=== PATIENT | female | born 1960 | race Caucasian/White ===

== ENCOUNTER 2016-08-15 12:28 | Emergency (ER) | payer OTHER ==
[2016-08-15] MEDS ORDERED: INSULIN REGULAR HUMAN 100 UNITS/ML *VIAL IVPUSH ONE (12:59)
[2016-08-15] MEDS ORDERED: SODIUM CHLORIDE 1,000 ML IV ONE (12:59)
[2016-08-15 13:23] VITALS: TEMP 98.2; BMI 32.1
[2016-08-15 13:36] LABS: VENOUS BLOOD GAS HCO3 29.7 meq/L (22-29); VENOUS PH 7.37 (7.31-7.41)
[2016-08-15 13:44] LABS: MCH 29.2 pg (25.7-33.7); MCHC 32.7 g/dl (32.0-36.0); MEAN CELL VOLUME 89.3 fl (80-96); MEAN PLT VOLUME 8.1 fl (7.5-11.1); NEUTROPHILS 61.1 % (42.8-82.8); PLATELET COUNT 146 K/MM3 (134-434); RDW 14.8 % (11.6-15.6); WHITE BLOOD COUNT 6.6 K/mm3 (4.0-10.0)
[2016-08-15 13:45] LABS: URINE APPEARANCE CLEAR; URINE BILIRUBIN NEGATIVE (NEGATIVE); URINE BLOOD NEGATIVE (NEGATIVE); URINE COLOR LT. YELLOW; URINE GLUCOSE (UA) 3+ (NEGATIVE); URINE KETONE NEGATIVE (NEGATIVE); URINE LEUK ESTERASE NEGATIVE (NEGATIVE); URINE NITRITE NEGATIVE (NEGATIVE); URINE PROTEIN NEGATIVE (NEGATIVE); URINE UROBILINOGEN 0.2 E.U/dl E.U./dl (0.2-1.0)
--- NOTE | 2016-08-15 14:02 | PDOC ---
History of Present Illness - General History Source: Patient Exam Limitations: No Limitations - History of Present Illness Initial Comments: 08/15/16 14:06 The patient is a 56-year-old woman with a significant past medical history of non-insulin dependent diabetes mellitus, hepatitis C and chronic constipation who presents to the emergency department via EMS for further evaluation of hyperglycemia this morning. She states that her sugars typically run in the 160s and today, after experiencing generalized abdominal discomfort and lightheadedness, she decided to measure her sugar, which turned out to measure 291. She proceeded to go to her scheduled outpatient appointment for which she was found to have a blood glucose measurement of 585. She was given 1 shot of Insulin. EMS was activated. As per patient, she does not know what could have cause her elevated blood sugars, as she is complaint with her Metformin (1000 mg BID), however, she admits to some dietary noncompliance as she ate one Hersheys kiss, last night. She denies changes in dosages, new medications. She denies chest pain, cough, shortness of breath, headache, nausea, vomiting, diarrhea Allergies: No Known Drug Allergies Past Surgical History: None reported Social History: Current everyday cigarette smoker (approximately 2 cigarettes/ day) No ETOH and recreational drug use. Primary Care Physician: Dr. Ramírez <Eileen Saels - Last Filed: 08/15/16 14:07> <Yousif Adams - Last Filed: 08/15/16 14:37> - General Chief Complaint: Blood Sugar Problem Stated Complaint: WEAKNESS Time Seen by Provider: 08/15/16 13:02 Past History <Eileen Seals - Last Filed: 08/15/16 14:07> - Psycho/Social/Smoking Cessation Hx Suicidal Ideation: No Smoking History: Unknown if ever smoked Hx Alcohol Use: No Drug/Substance Use Hx: No <Yousif Adams - Last Filed: 08/15/16 14:37> - Past Medical History Allergies/Adverse Reactions: Allergies Allergy/AdvReac Type Severity Reaction Status Date / Time No Known Allergies Allergy Unverified 08/15/16 13:13 Review of Systems - Review of Systems Constitutional: No: Chills, Fever Respiratory: No: Cough, Shortness of Breath Cardiac (ROS): No: Chest Pain, Palpitations, Syncope ABD/GI: Yes: Nausea. No: Diarrhea, Vomiting : No: Dysuria All Other Systems: Reviewed and Negative <Yousif Adams - Last Filed: 08/15/16 14:37> *Physical Exam - Vital Signs Last Vital Signs Temp Pulse Resp BP Pulse Ox 98.2 F 88 20 160/81 95 08/15/16 12:30 08/15/16 12:30 08/15/16 12:30 08/15/16 12:30 08/15/16 12:30 - Physical Exam Comments: 08/15/16 14:06 GENERAL: The patient is awake, alert, and fully oriented, in no acute distress. HEAD: Normal with no signs of trauma. EYES: Pupils equal, round and reactive to light, extraocular movements intact, sclera anicteric, conjunctiva clear with no pallor. ENT: Ears normal, nares patent, oropharynx clear without exudates. Dry mucous membranes. NECK: Normal range of motion, supple without lymphadenopathy, JVD, or masses. LUNGS: Breath sounds equal, clear to auscultation bilaterally. No wheeze/ crackles. HEART: Regular rate and rhythm, normal S1 and S2 without murmur or rub. ABDOMEN: +Slightly distended but otherwise soft, nontender BS wnl. No guarding or rebound. No palpable masses. No hepatosplenomegaly. EXTREMITIES: Normal range of motion, no edema. No clubbing or cyanosis. No cords, erythema, or tenderness. NEUROLOGICAL: Cranial nerves II through XII grossly intact. Normal speech. Gait deferred. PSYCH: Normal mood, normal affect. SKIN: Warm, Dry, normal turgor, no rashes or lesions noted. <Eileen Seals - Last Filed: 08/15/16 14:07> - Vital Signs Last Vital Signs Temp Pulse Resp BP Pulse Ox 98.2 F 88 20 160/81 95 08/15/16 12:30 08/15/16 12:30 08/15/16 12:30 08/15/16 12:30 08/15/16 12:30 <Yousif Adams - Last Filed: 08/15/16 14:37> Heart Score/ECG Review #1 ECG reviewed & interpreted by me at: 13:44 General ECG Interpretation: Sinus Rhythm, Normal Rate (86), Normal Intervals ( qtc 421), No acute ischemic changes <AngieYousif - Last Filed: 08/15/16 14:37> ED Treatment Course - LABORATORY CBC & Chemistry Diagram: 08/15/16 13:30 08/15/16 13:30 - ADDITIONAL ORDERS Additional order review: Laboratory Results 08/15/16 08/15/16 08/15/16 13:30 13:30 13:30 VBG pH POC VBG pCO2 POC VBG pO2 Magnesium Cancelled Creatine Kinase Cancelled Troponin I Cancelled Urine Color Lt. yellow Urine Appearance Clear Urine pH 6.0 Ur Specific [place] <= 1.005 Urine Protein Negative Urine Glucose (UA) 3+ H Urine Ketones Negative Urine Blood Negative Urine Nitrite Negative Urine Bilirubin Negative Urine Urobilinogen 0.2 e.u/dl Ur Leukocyte Esterase Negative 08/15/16 13:01 VBG pH 7.37 POC VBG pCO2 52.9 H POC VBG pO2 26.1 L Magnesium Creatine Kinase Troponin I Urine Color Urine Appearance Urine pH Ur Specific [place] Urine Protein Urine Glucose (UA) Urine Ketones Urine Blood Urine Nitrite Urine Bilirubin Urine Urobilinogen Ur Leukocyte Esterase 08/15/16 13:30 RBC 4.30 MCV 89.3 MCHC 32.7 RDW 14.8 MPV 8.1 Neutrophils % 61.1 Lymphocytes % 31.0 Monocytes % 5.9 Eosinophils % 1.0 Basophils % 1.0 - Medications Given in the ED: ED Medications Discontinued Medications Generic Name Dose Route Start Last Admin Trade Name Freq PRN Reason Stop Dose Admin Sodium Chloride 1,000 mls @ 1,000 mls/hr 08/15/16 12:59 08/15/16 13:42 Normal Saline - IV 08/15/16 13:58 1,000 mls/hr ONCE ONE Administration <Eileen Seals - Last Filed: 08/15/16 14:07> - LABORATORY CBC & Chemistry Diagram: 08/15/16 13:30 08/15/16 13:30 - ADDITIONAL ORDERS Additional order review: Laboratory Results 08/15/16 08/15/16 08/15/16 13:30 13:30 13:30 VBG pH POC VBG pCO2 POC VBG pO2 Magnesium Cancelled Creatine Kinase Cancelled Troponin I Cancelled Urine Color Lt. yellow Urine Appearance Clear Urine pH 6.0 Ur Specific [place] <= 1.005 Urine Protein Negative Urine Glucose (UA) 3+ H Urine Ketones Negative Urine Blood Negative Urine Nitrite Negative Urine Bilirubin Negative Urine Urobilinogen 0.2 e.u/dl Ur Leukocyte Esterase Negative 08/15/16 13:01 VBG pH 7.37 POC VBG pCO2 52.9 H POC VBG pO2 26.1 L Magnesium Creatine Kinase Troponin I Urine Color Urine Appearance Urine pH Ur Specific [place] Urine Protein Urine Glucose (UA) Urine Ketones Urine Blood Urine Nitrite Urine Bilirubin Urine Urobilinogen Ur Leukocyte Esterase 08/15/16 13:30 RBC 4.30 MCV 89.3 MCHC 32.7 RDW 14.8 MPV 8.1 Neutrophils % 61.1 Lymphocytes % 31.0 Monocytes % 5.9 Eosinophils % 1.0 Basophils % 1.0 - Medications Given in the ED: ED Medications Discontinued Medications Generic Name Dose Route Start Last Admin Trade Name Freq PRN Reason Stop Dose Admin Sodium Chloride 1,000 mls @ 1,000 mls/hr 08/15/16 12:59 08/15/16 13:42 Normal Saline - IV 08/15/16 13:58 1,000 mls/hr ONCE ONE Administration <Yousif Adams - Last Filed: 08/15/16 14:37> Medical Decision Making - Medical Decision Making 08/15/16 14:00 A portion of this note was documented by scribe services under my direction. I have reviewed the details of the note, within reason, and agree with the documentation with the following case summary and management plan written by me. 56-year-old female with history of diabetes maintained on metformin presents from PMD office after routine visit revealed glucose level of 581. Patient reports compliance with her medications, some dietary noncompliance, otherwise denies infectious or dehydration symptoms, denies abdominal pain. Vital signs as noted. Exam as noted and within normal limits 56-year-old female with hyperglycemia noted on routine outpatient evaluation, rule out DKA, rule out infection. Labs, urinalysis EKG IV fluids, was given subcutaneous insulin at the PMD office Reassess and dispo accordingly 08/15/16 14:21 Hyperglycemia without elevated anion gap or ketones in the urine, CBC normal. Acetone negative. Received IV fluids, will discuss with Dr. Rodriguez, dispo accordingly. 08/15/16 14:35 Discussed with staff, agree with d/c plan and pt can follow up in office. <Yousif Adams - Last Filed: 08/15/16 14:37> *DC/Admit/Observation/Transfer - Attestations Scribe Attestion: 08/15/16 14:07 Documentation prepared by Eileen Seals, acting as certified medical dosimetrist for Yousif Adams MD. <Eileen Seals - Last Filed: 08/15/16 14:07> <Yousif Adams - Last Filed: 08/15/16 14:37> Diagnosis at time of Disposition: Hyperglycemia - Discharge Dispostion Disposition: HOME Condition at time of disposition: Stable - Referrals Referrals: Katerina Mckee MD [Primary Care Provider] - - Patient Instructions Printed Discharge Instructions: DI for Hyperglycemia -- Adult Additional Instructions: Activity as tolerated. Stay hydrated. Strict diabetic diet adherence. Continue your medications as previously prescribed by your physician. You should follow up with Dr. Rodriguez as soon as possible regarding today's emergency department visit. Return to the emergency department for any new or concerning symptoms, particularly persistently high sugars, vomiting or abdominal pain, fevers or dehydration.
[2016-08-15 14:10] LABS: ALBUMIN 3.5 g/dl (3.4-5.0); ALK PHOS 106 U/L (45-117); ANION GAP 8 (8-16); BILIRUBIN,TOTAL 0.3 mg/dL (0.2-1.0); CALCIUM 9.2 mg/dL (8.5-10.1); CO2 30 mmol/L (21-32); CREATININE 0.7 mg/dL (0.55-1.02); MAGNESIUM 1.7 mg/dL (1.8-2.4); SGPT/ALT 39 U/L (12-78); TOT PROT 7.6 g/dl (6.4-8.2)
[2016-08-15 14:15] LABS: SGOT/AST 31 U/L (15-37)
[2016-08-15 14:16] LABS: GLUCOSE,RANDOM 339 mg/dL (74-106)
[2016-08-15 14:17] LABS: TROPONIN I < 0.02 ng/ml (0.00-0.05)
[2016-08-15 15:10] VITALS: BP 134/74; PULSE 80
--- NOTE | 2016-08-15 23:51 | EKG ---
Test Reason : Blood Pressure : / mmHG Vent. Rate : 086 BPM Atrial Rate : 086 BPM P-R Int : 164 ms QRS Dur : 082 ms QT Int : 352 ms P-R-T Axes : 056 046 058 degrees QTc Int : 421 ms NORMAL SINUS RHYTHM NONSPECIFIC T WAVE ABNORMALITY ABNORMAL ECG NO PREVIOUS ECGS AVAILABLE Confirmed by HARSH MCINTYRE, BOY ([id number]) on 08/15/2016 11:51:17 PM Referred By: Confirmed By:BOY HOUSE MD
== END 2016-08-15 15:11 | disposition home or self-care (01) ==
LOC: JER 12:28
PROC: 3E0337Z Introduction of Electrolytic and Water Balance Substance into Peripheral Vein, Percutaneous Approach (ICD-10-PCS; principal; 2016-08-15)
DX: R73.9 Hyperglycemia, unspecified (principal); Z79.84 Long term (current) use of oral hypoglycemic drugs; B19.20 Unspecified viral hepatitis C without hepatic coma; K59.09 Other constipation; F17.210 Nicotine dependence, cigarettes, uncomplicated
CPT/HCPCS: 36415; 80053; 81003; 82009; 82550; 82803; 83735; 84484; 85025; 85730; 93005; 93010; 96360; 99283-25

== ENCOUNTER 2016-12-02 12:12 | Emergency (ER) | payer OTHER ==
[2016-12-02 12:19] VITALS: TEMP 98.4; BMI 26.6
[2016-12-02] MEDS ORDERED: SODIUM CHLORIDE 1,000 ML IV STA ×2 (12:55→15:08)
[2016-12-02 13:13] LABS: BASOPHIL 1.1 % (0-2.0); EOSINOPHIL 6.9 % (0-4.5); MCH 29.2 pg (25.7-33.7); MCHC 32.5 g/dl (32.0-36.0); MEAN CELL VOLUME 89.9 fl (80-96); MEAN PLT VOLUME 8.8 fl (7.5-11.1); NEUTROPHILS 68.7 % (42.8-82.8); PLATELET COUNT 236 K/MM3 (134-434); RDW 15.2 % (11.6-15.6); WHITE BLOOD COUNT 10.8 K/mm3 (4.0-10.0)
--- NOTE | 2016-12-02 13:15 | PDOC ---
History of Present Illness - General Chief Complaint: Blood Sugar Problem Stated Complaint: DIABETIC/LT LEG SWOLLEN Time Seen by Provider: 12/02/16 12:42 History Source: Patient Exam Limitations: No Limitations - History of Present Illness Initial Comments: 12/02/16 13:01 56-year-old female presents to the ED with complaints of elevated sugar for the past 2 days with a maximum of 320 which she normally states ranges anywhere from high 100s to 200. Patient states also has been constipated for the past week and a half sine she has generalized abdominal cramping and mild distention. Patient states that this will constipation here and there and did not take anything this time for the constipation since she wanted to come to the ER for further evaluation of elevated glucose and pain to bilateral lower extremities greater in the left lower extremity. Patient denies calf tenderness , lower extremity edema, skin discoloration, or sensory changes to the legs. Patient states is currently on methadone and antidepressant medication unsure her medications need adjustment so has a follow-up appointment with her doctor next week since she is being transitioned from pills to insulin by her PCP secondary to uncontrolled diabetes Timing/Duration: other (3 days) Severity: moderate Associated Symptoms: reports: malaise (mild) Past History - Past Medical History Allergies/Adverse Reactions: Allergies Allergy/AdvReac Type Severity Reaction Status Date / Time No Known Allergies Allergy Unverified 12/02/16 12:13 Home Medications: Ambulatory Orders Aripiprazole [Abilify] 20 mg PO DAILY 12/02/16 Benztropine Mesylate [Cogentin -] 1 mg PO BID 12/02/16 Clonazepam [KlonoPIN] 0.5 mg PO DAILY 12/02/16 Gabapentin 300 mg PO HS 12/02/16 Metformin HCl [Metformin HCl ER] 1,000 mg PO DAILY 12/02/16 Methadone [Dolophine -] 80 mg PO DAILY 12/02/16 Omeprazole 20 mg PO DAILY 12/02/16 Polyethylene Glycol 3350 [Miralax (For Bowel Prep) -] 17 gm PO ONCE #1 bottle Sertraline HCl [Zoloft -] 200 mg PO DAILY 12/02/16 Sitagliptin Phosphate [Januvia] 100 mg PO DAILY 12/02/16 Diabetes: Yes Liver Disease: Yes (hepatitis c) Psychiatric Problems: Yes Other medical history: hx of heroin abuse on methadone - Surgical History Cholecystectomy: No (gallstones) - Immunization History Immunization Up to Date: Yes - Psycho/Social/Smoking Cessation Hx Anxiety: No Suicidal Ideation: No Smoking History: Current every day smoker Have you smoked in the past 12 months: Yes Number of Cigarettes Smoked Daily: 2 Information on smoking cessation initiated: Yes 'Breaking Loose' booklet given: 12/02/16 Hx Alcohol Use: No Drug/Substance Use Hx: Yes (on methadone prog for heroin) Substance Use Type: Heroin Patient Lives Alone: No Review of Systems - Review of Systems Able to Perform ROS?: Yes Constitutional: No: Symptoms Reported HEENTM: No: Symptoms Reported Respiratory: No: Symptoms reported Cardiac (ROS): No: Symptoms Reported ABD/GI: Yes: Abdominal Distended, Constipated, Abdominal cramping : No: Symptoms Reported Musculoskeletal: Yes: Muscle Pain (bilateral legs) Integumentary: No: Symptoms Reported Neurological: No: Symptoms reported Endocrine: No: Increased Thirst, Increased Urine, Change in Weight Hematologic/Lymphatic: No: Symptoms Reported *Physical Exam - Vital Signs Last Vital Signs Temp Pulse Resp BP Pulse Ox 98.4 F 109 H 18 155/90 95 12/02/16 12:14 12/02/16 12:14 12/02/16 12:14 12/02/16 12:14 12/02/16 12:14 - Physical Exam General Appearance: Yes: Nourished, Appropriately Dressed. No: Apparent Distress HEENT: positive: EOMI, HERIBERTO, TMs Normal, Pharynx Normal. negative: Pale Conjunctivae Neck: positive: Supple Respiratory/Chest: positive: Lungs Clear, Normal Breath Sounds. negative: Respiratory Distress, Accessory Muscle Use Cardiovascular: positive: Regular Rhythm, Tachycardia. negative: Murmur Gastrointestinal/Abdominal: positive: Normal Bowel Sounds, Soft, Distended ( mild generalized). negative: Tenderness Musculoskeletal: negative: CVA Tenderness Extremity: positive: Normal Capillary Refill, Normal Inspection, Normal Range of Motion. negative: Tender, Pedal Edema Integumentary: positive: Normal Color, Warm, Moist Neurologic: positive: Motor Strength 5/5 (ambulatory). negative: Normal Mood/ Affect (slightly groggy appearance) ED Treatment Course - LABORATORY CBC & Chemistry Diagram: 12/02/16 13:03 12/02/16 13:03 - RADIOLOGY Radiology Studies Ordered: Category Date Time Status KUB (KID UR & BLAD) [RAD] Stat Radiology 12/02/16 12:55 Ordered Medical Decision Making - Medical Decision Making 12/02/16 13:07 Patient complains of constipation, elevated glucose, and pains to bilateral legs. Patient slightly tachycardic upon arrival and was ordered for labs, urine , KUB, IV fluids, acetone, and an EKG. 12/02/16 14:43 Laboratory Tests 12/02/16 12/02/16 12/02/16 13:00 13:03 13:03 WBC 10.8 H D Hgb 13.6 Hct 41.8 Plt Count 236 D Neutrophils % 68.7 Sodium 136 Potassium 5.1 Chloride 94 L Carbon Dioxide 29 Anion Gap 13 BUN 13 Creatinine 0.8 Creat Clearance w eGFR > 60 Random Glucose 378 H* Calcium 10.6 H Magnesium 1.6 L AST 82 H D Alkaline Phosphatase 579 H D Urine Protein 1+ H Urine Glucose (UA) 3+ H Urine Ketones 1+ H Urine Urobilinogen 2.0 e.u/dl H Urine RBC 1 Acetone, Qual Trace H Patient be given 2 g of magnesium a second bag of IV fluid, be revitalize secondary to elevated heart rate of 109 upon triage. Patient also have repeat BGM after second bag of IV fluid is completed. 12/02/16 16:33 Patient's repeat BGM is 275. Chest x-ray shows constipation without obstruction. Patient states feeling better and wants to go home. Will discharge patient home to follow-up with her PCP this week as discussed and will go home with MiraLAX. 12/02/16 16:39 Upon discharge repeat vital signs with a BP 202/90. Patient states has borderline htn. Nurse will confirm medications at [facility] to see if pt is taking medication for htn since pt is unable to recall. 12/02/16 16:54 Pt is on no medication for htn. Pt will be given clonidine 0.1mg. 12/02/16 18:03 Repeat blood pressure 188/90. Patient is currently asymptomatic. Patient will be discharged home to follow-up with her PCP this week as discussed. *DC/Admit/Observation/Transfer Diagnosis at time of Disposition: Hyperglycemia, Hypomagnesemia Constipation Qualifiers: Constipation type: unspecified constipation type Qualified Code(s): K59.00 - Constipation, unspecified - Discharge Dispostion Disposition: HOME Condition at time of disposition: Improved - Prescriptions Prescriptions: Polyethylene Glycol 3350 [Miralax (For Bowel Prep) -] 17 gm PO ONCE #1 bottle - Referrals Referrals: Katerina Mckee MD [Primary Care Provider] - - Patient Instructions Printed Discharge Instructions: DI for Hyperglycemia -- Adult, DI for Constipation, Getting to the Heart of a Healthful Diet Additional Instructions: Please drink small sips of fluid frequently throughout the day and eat well- balanced meals throughout the day. Take MiraLAX as prescribed for constipation and may repeat dose in one hour of no bowel movement. Please follow up with your PCP this week to discuss today's visit .
[2016-12-02 13:28] LABS: URINE APPEARANCE CLEAR; URINE BILIRUBIN NEGATIVE (NEGATIVE); URINE BLOOD NEGATIVE (NEGATIVE); URINE COLOR YELLOW; URINE GLUCOSE (UA) 3+ (NEGATIVE); URINE KETONE 1+ (NEGATIVE); URINE LEUK ESTERASE NEGATIVE (NEGATIVE); URINE NITRITE NEGATIVE (NEGATIVE); URINE UROBILINOGEN 2.0 E.U/dl E.U./dl (0.2-1.0)
[2016-12-02 13:29] LABS: URINE PROTEIN 1+ (NEGATIVE)
[2016-12-02 13:30] LABS: URINE BACTERIA RARE /hpf (NONE SEEN); URINE MUCUS RARE; URINE RBC 1 /hpf (0-3); URINE WBC 1 /hpf (3-5)
[2016-12-02 13:45] LABS: ALBUMIN 3.6 g/dl (3.4-5.0); ANION GAP 13 (8-16); BILIRUBIN,TOTAL 0.9 mg/dL (0.2-1.0); CALCIUM 10.6 mg/dL (8.5-10.1); CO2 29 mmol/L (21-32); CREATININE 0.8 mg/dL (0.55-1.02); MAGNESIUM 1.6 mg/dL (1.8-2.4); SGPT/ALT 73 U/L (12-78)
[2016-12-02 14:17] LABS: ACETONE SERUM TRACE (NEGATIVE)
[2016-12-02 14:20] LABS: ALK PHOS 579 U/L (45-117); SGOT/AST 82 U/L (15-37)
[2016-12-02 14:22] LABS: GLUCOSE,RANDOM 378 mg/dL (74-106)
[2016-12-02] MEDS ORDERED: MAGNESIUM SULF 50% (8.12 MEQ/2 ML-1 GM VIAL) IVPB ONE (14:43)
[2016-12-02] MEDS ORDERED: MAGNESIUM SULF 50% (8.12 MEQ/2 ML-1 GM VIAL) ONE (15:09)
[2016-12-02] MEDS ORDERED: cloNIDine HCL 0.1 MG TABLET PO ONE (16:54)
[2016-12-02] MEDS ORDERED: cloNIDine HCL 0.1 MG TABLET ONE (16:56)
[2016-12-02 18:03] VITALS: BP 183/87; PULSE 91
--- NOTE | 2016-12-03 00:12 | EKG ---
Test Reason : Blood Pressure : / mmHG Vent. Rate : 101 BPM Atrial Rate : 101 BPM P-R Int : 172 ms QRS Dur : 070 ms QT Int : 348 ms P-R-T Axes : 076 075 080 degrees QTc Int : 451 ms SINUS TACHYCARDIA RIGHT ATRIAL ENLARGEMENT MINIMAL VOLTAGE CRITERIA FOR LVH, MAY BE NORMAL VARIANT NONSPECIFIC T WAVE ABNORMALITY ABNORMAL ECG WHEN COMPARED WITH ECG OF 15-AUG-2016 13:44, NO SIGNIFICANT CHANGE WAS FOUND Confirmed by HARSH MCINTYRE, BOY ([id number]) on 12/03/2016 12:11:45 AM Referred By: Confirmed By:BOY HOUSE MD
== END 2016-12-02 18:04 | disposition home or self-care (01) ==
LOC: JER 12:12
PROC: 3E0337Z Introduction of Electrolytic and Water Balance Substance into Peripheral Vein, Percutaneous Approach (ICD-10-PCS; principal; 2016-12-02)
PROC: 3E033GC Introduction of Other Therapeutic Substance into Peripheral Vein, Percutaneous Approach (ICD-10-PCS; 2016-12-02)
DX: E11.65 Type 2 diabetes mellitus with hyperglycemia (principal); Z79.84 Long term (current) use of oral hypoglycemic drugs; E83.42 Hypomagnesemia; K59.00 Constipation, unspecified; M79.662 Pain in left lower leg; M79.661 Pain in right lower leg; F11.20 Opioid dependence, uncomplicated; F17.210 Nicotine dependence, cigarettes, uncomplicated
CPT/HCPCS: 36415; 74000-TC; 80053; 81003; 81015; 82009; 83735; 85025; 93005; 93010; 96361; 96374; 99284-25

== ENCOUNTER 2017-04-01 15:26 | Inpatient (IN) | payer OTHER ==
[2017-04-01] MEDS ORDERED: SODIUM CHLORIDE 0.9% 1000 ML INFUS.BAG IV ONE (19:34)
[2017-04-01] MEDS ORDERED: clonazePAM 0.5 MG TABLET PO ONE (19:40)
--- NOTE | 2017-04-01 19:43 | PDOC ---
History of Present Illness <Alexandrea Simeon - Last Filed: 04/01/17 23:47> - General History Source: Patient Exam Limitations: No Limitations - History of Present Illness Initial Comments: 04/01/17 19:45 CC: LUQ Abdominal pain Patient is a 57 y.o. female with a PMH of NIDDM, Hepatitis C, Heroin use ( completed methadone detox) presents today wiht a 2 week h/o LUQ abdominal pain and chest pain. Patient states the pain came on suddenly while sitting at home and has persisted 8-05/14. Patient localizes the pain to her LUQ and underneath her L breast. Patient is unable to qualify the pain. Patient notes a bloated belly of similar duration as well diarrhea ( non-bloody, watery). Patient also notes a 3 week h/o of weight loss, patient estimates she lost 60 pounds and notes a decreased appetite. Patient denies any fevers, chills, shortness of breath, nausea or vomiting. Past Surgical: none Social: (+) nicotine- 2 cigarettes daily, (-) alcohol, (-) marijuana/cocaine, previous heroin use PMD: Dr. Mckee <Jade Urbina - Last Filed: 04/02/17 06:17> - General Chief Complaint: Pain Stated Complaint: LUQ Abdominal pain Time Seen by Provider: 04/01/17 19:03 Past History <Alexandrea Simeon - Last Filed: 04/01/17 23:47> - Past Medical History Diabetes: Yes Liver Disease: Yes (hepatitis c) Psychiatric Problems: Yes - Surgical History Cholecystectomy: No (gallstones) - Immunization History Immunization Up to Date: Yes - Psycho/Social/Smoking Cessation Hx Anxiety: No Suicidal Ideation: No Smoking History: Current every day smoker Have you smoked in the past 12 months: Yes Number of Cigarettes Smoked Daily: 5 Information on smoking cessation initiated: No 'Breaking Loose' booklet given: 12/02/16 Hx Alcohol Use: No Drug/Substance Use Hx: No Substance Use Type: None, Heroin <Jade Urbina - Last Filed: 04/02/17 06:17> - Past Medical History Allergies/Adverse Reactions: Allergies Allergy/AdvReac Type Severity Reaction Status Date / Time No Known Allergies Allergy Unverified 04/01/17 15:41 Home Medications: Ambulatory Orders Aripiprazole [Abilify] 20 mg PO DAILY 12/02/16 Benztropine Mesylate [Cogentin -] 1 mg PO BID 12/02/16 Clonazepam [KlonoPIN] 0.5 mg PO DAILY 12/02/16 Gabapentin 900 mg PO HS 12/02/16 Metformin HCl [Metformin HCl ER] 1,000 mg PO DAILY 12/02/16 Methadone [Dolophine -] 80 mg PO DAILY 12/02/16 Omeprazole 20 mg PO DAILY 12/02/16 Polyethylene Glycol 3350 [Miralax (For Bowel Prep) -] 17 gm PO ONCE #1 bottle Sitagliptin Phosphate [Januvia] 100 mg PO DAILY 12/02/16 Amlodipine Besylate 10 mg PO DAILY 04/01/17 Fenofibrate Nanocrystallized [Fenofibrate] 54 mg PO DAILY 04/01/17 Glipizide [Glipizide ER] 10 mg PO BID 04/01/17 Lisinopril [Prinivil] 20 mg PO DAILY 04/01/17 Pravastatin Sodium 20 mg PO DAILY 04/01/17 Sofosbuvir/Velpatasvir [Epclusa 400 mg-100 mg Tablet] 1 each PO DAILY 04/01/17 Review of Systems - Review of Systems Constitutional: Yes: Unintentional Wgt. Loss. No: Chills, Diaphoresis, Fever HEENTM: No: Blurred Vision, Double Vision, Tinnitus, Hearing Loss Respiratory: No: Cough, Orthopnea, Shortness of Breath, Wheezing Cardiac (ROS): Yes: Chest Pain. No: Edema, Irregular Heart Rate, Lightheadedness, Palpitations ABD/GI: Yes: Abdominal Distended, Diarrhea <Jade Urbina - Last Filed: 04/02/17 06:17> *Physical Exam - Vital Signs Last Vital Signs Temp Pulse Resp BP Pulse Ox 98.5 F 93 H 17 125/62 96 04/01/17 21:55 04/01/17 21:55 04/01/17 21:55 04/01/17 21:55 04/01/17 21:55 <Alexandrea Simeon - Last Filed: 04/01/17 23:47> - Vital Signs Last Vital Signs Temp Pulse Resp BP Pulse Ox 98.6 F 95 H 16 148/66 98 04/01/17 15:37 04/01/17 15:37 04/01/17 15:37 04/01/17 15:37 04/01/17 15:37 - Physical Exam General Appearance: Yes: Nourished, Thin HEENT: positive: EOMI, HERIBERTO, Other (Tongue icterus) Neck: positive: Trachea midline, Supple Respiratory/Chest: positive: Chest Tender, Lungs Clear, Normal Breath Sounds Cardiovascular: positive: Regular Rhythm, Regular Rate, S1, S2 Gastrointestinal/Abdominal: positive: Protuberent, Distended, Other (No appreciable scleral icterus, or ) Integumentary: positive: Warm, Other (L sided facial discoloration) Neurologic: positive: brand recorder II-XII NML intact <Jade Urbina - Last Filed: 04/02/17 06:17> ED Treatment Course - LABORATORY CBC & Chemistry Diagram: 04/01/17 19:54 04/01/17 19:42 - ADDITIONAL ORDERS Additional order review: Laboratory Results 04/01/17 04/01/17 04/01/17 20:03 19:42 19:40 Sodium 138 Potassium 4.4 Chloride 97 L Carbon Dioxide 34 H Anion Gap 7 L BUN 5 L D Creatinine 0.4 L D Creat Clearance w eGFR > 60 Random Glucose 84 D Lactic Acid 2.2 H* Calcium 9.1 Total Bilirubin 0.8 AST 29 D ALT 28 D Alkaline Phosphatase 335 H D Ammonia Creatine Kinase 23 L Troponin I < 0.02 Total Protein 7.2 Albumin 2.5 L D 04/01/17 19:40 Sodium Potassium Chloride Carbon Dioxide Anion Gap BUN Creatinine Creat Clearance w eGFR Random Glucose Lactic Acid Calcium Total Bilirubin AST ALT Alkaline Phosphatase Ammonia 45.71 H Creatine Kinase Troponin I Total Protein Albumin 04/01/17 19:54 RBC 4.23 MCV 89.7 MCHC 32.5 RDW 16.3 H MPV 7.9 D Neutrophils % 82.8 D Lymphocytes % 10.0 D Monocytes % 6.2 Eosinophils % 0.5 D Basophils % 0.5 - RADIOLOGY Radiology Studies Ordered: Category Date Time Status ABDOMEN & PELVIS CT WITH CONTR [CT] Stat CT Scan 04/01/17 21:08 Completed - Medications Given in the ED: ED Medications Discontinued Medications Generic Name Dose Route Start Last Admin Trade Name Freq PRN Reason Stop Dose Admin Clonazepam 1 mg 04/01/17 19:40 04/01/17 19:49 Klonopin - PO 04/01/17 19:41 1 mg ONCE ONE Administration Sodium Chloride 1,000 ml 04/01/17 19:34 04/01/17 19:37 Normal Saline - IV 04/01/17 19:35 1,000 ml ONCE ONE Administration <Alexandrea Simeon - Last Filed: 04/01/17 23:47> - LABORATORY CBC & Chemistry Diagram: 04/01/17 19:54 04/01/17 19:42 - Medications Given in the ED: ED Medications Discontinued Medications Generic Name Dose Route Start Last Admin Trade Name Damien PRN Reason Stop Dose Admin Sodium Chloride 1,000 ml 04/01/17 19:34 04/01/17 19:37 Normal Saline - IV 04/01/17 19:35 1,000 ml ONCE ONE Administration <Jade Urbina - Last Filed: 04/02/17 06:17> Medical Decision Making - Medical Decision Making 04/01/17 20:06 Patient is a 57 y.o. female with a PMH of NIDDM, Hepatitis C, Heroin use ( completed methadone detox) presents today with a 2 week h/o LUQ abdominal pain with some radiation to the chest. Initial differential diagnosis includes ACS vs. Malignancy vs. Diverticulitis vs. Cholecystitis. PLAN 1. CMP, CBC 2. HIV Test (patient consented) 3. CT Abdomen w/contrast + beside U/S 4. Troponin + EKG 04/01/17 20:25 EKG shows NSR (HR 87 bpm) with no ST elevations and no prolonged QTC. 04/01/17 23:08 Radiologist called with report patient has pulmonary embolism and splenic vein infarction. Heparin drip to be started pending coagulation studies. 04/02/17 00:51 Patient admitted to hospitalist service under Dr. David. <Jade Urbina - Last Filed: 04/02/17 06:17> *DC/Admit/Observation/Transfer - Discharge Dispostion Admit: Yes <Alexandrea Simeon - Last Filed: 04/01/17 23:47> - Discharge Dispostion Admit: Yes <Jade Urbina - Last Filed: 04/02/17 06:17> Diagnosis at time of Disposition: Splenic infarct, Pulmonary embolism - Discharge Dispostion Condition at time of disposition: Good - Referrals
[2017-04-01] MEDS ORDERED: clonazePAM 0.5 MG TABLET ONE (19:44)
--- NOTE | 2017-04-01 20:11 | PDOC ---
Attending Attestation - Resident Resident Name: Jade Urbina - ED Attending Attestation I have performed the following: I have examined & evaluated the patient, The case was reviewed & discussed with the resident, I agree w/resident's findings & plan, Exceptions are as noted - HPI HPI: 04/01/17 20:08 57 yo F wit h/o hep C, DM, here wtih c/o weight loss, , and luq pain. no cp no sob. no n/v no f/c c/o watery diarrhea. 4 - 6 bm / day. lives alone at home. - Physicial Exam PE: 04/01/17 20:09 one exam awake alert lungs clear heart rrr no mrg. abd soft distended. llq and mild rlq ttp.l no rebound no guarding. ext wwp no edema. nuero awake alert oriented. moves all ext. speech clear. - Medical Decision Making 04/01/17 20:10 57 yo F DM Hep c, with abd distension, ttp on llq , c/o pain and weight loss. differential : lung ca h/o nodule, cirrhosis and ascites, colitis, diverituclitis, uti pyelo, plan labs ct a/p cxr ekg ua ekg cardiac workup for luq pain. 04/01/17 21:55 focused ED abd ultrasound performed. noted free fluid in right upper .left upper quadrant and pelvis. c/w ascites. renal bilat no cyst, no hydronephrosis. bladder nondistended. impression: ascites. Heart Score/ECG Review #1 General ECG Interpretation: Sinus Rhythm, Normal Rate (87 bpm), Normal Intervals , No acute ischemic changes
[2017-04-01 20:24] LABS: BASOPHIL 0.5 % (0-2.0); EOSINOPHIL 0.5 % (0-4.5); MCH 29.2 pg (25.7-33.7); MCHC 32.5 g/dl (32.0-36.0); MEAN CELL VOLUME 89.7 fl (80-96); MEAN PLT VOLUME 7.9 fl (7.5-11.1); NEUTROPHILS 82.8 % (42.8-82.8); PLATELET COUNT 458 K/MM3 (134-434); RDW 16.3 % (11.6-15.6); WHITE BLOOD COUNT 21.1 K/mm3 (4.0-10.0)
[2017-04-01 20:48] LABS: CPK 23 IU/L (26-192)
[2017-04-01 20:50] LABS: TROPONIN I < 0.02 ng/ml (0.00-0.05)
[2017-04-01 20:54] LABS: ALBUMIN 2.5 g/dl (3.4-5.0); ALK PHOS 335 U/L (45-117); ANION GAP 7 (8-16); BILIRUBIN,TOTAL 0.8 mg/dL (0.2-1.0); CALCIUM 9.1 mg/dL (8.5-10.1); CO2 34 mmol/L (21-32); CREATININE 0.4 mg/dL (0.55-1.02); GLUCOSE,RANDOM 84 mg/dL (74-106); SGOT/AST 29 U/L (15-37); SGPT/ALT 28 U/L (12-78); TOT PROT 7.2 g/dl (6.4-8.2)
[2017-04-01 21:09] LABS: PLATELET ESTIMATE INCREASED (NORMAL)
[2017-04-01 21:11] LABS: HIV 1 & 2 AB NEGATIVE; HIV 1 AGp24 NEGATIVE
[2017-04-01] MEDS ORDERED: HEPARIN NA (PORCINE) 5,000 UNITS/ML 1ML VIAL IVPUSH ONE (23:10)
[2017-04-02] MEDS ORDERED: SODIUM CHLORIDE 1,000 ML IV STA (00:47)
--- NOTE | 2017-04-02 00:48 | PN ---
Teaching Attending Note Name of Resident: Christina Sanchez ATTENDING PHYSICIAN STATEMENT I saw and evaluated the patient. I reviewed the resident's note and discussed the case with the resident. I agree with the resident's findings and plan as documented. SUBJECTIVE: 57 yo F with pmhx of NIDDM, Hep. C (on tx. currently), Asthma, current smoker, heroin abuse currently on methadone program, who presents with 2 week history of Pain on l. chest under her breast. States she has also had a 60 lb weight loss within past 2 months (without trying). Also notes, daily diarrhea x1 week * non-bloody. States she has had subjective fevers. No night sweats. No current chest pain or pressure. OBJECTIVE: Physical: VS: Vital Signs Period Temp Pulse Resp BP Sys/Roach Pulse Ox Last 24 Hr 98.5 F-98.6 F 93-95 16-18 125-171/56-66 96-98 GEN: Thin, frail, lady resting in bed HEENT: NCAT, PERRL, throat without erythema or exudates CARD: S Tach RRR S1, S2 RESP: CTAB ABD: BSx4, Abdominal distension with fluid wave, Hepatomegaly EXT: +1 Pitting edema, bilateral and equal CBCD WBC 21.1 K/mm3 (4.0-10.0) H D 04/01/17 19:54 RBC 4.23 M/mm3 (3.60-5.2) 04/01/17 19:54 Hgb 12.3 GM/dL (10.7-15.3) 04/01/17 19:54 Hct 37.9 % (32.4-45.2) 04/01/17 19:54 MCV 89.7 fl (80-96) 04/01/17 19:54 MCHC 32.5 g/dl (32.0-36.0) 04/01/17 19:54 RDW 16.3 % (11.6-15.6) H 04/01/17 19:54 Plt Count 458 K/MM3 (134-434) H D 04/01/17 19:54 MPV 7.9 fl (7.5-11.1) D 04/01/17 19:54 CMP Sodium 138 mmol/L (136-145) 04/01/17 19:42 Potassium 4.4 mmol/L (3.5-5.1) 04/01/17 19:42 Chloride 97 mmol/L (98-107) L 04/01/17 19:42 Carbon Dioxide 34 mmol/L (21-32) H 04/01/17 19:42 Anion Gap 7 (8-16) L 04/01/17 19:42 BUN 5 mg/dL (7-18) L D 04/01/17 19:42 Creatinine 0.4 mg/dL (0.55-1.02) L D 04/01/17 19:42 Creat Clearance w eGFR > 60 (>60) 04/01/17 19:42 Random Glucose 84 mg/dL (74-106) D 04/01/17 19:42 Calcium 9.1 mg/dL (8.5-10.1) 04/01/17 19:42 Total Bilirubin 0.8 mg/dL (0.2-1.0) 04/01/17 19:42 AST 29 U/L (15-37) D 04/01/17 19:42 ALT 28 U/L (12-78) D 04/01/17 19:42 Alkaline Phosphatase 335 U/L (45-117) H D 04/01/17 19:42 Total Protein 7.2 g/dl (6.4-8.2) 04/01/17 19:42 Albumin 2.5 g/dl (3.4-5.0) L D 04/01/17 19:42 CARDIAC ENZYMES Creatine Kinase 23 IU/L (26-192) L 04/01/17 19:40 Troponin I < 0.02 ng/ml (0.00-0.05) 04/01/17 19:40 ABD/PELVIS CT: Acute PE- Left lower lobe with subplueral increased opacity c/w acute infarction Extensive splenic infarct, 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 of focal irregularity seen R. Hepatic love ?peritoneal implants. 2.3cm L. Hepatic lobe enhancing mass lesion. 3.4X1.4cm density w/ RL Pelvis posterior which may be a neoplastic implant Mild concentric wall thickening of sigmoid and descending colon (Colitis vs. ascites) Mild Intrahepatic biliart tract dilitation wo change CT CHEST (03/21): LLL Mass abuting the dital esophagus, FU PET 1cm Plueral based nodule within RML Ascites Ambulatory Orders Aripiprazole [Abilify] 20 mg PO DAILY 12/02/16 Benztropine Mesylate [Cogentin -] 1 mg PO BID 12/02/16 Clonazepam [KlonoPIN] 0.5 mg PO DAILY 12/02/16 Gabapentin 900 mg PO HS 12/02/16 Metformin HCl [Metformin HCl ER] 1,000 mg PO DAILY 12/02/16 Methadone [Dolophine -] 80 mg PO DAILY 12/02/16 Omeprazole 20 mg PO DAILY 12/02/16 Polyethylene Glycol 3350 [Miralax (For Bowel Prep) -] 17 gm PO ONCE #1 bottle Sitagliptin Phosphate [Januvia] 100 mg PO DAILY 12/02/16 Amlodipine Besylate 10 mg PO DAILY 04/01/17 Fenofibrate Nanocrystallized [Fenofibrate] 54 mg PO DAILY 04/01/17 Glipizide [Glipizide ER] 10 mg PO BID 04/01/17 Lisinopril [Prinivil] 20 mg PO DAILY 04/01/17 Pravastatin Sodium 20 mg PO DAILY 04/01/17 Sofosbuvir/Velpatasvir [Epclusa 400 mg-100 mg Tablet] 1 each PO DAILY 04/01/17 ASSESSMENT AND PLAN: 57 F with pmhx of NIDDM, Hep C, HTN, HLD, Herion abuse, who presents with chest pain, found to have LLL PE, splenic infarct, ascites, lung and hepatic masses and severe sepsis 1.) Chest Pain - Atypical most likely due to Pulmonary Embolism - Heparin gtt - Repeat coags - Echo Complete - Trend Trop/EKG - CTA when possible - Duplex Bilateral LE 2.) Splenic Infarct - Hep. gtt 3.) Severe Sepsis - Blood Cx, U cx - Repeat LA - IVF - Vanco/Zosyn - hx of Diarrhea- chk. C. Diff PCR - Flagyl 4.) Lung Nodules/Hepatic Nodules - Onc. Consult - Outpt. PET - AFP, CA- 19-19, CA- 125, CEA - Hepatic US 5.) DM II - FS - RAISS - Hold Metformin, Januvia, Glipizide 6.) Hep. C - GI consult - Tx. as Per GI 7.) ?Hepatic Encephalopathy - Mildly elevated Ammonia - Would hold off lacutlose for now due to diarrhea 8.) HTN - C/W Home meds 9.) Hx. of Heroin Abuse - Confirm Methadone dose Rest as per resident note Place in Med-Tele
--- NOTE | 2017-04-02 00:52 | HP ---
CHIEF COMPLAINT: "Left sided chest pain" PCP: Dr. Anders GI: Dr. Jones HISTORY OF PRESENT ILLNESS: Patient is a 57 year old female PMH of NIDDM, Hepatitis C (on antiviral meds), Heroin use (completed methadone detox) presented to the ED with the chief complaints of Left sided chest pain x 2weeks. As per the patient, the pain started suddenly, located under the left breast, non radiating, sharp pain, exacerbation by taking deep inspiration, no relieving factors. Not associated with nausea or vomiting. Patient gives h/o weight loss, lost about 60 lbs in about 1-2 months ( unintentional). She recently had imaging of her CT Abdomen/pelvis but doesn't know the results yet. Denies fever, chills, rigors, sweating, abdominal pain, palpitation, cough, headache, dizziness, LOC. Does give h.o recent fall in the bathtub. Also gives h/o diarrhoea since few days, non bloody. Last colonoscopy was done 3 years ago, is due for next colonoscopy. Bladder habit normal. Sleep normal. Appetite decreased. ER course was notable for: (1) Afebrile, hemodynamically stable, Leukocytosis, Lactic acid 2.2, ammonia 45.7 (2) Abd/Pelvis CT: Acute pulmonary embolism, extensive splenic infarctions, increased retroperitoneal lymphnodes, left hepatic lobe mass lesion 2.3 cm (3) IV NS, IV Vancomycin and IV Zosyn. Recent Travel: None PAST MEDICAL HISTORY: NIDDM, Hepatitis C, Heroin use (completed methadone detox) PAST SURGICAL HISTORY: Cyst removal from the left breast, salpingectomy(doesn't know which side), cholecystectomy. Social History: Smoking: Smoked since age 14, more than a pack since many year, now smokes around 1-2 cigs/day Alcohol: Occasional Drugs: opiates, now on Methadone Family History: Mother- varicose veins, has 2 sisters who have lupus and Colon cancer respectively. Allergies No Known Allergies Allergy (Unverified 04/01/17 15:41) HOME MEDICATIONS: Home Medications Medication Instructions Recorded Aripiprazole [Abilify] 20 mg PO DAILY 12/02/16 Benztropine Mesylate [Cogentin -] 1 mg PO BID 12/02/16 Clonazepam [KlonoPIN] 0.5 mg PO DAILY 12/02/16 Gabapentin 900 mg PO HS 12/02/16 Metformin HCl [Metformin HCl ER] 1,000 mg PO DAILY 12/02/16 Methadone [Dolophine -] 80 mg PO DAILY 12/02/16 Omeprazole 20 mg PO DAILY 12/02/16 Polyethylene Glycol 3350 [Miralax 17 gm PO ONCE #1 bottle 12/02/16 (For Bowel Prep) -] Sitagliptin Phosphate [Januvia] 100 mg PO DAILY 12/02/16 Amlodipine Besylate 10 mg PO DAILY 04/01/17 Fenofibrate Nanocrystallized 54 mg PO DAILY 04/01/17 [Fenofibrate] Glipizide [Glipizide ER] 10 mg PO BID 04/01/17 Lisinopril [Prinivil] 20 mg PO DAILY 04/01/17 Pravastatin Sodium 20 mg PO DAILY 04/01/17 Sofosbuvir/Velpatasvir [Epclusa 1 each PO DAILY 04/01/17 400 mg-100 mg Tablet] REVIEW OF SYSTEMS CONSTITUTIONAL: Present: loss of appetite, weight change Absent: fever, chills, diaphoresis, generalized weakness, malaise, HEENT: Absent: rhinorrhea, nasal congestion, throat pain, throat swelling, difficulty swallowing, mouth swelling, ear pain, eye pain, visual changes CARDIOVASCULAR: Present: chest pain, Absent: syncope, palpitations, irregular heart rate, lightheadedness, peripheral edema RESPIRATORY: Absent: cough, shortness of breath, dyspnea with exertion, orthopnea, wheezing, stridor, hemoptysis GASTROINTESTINAL: Absent: abdominal pain, abdominal distension, nausea, vomiting, diarrhea, constipation, melena, hematochezia GENITOURINARY: Absent: dysuria, frequency, urgency, hesitancy, hematuria, flank pain, genital pain MUSCULOSKELETAL: Absent: myalgia, arthralgia, joint swelling, back pain, neck pain SKIN: Absent: rash, itching, pallor HEMATOLOGIC/IMMUNOLOGIC: Absent: easy bleeding, easy bruising, lymphadenopathy, frequent infections ENDOCRINE: Absent: unexplained weight gain, unexplained weight loss, heat intolerance, cold intolerance NEUROLOGIC: Absent: headache, focal weakness or paresthesias, dizziness, unsteady gait, seizure, mental status changes, bladder or bowel incontinence PSYCHIATRIC: Absent: anxiety, depression, suicidal or homicidal ideation, hallucinations. PHYSICAL EXAMINATION GENERAL: Thinly built female, sitting comfortably in bed, Awake, alert, and fully oriented, in no acute distress. HEAD: Normal with no signs of trauma. EYES: EOM intact, no pallor or icterus. EARS, NOSE, THROAT: Ears normal. Moist mucous membranes. NECK: Supple. LUNGS: Breath sounds equal, clear to auscultation bilaterally. No wheezes, and no crackles. No accessory muscle use. HEART: Regular rate and rhythm, normal S1 and S2 without murmur, rub or gallop. ABDOMEN: Soft, nontender, not distended, normoactive bowel sounds, no guarding, no rebound, no masses. No hepatomegaly or splenomegaly. MUSCULOSKELETAL: Normal range of motion at all joints. No bony deformities or tenderness. No CVA tenderness. UPPER EXTREMITIES: 2+ pulses, warm, well-perfused. No cyanosis. No clubbing. No peripheral edema. LOWER EXTREMITIES: 2+ pulses, warm, well-perfused. No calf tenderness. No peripheral edema. NEUROLOGICAL: No facial droop, Normal speech.Gait not observed, Asterexis +. PSYCHIATRIC: Cooperative. Good eye contact. Appropriate mood and affect. SKIN: Melasma, Warm, dry, normal turgor, no rashes or lesions noted, normal capillary refill. Abdominal/Pelvic CT :- Acute pulmonary embolism is identified with associated left lower lobe subpleural increased opacity consistent with acute infarction. Extensive splenic infarction is noted. There is occlusion of the splenic and main portal veins which may be chronic or subacute. A moderate amount of ascites is seen which appears mildly increased in comparison to a chest CT study of 03/21/2017. Increased retroperitoneal and retrocrural lymphadenopathy is noted. Extensive intra-abdominal lymphadenopathy is again seen in the peripancreatic and yasmin hepatis regions. Bilateral pulmonary nodules are again noted. Interval development of focal irregularity seen along the right hepatic lobe laterally which may be on the basis of peritoneal implants versus possible laceration injury. 2.3 cm left hepatic lobe enhancing mass lesion. A subtle 3.4 x 1.4 cm density is seen within the right lower pelvis posteriorly which may represent peritoneal neoplastic implant. There is possible mild concentric wall thickening along the sigmoid and descending colon which could be on the basis of colitis versus secondary to previously described ascites. Mild intrahepatic biliary tract dilatation without obvious interval change. Status post cholecystectomy. ASSESSMENT/PLAN: Patient is a 57 year old female PMH of NIDDM, Hepatitis C (on antiviral meds), Heroin use (completed methadone detox) presented to the ED with the chief complaints of Left sided chest pain x 2weeks. # Pulmonary embolism Patient presented with left sided chest pain with shortness of breath Abdominal/pelvis CT showed the PE. CTA not done Admitted in Tele Continuous cardiac monitoring No EKG changes IV Heparin drip, monitor PTT, bleeding ECHO Troponin x 1 negative, next troponin pending # Atypical Chest Pain Most likely due to Pulmonary Embolism vs musculoskeletal ECHO in am Duplex of lower ext done , official read pending. # Severe Sepsis-unknown etiology On arrival, Lactic acid of 2.2 ----> 1.2 (Lactic acidosis resolved after IV hydration) Continue gentle hydration, received 2 L in the ED Empirically treat with IV Zosyn and IV Vancomycin, change as per sensitivity Blood cultures and urine cultures sent before the antibiotics were given abx to be changed as per c/s. # Splenic Infarct Found in CT abdomen/Pelvis, will continue Heparin drip # Lung nodules and hepatic nodules-r/o Malignancy Has chest pain, significant unintentional weight loss- 60lbs in 2 months AFT, CA-19-9, CEA, CA-[address] Ngo consult requested Would consider Hepatic ultrasound # Asthma-not in exacerbation Albuterol PRN PFT's as outpatient to r/o obstructive vs restrictive lung disease. # Diabetes Type II HbA1c pending ISS BGM Watch for hypoglycemic drugs Hold home meds: Metformin, Januvia, Glipizide # Hep. C Currently on Antivirals at home: Sofosbuvir/Velpatasvir, will hold for now until GI consult GI consult requested # Hepatic Encephalopathy Confused on/off Asterexix + Ammonia level 45.71 PO Lactulose TID # Diarrhoea-r/o C. diff C. diff antigen and stool culture ordered Will treat emperically with IV Metronidazole 500mg Q8H # Hypertension- controlled Continue Lisinopril 20mg Daily, Amlodipine 10mg PO Daily # History of Heroin Abuse Confirm Methadone dose and continue # FEN IV Gentle hydration Electrolytes to be repeatd in am Diabetic diet # Prophylaxis For DVT: Already on Heparin Drip For GI: On Omeprazole # Code Status: Full code # Dispo: Admitted in Tele. Duration of stay unknown. Illness, Investigation and plan of care explained to the patient. She verbalized understanding. Case seen and discussed with Dr. Marie. Visit type - Emergency Visit Emergency Visit: Yes ED Registration Date: 04/02/17 Care time: The patient presented to the Emergency Department on the above date and was hospitalized for further evaluation of their emergent condition. - New Patient This patient is new to me today: Yes Date on this admission: 04/02/17 - Critical Care Critical Care patient: No
[2017-04-02 00:53] LABS: INR 1.63 (0.82-1.09); PROTHROMBIN TIME (PATIENT) 18.1 SEC (9.98-11.88)
[2017-04-02 00:56] LABS: ACTIVATED PTT 35.6 SECONDS (26.9-34.4)
[2017-04-02] MEDS ORDERED: VANCOMYCIN 1,000 MG in DEXTROSE 5%-WATER - 250 ML IVPB ONE (01:18)
[2017-04-02] MEDS ORDERED: PIPERACILLIN/TAZOB 3.375 GM 3.375 GM in DEXTROSE 5%-WATER - 50 ML IVPB ONE (01:19)
[2017-04-02] MEDS ORDERED: HEPARIN NA (PORCINE) 5,000 UNITS/ML 1ML VIAL ONE (01:21)
[2017-04-02] MEDS ORDERED: VANCOMYCIN 1 GRAM (PRE-DOCKED) 250 ML IVPB ONE (01:21)
[2017-04-02] MEDS ORDERED: HEPARIN INFUSION - 500 ML IVPB ONE (01:48)
[2017-04-02] MEDS: SODIUM CHLORIDE 1,000 ML IV SCH ×2 (02:00→18:46)
[2017-04-02] MEDS: HEPARIN - 25,000 UNIT in SODIUM CHLORIDE 495 ML IV SCH (02:30)
[2017-04-02] MEDS: METRONIDAZOLE 500 MG PREMIXED 100 ML IVPB SCH ×3 (02:33→17:56)
[2017-04-02 02:53] VITALS: BMI 20.2
[2017-04-02] MEDS ORDERED: LACTULOSE 20 GM/30 ML UDC (FOR ORAL USE ONLY) PO PRN (03:00)
[2017-04-02] MEDS: INSULIN SLIDING SCALE (NOVOLOG) 1 VIAL SQ SCH ×4 (06:24→22:13)
[2017-04-02 07:33] LABS: CHOLESTEROL 68 mg/dL (50-200)
[2017-04-02] MEDS ORDERED: PIPERACILLIN/TAZOB 3.375 GM/50 ML PRE-DOCKED IVPB ONE (08:00)
[2017-04-02] MEDS: LISINOPRIL 20 MG TABLET (FP) PO SCH (09:09)
[2017-04-02] MEDS: PANTOPRAZOLE 20 MG TABLET (FP) PO SCH (09:09)
[2017-04-02] MEDS: amLODIPine BESYLATE 10 MG TABLET (FP) PO SCH (09:09)
[2017-04-02 09:45] LABS: BASOPHIL 0.6 % (0-2.0); EOSINOPHIL 0.8 % (0-4.5); MCH 28.4 pg (25.7-33.7); MCHC 31.6 g/dl (32.0-36.0); MEAN CELL VOLUME 89.7 fl (80-96); MEAN PLT VOLUME 7.1 fl (7.5-11.1); NEUTROPHILS 86.5 % (42.8-82.8); PLATELET COUNT 441 K/MM3 (134-434); RDW 16.1 % (11.6-15.6); WHITE BLOOD COUNT 18.3 K/mm3 (4.0-10.0)
--- NOTE | 2017-04-02 09:45 | PN ---
Progress Note (short form) - Note Progress Note: ID consult dictated imp/reccd 57 year old female former IVDU, HIV negative on methadone for years +cigarette use weight loss 60 pounds acute PE splenic infarcts portal and splenic vein occlusion lymphadenopathy pulmonary nodules ascites hep c leukocytosis lactic acidosis- resolved no recent hospitalizations no recent antibiotics loose bms daily vanco/zosyn in ED can switch to ceftriaxone/flagyl pending cultures suspected malignancy? stools for culture and cdiff Problem List - Problems (1) Pulmonary embolism Code(s): I26.99 - OTHER PULMONARY EMBOLISM WITHOUT ACUTE COR PULMONALE (2) Splenic infarct Code(s): D73.5 - INFARCTION OF SPLEEN (3) Hep C w/o coma, chronic Code(s): B18.2 - CHRONIC VIRAL HEPATITIS C (4) Leukocytosis Code(s): D72.829 - ELEVATED WHITE BLOOD CELL COUNT, UNSPECIFIED (5) Lymphadenopathy Code(s): R59.1 - GENERALIZED ENLARGED LYMPH NODES
[2017-04-02] MEDS ORDERED: FENOFIBRATE NANOCRYSTALLIZED 54 MG PO SCH (10:00)
[2017-04-02] MEDS ORDERED: PATIENT'S OWN MEDICATION (NON-FORMULARY) (Pravastatin Sodium [Pravastatin Sodium] 20 MG) PO SCH (10:00)
[2017-04-02 10:31] LABS: ANION GAP 6 (8-16); CALCIUM 8.3 mg/dL (8.5-10.1); CO2 32 mmol/L (21-32); GLUCOSE,RANDOM 114 mg/dL (74-106); MAGNESIUM 1.8 mg/dL (1.8-2.4)
[2017-04-02 10:35] LABS: ALK PHOS 293 U/L (45-117); BILIRUBIN,TOTAL 0.9 mg/dL (0.2-1.0); CREATININE 0.3 mg/dL (0.55-1.02); PHOSPHOROUS 2.7 mg/dL (2.5-4.9); SGOT/AST 25 U/L (15-37); SGPT/ALT 24 U/L (12-78); TOT PROT 6.1 g/dl (6.4-8.2)
[2017-04-02 11:07] LABS: URINE APPEARANCE SLCLOUDY; URINE BILIRUBIN NEGATIVE (NEGATIVE); URINE BLOOD NEGATIVE (NEGATIVE); URINE COLOR AMBER; URINE GLUCOSE (UA) NEGATIVE (NEGATIVE); URINE KETONE NEGATIVE (NEGATIVE); URINE LEUK ESTERASE NEGATIVE (NEGATIVE); URINE NITRITE NEGATIVE (NEGATIVE); URINE PROTEIN NEGATIVE (NEGATIVE); URINE UROBILINOGEN 4.0 E.U/dl mg/dL (0.2-1.0)
[2017-04-02] MEDS: ALBUTEROL SO4 0.083% IH SOL 2.5 MG/3 ML VIAL.NEB. NEB PRN (11:23)
[2017-04-02] MEDS: cefTRIAXone 1 GM/50 ML BAG (PRE-DOCKED) IVPB SCH (11:34)
--- NOTE | 2017-04-02 11:40 | CONS ---
INFECTIOUS DISEASE CONSULTATION DATE OF CONSULTATION: 04/02/2017 HISTORY OF PRESENT ILLNESS: This is a 57-year-old woman with a past medical history of eut-tmxowzk-mcikrglag diabetes. She is on chronic methadone for years. History of hepatitis C. She is being followed by Dr. May in [place] and was started on hepatitis C medications about 2 months ago. She presents to the emergency room with complaints of left upper quadrant abdominal pain for the last several weeks. She reports a profound weight loss of 60 pounds. She denies any fevers or chills. She denies any nausea or vomiting. She notes she has had diarrhea that is non- bloody. She reports 1-2 loose stools daily. There is no history of any recent antibiotic use. She has not been hospitalized recently. 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 SURGICAL HISTORY: Notable for cholecystectomy, salpingectomy. ALLERGIES: There are no known drug allergies. MEDICATIONS: As an outpatient include Abilify, Cogentin, Klonopin, gabapentin, metformin, methadone, omeprazole, MiraLAX, Januvia, amlodipine, fenofibrate, glipizide, Prinivil, pravastatin, and Epclusa. She is followed by Dr. Pressley as an outpatient. FAMILY HISTORY: Noncontributory. SOCIAL HISTORY: She lives alone. She is originally from [place]. She has 1 sister there. She has no children. She smokes 2 cigarettes a day. She denies IV drug use or alcohol use. REVIEW OF SYSTEMS: Notable for weight loss. PHYSICAL EXAMINATION: General: She is awake and alert. Vital Signs: She weighs 107 pounds. Her temperature is 98.9, T-max is 99.2. Her blood pressure is 134/57, pulse of 81, respiratory rate 17. HEENT: She is normocephalic. Her eyes are anicteric. She has no thrush. Neck: Supple. She has no peripheral adenopathy. Lungs: Diminished breath sounds at the bases. Heart: Regular rate and rhythm. Abdomen: Soft. She has left upper quadrant pain per palpation. Extremities: Without edema. DIAGNOSTIC DATA: White count on admission was 21,000; this morning, is 18.3. Hemoglobin is 11.9; platelets are 441. BUN is 4 and creatinine 0.3. Lactic acid was 2.2 on admission; repeat is now 1.1. Alkaline phosphatase of 335, ammonia of 45. HIV status is negative. Blood cultures and urine cultures are pending. Duplex of her legs are negative for DVT. CAT scan of the abdomen and pelvis is notable for acute PE, associated left lower lobe subpleural opacity consistent with acute infarct; extensive splenic infarct , occlusion of the splenic and portal main veins; ascites; increased retroperitoneal and retropleural adenopathy; extensive intraabdominal lymphadenopathy; bilateral pulmonary nodules; a 2.3-cm left hepatic, enhancing mass lesion; and a right lower pelvis, 3.4 x 1.4 cm lesion as well; question of mild concentric wall thickening ; status post cholecystectomy. In summary, this is a 57-year-old woman, former substance user, human immunodeficiency virus negative, on methadone, cigarette use, with weight loss, found to have acute pulmonary embolism with splenic infarcts, portal and splenic vein occlusion, lymphadenopathy, pulmonary nodules, ascites, hepatitis C on treatment , leukocytosis, and lactic acidosis which is resolved. She has had no recent hospitalizations, no recent antibiotics. With these recent loose bowel movements, she was given vancomycin and Zosyn in the emergency room. we can switch her to ceftriaxone and Flagyl pending cultures. Echocardiogram has been ordered to evaluate her right heart function. Would send stools for Clostridium difficile and culture, and I suspect she has an underlying malignancy at this time. Further recommendations to follow. DARCY MURRIETA M.D. [id number] MTDKinza
[2017-04-02] MEDS ORDERED: INSULIN (NOVOLOG) ASPART 100 UNITS/ML 10ML VIAL ONE ×3 (12:27→22:07)
--- NOTE | 2017-04-02 13:14 | PN ---
Teaching Attending Note Name of Resident: Anne Roman ATTENDING PHYSICIAN STATEMENT I saw and evaluated the patient. I reviewed the resident's note and discussed the case with the resident. I agree with the resident's findings and plan as documented. SUBJECTIVE: no fever or chills , cont to have L sided chest pain. had n on bloody diarrhea at home but stopped. denies abd pain, reports increased abdominal distention OBJECTIVE: NAD , ill looking . dry MM CV: RRR. no tahcycardia . Lungs: CTAB. Abd: soft, ND , TTP in LLQ. + shifting dullness. liver is not palpated or percussed . Nl BS Ext: no edema or erythema ASSESSMENT AND PLAN: 57 y/o unfortunate lady with h/o NIDDM , h/o heroin use on Methadone, who presented with L sided chest pain and was found to have PE, splenic and portal vein thrombosis, and pelvic and pulmonary nodules 1- Acute L sided PE, Portal and splenic vein thrombosis: in the setting of possible malignancy. - Cont heparin gtt. goal PTT 60-90 - Echo pending to evaluate for R heart strain - splenic infarct is probably a result of the venous congestion with splenic vein thrombosis - care home AC after procedures, likely with lovenox 2- Possible cancer with Mets. pelvic, liver , lung nodules and peritoneal LAP .Unclear primary site. - check CT of chest w/o contrast to evaluate for lung masses - will d/w IR the best site to biopsy - obtain transvaginal US to evaluate for ovarian mass - Onc consult pending - Pulm consult for lung nodules 3- Leukocytosis , and elevated lactic acid. Unclear if patient has infection or not. Can't r/o. thickened colon wall could be infectious colitis , Vs ischemic colitis. LLL infiltrate could be due to PE , and unlikely to PNA - ABx coverage with CTX and flagyl. - IVF . - follow lactic . - GI - follow blood cx Dispo : HLOC meds to be confirmed. above findings and plan was d/w patient 4- HTN, cont home meds
[2017-04-02] MEDS: BENZTROPINE MESYLATE 1 MG TABLET (FP) PO SCH ×2 (13:32→22:13)
[2017-04-02] MEDS: ARIPiprazole 20 MG TABLET PO SCH (13:32)
--- NOTE | 2017-04-02 16:05 | PN ---
Physical Exam: SUBJECTIVE: Patient seen and examined. States she feels better than yesterday. Does not offer new complaints. OBJECTIVE: Vital Signs Period Temp Pulse Resp BP Sys/Roach Pulse Ox Last 24 Hr 98.1 F-99.4 F 77-88 14-20 123-142/48-66 96-100 GENERAL: The patient is awake, alert, and fully oriented, in no acute distress. EYES: PERRL, extraocular movements intact, sclera anicteric, conjunctiva clear. No ptosis. NECK: supple. LUNGS: Breath sounds equal, clear to auscultation bilaterally, no wheezes, no crackles, no accessory muscle use. HEART: Regular rate and rhythm, S1, S2 without murmur, rub or gallop. ABDOMEN: Soft, nontender, nondistended, normoactive bowel sounds. + shifting dullness, liver not palpable EXTREMITIES: 2+ pulses, warm, well-perfused, no edema. PSYCH: Normal mood, normal affect. SKIN: Warm, dry, normal turgor, no rashes or lesions noted Laboratory Results - last 24 hr 04/02/17 04/02/17 04/02/17 05:30 05:30 05:30 WBC RBC Hgb Hct MCV MCH MCHC RDW Plt Count MPV Neutrophils % Lymphocytes % Monocytes % Eosinophils % Basophils % PTT (Actin FS) Sodium Potassium Chloride Carbon Dioxide Anion Gap BUN Creatinine Creat Clearance w eGFR POC Glucometer Random Glucose Hemoglobin A1c % Lactic Acid 1.1 Calcium Phosphorus Magnesium Total Bilirubin AST ALT Alkaline Phosphatase Troponin I < 0.02 Total Protein Albumin Triglycerides 68 Cholesterol 68 Total LDL Cholesterol 31 HDL Cholesterol 23 L Urine Color Urine Appearance Urine pH Urine Protein Urine Glucose (UA) Urine Ketones Urine Blood Urine Nitrite Urine Bilirubin Urine Urobilinogen Ur Leukocyte Esterase 04/02/17 04/02/17 04/02/17 06:08 09:00 09:00 WBC 18.3 H RBC 4.21 Hgb 11.9 Hct 37.7 MCV 89.7 MCH 28.4 MCHC 31.6 L RDW 16.1 H Plt Count 441 H MPV 7.1 L D Neutrophils % 86.5 H Lymphocytes % 7.8 L D Monocytes % 4.3 Eosinophils % 0.8 Basophils % 0.6 PTT (Actin FS) Sodium 136 Potassium 4.1 Chloride 98 Carbon Dioxide 32 Anion Gap 6 L BUN 4 L Creatinine 0.3 L D Creat Clearance w eGFR > 60 POC Glucometer [phone] Random Glucose 114 H D Hemoglobin A1c % Lactic Acid Calcium 8.3 L Phosphorus 2.7 Magnesium 1.8 Total Bilirubin 0.9 AST 25 ALT 24 Alkaline Phosphatase 293 H Troponin I Total Protein 6.1 L Albumin 2.0 L Triglycerides Cholesterol Total LDL Cholesterol HDL Cholesterol Urine Color Urine Appearance Urine pH Urine Protein Urine Glucose (UA) Urine Ketones Urine Blood Urine Nitrite Urine Bilirubin Urine Urobilinogen Ur Leukocyte Esterase 04/02/17 04/02/17 04/02/17 09:00 09:00 10:02 WBC RBC Hgb Hct MCV MCH MCHC RDW Plt Count MPV Neutrophils % Lymphocytes % Monocytes % Eosinophils % Basophils % PTT (Actin FS) 84.7 H D Sodium Potassium Chloride Carbon Dioxide Anion Gap BUN Creatinine Creat Clearance w eGFR POC Glucometer Random Glucose Hemoglobin A1c % 6.4 H Lactic Acid Calcium Phosphorus Magnesium Total Bilirubin AST ALT Alkaline Phosphatase Troponin I Total Protein Albumin Triglycerides Cholesterol Total LDL Cholesterol HDL Cholesterol Urine Color Doris Urine Appearance Slcloudy Urine pH 5.0 Urine Protein Negative Urine Glucose (UA) Negative Urine Ketones Negative Urine Blood Negative Urine Nitrite Negative Urine Bilirubin Negative Urine Urobilinogen 4.0 e.u/dl H Ur Leukocyte Esterase Negative 04/02/17 12:10 WBC RBC Hgb Hct MCV MCH MCHC RDW Plt Count MPV Neutrophils % Lymphocytes % Monocytes % Eosinophils % Basophils % PTT (Actin FS) Sodium Potassium Chloride Carbon Dioxide Anion Gap BUN Creatinine Creat Clearance w eGFR POC Glucometer [phone] Random Glucose Hemoglobin A1c % Lactic Acid Calcium Phosphorus Magnesium Total Bilirubin AST ALT Alkaline Phosphatase Troponin I Total Protein Albumin Triglycerides Cholesterol Total LDL Cholesterol HDL Cholesterol Urine Color Urine Appearance Urine pH Urine Protein Urine Glucose (UA) Urine Ketones Urine Blood Urine Nitrite Urine Bilirubin Urine Urobilinogen Ur Leukocyte Esterase Active Medications Generic Name Dose Route Start Last Admin Trade Name Freq PRN Reason Stop Dose Admin Albuterol Sulfate 1 amp 04/02/17 03:36 04/02/17 11:23 Ventolin 0.083% Nebulizer Soln - NEB 1 amp Q4H PRN Administration SHORT OF BREATH/WHEEZING Amlodipine Besylate 10 mg 04/02/17 10:00 04/02/17 09:09 Norvasc - PO 10 mg DAILY OLMAN Administration Aripiprazole 20 mg 04/02/17 10:00 04/02/17 13:32 Abilify PO Not Given DAILY OLMAN Benztropine Mesylate 1 mg 04/02/17 10:00 04/02/17 13:32 Cogentin - PO Not Given BID OLMAN Ceftriaxone Sodium 1 gm 04/02/17 10:30 04/02/17 11:34 Rocephin 1gm Ivpb (Pre-Docked) IVPB 1 gm DAILY OLMAN Administration Protocol Gabapentin 900 mg 04/02/17 22:00 Neurontin - PO HS OLMAN Sodium Chloride 1,000 mls @ 83 mls/hr 04/02/17 00:45 04/02/17 02:00 Normal Saline - IV 83 mls/hr ASDIR OLMAN Administration Heparin Sodium (Porcine) 25, 500 mls @ 16 mls/hr 04/02/17 01:30 04/02/17 11:39 000 unit/ Sodium Chloride IV 800 unit/hr TITR OLMAN Titration Protocol 800 UNIT/HR Metronidazole 100 mls @ 100 mls/hr 04/02/17 02:15 04/02/17 09:10 Flagyl 500mg Premixed Ivpb - IVPB 100 mls/hr Q8H-IV OLMAN Administration Insulin Aspart 1 vial 04/02/17 07:00 04/02/17 12:19 Novolog Vial Sliding Scale - SQ 2 units ACHS OLMAN Administration Protocol Lisinopril 20 mg 04/02/17 10:00 04/02/17 09:09 Prinivil PO 20 mg DAILY OLMAN Administration Magnesium Oxide 800 mg 04/02/17 16:15 Mag-Ox - PO 04/02/17 16:16 ONCE ONE Ondansetron HCl 4 mg 04/02/17 15:58 Zofran Injection IVPB Q4H PRN NAUSEA AND/OR VOMITING Pantoprazole Sodium 20 mg 04/02/17 10:00 04/02/17 09:09 Protonix - PO 20 mg DAILY OLMAN Administration ASSESSMENT/PLAN: 57 y/o F with history of Diabetes, Hepatitis C, heroin drug use (on methadone), presented to the ED with left sided chest pain and was found to have Pulmonary Embolus, Portal vein thrombosis, splenic infarct, pelvic mass (3.4x1.4cm) and pulmonary nodules. 1- Acute Pulmonary embolus, splenic infarct and Portal vein thrombosis likely secondary to underlying malignancy. - Continue Heparin drip -PTT goal of 60-90 -Pending echo 2) Possible Malignancy with metastasis - CT scan revealed: pulmonary nodules, peritoneal lymphadenopathy, and pelvic mass - will discuss best site to biopsy with IR - pending Transvaginal U/S -pending heme/onc consult -pending lung consults 3) Leukocytosis/Elevated Lactic Acid -Continue IV antibiotics: Ceftriaxone and Flagyl -Follow lactic acid -GI consult -pending blood cultures 4) Diarrhea - pending stool cultures 5) Nausea -IV Zofran 4mg Visit type - Emergency Visit Emergency Visit: Yes ED Registration Date: 04/02/17 Care time: The patient presented to the Emergency Department on the above date and was hospitalized for further evaluation of their emergent condition. - New Patient This patient is new to me today: Yes Date on this admission: 04/02/17 - Critical Care Critical Care patient: Yes Total Critical Care Time (in minutes): 45 Critical Care Statement: The care of this patient involved high complexity decision making to prevent further life threatening deterioration of the patient 's condition and/or to evaluate & treat vital organ system(s) failure or risk of failure.
[2017-04-02] MEDS ORDERED: MAGNESIUM OXIDE 400 MG TABLET (FP) PO ONE (16:15)
[2017-04-02] MEDS: ONDANSETRON 4 MG/2 ML VIAL IVPB PRN (16:36)
[2017-04-02] MEDS ORDERED: METHADONE HCL 40 MG DISPERSABLE TABLET PO ONE (16:36)
--- NOTE | 2017-04-02 18:46 | CON.GI ---
Consult Consult Specialty:: GI Referred by:: hospitalist Reason for Consultation:: splenic infarction, ascitis, abdominal pain - History of Present Illness History of Present Illness: 57 y/o female with PMH of CHC was admitted because of severe left upper quadrant pain secondary to extensive splenic infarction associated with portal and splenic vein thrombosis, extensive peripotal and and celiac axis lymphadenopathy,2.3 cm left hepatic lobe lesion,ascitis, thickenned sigmoid colon, ascitis,sepsis, pulmonary embolism. At present abdominal pain has subsided and is tolerating diet. She denies rectal bleeding and change in bowel habits. There is no unexplained weight loss.She had colonoscopy Apr [address] Jones was normal but bowel preperation was fair but small lesions could be missed and was advised to have repeat colonoscopy in 3 years. - History Source History Provided By: Patient - Past Medical History ...: No - Alcohol/Substance Use Hx Alcohol Use: No - Smoking History Smoking history: Current every day smoker Have you smoked in the past 12 months: Yes Aproximately how many cigarettes per day: 5 Home Medications - Allergies Allergies/Adverse Reactions: Allergies Allergy/AdvReac Type Severity Reaction Status Date / Time No Known Allergies Allergy Unverified 04/01/17 15:41 - Home Medications Home Medications: Ambulatory Orders Aripiprazole [Abilify] 20 mg PO DAILY 12/02/16 Benztropine Mesylate [Cogentin -] 1 mg PO BID 12/02/16 Clonazepam [KlonoPIN] 0.5 mg PO DAILY 12/02/16 Gabapentin 900 mg PO HS 12/02/16 Metformin HCl [Metformin HCl ER] 1,000 mg PO DAILY 12/02/16 Methadone [Dolophine -] 80 mg PO DAILY 12/02/16 Omeprazole 20 mg PO DAILY 12/02/16 Polyethylene Glycol 3350 [Miralax (For Bowel Prep) -] 17 gm PO ONCE #1 bottle Sitagliptin Phosphate [Januvia] 100 mg PO DAILY 12/02/16 Amlodipine Besylate 10 mg PO DAILY 04/01/17 Fenofibrate Nanocrystallized [Fenofibrate] 54 mg PO DAILY 04/01/17 Glipizide [Glipizide ER] 10 mg PO BID 04/01/17 Lisinopril [Prinivil] 20 mg PO DAILY 04/01/17 Pravastatin Sodium 20 mg PO DAILY 04/01/17 Sofosbuvir/Velpatasvir [Epclusa 400 mg-100 mg Tablet] 1 each PO DAILY 04/01/17 Family Disease History - Family Disease History Family Disease History: CA: Sister (colon cnacer) Review of Systems - Review of Systems Constitutional: denies: Fever Cardiovascular: denies: Chest Pain Respiratory: denies: Cough Gastrointestinal: reports: Abdominal Pain, Nausea Physical Exam-GI Vital Signs: Vital Signs Temperature 99.4 F 04/02/17 14:00 Pulse Rate 84 04/02/17 14:00 Respiratory Rate 04/02/17 14:00 Blood Pressure 142/62 04/02/17 14:00 O2 Sat by Pulse Oximetry (%) 98 04/02/17 08:00 Constitutional: Yes: No Distress. No: Diaphoresis Eyes: Yes: Conjunctiva Clear HENT: Yes: Atraumatic Cardiovascular: Yes: Regular Rate and Rhythm Respiratory: Yes: Diminished ( at bases) ...Palpate: Yes: Soft, Tenderness (--mild left upper quadrant). No: Guarding, Hepatomegaly, Mass Labs: CBC, BMP 04/02/17 09:00 04/02/17 09:00 INR, PTT INR 1.63 (0.82-1.09) H 04/01/17 23:24 Problem List - Problems (1) Hep C w/o coma, chronic Code(s): B18.2 - CHRONIC VIRAL HEPATITIS C (2) Splenic infarct Assessment/Plan: R> will need surgical consultation continue IV heparin due to portal vein and splenic vein thrombosis thrombosis Code(s): D73.5 - INFARCTION OF SPLEEN (3) Neoplasm of liver Assessment/Plan: r/o hepatoma R>alpha feto protein (4) Lymphadenopathy Assessment/Plan: r/o celiac and portal lymphadenopathy r/o pancreatic ca, cholangio ca,hepatoma, R> will need IR or surgical consult for diagnostic laparoscopy Code(s): R59.1 - GENERALIZED ENLARGED LYMPH NODES
--- NOTE | 2017-04-02 18:49 | EKG ---
Test Reason : Blood Pressure : / mmHG Vent. Rate : 087 BPM Atrial Rate : 087 BPM P-R Int : 134 ms QRS Dur : 070 ms QT Int : 354 ms P-R-T Axes : 072 054 068 degrees QTc Int : 425 ms NORMAL SINUS RHYTHM POSSIBLE LEFT ATRIAL ENLARGEMENT NONSPECIFIC T WAVE ABNORMALITY ABNORMAL ECG WHEN COMPARED WITH ECG OF 02-DEC-2016 13:23, NO SIGNIFICANT CHANGE WAS FOUND REPEAT EKG IF CLINICALLY INDICATED Confirmed by REYNA BALBUENA MD ([id number] on 04/02/2017 6:48:37 PM Referred By: Confirmed By:REYNA BALBUENA MD
[2017-04-02] MEDS: GABAPENTIN 300 MG CAPSULE (FP) PO SCH (22:13)
--- NOTE | 2017-04-02 22:29 | PN ---
Progress Note (short form) - Note Progress Note: Consult dictated Frail 57 year old female presents with LUQ pain secondary to splenic infarction. Found to have acute pulmonary embolism with splenic vein and portal vein thrombosis and splenic infarction. Has pulmonary nodules, liver mass, extensive retroperitoneal, retrocrural lymphadenopathy, possible peritoneal implants and ascites. Has had recent diarrhea, and substantial weight loss. 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 Family history of sister with colon ca, and second sister with SLE Currently acutely ill on IV heparin. When feasible I.R consult for tissue. No obvious pancreatic mass, has biliary dilatation . Pancreas and lung are the 2 most thrombogenic malignancies, although any malignancy is associated with hypercoagulability. Thrombophilia work up can be done, but likely malignancy is causing hypercoagulable state. Tumor markers pending may be helpful.
--- NOTE | 2017-04-03 00:38 | CONS ---
DATE OF CONSULTATION: 04/02/2017 This is a 57-year-old female being seen for evaluation of likely malignancy. She initially presented with left upper quadrant pain which had been present for several weeks. Workup revealed splenic thrombosis. In addition, patient was found to have acute pulmonary emboli. Patient was heparinized. During the course of the evaluation, the patient was found to have a left lower lobe pulmonary nodule as well as a smaller right lower lobe pulmonary nodule. She had extensive retroperitoneal lymphadenopathy as well as peripancreatic and periaortic lymphadenopathy. She had ascites. She had a liver mass compatible with metastatic disease. PAST MEDICAL HISTORY: Includes hepatitis C, under therapy. Non-insulin dependent diabetes, asthma. Patient is a former heroin abuser and cocaine abuser. She has been on methadone maintenance for 20 years. She formerly smoked a pack per day and her smoking has decreased to 1-2 cigarettes per day. She does not drink to excess. She is not and has no children. FAMILY HISTORY: Includes a sister who had colon cancer, and another sister with lupus. The patient states she has had extensive weight loss. She has also had extensive daily diarrhea for the past week. There has been no fevers documented, although the patient states she has had fevers. No sweats or night sweats. REVIEW OF SYSTEMS: No headaches, blurry vision, no epistaxis, no dysphagia, shortness of breath, left upper quadrant pain, nausea, no emesis, diarrhea, no dysuria, and weight loss. CURRENT MEDICATIONS: Zofran, lisinopril, ceftriaxone, Flagyl, , heparin, Neurontin, Abilify, Ventolin, Norvasc, insulin, Protonix. ALLERGIES: No known allergies. PHYSICAL EXAMINATION: Vital signs: Blood pressure 136/58, pulse 85, temperature 99.3, respirations 14. General: Patient is cachectic, ill-appearing female. She is alert, however unable to respond to questions. There is no icterus. Pupils are equal and reactive. The oropharynx reveals no thrush, no mucositis. The tongue reveals decreased papillation. There is no cervical, supraclavicular, or axillary nodes. Lungs: Decreased breath sounds bilaterally at the bases. Cardiac: RSR. Breasts: No dominant masses. Abdomen: Distended, probable ascites. Extremities: No significant lower extremity edema. LABORATORY: WBC 18.3, hematocrit 37, platelets 441 with 86 polycytes, 8 lymphocytes, 4 monocytes. PTT on heparin 84. Chemistries: 136 sodium, potassium 4.1, chloride 98, CO2 of 32, BUN 4, creatinine 0.3, random glucose 114, calcium 8.3, phosphorus 2.7, magnesium 1.8, AST 25, ALT 24, alkaline phosphatase 293, protein 6.1, albumin 2.0. CEA, CA19-9 and CA125 all pending. HIV is negative. Abdominal CT: Acute pulmonary embolism. Extensive splenic infarction, occlusion of splenic and main portal veins, moderate amount of ascites, retroperitoneal and lymphadenopathy, intraabdominal lymphadenopathy, bilateral pulmonary nodules. Questionable peritoneal implants, 2.3 cm hepatic lobe mass, subtle 3.4 x 1.4 cm density right lower pelvis, possible mild concentric wall thickening along the sigmoid, mild intrahepatic biliary tract dilatation without obvious interval change status post cholecystectomy. IMPRESSION: This frail 57-year-old female has acute pulmonary embolism. She has extensive splenic infarction and splenic and portal vein thrombosis. There is extensive lymphadenopathy retroperitoneally in the peripancreatic and periaortic regions. There is a mass within the liver. There is a possibility of peritoneal implants. Tumor markers are pending. Currently, the patient requires ICU monitoring with IV heparin in view of the pulmonary embolism and the extensive splenic and portal vein occlusion as well as splenic infarction. When the patient improves, a tissue diagnosis likely to explain the underlying hypocoagulable state can be performed. IR can be consulted on this. Although most likely secondary to malignancy, a thrombophilia workup also should be considered. In the face of acute pulmonary embolism, underlying management will be difficult. Will await tissue and comment further. BHUMIKA PARIKH M.D. [id number]
[2017-04-03] MEDS: METRONIDAZOLE 500 MG PREMIXED 100 ML IVPB SCH ×3 (03:00→17:31)
[2017-04-03] MEDS: SODIUM CHLORIDE 1,000 ML IV SCH ×2 (06:36→17:34)
[2017-04-03] MEDS: HEPARIN - 25,000 UNIT in SODIUM CHLORIDE 495 ML IV SCH ×3 (06:36→11:13)
[2017-04-03] MEDS: INSULIN SLIDING SCALE (NOVOLOG) 1 VIAL SQ SCH ×4 (06:37→22:39)
[2017-04-03 06:42] LABS: BASOPHIL 0.7 % (0-2.0); EOSINOPHIL 1.1 % (0-4.5); MCH 29.5 pg (25.7-33.7); MCHC 32.6 g/dl (32.0-36.0); MEAN CELL VOLUME 90.6 fl (80-96); MEAN PLT VOLUME 7.9 fl (7.5-11.1); NEUTROPHILS 84.7 % (42.8-82.8); PLATELET COUNT 419 K/MM3 (134-434); RDW 16.6 % (11.6-15.6); WHITE BLOOD COUNT 24.1 K/mm3 (4.0-10.0)
[2017-04-03 06:50] LABS: ALBUMIN 1.7 g/dl (3.4-5.0); ALK PHOS 239 U/L (45-117); ANION GAP 7 (8-16); BILIRUBIN,DIRECT 0.4 mg/dL (0.0-0.2); BILIRUBIN,TOTAL 0.5 mg/dL (0.2-1.0); CALCIUM 7.7 mg/dL (8.5-10.1); CO2 28 mmol/L (21-32); CREATININE 0.2 mg/dL (0.55-1.02); GLUCOSE,RANDOM 127 mg/dL (74-106); MAGNESIUM 1.7 mg/dL (1.8-2.4); PHOSPHOROUS 2.9 mg/dL (2.5-4.9); SGOT/AST 22 U/L (15-37); SGPT/ALT 19 U/L (12-78); TOT PROT 5.3 g/dl (6.4-8.2)
[2017-04-03 06:51] LABS: INR 1.59 (0.82-1.09); PROTHROMBIN TIME (PATIENT) 17.6 SEC (9.98-11.88)
[2017-04-03 06:53] LABS: ACTIVATED PTT 42.5 SECONDS (26.9-34.4)
--- NOTE | 2017-04-03 07:26 | PN ---
Progress Note, Physician Chief Complaint: ID Alert and in no distress NO fever chills systemic complaints Empiric therapy Ceftriaxone and metronidazole though less likely infection present Antibiotic Ceftriaxone and metronidazole & HEPARIN Oncology note reviewed - Current Medication List Current Medications: Active Medications Albuterol Sulfate (Ventolin 0.083% Nebulizer Soln -) 1 amp NEB Q4H PRN PRN Reason: SHORT OF BREATH/WHEEZING Last Admin: 04/02/17 11:23 Dose: 1 amp Amlodipine Besylate (Norvasc -) 10 mg PO DAILY OLMAN Last Admin: 04/02/17 09:09 Dose: 10 mg Aripiprazole (Abilify) 20 mg PO DAILY OLMAN Last Admin: 04/02/17 13:32 Dose: Not Given Benztropine Mesylate (Cogentin -) 1 mg PO BID OLMAN Last Admin: 04/02/17 22:13 Dose: 1 mg Ceftriaxone Sodium (Rocephin 1gm Ivpb (Pre-Docked)) 1 gm IVPB DAILY OLMAN PRN Reason: Protocol Last Admin: 04/02/17 11:34 Dose: 1 gm Gabapentin (Neurontin -) 900 mg PO HS OLMAN Last Admin: 04/02/17 22:13 Dose: 900 mg Sodium Chloride (Normal Saline -) 1,000 mls @ 83 mls/hr IV ASDIR OLMAN Last Admin: 04/03/17 06:36 Dose: Not Given Heparin Sodium (Porcine) 25, (000 unit/ Sodium Chloride) 500 mls @ 16 mls/hr IV TITR OLMAN; 800 UNIT/HR PRN Reason: Protocol Last Admin: 04/03/17 06:36 Dose: Not Given Metronidazole (Flagyl 500mg Premixed Ivpb -) 100 mls @ 100 mls/hr IVPB Q8H-IV OLMAN Last Admin: 04/03/17 03:00 Dose: 100 mls/hr Insulin Aspart (Novolog Vial Sliding Scale -) 1 vial SQ ACHS OLMAN PRN Reason: Protocol Last Admin: 04/03/17 06:37 Dose: Not Given Lisinopril (Prinivil) 20 mg PO DAILY OLMAN Last Admin: 04/02/17 09:09 Dose: 20 mg Ondansetron HCl (Zofran Injection) 4 mg IVPB Q4H PRN PRN Reason: NAUSEA AND/OR VOMITING Last Admin: 04/02/17 16:36 Dose: 4 mg Pantoprazole Sodium (Protonix -) 20 mg PO DAILY OLMAN Last Admin: 04/02/17 09:09 Dose: 20 mg - Objective Vital Signs: Vital Signs Temperature 98.6 F 04/03/17 06:00 Pulse Rate 85 04/03/17 06:00 Respiratory Rate 12 04/03/17 06:00 Blood Pressure 116/53 04/03/17 06:00 O2 Sat by Pulse Oximetry (%) 100 04/02/17 20:32 Constitutional: Yes: Other (Chronically ill appearing) HENT: Yes: WNL, Atraumatic Neck: Yes: WNL, Supple Cardiovascular: Yes: Regular Rate and Rhythm, S1, S2. No: Murmur Respiratory: Yes: WNL, Regular, CTA Bilaterally Gastrointestinal: Yes: Soft, Ascites, Distention. No: Tenderness, Tenderness, Epigastrium, Tenderness, Rebound Extremities: No: Cold, Cyanosis Edema: No Labs: CBC, BMP 04/03/17 05:20 04/03/17 05:20 INR, PTT INR 1.59 (0.82-1.09) H 04/03/17 05:20 Problem List - Problems (1) Leukocytosis Code(s): D72.829 - ELEVATED WHITE BLOOD CELL COUNT, UNSPECIFIED (2) Pulmonary embolism Code(s): I26.99 - OTHER PULMONARY EMBOLISM WITHOUT ACUTE COR PULMONALE (3) Splenic infarct Code(s): D73.5 - INFARCTION OF SPLEEN (4) Metastatic cancer Code(s): C79.9 - SECONDARY MALIGNANT NEOPLASM OF UNSPECIFIED SITE (5) Hypercoagulable state Code(s): D68.59 - OTHER PRIMARY THROMBOPHILIA Assessment/Plan Microbiology 04/02/17 01:30 Blood - Arterial Blood Culture - Preliminary NO GROWTH OBTAINED AFTER 24 HOURS, INCUBATION TO CONTINUE FOR 4 DAYS. 04/02/17 01:30 Blood - Arterial Blood Culture - Preliminary NO GROWTH OBTAINED AFTER 24 HOURS, INCUBATION TO CONTINUE FOR 4 DAYS. Laboratory Tests 04/01/17 04/02/17 04/03/17 19:50 10:02 05:20 WBC 24.1 H D Hgb 11.4 Hct 35.1 Plt Count 419 INR Creatinine Direct Bilirubin AST ALT Alkaline Phosphatase Ur Leukocyte Esterase Negative HIV 1&2 Antibody Screen Negative HIV P24 Antigen Negative 04/03/17 04/03/17 05:20 05:20 WBC Hgb Hct Plt Count INR 1.59 H Creatinine 0.2 L D Direct Bilirubin 0.4 H AST 22 ALT 19 D Alkaline Phosphatase 239 H Ur Leukocyte Esterase HIV 1&2 Antibody Screen HIV P24 Antigen Assessment Probable metastatic cancer primary unknown Hypercoagulable state on anticoagulation PE and splenic infarct Diabetes Hepatitis C apparently getting treated Methadone Plan Leukomoid reaction likely related to malignancy and infarction Assuming her cultures are negative we can stop her antibiotics Will need lymph node biopsy when stable from PE standpoint Maxim MCINTYRE
[2017-04-03] MEDS ORDERED: MAGNESIUM SULF 50% (8.12 MEQ/2 ML-1 GM VIAL) IVPB ONE (08:20)
[2017-04-03] MEDS: ALBUTEROL SO4 0.083% IH SOL 2.5 MG/3 ML VIAL.NEB. NEB PRN (09:41)
[2017-04-03] MEDS ORDERED: PT OWN MED DRAWER 7, Y5N ONE (09:59)
[2017-04-03] MEDS ORDERED: HEPARIN NA (PORCINE) 5,000 UNITS/ML 1ML VIAL IVPUSH PRN ×2 (09:59)
[2017-04-03] MEDS: LISINOPRIL 20 MG TABLET (FP) PO SCH (10:01)
[2017-04-03] MEDS: amLODIPine BESYLATE 10 MG TABLET (FP) PO SCH (10:01)
[2017-04-03] MEDS: PANTOPRAZOLE 20 MG TABLET (FP) PO SCH (10:01)
[2017-04-03] MEDS: BENZTROPINE MESYLATE 1 MG TABLET (FP) PO SCH ×2 (10:02→22:33)
[2017-04-03] MEDS: ARIPiprazole 20 MG TABLET PO SCH (10:03)
[2017-04-03] MEDS: cefTRIAXone 1 GM/50 ML BAG (PRE-DOCKED) IVPB SCH (11:16)
[2017-04-03] MEDS ORDERED: INSULIN (NOVOLOG) ASPART 100 UNITS/ML 10ML VIAL ONE ×2 (11:50→22:36)
[2017-04-03] MEDS ORDERED: METHADONE HCL 40 MG DISPERSABLE TABLET PO ONE (12:00)
--- NOTE | 2017-04-03 13:20 | PN ---
Physical Exam: SUBJECTIVE: Patient seen and examined. Offers no new complaints. No acute overnight events. States she feels much better than yesterday. OBJECTIVE: Vital Signs Period Temp Pulse Resp BP Sys/Roach Pulse Ox Last 24 Hr 98.5 F-99.4 F 82-85 06-21 116-142/48-62 100 GENERAL: The patient is awake, alert, and fully oriented, in no acute distress. EYES: PERRL, extraocular movements intact, sclera anicteric, conjunctiva clear. No ptosis. NECK: supple. LUNGS: Breath sounds equal, clear to auscultation bilaterally, no wheezes, no crackles, no accessory muscle use. HEART: Regular rate and rhythm, S1, S2 without murmur, rub or gallop. ABDOMEN: Soft, nontender, nondistended, normoactive bowel sounds. + shifting dullness, liver not palpable EXTREMITIES: 2+ pulses, warm, well-perfused, 1+ pitting edema PSYCH: Normal mood, normal affect. Laboratory Results - last 24 hr 04/02/17 04/02/17 04/02/17 05:30 10:02 22:12 WBC RBC Hgb Hct MCV MCH MCHC RDW Plt Count MPV Neutrophils % Lymphocytes % Monocytes % Eosinophils % Basophils % INR PTT (Actin FS) Sodium Potassium Chloride Carbon Dioxide Anion Gap BUN Creatinine Creat Clearance w eGFR POC Glucometer [phone] Random Glucose Calcium Phosphorus Magnesium Total Bilirubin Direct Bilirubin AST ALT Alkaline Phosphatase Ammonia Total Protein Albumin Carcinoembryonic Ag 18.2 H CA 19-9 Antigen 183 H CA 125 Antigen 350.5 H Urine Color Doris Urine Appearance Slcloudy Urine pH 5.0 Ur Specific [place] 1.020 Urine Protein Negative Urine Glucose (UA) Negative Urine Ketones Negative Urine Blood Negative Urine Nitrite Negative Urine Bilirubin Negative Urine Urobilinogen 4.0 e.u/dl H Ur Leukocyte Esterase Negative 04/03/17 04/03/17 04/03/17 05:20 05:20 05:20 WBC 24.1 H D RBC 3.87 Hgb 11.4 Hct 35.1 MCV 90.6 MCH 29.5 MCHC 32.6 RDW 16.6 H Plt Count 419 MPV 7.9 D Neutrophils % 84.7 H Lymphocytes % 8.4 Monocytes % 5.1 Eosinophils % 1.1 Basophils % 0.7 INR 1.59 H PTT (Actin FS) 42.5 H D Sodium 138 Potassium 4.1 Chloride 103 Carbon Dioxide 28 Anion Gap 7 L BUN 4 L Creatinine 0.2 L D Creat Clearance w eGFR > 60 POC Glucometer Random Glucose 127 H Calcium 7.7 L Phosphorus 2.9 Magnesium 1.7 L Total Bilirubin 0.5 D Direct Bilirubin 0.4 H AST 22 ALT 19 D Alkaline Phosphatase 239 H Ammonia Total Protein 5.3 L Albumin 1.7 L Carcinoembryonic Ag CA 19-9 Antigen CA 125 Antigen Urine Color Urine Appearance Urine pH Ur Specific [place] Urine Protein Urine Glucose (UA) Urine Ketones Urine Blood Urine Nitrite Urine Bilirubin Urine Urobilinogen Ur Leukocyte Esterase 04/03/17 04/03/17 06:24 08:15 WBC RBC Hgb Hct MCV MCH MCHC RDW Plt Count MPV Neutrophils % Lymphocytes % Monocytes % Eosinophils % Basophils % INR PTT (Actin FS) Sodium Potassium Chloride Carbon Dioxide Anion Gap BUN Creatinine Creat Clearance w eGFR POC Glucometer [phone] Random Glucose Calcium Phosphorus Magnesium Total Bilirubin Direct Bilirubin AST ALT Alkaline Phosphatase Ammonia 45.5 H Total Protein Albumin Carcinoembryonic Ag CA 19-9 Antigen CA 125 Antigen Urine Color Urine Appearance Urine pH Ur Specific [place] Urine Protein Urine Glucose (UA) Urine Ketones Urine Blood Urine Nitrite Urine Bilirubin Urine Urobilinogen Ur Leukocyte Esterase Active Medications Generic Name Dose Route Start Last Admin Trade Name Stevenq PRN Reason Stop Dose Admin Albuterol Sulfate 1 amp 04/02/17 03:36 04/03/17 09:41 Ventolin 0.083% Nebulizer Soln - NEB 1 amp Q4H PRN Administration SHORT OF BREATH/WHEEZING Amlodipine Besylate 10 mg 04/02/17 10:00 04/03/17 10:01 Norvasc - PO 10 mg DAILY OLMAN Administration Aripiprazole 20 mg 04/02/17 10:00 04/03/17 10:03 Abilify PO 20 mg DAILY OLMAN Administration Benztropine Mesylate 1 mg 04/02/17 10:00 04/03/17 10:02 Cogentin - PO 1 mg BID OLMAN Administration Ceftriaxone Sodium 1 gm 04/02/17 10:30 04/03/17 11:16 Rocephin 1gm Ivpb (Pre-Docked) IVPB 1 gm DAILY OLMAN Administration Protocol Gabapentin 900 mg 04/02/17 22:00 04/02/17 22:13 Neurontin - PO 900 mg HS OLMAN Administration Heparin Sodium (Porcine) 5,000 unit 04/03/17 09:59 Heparin - IVPUSH PRN PRN Heparin Sodium (Porcine) 1,000 unit 04/03/17 09:59 04/03/17 11:12 Heparin - IVPUSH 1,000 unit PRN PRN Administration Sodium Chloride 1,000 mls @ 83 mls/hr 04/02/17 00:45 04/03/17 06:36 Normal Saline - IV Not Given ASDIR OLMAN Heparin Sodium (Porcine) 25, 500 mls @ 16 mls/hr 04/02/17 01:30 04/03/17 11:13 000 unit/ Sodium Chloride IV 18 mls/hr TITR OLMAN Administration Protocol 800 UNIT/HR Metronidazole 100 mls @ 100 mls/hr 04/02/17 02:15 04/03/17 11:16 Flagyl 500mg Premixed Ivpb - IVPB 100 mls/hr Q8H-IV OLMAN Administration Insulin Aspart 1 vial 04/02/17 07:00 04/03/17 06:37 Novolog Vial Sliding Scale - SQ Not Given ACHS [facility] Protocol Lisinopril 20 mg 04/02/17 10:00 04/03/17 10:01 Prinivil PO 20 mg DAILY OLMAN Administration Methadone HCl 80 mg 04/04/17 06:00 Dolophine - PO DAILY@0600 [facility] Ondansetron HCl 4 mg 04/02/17 15:58 04/02/17 16:36 Zofran Injection IVPB 4 mg Q4H PRN Administration NAUSEA AND/OR VOMITING Pantoprazole Sodium 20 mg 04/02/17 10:00 04/03/17 10:01 Protonix - PO 20 mg DAILY OLMAN Administration ASSESSMENT/PLAN: 57 y/o F with history of Diabetes, Hepatitis C, heroin drug use (on methadone), presented to the ED with left sided chest pain and was found to have Pulmonary Embolus, Portal vein thrombosis, splenic infarct, pelvic mass (3.4x1.4cm) and pulmonary nodules. # Acute Pulmonary embolus, splenic infarct and Portal/hepatic vein thrombosis likely secondary to underlying malignancy. - Continue Heparin drip -PTT goal of 60-90 check daily (Currently 42.5) -heparin bolus given per protocol. Will continue adjusting heparin drip as per protocol. continue to trend PTT q6h per protocol -No right strain noted on echo -Vascular surgery consulted -GI on board: recommends surgical consult for splenic infarct -Surgery consulted # Possible Malignancy with metastasis - CT scan revealed: pulmonary nodules, peritoneal lymphadenopathy, and pelvic mass - will discuss best site to biopsy with IR-likely weill do ultrasound guided abdomninal paracenteisi and send fluid for cytology - pending Transvaginal U/S-showed large right cystic/solid ovarian mass -Heme on board: hypercoaguable state likely due to a possible malignancy at this time -GI on board: R/O hepatoma (Elevated CEA, CA19-9, CA-125) -AFP ordered -Abdominal U/S to assess liver parenchyma for possible HCC (Hx of hep c) # severe sepsis/Leukocytosis/Elevated Lactic Acid due to PNA or unerlying neoplasm -Lactic acidosis resolved sepsis resolving leukocytosis persists -CT scan results: revealed consolidative opacity in the left lower lobe. Small left pleural effusion. 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 Diff negative -Possible infectious colitis -treat emperically with Metronidazole 500mg # Hypertension- controlled -Continue Lisinopril 20mg Daily, Amlodipine 10mg PO Daily #Asthma-not in exacerbation -Albuterol PRN -PFT's as outpatient to r/o obstructive vs restrictive lung disease. #Diabetes Type 2 -ISS -Blood glucose well controlled FEN: Continue IV fluids NS @ 83ml per hour Hypomagnesemia repleted (Given 2 g IVPB) Will continue to monitor electrolytes Diabetic Diet PPx: Heparin drip for full anticoagulation dose Protonix 20mg PO Daily Patient is currently ambulating on her own and does not to be deconditioning at this time. Will continue to assess patient daily for need of physical therapy consult. Visit type - Emergency Visit Emergency Visit: Yes ED Registration Date: 04/02/17 Care time: The patient presented to the Emergency Department on the above date and was hospitalized for further evaluation of their emergent condition. - New Patient This patient is new to me today: No - Critical Care Critical Care patient: No
--- NOTE | 2017-04-03 13:32 | CON.PULM ---
Consult Consult Specialty:: PULMONARY Referred by:: Dr. Sauceda Reason for Consultation:: lung nodules, PE - History of Present Illness Chief Complaint: chest pain History of Present Illness: 57yo female with h/o DM, Hep C, h/o substance abuse who was admitted with left sided chest pain x 2 weeks. Also associated with shortness of breath and cough productive of white sputum. Denies hemoptysis. Chest pain described as sharp, worse with deep inspiration. No fevers, chills or sweats. Reports unintentional weight loss around 60lbs in the past month. Found to have left sided pulmonary embolism on CT A/P with contrast along with splenic/portal vein thrombosis, extensive lymphadenopathy and liver findings suspicious for malignancy. She is a smoker, started at age 14, smoked on average 1 PPD now down to 2 cigarettes daily. - History Source History Provided By: Patient, Medical Record Limitations to Obtaining History: No Limitations - Past Medical History ...: No - Alcohol/Substance Use Hx Alcohol Use: No - Smoking History Smoking history: Current every day smoker Have you smoked in the past 12 months: Yes Aproximately how many cigarettes per day: 5 Home Medications - Allergies Allergies/Adverse Reactions: Allergies Allergy/AdvReac Type Severity Reaction Status Date / Time No Known Allergies Allergy Unverified 04/01/17 15:41 - Home Medications Home Medications: Ambulatory Orders Aripiprazole [Abilify] 20 mg PO HS 12/02/16 Benztropine Mesylate [Cogentin -] 1 mg PO BID 12/02/16 Clonazepam [KlonoPIN] 0.5 mg PO TID 12/02/16 Gabapentin 900 mg PO HS 12/02/16 Metformin HCl [Metformin HCl ER] 1,000 mg PO BID 12/02/16 Methadone [Dolophine -] 80 mg PO DAILY 12/02/16 Omeprazole 20 mg PO DAILY 12/02/16 Polyethylene Glycol 3350 [Miralax (For Bowel Prep) -] 17 gm PO ONCE #1 bottle Sitagliptin Phosphate [Januvia] 100 mg PO DAILY 12/02/16 Amlodipine Besylate 10 mg PO DAILY 04/01/17 Fenofibrate Nanocrystallized [Fenofibrate] 54 mg PO DAILY 04/01/17 Glipizide [Glipizide ER] 10 mg PO BID 04/01/17 Lisinopril [Prinivil] 20 mg PO DAILY 04/01/17 Pravastatin Sodium 20 mg PO DAILY 04/01/17 Sofosbuvir/Velpatasvir [Epclusa 400 mg-100 mg Tablet] 1 each PO DAILY 04/01/17 Insulin Glargine,Hum.rec.anlog [Basaglar Kwikpen U-100] 15 unit SQ HS 04/03/17 Quetiapine Fumarate [Seroquel] 300 mg PO HS 04/03/17 Sertraline HCl [Zoloft] 100 mg PO DAILY 04/03/17 Family Disease History - Family Disease History Family Disease History: CA: Sister (colon cnacer) Review of Systems - Review of Systems Constitutional: reports: Weakness. denies: Chills, Fever Eyes: denies: Recent Change in Vision HENT: denies: Nasal Congestion, Throat Pain Neck: denies: Stiffness, Tenderness Cardiovascular: reports: Chest Pain, Edema, Shortness of Breath. denies: Palpitations Respiratory: reports: Cough, Exercise Intolerance, SOB on Exertion. denies: Hemoptysis, Wheezing Gastrointestinal: denies: Nausea, Vomiting Genitourinary: denies: Dysuria, Hematuria Neurological: denies: Dizziness, Headache Endocrine: reports: Unexplained Weight Loss Physical Exam Vital Sings: Vital Signs Temperature 98.5 F 04/03/17 08:00 Pulse Rate 84 04/03/17 08:00 Respiratory Rate 17 04/03/17 08:00 Blood Pressure 118/48 04/03/17 08:00 O2 Sat by Pulse Oximetry (%) 100 04/02/17 20:32 Constitutional: Yes: Calm Eyes: Yes: Conjunctiva Clear, EOM Intact HENT: Yes: Atraumatic, Normocephalic Neck: Yes: Supple, Trachea Midline Cardiovascular: Yes: Regular Rate and Rhythm Respiratory: Yes: Diminished (decreased breath sounds at the bases) ...Clubbing: No Gastrointestinal: Yes: Normal Bowel Sounds, Soft, Distention Edema: Yes (trace) Labs: CBC, BMP 04/03/17 05:20 04/03/17 05:20 Imaging - Results Cat Scan: Report Reviewed, Image Reviewed Assessment/Plan Likely Metastatic Disease Acute Pulmonary Emboli with Pulmonary Infarct Ascites Lymphadenopathy Lactic Acidosis Elevated LFTs Hep C DM Lung Nodules Smoker - continue anticoagulation - will need tissue diagnosis with CT guidance - do not suspect pneumonia, CT findings likely related pulmonary infarct - can d/c antibiotics from pulmonary standpoint - O2 to keep Spo2 >90% - lung nodules likely related to her metastatic disease - will need outpt PET scan Thank you for this consult Adelso Pastrana MD
--- NOTE | 2017-04-03 13:51 | PN ---
Teaching Attending Note Name of Resident: Anne Roman ATTENDING PHYSICIAN STATEMENT I saw and evaluated the patient. I reviewed the resident's note and discussed the case with the resident. I agree with the resident's findings and plan as documented. SUBJECTIVE: Patient is comfortable, no acute distress. No fever or chills, no shortness of breath. OBJECTIVE: Vital Signs Temperature 98.5 F 04/03/17 08:00 Pulse Rate 84 04/03/17 08:00 Respiratory Rate 17 04/03/17 08:00 Blood Pressure 118/48 04/03/17 08:00 O2 Sat by Pulse Oximetry (%) 100 04/02/17 20:32 CBCD WBC 24.1 K/mm3 (4.0-10.0) H D 04/03/17 05:20 RBC 3.87 M/mm3 (3.60-5.2) 04/03/17 05:20 Hgb 11.4 GM/dL (10.7-15.3) 04/03/17 05:20 Hct 35.1 % (32.4-45.2) 04/03/17 05:20 MCV 90.6 fl (80-96) 04/03/17 05:20 MCHC 32.6 g/dl (32.0-36.0) 04/03/17 05:20 RDW 16.6 % (11.6-15.6) H 04/03/17 05:20 Plt Count 419 K/MM3 (134-434) 04/03/17 05:20 MPV 7.9 fl (7.5-11.1) D 04/03/17 05:20 CMP Sodium 138 mmol/L (136-145) 04/03/17 05:20 Potassium 4.1 mmol/L (3.5-5.1) 04/03/17 05:20 Chloride 103 mmol/L (98-107) 04/03/17 05:20 Carbon Dioxide 28 mmol/L (21-32) 04/03/17 05:20 Anion Gap 7 (8-16) L 04/03/17 05:20 BUN 4 mg/dL (7-18) L 04/03/17 05:20 Creatinine 0.2 mg/dL (0.55-1.02) L D 04/03/17 05:20 Creat Clearance w eGFR > 60 (>60) 04/03/17 05:20 Random Glucose 127 mg/dL (74-106) H 04/03/17 05:20 Calcium 7.7 mg/dL (8.5-10.1) L 04/03/17 05:20 Total Bilirubin 0.5 mg/dL (0.2-1.0) D 04/03/17 05:20 AST 22 U/L (15-37) 04/03/17 05:20 ALT 19 U/L (12-78) D 04/03/17 05:20 Alkaline Phosphatase 239 U/L (45-117) H 04/03/17 05:20 Total Protein 5.3 g/dl (6.4-8.2) L 04/03/17 05:20 Albumin 1.7 g/dl (3.4-5.0) L 04/03/17 05:20 CARDIAC ENZYMES Creatine Kinase 23 IU/L (26-192) L 04/01/17 19:40 Troponin I < 0.02 ng/ml (0.00-0.05) 04/02/17 05:30 Current Medications Generic Name Dose Route Start Last Admin Trade Name Freq PRN Reason Stop Dose Admin Albuterol Sulfate 1 amp 04/02/17 03:36 04/03/17 09:41 Ventolin 0.083% Nebulizer Soln - NEB 1 amp Q4H PRN Administration SHORT OF BREATH/WHEEZING Amlodipine Besylate 10 mg 04/02/17 10:00 04/03/17 10:01 Norvasc - PO 10 mg DAILY OLMAN Administration Aripiprazole 20 mg 04/02/17 10:00 04/03/17 10:03 Abilify PO 20 mg DAILY OLMAN Administration Benztropine Mesylate 1 mg 04/02/17 10:00 04/03/17 10:02 Cogentin - PO 1 mg BID OLMAN Administration Ceftriaxone Sodium 1 gm 04/02/17 10:30 04/03/17 11:16 Rocephin 1gm Ivpb (Pre-Docked) IVPB 1 gm DAILY OLMAN Administration Protocol Gabapentin 900 mg 04/02/17 22:00 04/02/17 22:13 Neurontin - PO 900 mg HS OLMAN Administration Heparin Sodium (Porcine) 5,000 unit 04/03/17 09:59 Heparin - IVPUSH PRN PRN Heparin Sodium (Porcine) 1,000 unit 04/03/17 09:59 04/03/17 11:12 Heparin - IVPUSH 1,000 unit PRN PRN Administration Sodium Chloride 1,000 mls @ 83 mls/hr 04/02/17 00:45 04/03/17 06:36 Normal Saline - IV Not Given ASDIR OLMAN Heparin Sodium (Porcine) 25, 500 mls @ 16 mls/hr 04/02/17 01:30 04/03/17 11:13 000 unit/ Sodium Chloride IV 18 mls/hr TITR OLMAN Administration Protocol 800 UNIT/HR Metronidazole 100 mls @ 100 mls/hr 04/02/17 02:15 04/03/17 11:16 Flagyl 500mg Premixed Ivpb - IVPB 100 mls/hr Q8H-IV OLMAN Administration Insulin Aspart 1 vial 04/02/17 07:00 04/03/17 06:37 Novolog Vial Sliding Scale - SQ Not Given ACHS [facility] Protocol Lisinopril 20 mg 04/02/17 10:00 04/03/17 10:01 Prinivil PO 20 mg DAILY OLMAN Administration Methadone HCl 80 mg 04/04/17 06:00 Dolophine - PO DAILY@0600 OLMAN Ondansetron HCl 4 mg 04/02/17 15:58 04/02/17 16:36 Zofran Injection IVPB 4 mg Q4H PRN Administration NAUSEA AND/OR VOMITING Pantoprazole Sodium 20 mg 04/02/17 10:00 04/03/17 10:01 Protonix - PO 20 mg DAILY OLMAN Administration Laboratory Tests 04/01/17 04/02/17 04/02/17 19:50 05:30 09:00 Hemoglobin A1c % Alkaline Phosphatase 293 H Ammonia Carcinoembryonic Ag 18.2 H CA 19-9 Antigen 183 H CA 125 Antigen 350.5 H HIV 1&2 Antibody Screen Negative HIV P24 Antigen Negative 04/02/17 04/03/17 04/03/17 09:00 05:20 08:15 Hemoglobin A1c % 6.4 H Alkaline Phosphatase 239 H Ammonia 45.5 H Carcinoembryonic Ag CA 19-9 Antigen CA 125 Antigen HIV 1&2 Antibody Screen HIV P24 Antigen Microbiology 04/02/17 15:50 Stool Clostridium difficile Antigen (CLAUDIA) - Final 04/02/17 15:50 Stool Clostridium difficile Toxin Assay - Final 04/02/17 01:50 Urine - Urine Clean Catch Urine Culture - Final NO GROWTH OBTAINED 04/02/17 01:30 Blood - Arterial Blood Culture - Preliminary NO GROWTH OBTAINED AFTER 24 HOURS, INCUBATION TO CONTINUE FOR 4 DAYS. 04/02/17 01:30 Blood - Arterial Blood Culture - Preliminary NO GROWTH OBTAINED AFTER 24 HOURS, INCUBATION TO CONTINUE FOR 4 DAYS. [id number] US/TRANSVAGINAL ULTRASOUND US Rule out pelvic mass Pelvis ultrasound, transvesical and transvaginal Post menopause The uterus measures 6.5 x 2.6 cm with homogeneous echotexture. Endometrial stripe measures 3 mm in thickness. There is a large amount of free fluid/ascites in the pelvis Left ovary was not visualized. In the right adnexa, there is a complex cystic and solid mass lesion with a total measurement of 5 x 2 cm. The solid component measures 3 x 1.9 cm No gross right ovarian tissue is identified. IMPRESSION: Large amount of ascites in the pelvis. Complex mass in the right adnexa measuring 5 x 2 cm with cystic and solid component, of uncertain etiology. It may be ovarian in origin. No gross right ovarian tissue is identified. Correlate clinically for further evaluation. Reported By: Naye Toney MD 04/03/[address] abdomen and pelvis: IMPRESSION: Acute pulmonary embolism is identified with associated left lower lobe subpleural increased opacity consistent with acute infarction. Extensive splenic infarction is noted. There is occlusion of the splenic and main portal veins which may be chronic or subacute. A moderate amount of ascites is seen which appears mildly increased in comparison to a chest CT study of 03/21/2017. Increased retroperitoneal and retrocrural lymphadenopathy is noted. Extensive intra-abdominal lymphadenopathy is again seen in the peripancreatic and yasmin hepatis regions. Bilateral pulmonary nodules are again noted. Interval development of focal irregularity seen along the right hepatic lobe laterally which may be on the basis of peritoneal implants versus possible laceration injury. 2.3 cm left hepatic lobe enhancing mass lesion. A subtle 3.4 x 1.4 cm density is seen within the right lower pelvis posteriorly which may represent peritoneal neoplastic implant. There is possible mild concentric wall thickening along the sigmoid and descending colon which could be on the basis of colitis versus secondary to previously described ascites. Mild intrahepatic biliary tract dilatation without obvious interval change. Status post cholecystectomy. Reported By: Mitchel Noriega MD IMPRESSION: A 1.3 cm nonspecific irregular left lower lobe pulmonary nodule is identified. Upper abdominal lymphadenopathy is noted. There is resultant obscuration of pancreatic head. Mild biliary tract dilatation is seen. A nonspecific 1.1 cm right hepatic lobe hypodense lesion is noted. There is a possible additional nonspecific 1.3 cm left hepatic lobe lesion. Status post cholecystectomy. ASSESSMENT AND PLAN: 57 y/o unfortunate lady with h/o NIDDM , h/o heroin use on Methadone, who presented with L sided chest pain and was found to have PE, splenic and portal vein thrombosis, and pelvic and pulmonary nodules # Acute Left sided PE, Portal and splenic vein thrombosis: cannot r/o malignancy on heparin gtt. continue goal PTT 60-90 manager long term care AC needed. LLL infiltrate could be due to PE , and unlikely to PNA # Adenexal mass cannot r/o ovarian cancer with Mets. pelvic, liver , lung nodules and peritoneal LAP , primary site possible ovarian in nature. will discuss with Oncology. All the markers are positive CA125 350's. # Acute Leukocytosis possible leukomoid rxn, thickened colon wall could be infectious colitis, Vs ischemic colitis, vs colon ca #ECHo can't r/o vegetation discussed with ID, will continue current antibiotic for now, On flagyl/ceftriaxone s/p zosyn and vancomycin, blood culture is negative for now. # Hx of Hep C due to IVDA ( Diagnosis around 5 yrs ago). # HTN, cont home meds DVT Px: heparin
[2017-04-03] MEDS ORDERED: METHADONE HCL 10 MG TABLET PO ONE (14:23)
--- NOTE | 2017-04-03 15:18 | CON.CARD ---
Consult Consult Specialty:: Cardiology Reason for Consultation:: abnormal echo - History of Present Illness Chief Complaint: Chest pain History of Present Illness: 57 year old female with a pmhx of DM, HCV, and heroin use who presented with left sided chest pain for 2 weeks. Also noted to have 60 pound weight loss. Afebrile on presentation WBC 21 Abd/Pelvis CT: Acute pulmonary embolism, extensive splenic infarctions, increased retroperitoneal lymph nodes, left hepatic lobe mass lesion 2.3 cm - History Source History Provided By: Patient, Medical Record - Past Medical History ...: No - Alcohol/Substance Use Hx Alcohol Use: No - Smoking History Smoking history: Current every day smoker Have you smoked in the past 12 months: Yes Aproximately how many cigarettes per day: 5 Home Medications - Allergies Allergies/Adverse Reactions: Allergies Allergy/AdvReac Type Severity Reaction Status Date / Time No Known Allergies Allergy Unverified 04/01/17 15:41 - Home Medications Home Medications: Ambulatory Orders Aripiprazole [Abilify] 20 mg PO HS 12/02/16 Benztropine Mesylate [Cogentin -] 1 mg PO BID 12/02/16 Clonazepam [KlonoPIN] 0.5 mg PO TID 12/02/16 Gabapentin 900 mg PO HS 12/02/16 Metformin HCl [Metformin HCl ER] 1,000 mg PO BID 12/02/16 Methadone [Dolophine -] 80 mg PO DAILY 12/02/16 Omeprazole 20 mg PO DAILY 12/02/16 Polyethylene Glycol 3350 [Miralax (For Bowel Prep) -] 17 gm PO ONCE #1 bottle Sitagliptin Phosphate [Januvia] 100 mg PO DAILY 12/02/16 Amlodipine Besylate 10 mg PO DAILY 04/01/17 Fenofibrate Nanocrystallized [Fenofibrate] 54 mg PO DAILY 04/01/17 Glipizide [Glipizide ER] 10 mg PO BID 04/01/17 Lisinopril [Prinivil] 20 mg PO DAILY 04/01/17 Pravastatin Sodium 20 mg PO DAILY 04/01/17 Sofosbuvir/Velpatasvir [Epclusa 400 mg-100 mg Tablet] 1 each PO DAILY 04/01/17 Insulin Glargine,Hum.rec.anlog [Merariaglboby Meredith U-100] 15 unit SQ HS 04/03/17 Quetiapine Fumarate [Seroquel] 300 mg PO HS 04/03/17 Sertraline HCl [Zoloft] 100 mg PO DAILY 04/03/17 Family Disease History - Family Disease History Family Disease History: CA: Sister (colon cnacer) Vital Signs: Vital Signs Temperature 98.6 F 04/03/17 14:00 Pulse Rate 81 04/03/17 14:00 Respiratory Rate 17 04/03/17 14:00 Blood Pressure 116/55 04/03/17 14:00 O2 Sat by Pulse Oximetry (%) 98 04/03/17 10:00 Constitutional: Yes: No Distress Respiratory: Yes: CTA Bilaterally Gastrointestinal: Yes: WNL, Normal Bowel Sounds, Soft, Ascites Cardiovascular: Yes: Regular Rate and Rhythm JVD: No Carotid Bruit: No Heart Sounds: Yes: S1, S2 Murmur: No: Systolic Murmur Edema: LLE: 1+, RLE: 1+ - Other Data Labs, Other Data: CBC, BMP 04/03/17 05:20 04/03/17 05:20 INR, PTT INR 1.59 (0.82-1.09) H 04/03/17 05:20 Imaging - Results X-ray: Report Reviewed EKG: Image Reviewed Problem List - Problems (1) Pulmonary embolism Code(s): I26.99 - OTHER PULMONARY EMBOLISM WITHOUT ACUTE COR PULMONALE Assessment/Plan 57 year old female with a pmhx of DM, HCV, and heroin use who presented with left sided chest pain for 2 weeks. Also noted to have 60 pound weight loss. Afebrile on presentation WBC 21 Abd/Pelvis CT: Acute pulmonary embolism, extensive splenic infarctions, increased retroperitoneal lymph nodes, left hepatic lobe mass lesion 2.3 cm EKG: sinus rhythm at 87bpm, nl axis, nonspecific T wave abnormalities. 1) PE and abnormal LFTs Patient found to have PE with splenic thrombosis. Started on anticoagulation. -Echocardiogram done and normal LVEF with no significant valve stenosis or regurgitation. 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 -Would treat patient based on clinical picture. Being treated for PE with AC and plan for malignancy work up. Mitral valve function intact. Denies any drug use in 20 years Please check blood cultures and will monitor and review echo. If concern for clinical endocarditis than will discuss FLO.
--- NOTE | 2017-04-03 15:54 | CONSULT ---
- Consultation REQUESTING PROVIDER: Komal CONSULT REQUEST: We have been asked to surgically evaluate this patient for abdominal pain PCP:Patricia Sauceda HISTORY OF PRESENT ILLNESS: STEVE who is a 57 y/o female w/ LUQ of pain of recent onset found to have a splenic infarct on imaging among additional imaging abnormalities; she states her pain is better than it was when it started prior to admission; she is eating and being w/u for a malignancy PMHx: reviewed PSHx: bruce marshall Home Medications Medication Instructions Recorded Aripiprazole [Abilify] 20 mg PO HS 12/02/16 Benztropine Mesylate [Cogentin -] 1 mg PO BID 12/02/16 Clonazepam [KlonoPIN] 0.5 mg PO TID 12/02/16 Gabapentin 900 mg PO HS 12/02/16 Metformin HCl [Metformin HCl ER] 1,000 mg PO BID 12/02/16 Methadone [Dolophine -] 80 mg PO DAILY 12/02/16 Omeprazole 20 mg PO DAILY 12/02/16 Polyethylene Glycol 3350 [Miralax 17 gm PO ONCE #1 bottle 12/02/16 (For Bowel Prep) -] Sitagliptin Phosphate [Januvia] 100 mg PO DAILY 12/02/16 Amlodipine Besylate 10 mg PO DAILY 04/01/17 Fenofibrate Nanocrystallized 54 mg PO DAILY 04/01/17 [Fenofibrate] Glipizide [Glipizide ER] 10 mg PO BID 04/01/17 Lisinopril [Prinivil] 20 mg PO DAILY 04/01/17 Pravastatin Sodium 20 mg PO DAILY 04/01/17 Sofosbuvir/Velpatasvir [Epclusa 1 each PO DAILY 04/01/17 400 mg-100 mg Tablet] Insulin Glargine,Hum.rec.anlog 15 unit SQ HS 04/03/17 [Basaglar Kwikpen U-100] Quetiapine Fumarate [Seroquel] 300 mg PO HS 04/03/17 Sertraline HCl [Zoloft] 100 mg PO DAILY 04/03/17 Allergies Allergy/AdvReac Type Severity Reaction Status Date / Time No Known Allergies Allergy Unverified 04/01/17 15:41 PHYSICAL EXAM: GENERAL: Awake, alert, and fully oriented, in no acute distress; sitting in a chair. HEAD: Normal with no signs of trauma. ABDOMEN: Soft, nontender, distended w/fluid wave, normoactive bowel sounds, no guarding, no rebound, no masses. No organomegaly. Healed port sites from prior lap joanna; no hernias MUSCULOSKELETAL: Normal ROM at all joints. No bony deformities or tenderness. No CVA tenderness. UPPER EXTREMITIES: 2+ pulses, warm, well-perfused. No cyanosis. Cap refill <2 seconds. No peripheral edema. LOWER EXTREMITIES: 2+ pulses, warm, well-perfused. No calf tenderness. No peripheral edema. NEUROLOGICAL: Normal speech, gait not observed. PSYCH: Cooperative. Good eye contact. Appropriate mood and affect. SKIN: Warm, dry, normal turgor, no rashes or lesions noted. Vital Signs Temperature 98.6 F 04/03/17 14:00 Pulse Rate 81 04/03/17 14:00 Respiratory Rate 17 04/03/17 14:00 Blood Pressure 116/55 04/03/17 14:00 O2 Sat by Pulse Oximetry (%) 98 04/03/17 10:00 Lab Results WBC 24.1 K/mm3 (4.0-10.0) H D 04/03/17 05:20 RBC 3.87 M/mm3 (3.60-5.2) 04/03/17 05:20 Hgb 11.4 GM/dL (10.7-15.3) 04/03/17 05:20 Hct 35.1 % (32.4-45.2) 04/03/17 05:20 MCV 90.6 fl (80-96) 04/03/17 05:20 MCHC 32.6 g/dl (32.0-36.0) 04/03/17 05:20 RDW 16.6 % (11.6-15.6) H 04/03/17 05:20 Plt Count 419 K/MM3 (134-434) 04/03/17 05:20 Sodium 138 mmol/L (136-145) 04/03/17 05:20 Potassium 4.1 mmol/L (3.5-5.1) 04/03/17 05:20 Chloride 103 mmol/L (98-107) 04/03/17 05:20 Carbon Dioxide 28 mmol/L (21-32) 04/03/17 05:20 Anion Gap 7 (8-16) L 04/03/17 05:20 BUN 4 mg/dL (7-18) L 04/03/17 05:20 Creatinine 0.2 mg/dL (0.55-1.02) L D 04/03/17 05:20 Random Glucose 127 mg/dL (74-106) H 04/03/17 05:20 Calcium 7.7 mg/dL (8.5-10.1) L 04/03/17 05:20 INR 1.59 (0.82-1.09) H 04/03/17 05:20 Imaging reviewed; progress notes to date and consults reviewed IMP: r/o intraabdominal malignancy of GI/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 of nodes/liver by least invasive means possible to establish dx ; would not subject this patient to any operative procedure unless necessary and /or would consider xfer to a tertiary care center. Emmanuel De La O MD FACS Visit type - Case Type Case Type: ED Admission - Emergency Emergency Visit: Yes ED Registration Date: 04/02/17 Care time: The patient presented to the Emergency Department on the above date and was hospitalized for further evaluation of their emergent condition. - New patient This patient is new to me today: Yes Date on this admission: 04/03/17 - Critical Care Critical Care patient: Yes Total Critical Care Time: 15
[2017-04-03] MEDS ORDERED: HEMOQUE TEST 1 EACH EACH ONE (16:44)
[2017-04-03] MEDS ORDERED: METHADONE HCL 5 MG TABLET PO SCH ×2 (17:00)
[2017-04-03] MEDS: ONDANSETRON 4 MG/2 ML VIAL IVPB PRN ×2 (17:21→22:33)
--- NOTE | 2017-04-03 19:41 | PN ---
GI Progress Note Subjective: Patient in bed-"I'm scared" She is concerned about poss underlying malignancy States 60 lb weight loss in short amount of time - Objective Vital Signs: Vital Signs Temperature 99 F 04/03/17 16:00 Pulse Rate 82 04/03/17 16:00 Respiratory Rate 14 04/03/17 16:00 Blood Pressure 126/53 04/03/17 16:00 O2 Sat by Pulse Oximetry (%) 98 04/03/17 10:00 Constitutional: Thin HENT: Yes: Normocephalic Neck: Yes: Supple Cardiovascular: Yes: Regular Rate and Rhythm Respiratory: Yes: CTA Bilaterally Gastrointestinal Inspection: Yes: Ascites ...Auscultate: Yes: Normoactive Bowel Sounds ...Palpate: Yes: Soft. No: Tenderness Labs: CBC, BMP 04/03/17 05:20 04/03/17 05:20 INR, PTT INR 1.59 (0.82-1.09) H 04/03/17 05:20 Abnormal Lab Results 04/02/17 04/03/17 04/03/17 05:30 05:20 05:20 WBC 24.1 H D RDW 16.6 H Neutrophils % 84.7 H INR 1.59 H PTT (Actin FS) 42.5 H D Anion Gap BUN Creatinine Random Glucose Calcium Magnesium Direct Bilirubin Alkaline Phosphatase Ammonia Total Protein Albumin Carcinoembryonic Ag 18.2 H CA 19-9 Antigen 183 H CA 125 Antigen 350.5 H 04/03/17 04/03/17 04/03/17 05:20 08:15 15:30 WBC RDW Neutrophils % INR PTT (Actin FS) 58.9 H D Anion Gap 7 L BUN 4 L Creatinine 0.2 L D Random Glucose 127 H Calcium 7.7 L Magnesium 1.7 L Direct Bilirubin 0.4 H Alkaline Phosphatase 239 H Ammonia 45.5 H Total Protein 5.3 L Albumin 1.7 L Carcinoembryonic Ag CA 19-9 Antigen CA 125 Antigen - ....Imaging Cat Scan: Report Reviewed (Abd/pelvis with multiple abnormalities strongly suggesting malignancy, incl ascites and intrahepatic biliary dilatation) Assessment/Plan 57 F with h/o hep C and substance abuse now with constellation of problems strongly suggesting malignancy High CA19-9/CEA and Ca125 with biliary dilatation and isolated elevated alk phos suggest cholangiocarcinoma. However, there is also a complex mass in the R adnexa suggesting ovarian ca. Hypercoagulable likely secondary to malignancy. Tissue dx is necessary once acute problems resolve
[2017-04-03] MEDS: GABAPENTIN 300 MG CAPSULE (FP) PO SCH (22:33)
[2017-04-04] MEDS: METRONIDAZOLE 500 MG PREMIXED 100 ML IVPB SCH (02:05)
[2017-04-04] MEDS: HEPARIN - 25,000 UNIT in SODIUM CHLORIDE 495 ML IV SCH ×2 (02:05→09:50)
[2017-04-04] MEDS: SODIUM CHLORIDE 1,000 ML IV SCH ×2 (02:05→15:30)
[2017-04-04] MEDS: METHADONE HCL 40 MG DISPERSABLE TABLET PO SCH (06:39)
[2017-04-04] MEDS: INSULIN SLIDING SCALE (NOVOLOG) 1 VIAL SQ SCH ×4 (06:39→22:54)
[2017-04-04 07:29] LABS: ALBUMIN 1.8 g/dl (3.4-5.0); ANION GAP 9 (8-16); CO2 30 mmol/L (21-32); GLUCOSE,RANDOM 143 mg/dL (74-106)
[2017-04-04 07:33] LABS: ALK PHOS 234 U/L (45-117); BILIRUBIN,TOTAL 0.7 mg/dL (0.2-1.0); CREATININE 0.2 mg/dL (0.55-1.02); PHOSPHOROUS 2.4 mg/dL (2.5-4.9); SGOT/AST 17 U/L (15-37); SGPT/ALT 19 U/L (12-78); TOT PROT 5.5 g/dl (6.4-8.2)
--- NOTE | 2017-04-04 07:38 | PN ---
Progress Note, Physician Chief Complaint: ID Sitting in a chair quite comfortable Still on antibiotics No fevers Complains constipation - Current Medication List Current Medications: Active Medications Albuterol Sulfate (Ventolin 0.083% Nebulizer Soln -) 1 amp NEB Q4H PRN PRN Reason: SHORT OF BREATH/WHEEZING Last Admin: 04/03/17 09:41 Dose: 1 amp Amlodipine Besylate (Norvasc -) 10 mg PO DAILY OLMAN Last Admin: 04/03/17 10:01 Dose: 10 mg Aripiprazole (Abilify) 20 mg PO DAILY OLMAN Last Admin: 04/03/17 10:03 Dose: 20 mg Benztropine Mesylate (Cogentin -) 1 mg PO BID OLMAN Last Admin: 04/03/17 22:33 Dose: 1 mg Ceftriaxone Sodium (Rocephin 1gm Ivpb (Pre-Docked)) 1 gm IVPB DAILY OLMAN PRN Reason: Protocol Last Admin: 04/03/17 11:16 Dose: 1 gm Gabapentin (Neurontin -) 900 mg PO HS OLMAN Last Admin: 04/03/17 22:33 Dose: 900 mg Heparin Sodium (Porcine) (Heparin -) 5,000 unit IVPUSH PRN PRN Heparin Sodium (Porcine) (Heparin -) 1,000 unit IVPUSH PRN PRN Last Admin: 04/03/17 11:12 Dose: 1,000 unit Sodium Chloride (Normal Saline -) 1,000 mls @ 83 mls/hr IV ASDIR OLMAN Last Admin: 04/04/17 02:05 Dose: Not Given Heparin Sodium (Porcine) 25, (000 unit/ Sodium Chloride) 500 mls @ 16 mls/hr IV TITR OLMAN; 800 UNIT/HR PRN Reason: Protocol Last Admin: 04/04/17 02:05 Dose: Not Given Metronidazole (Flagyl 500mg Premixed Ivpb -) 100 mls @ 100 mls/hr IVPB Q8H-IV OLMAN Last Admin: 04/04/17 02:05 Dose: 100 mls/hr Insulin Aspart (Novolog Vial Sliding Scale -) 1 vial SQ ACHS OLMAN PRN Reason: Protocol Last Admin: 04/04/17 06:39 Dose: Not Given Lisinopril (Prinivil) 20 mg PO DAILY OLMAN Last Admin: 04/03/17 10:01 Dose: 20 mg Methadone HCl (Dolophine -) 80 mg PO DAILY@0600 [facility] Last Admin: 04/04/17 06:39 Dose: 80 mg Ondansetron HCl (Zofran Injection) 4 mg IVPB Q4H PRN PRN Reason: NAUSEA AND/OR VOMITING Last Admin: 04/03/17 22:33 Dose: 4 mg Pantoprazole Sodium (Protonix -) 20 mg PO DAILY [facility] Last Admin: 04/03/17 10:01 Dose: 20 mg - Objective Vital Signs: Vital Signs Temperature 98.5 F 04/04/17 06:00 Pulse Rate 78 04/04/17 06:00 Respiratory Rate 16 04/04/17 06:00 Blood Pressure 141/63 04/04/17 06:00 O2 Sat by Pulse Oximetry (%) 98 04/04/17 00:00 Constitutional: Yes: Thin HENT: Yes: Other (Vitiligo) Cardiovascular: Yes: Regular Rate and Rhythm, S1, S2. No: Murmur, Rub Respiratory: Yes: WNL, Regular, CTA Bilaterally. No: Rales, Rhonchi Gastrointestinal: Yes: Soft, Distention. No: Splenomegaly, Tenderness, Tenderness, Rebound Edema: Yes (trace) Labs: INR, PTT INR 1.59 (0.82-1.09) H 04/03/17 05:20 Problem List - Problems (1) Leukocytosis Code(s): D72.829 - ELEVATED WHITE BLOOD CELL COUNT, UNSPECIFIED (2) Pulmonary embolism Code(s): I26.99 - OTHER PULMONARY EMBOLISM WITHOUT ACUTE COR PULMONALE (3) Splenic infarct Code(s): D73.5 - INFARCTION OF SPLEEN (4) Metastatic cancer Code(s): C79.9 - SECONDARY MALIGNANT NEOPLASM OF UNSPECIFIED SITE (5) Hypercoagulable state Code(s): D68.59 - OTHER PRIMARY THROMBOPHILIA Assessment/Plan Microbiology 04/02/17 15:50 Stool Clostridium difficile Antigen (CLAUDIA) - Final 04/02/17 15:50 Stool Clostridium difficile Toxin Assay - Final 04/02/17 01:50 Urine - Urine Clean Catch Urine Culture - Final NO GROWTH OBTAINED 04/02/17 01:30 Blood - Arterial Blood Culture - Preliminary NO GROWTH OBTAINED AFTER 48 HOURS, INCUBATION TO CONTINUE FOR 3 DAYS. 04/02/17 01:30 Blood - Arterial Blood Culture - Preliminary NO GROWTH OBTAINED AFTER 48 HOURS, INCUBATION TO CONTINUE FOR 3 DAYS. Laboratory Tests 04/03/17 04/03/17 04/04/17 05:20 05:20 05:20 WBC 24.1 H D Pending Hgb 11.4 Pending Plt Count 419 Pending BUN 4 L Creatinine 0.2 L D Direct Bilirubin 0.4 H AST 22 Assessment Hypercoagulable state with PE splenic infarct Metastatic CA Leukomoid reaction secondary to above Low clinical suspicion for endocarditis but noninfective ( [place]) a consideration DM Hep C Plan will stop antibiotics and await diagnostic node biopsy Maxim MCINTYRE
[2017-04-04 07:39] LABS: BASOPHIL 0.5 % (0-2.0); EOSINOPHIL 0.1 % (0-4.5); MCH 28.6 pg (25.7-33.7); MCHC 31.8 g/dl (32.0-36.0); MEAN CELL VOLUME 89.9 fl (80-96); MEAN PLT VOLUME 7.7 fl (7.5-11.1); NEUTROPHILS 88.7 % (42.8-82.8); PLATELET COUNT 528 K/MM3 (134-434); RDW 16.1 % (11.6-15.6); WHITE BLOOD COUNT 25.2 K/mm3 (4.0-10.0)
[2017-04-04 07:43] LABS: INR 1.64 (0.82-1.09); PROTHROMBIN TIME (PATIENT) 18.2 SEC (9.98-11.88)
[2017-04-04] MEDS ORDERED: LACTULOSE 20 GM/30 ML UDC (FOR ORAL USE ONLY) PO ONE (09:15)
[2017-04-04] MEDS: LISINOPRIL 20 MG TABLET (FP) PO SCH (09:46)
[2017-04-04] MEDS: PANTOPRAZOLE 20 MG TABLET (FP) PO SCH (09:46)
[2017-04-04] MEDS: amLODIPine BESYLATE 10 MG TABLET (FP) PO SCH (09:46)
[2017-04-04] MEDS: ARIPiprazole 20 MG TABLET PO SCH (09:47)
[2017-04-04] MEDS: BENZTROPINE MESYLATE 1 MG TABLET (FP) PO SCH ×2 (09:49→22:17)
[2017-04-04] MEDS: NAPH,MB-DB/K PH,MBDB POWDER PACKET PO SCH ×2 (12:35→22:19)
--- NOTE | 2017-04-04 13:03 | PN ---
Progress Note (short form) - Note Progress Note: VAscular Surgery CT reviewed. Pt with hepatic/portal vein thrombosis, with splenic infarct. Pt needs life long AC. General surgery on case. Lizandro Gallardo DO
--- NOTE | 2017-04-04 13:13 | PN ---
Progress Note (short form) - Note Progress Note: PULMONARY Less short of breath and chest pain. No cough or wheezing. Last Vital Signs Temp Pulse Resp BP Pulse Ox 98.2 F 73 18 102/62 100 04/04/17 09:54 04/04/17 10:50 04/04/17 09:54 04/04/17 09:54 04/04/17 10:50 Gen: NAD in chair Heart: RRR Lung: decreased breath sounds at the bases Abd: softly distended, nontender Ext: no edema CBC, BMP 04/04/17 05:20 04/04/17 05:20 Active Medications Albuterol Sulfate (Ventolin 0.083% Nebulizer Soln -) 1 amp NEB Q4H PRN PRN Reason: SHORT OF BREATH/WHEEZING Last Admin: 04/03/17 09:41 Dose: 1 amp Amlodipine Besylate (Norvasc -) 10 mg PO DAILY [facility] Last Admin: 04/04/17 09:46 Dose: 10 mg Aripiprazole (Abilify) 20 mg PO DAILY [facility] Last Admin: 04/04/17 09:47 Dose: 20 mg Benztropine Mesylate (Cogentin -) 1 mg PO BID [facility] Last Admin: 04/04/17 09:49 Dose: 1 mg Gabapentin (Neurontin -) 900 mg PO HS [facility] Last Admin: 04/03/17 22:33 Dose: 900 mg Heparin Sodium (Porcine) (Heparin -) 5,000 unit IVPUSH PRN PRN Heparin Sodium (Porcine) (Heparin -) 1,000 unit IVPUSH PRN PRN Last Admin: 04/03/17 11:12 Dose: 1,000 unit Sodium Chloride (Normal Saline -) 1,000 mls @ 83 mls/hr IV ASDIR [facility] Last Admin: 04/04/17 02:05 Dose: Not Given Heparin Sodium (Porcine) 25, (000 unit/ Sodium Chloride) 500 mls @ 16 mls/hr IV TITR [facility]; 800 UNIT/HR PRN Reason: Protocol Last Admin: 04/04/17 09:50 Dose: 18 mls/hr Insulin Aspart (Novolog Vial Sliding Scale -) 1 vial SQ ACHS [facility] PRN Reason: Protocol Last Admin: 04/04/17 12:34 Dose: 2 units Lisinopril (Prinivil) 20 mg PO DAILY [facility] Last Admin: 04/04/17 09:46 Dose: 20 mg Methadone HCl (Dolophine -) 80 mg PO DAILY@0600 [facility] Last Admin: 04/04/17 06:39 Dose: 80 mg Ondansetron HCl (Zofran Injection) 4 mg IVPB Q4H PRN PRN Reason: NAUSEA AND/OR VOMITING Last Admin: 04/03/17 22:33 Dose: 4 mg Pantoprazole Sodium (Protonix -) 20 mg PO DAILY [facility] Last Admin: 04/04/17 09:46 Dose: 20 mg Potassium Phos/Sodium Phos (Phos-Nak Packet -) 1 packet PO BID [facility] Stop: 04/04/17 22:01 Last Admin: 04/04/17 12:35 Dose: 1 packet A/P Likely Metastatic Disease Acute Pulmonary Emboli with Pulmonary Infarct Ascites Lymphadenopathy Lactic Acidosis Elevated LFTs Hep C DM Lung Nodules Smoker - continue anticoagulation - will need tissue diagnosis with CT guidance - do not suspect pneumonia, CT findings likely related pulmonary infarct - can d/c antibiotics from pulmonary standpoint - O2 to keep Spo2 >90% - lung nodules likely related to her metastatic disease - will need outpt PET scan
--- NOTE | 2017-04-04 14:21 | PN ---
Physical Exam: SUBJECTIVE: Patient seen and examined. No acute events over night. She says she feels better today. She has not had a bowel movement in 2 days. She denies chills, fever, nausea, and vomiting. OBJECTIVE: Vital Signs Period Temp Pulse Resp BP Sys/Roach Pulse Ox Last 24 Hr 98.2 F-99 F 61-82 14-18 102-146/53-66 98-100 GENERAL: The patient is awake, alert, and fully oriented, in no acute distress. EYES: PERRL, extraocular movements intact, sclera anicteric, conjunctiva clear. No ptosis. NECK: supple. LUNGS: Breath sounds equal, clear to auscultation bilaterally, no wheezes, no crackles, no accessory muscle use. HEART: Regular rate and rhythm, S1, S2 without murmur, rub or gallop. ABDOMEN: Soft, nontender, nondistended, normoactive bowel sounds. + shifting dullness, liver not palpable EXTREMITIES: 2+ pulses, warm, well-perfused, 1+ pitting edema PSYCH: Normal mood, normal affect. Laboratory Results - last 24 hr 04/03/17 04/03/17 04/03/17 05:20 15:30 16:56 WBC RBC Hgb Hct MCV MCH MCHC RDW Plt Count MPV Neutrophils % Lymphocytes % Monocytes % Eosinophils % Basophils % INR PTT (Actin FS) 58.9 H D Sodium Potassium Chloride Carbon Dioxide Anion Gap BUN Creatinine Creat Clearance w eGFR POC Glucometer [phone] Random Glucose Calcium Phosphorus Magnesium Total Bilirubin AST ALT Alkaline Phosphatase Total Protein Albumin CA 19-9 Antigen 169 H 04/03/17 04/04/17 04/04/17 22:02 05:20 05:20 WBC 25.2 H RBC 3.89 Hgb 11.1 Hct 34.9 MCV 89.9 MCH 28.6 MCHC 31.8 L RDW 16.1 H Plt Count 528 H D MPV 7.7 Neutrophils % 88.7 H Lymphocytes % 5.7 L D Monocytes % 5.0 Eosinophils % 0.1 D Basophils % 0.5 INR PTT (Actin FS) 50.2 H Sodium Potassium Chloride Carbon Dioxide Anion Gap BUN Creatinine Creat Clearance w eGFR POC Glucometer [phone] Random Glucose Calcium Phosphorus Magnesium Total Bilirubin AST ALT Alkaline Phosphatase Total Protein Albumin CA 19-9 Antigen 08/04/04/17 04/04/17 05:20 05:20 06:02 WBC RBC Hgb Hct MCV MCH MCHC RDW Plt Count MPV Neutrophils % Lymphocytes % Monocytes % Eosinophils % Basophils % INR 1.64 H PTT (Actin FS) Sodium 140 Potassium 4.0 Chloride 101 Carbon Dioxide 30 Anion Gap 9 BUN 5 L D Creatinine 0.2 L Creat Clearance w eGFR > 60 POC Glucometer 149.02226 Random Glucose 143 H Calcium 8.0 L Phosphorus 2.4 L Magnesium 2.0 Total Bilirubin 0.7 D AST 17 D ALT 19 Alkaline Phosphatase 234 H Total Protein 5.5 L Albumin 1.8 L CA 19-9 Antigen Active Medications Generic Name Dose Route Start Last Admin Trade Name Freq PRN Reason Stop Dose Admin Albuterol Sulfate 1 amp 04/02/17 03:36 04/03/17 09:41 Ventolin 0.083% Nebulizer Soln - NEB 1 amp Q4H PRN Administration SHORT OF BREATH/WHEEZING Amlodipine Besylate 10 mg 04/02/17 10:00 04/04/17 09:46 Norvasc - PO 10 mg DAILY [facility] Administration Aripiprazole 20 mg 04/02/17 10:00 04/04/17 09:47 Abilify PO 20 mg DAILY [facility] Administration Benztropine Mesylate 1 mg 04/02/17 10:00 04/04/17 09:49 Cogentin - PO 1 mg BID [facility] Administration Gabapentin 900 mg 04/02/17 22:00 04/03/17 22:33 Neurontin - PO 900 mg HS [facility] Administration Heparin Sodium (Porcine) 5,000 unit 04/03/17 09:59 Heparin - IVPUSH PRN PRN Heparin Sodium (Porcine) 1,000 unit 04/03/17 09:59 04/03/17 11:12 Heparin - IVPUSH 1,000 unit PRN PRN Administration Sodium Chloride 1,000 mls @ 83 mls/hr 04/02/17 00:45 04/04/17 02:05 Normal Saline - IV Not Given ASDIR [facility] Heparin Sodium (Porcine) 25, 500 mls @ 16 mls/hr 04/02/17 01:30 04/04/17 09:50 000 unit/ Sodium Chloride IV 18 mls/hr TITR [facility] Administration Protocol 800 UNIT/HR Insulin Aspart 1 vial 04/02/17 07:00 04/04/17 12:34 Novolog Vial Sliding Scale - SQ 2 units ACHS [facility] Administration Protocol Lisinopril 20 mg 04/02/17 10:00 04/04/17 09:46 Prinivil PO 20 mg DAILY [facility] Administration Methadone HCl 80 mg 04/04/17 06:00 04/04/17 06:39 Dolophine - PO 80 mg DAILY@0600 [facility] Administration Ondansetron HCl 4 mg 04/02/17 15:58 04/03/17 22:33 Zofran Injection IVPB 4 mg Q4H PRN Administration NAUSEA AND/OR VOMITING Pantoprazole Sodium 20 mg 04/02/17 10:00 04/04/17 09:46 Protonix - PO 20 mg DAILY [facility] Administration Potassium Phos/Sodium Phos 1 packet 04/04/17 10:30 04/04/17 12:35 Phos-Nak Packet - PO 04/04/17 22:01 1 packet BID [facility] Administration ASSESSMENT/PLAN: 57 y/o F with history of Diabetes, Hepatitis C, heroin drug use (on methadone), presented to the ED with left sided chest pain and was found to have Pulmonary Embolus, Portal vein thrombosis, splenic infarct, right adnexal mass (5x2cm), pelvic mass (3.4x1.4cm) and pulmonary nodules. # Acute Pulmonary embolus, splenic infarct and Portal/hepatic vein thrombosis likely secondary to underlying malignancy. - Will hold heparin drip 4am tomorrow for paracentesis. -PTT goal of 60-90 check daily (Currently 59) -heparin bolus given per protocol. Will continue adjusting heparin drip as per protocol. continue to trend PTT q6h per protocol -No right strain noted on echo -Vascular surgery on the case -GI on board: recommends surgical consult for splenic infarct # Possible Malignancy with metastasis -Paracentesis scheduled for tomorrow. Will hold heparin at 4am tomorrow. - CT scan revealed: pulmonary nodules, peritoneal lymphadenopathy, and pelvic mass - Discussed biopsy with IR- will do ultrasound guided abdominal paracentesis and send fluid for cytology - Transvaginal U/S-showed large right cystic/solid ovarian mass -OBGYN consulted -Heme on board: hypercoaguable state likely due to a possible malignancy at this time -GI on board: R/O hepatoma (Elevated CEA, CA19-9, CA-125) -AFP pending -Abdominal U/S: diffuse heterogenous echotexture of the liver with multiple hyperechoic masslike densities measuring up to 4.4 cm. -Surgery consulted- agree to biopsy nodes/liver by least invasive means to establish dx. Does not recommend surgery unless emergent. # severe sepsis/Leukocytosis/Elevated Lactic Acid possibly secondary to underlying neoplasm -Lactic acidosis resolved -sepsis resolving -leukocytosis persists -CT scan results: revealed consolidative opacity in the left lower lobe. Small left pleural effusion. 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 would treat patient based on clinical picture as per cardiology. -blood cultures negative. -afebrile ID aware #Nausea -antiemetics PRN #Constipation -lactulose 20mg # Diarrhea -Resolved -Stool C. Diff negative -Stool culture positive for yersinia # Hypertension- controlled -Continue Lisinopril 20mg Daily, Amlodipine 10mg PO Daily #Asthma-not in exacerbation -Albuterol PRN -PFT's as outpatient to r/o obstructive vs restrictive lung disease. #Diabetes Type 2 -ISS -Blood glucose well controlled FEN: Continue IV fluids NS @ 83ml per hour Will continue to monitor electrolytes Diabetic Diet PPx: Heparin drip for full anticoagulation dose (will hold at 4am for paracentesis) Protonix 20mg PO Daily Patient is currently ambulating on her own and does not to be deconditioning at this time. Will continue to assess patient daily for need of physical therapy consult. Visit type - Emergency Visit Emergency Visit: Yes ED Registration Date: 04/02/17 Care time: The patient presented to the Emergency Department on the above date and was hospitalized for further evaluation of their emergent condition. - New Patient This patient is new to me today: No - Critical Care Critical Care patient: No
--- NOTE | 2017-04-04 17:55 | CON.OBG ---
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 Ascites , multiple nodules in Liver, , possible pancreatic neoplasm , Rt adnexal complex mass 5x2cm solid nodule 3x1.6 cm , portal vein thronmbosis , spleen infarct . Can Top Setter consult is requested due to adnexal mass - History of Present Illness Chief Complaint: c/o SOB & lower lt side chest pain for 2 weeks, intense 2 days ago hence she presented in ER on 04/02/17 History of Present Illness: pt states her symptoms began 2 weeks ago , .she experienced Loss of weight unintentional approx 60 lbs in short time loss of appetite for 2 weeks vomiting & diarrhea for 1 week before coming to ER h/o chr constipation Pain in abdomen before moving bowels . 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 No: GI Bleed Hepatobiliary: Yes: Hepatitis C (on meds ), Other (Hepatic nodules on ct scan , ) Renal/: No: UTI Reproductive: Yes: Postmenopausal, Other (h/o Infertility , work up done laproscopy was done she was told she had blocked tubes .Not sexulally active for >10 years ) ...: No ...: 0 ...Para: 0 Heme/Onc: No: Bleeding Disorder (declines ), Sickle Cell Disease (denies ) Infectious Disease: Yes: STD's, Other (Hep -C ) Psych: Yes: Depression Endocrine: Yes: Diabetes Mellitus (NIDDM ) Additional Medical History: h/o mamogram done , last 1 year ago , normal as per patient - Past Surgical History Past Surgical History: Yes: Breast Biopsy (at 14 yrs age breast cyst removed ) - Alcohol/Substance Use Hx Alcohol Use: No History of Substance Use: reports: Heroin (In past, h/o drug Rehab program , on Methadone currently 80 mg po daily ) - Smoking History Smoking history: Current every day smoker Have you smoked in the past 12 months: Yes Aproximately how many cigarettes per day: 5 Home Medications - Allergies Allergies/Adverse Reactions: Allergies Allergy/AdvReac Type Severity Reaction Status Date / Time No Known Allergies Allergy Unverified 04/01/17 15:41 - Home Medications Home Medications: Ambulatory Orders Aripiprazole [Abilify] 20 mg PO HS 12/02/16 Benztropine Mesylate [Cogentin -] 1 mg PO BID 12/02/16 Clonazepam [KlonoPIN] 0.5 mg PO TID 12/02/16 Gabapentin 900 mg PO HS 12/02/16 Metformin HCl [Metformin HCl ER] 1,000 mg PO BID 12/02/16 Methadone [Dolophine -] 80 mg PO DAILY 12/02/16 Omeprazole 20 mg PO DAILY 12/02/16 Polyethylene Glycol 3350 [Miralax (For Bowel Prep) -] 17 gm PO ONCE #1 bottle Sitagliptin Phosphate [Januvia] 100 mg PO DAILY 12/02/16 Amlodipine Besylate 10 mg PO DAILY 04/01/17 Fenofibrate Nanocrystallized [Fenofibrate] 54 mg PO DAILY 04/01/17 Glipizide [Glipizide ER] 10 mg PO BID 04/01/17 Lisinopril [Prinivil] 20 mg PO DAILY 04/01/17 Pravastatin Sodium 20 mg PO DAILY 04/01/17 Sofosbuvir/Velpatasvir [Epclusa 400 mg-100 mg Tablet] 1 each PO DAILY 04/01/17 Insulin Glargine,Hum.rec.anlog [Basaglar Kwikpen U-100] 15 unit SQ HS 04/03/17 Quetiapine Fumarate [Seroquel] 300 mg PO HS 04/03/17 Sertraline HCl [Zoloft] 100 mg PO DAILY 04/03/17 Family Disease History - Family Disease History Family Disease History: CA: Sister (colon cnacer) Review of Systems - Review of Systems Constitutional: reports: Unintentional Wgt. Loss, Weakness Neck: reports: No Symptoms. 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 No: Palpable Mass (clinically), Tenderness, Tenderness, Epigastrium, Tenderness, Rebound, Vomiting ...Rectal Exam: Yes: Deferred Renal/: No: CVA Tenderness - Left, CVA Tenderness - Right, Vaginal Bleeding, Vaginal Discharge Pelvis: No: Tenderness External Genitalia: Yes: Normal Internal Exam Deferred: Yes Vaginal Exam: Yes: Normal. No: Bleeding, Condyloma Cervix: Yes: Normal. No: Bleeding, Cerv Motion Tenderness Uterus: Yes: Normal Adnexa: Normal: Bilateral (due to free fluid unable to palpate adnexa ), Not Palpable: Bilateral (unsatisfactory exam . non tender ) Breast(s): Yes: WNL. No: Mass Musculoskeletal: No: Joint Stiffness, Joint Swelling, Muscle Pain Extremities: No: Calf Tenderness Edema: No Psychiatric: Yes: WNL, Alert, Oriented Labs: CBC, BMP 04/04/17 05:20 04/04/17 05:20 Laboratory Tests 04/01/17 04/02/17 04/03/17 19:50 05:30 05:20 AST ALT Ammonia Tumor Marker AFP Carcinoembryonic Ag 18.2 H CA 19-9 Antigen 169 H CA 125 Antigen 350.5 H HIV 1&2 Antibody Screen Negative HIV P24 Antigen Negative 08/04/04/17 04/04/17 08:15 05:20 05:20 AST 17 D ALT 19 Ammonia 45.5 H Tumor Marker AFP Pending Carcinoembryonic Ag CA 19-9 Antigen CA 125 Antigen HIV 1&2 Antibody Screen HIV P24 Antigen Problem List - Problems (1) Hep C w/o coma, chronic Code(s): B18.2 - CHRONIC VIRAL HEPATITIS C (2) Hypercoagulable state Code(s): D68.59 - OTHER PRIMARY THROMBOPHILIA (3) Leukocytosis Code(s): D72.829 - ELEVATED WHITE BLOOD CELL COUNT, UNSPECIFIED (4) Lymphadenopathy Code(s): R59.1 - GENERALIZED ENLARGED LYMPH NODES (5) Metastatic cancer Code(s): C79.9 - SECONDARY MALIGNANT NEOPLASM OF UNSPECIFIED SITE (7) Pulmonary embolism Code(s): I26.99 - OTHER PULMONARY EMBOLISM WITHOUT ACUTE COR PULMONALE (8) Splenic infarct Code(s): D73.5 - INFARCTION OF SPLEEN Assessment/Plan 57 yrs post menopause , admitted for sob , noted to have metastaic cancer , ascites, hepatic nodules, pancreatic nodlues, Rt adnexal complex mass, ascies , lt lower lobe pulmonary nodules,pneumona , portal vein thrombosis, spleenic infact ,retroperitoneal lymphadenopathy Leuoocytosis recent ly revealed diiagnosis to patient she is known c/o Hep C, NIDDM, CHr HTN, Substance abuse ( herioin ) on Methadone currently on meds Heparin drip, ceftriaxione & metranidazole insulin Norvasc, Lisinopril protonix, zofran gabapentin, ablify Gynecologically in my opinion it appears to be metastatic disease , origin can not be pointed out .since markers are high , it not necessarily points out to primary ovarian cancer .. In operable presently since metastasis is in liver & lung However I recommend to consult Can Top Setter oncologist ,Dr Justin Cooley , she comes to hosp on Saturday , please call her office off number is [phone] .
[2017-04-04] MEDS: ONDANSETRON 4 MG/2 ML VIAL IVPB PRN (18:05)
--- NOTE | 2017-04-04 18:59 | PN ---
Teaching Attending Note Name of Resident: Anne Roman ATTENDING PHYSICIAN STATEMENT I saw and evaluated the patient. I reviewed the resident's note and discussed the case with the resident. I agree with the resident's findings and plan as documented. SUBJECTIVE: Comfortable with no acute distress, no shortness of breath, no nausea or vomiting. OBJECTIVE: Vital Signs Temperature 98 F 04/04/17 18:27 Pulse Rate 70 04/04/17 18:27 Respiratory Rate 13 04/04/17 18:27 Blood Pressure 142/50 04/04/17 18:27 O2 Sat by Pulse Oximetry (%) 100 04/04/17 10:50 CBCD WBC 25.2 K/mm3 (4.0-10.0) H 04/04/17 05:20 RBC 3.89 M/mm3 (3.60-5.2) 04/04/17 05:20 Hgb 11.1 GM/dL (10.7-15.3) 04/04/17 05:20 Hct 34.9 % (32.4-45.2) 04/04/17 05:20 MCV 89.9 fl (80-96) 04/04/17 05:20 MCHC 31.8 g/dl (32.0-36.0) L 04/04/17 05:20 RDW 16.1 % (11.6-15.6) H 04/04/17 05:20 Plt Count 528 K/MM3 (134-434) H D 04/04/17 05:20 MPV 7.7 fl (7.5-11.1) 04/04/17 05:20 CMP Sodium 140 mmol/L (136-145) 04/04/17 05:20 Potassium 4.0 mmol/L (3.5-5.1) 04/04/17 05:20 Chloride 101 mmol/L (98-107) 04/04/17 05:20 Carbon Dioxide 30 mmol/L (21-32) 04/04/17 05:20 Anion Gap 9 (8-16) 04/04/17 05:20 BUN 5 mg/dL (7-18) L D 04/04/17 05:20 Creatinine 0.2 mg/dL (0.55-1.02) L 04/04/17 05:20 Creat Clearance w eGFR > 60 (>60) 04/04/17 05:20 Random Glucose 143 mg/dL (74-106) H 04/04/17 05:20 Calcium 8.0 mg/dL (8.5-10.1) L 04/04/17 05:20 Total Bilirubin 0.7 mg/dL (0.2-1.0) D 04/04/17 05:20 AST 17 U/L (15-37) D 04/04/17 05:20 ALT 19 U/L (12-78) 04/04/17 05:20 Alkaline Phosphatase 234 U/L (45-117) H 04/04/17 05:20 Total Protein 5.5 g/dl (6.4-8.2) L 04/04/17 05:20 Albumin 1.8 g/dl (3.4-5.0) L 04/04/17 05:20 CARDIAC ENZYMES Creatine Kinase 23 IU/L (26-192) L 04/01/17 19:40 Troponin I < 0.02 ng/ml (0.00-0.05) 04/02/17 05:30 Current Medications Generic Name Dose Route Start Last Admin Trade Name Freq PRN Reason Stop Dose Admin Albuterol Sulfate 1 amp 04/02/17 03:36 04/03/17 09:41 Ventolin 0.083% Nebulizer Soln - NEB 1 amp Q4H PRN Administration SHORT OF BREATH/WHEEZING Amlodipine Besylate 10 mg 04/02/17 10:00 04/04/17 09:46 Norvasc - PO 10 mg DAILY OLMAN Administration Aripiprazole 20 mg 04/02/17 10:00 04/04/17 09:47 Abilify PO 20 mg DAILY OLMAN Administration Benztropine Mesylate 1 mg 04/02/17 10:00 04/04/17 09:49 Cogentin - PO 1 mg BID OLMAN Administration Gabapentin 900 mg 04/02/17 22:00 04/03/17 22:33 Neurontin - PO 900 mg HS OLMAN Administration Heparin Sodium (Porcine) 5,000 unit 04/03/17 09:59 Heparin - IVPUSH PRN PRN Heparin Sodium (Porcine) 1,000 unit 04/03/17 09:59 04/03/17 11:12 Heparin - IVPUSH 1,000 unit PRN PRN Administration Sodium Chloride 1,000 mls @ 83 mls/hr 04/02/17 00:45 04/04/17 15:30 Normal Saline - IV 83 mls/hr ASDIR OLMAN Administration Heparin Sodium (Porcine) 25, 500 mls @ 16 mls/hr 04/02/17 01:30 04/04/17 09:50 000 unit/ Sodium Chloride IV 18 mls/hr TITR OLMAN Administration Protocol 800 UNIT/HR Insulin Aspart 1 vial 04/02/17 07:00 04/04/17 16:53 Novolog Vial Sliding Scale - SQ Not Given ACHS [facility] Protocol Lisinopril 20 mg 04/02/17 10:00 04/04/17 09:46 Prinivil PO 20 mg DAILY OLMAN Administration Methadone HCl 80 mg 04/04/17 06:00 04/04/17 06:39 Dolophine - PO 80 mg DAILY@0600 OLMAN Administration Ondansetron HCl 4 mg 04/02/17 15:58 04/04/17 18:05 Zofran Injection IVPB 4 mg Q4H PRN Administration NAUSEA AND/OR VOMITING Pantoprazole Sodium 20 mg 04/02/17 10:00 04/04/17 09:46 Protonix - PO 20 mg DAILY OLMAN Administration Potassium Phos/Sodium Phos 1 packet 04/04/17 10:30 04/04/17 12:35 Phos-Nak Packet - PO 04/04/17 22:01 1 packet BID OLMAN Administration Home Medications Medication Instructions Recorded Aripiprazole [Abilify] 20 mg PO HS 12/02/16 Benztropine Mesylate [Cogentin -] 1 mg PO BID 12/02/16 Clonazepam [KlonoPIN] 0.5 mg PO TID 12/02/16 Gabapentin 900 mg PO HS 12/02/16 Metformin HCl [Metformin HCl ER] 1,000 mg PO BID 12/02/16 Methadone [Dolophine -] 80 mg PO DAILY 12/02/16 Omeprazole 20 mg PO DAILY 12/02/16 Polyethylene Glycol 3350 [Miralax 17 gm PO ONCE #1 bottle 12/02/16 (For Bowel Prep) -] Sitagliptin Phosphate [Januvia] 100 mg PO DAILY 12/02/16 Amlodipine Besylate 10 mg PO DAILY 04/01/17 Fenofibrate Nanocrystallized 54 mg PO DAILY 04/01/17 [Fenofibrate] Glipizide [Glipizide ER] 10 mg PO BID 04/01/17 Lisinopril [Prinivil] 20 mg PO DAILY 04/01/17 Pravastatin Sodium 20 mg PO DAILY 04/01/17 Sofosbuvir/Velpatasvir [Epclusa 1 each PO DAILY 04/01/17 400 mg-100 mg Tablet] Insulin Glargine,Hum.rec.anlog 15 unit SQ HS 04/03/17 [Basaglar Kwikpen U-100] Quetiapine Fumarate [Seroquel] 300 mg PO HS 04/03/17 Sertraline HCl [Zoloft] 100 mg PO DAILY 04/03/17 Microbiology 04/03/17 17:10 Sputum - Expectorated AFB Smear Concentration - Preliminary 04/03/17 17:10 Sputum - Expectorated Direct Acid Fast Bacilli Smear - Final 04/03/17 17:10 Sputum - Expectorated Mycobacterial Culture - Preliminary 04/04/17 07:00 Sputum - Expectorated Direct Acid Fast Bacilli Smear - Final 04/02/17 15:50 Stool Salmonella/Shigella Culture - Preliminary NO ENTERIC PATHOGENS, 24 HOURS, ON PRIMARY PLATES 04/02/17 15:50 Stool Yersinia Culture - Preliminary Gram Negative Kranthi 04/02/17 15:50 Stool Vibrio Culture - Final NO GROWTH OF VIBRIO SPECIES OBTAINED 04/02/17 15:50 Stool Escherichia coli 0157 Culture - Final NO GROWTH OF E COLI 0157 OBTAINED 04/02/17 01:30 Blood - Arterial Blood Culture - Preliminary NO GROWTH OBTAINED AFTER 48 HOURS, INCUBATION TO CONTINUE FOR 3 DAYS. 04/02/17 01:30 Blood - Arterial Blood Culture - Preliminary NO GROWTH OBTAINED AFTER 48 HOURS, INCUBATION TO CONTINUE FOR 3 DAYS. 04/02/17 15:50 Stool Gram Stain - Final 04/02/17 15:50 Stool Clostridium difficile Antigen (CLAUDIA) - Final 04/02/17 15:50 Stool Clostridium difficile Toxin Assay - Final 04/02/17 01:50 Urine - Urine Clean Catch Urine Culture - Final NO GROWTH OBTAINED [id number] US/TRANSVAGINAL ULTRASOUND US Rule out pelvic mass Pelvis ultrasound, transvesical and transvaginal Post menopause The uterus measures 6.5 x 2.6 cm with homogeneous echotexture. Endometrial stripe measures 3 mm in thickness. There is a large amount of free fluid/ascites in the pelvis Left ovary was not visualized. In the right adnexa, there is a complex cystic and solid mass lesion with a total measurement of 5 x 2 cm. The solid component measures 3 x 1.9 cm No gross right ovarian tissue is identified. IMPRESSION: Large amount of ascites in the pelvis. Complex mass in the right adnexa measuring 5 x 2 cm with cystic and solid component, of uncertain etiology. It may be ovarian in origin. No gross right ovarian tissue is identified. Correlate clinically for further evaluation. Reported By: Naye Toney MD 04/03/[address] abdomen and pelvis: IMPRESSION: Acute pulmonary embolism is identified with associated left lower lobe subpleural increased opacity consistent with acute infarction. Extensive splenic infarction is noted. There is occlusion of the splenic and main portal veins which may be chronic or subacute. A moderate amount of ascites is seen which appears mildly increased in comparison to a chest CT study of 03/21/2017. Increased retroperitoneal and retrocrural lymphadenopathy is noted. Extensive intra-abdominal lymphadenopathy is again seen in the peripancreatic and yasmin hepatis regions. Bilateral pulmonary nodules are again noted. Interval development of focal irregularity seen along the right hepatic lobe laterally which may be on the basis of peritoneal implants versus possible laceration injury. 2.3 cm left hepatic lobe enhancing mass lesion. A subtle 3.4 x 1.4 cm density is seen within the right lower pelvis posteriorly which may represent peritoneal neoplastic implant. There is possible mild concentric wall thickening along the sigmoid and descending colon which could be on the basis of colitis versus secondary to previously described ascites. Mild intrahepatic biliary tract dilatation without obvious interval change. Status post cholecystectomy. Reported By: Mitchel Noriega MD IMPRESSION: A 1.3 cm nonspecific irregular left lower lobe pulmonary nodule is identified. Upper abdominal lymphadenopathy is noted. There is resultant obscuration of pancreatic head. Mild biliary tract dilatation is seen. A nonspecific 1.1 cm right hepatic lobe hypodense lesion is noted. There is a possible additional nonspecific 1.3 cm left hepatic lobe lesion. Status post cholecystectomy. PE: per resident's notes ASSESSMENT AND PLAN: 57 y/o unfortunate lady with h/o NIDDM , h/o heroin use on Methadone, who presented with L sided chest pain and was found to have PE, splenic and portal vein thrombosis, and pelvic and pulmonary nodules # Adenexal mass cannot r/o ovarian cancer with Mets. pelvic, liver , lung nodules and peritoneal LAP , primary site possible ovarian in nature. will discuss with Oncology. All the markers are positive CA125 350's. seen by Xiomara, recommends consult with Pulp Mill Supervisor oncologist ,Dr Justin Cooley , she comes to hosp on Saturday , please call her office off number is [phone] . # Acute Left sided PE, Portal and splenic vein thrombosis: cont heparin gtt. goal PTT 60-90 , manager terminal AC needed. LLL infiltrate could be due to PE , and unlikely to PNA # Acute Leukocytosis possible leukomoid rxn, thickened colon wall could be infectious colitis, Vs ischemic colitis, vs colon ca #ECHo can't r/o vegetation discussed with ID, will discontinue IV antibiotic for now,s/p flagyl/ceftriaxone s/p zosyn and vancomycin, blood culture is negative so far, patient is afebrile, with no signs any infection . As per ID , low clinical suspicion for endocarditis but noninfective ( [place]) is a consideration, will discuss it with light out examiner as per ID to stop antibiotics and await diagnostic node biopsy. # Hx of Hep C due to IVDA ( Diagnosis around 5 yrs ago). # HTN, cont home meds DVT px: heparin Patient is scheduled to go to paracentesis in am by IR.
[2017-04-04] MEDS: GABAPENTIN 300 MG CAPSULE (FP) PO SCH (22:17)
[2017-04-05] MEDS: SODIUM CHLORIDE 1,000 ML IV SCH (00:45)
[2017-04-05] MEDS: HEPARIN - 25,000 UNIT in SODIUM CHLORIDE 495 ML IV SCH ×2 (01:30→18:00)
[2017-04-05] MEDS: METHADONE HCL 40 MG DISPERSABLE TABLET PO SCH (06:14)
[2017-04-05] MEDS: INSULIN SLIDING SCALE (NOVOLOG) 1 VIAL SQ SCH ×4 (06:14→21:57)
[2017-04-05 06:39] LABS: BASOPHIL 0.8 % (0-2.0); EOSINOPHIL 1.2 % (0-4.5); MCH 29.5 pg (25.7-33.7); MCHC 32.7 g/dl (32.0-36.0); MEAN CELL VOLUME 90.2 fl (80-96); MEAN PLT VOLUME 7.9 fl (7.5-11.1); NEUTROPHILS 78.4 % (42.8-82.8); PLATELET COUNT 600 K/MM3 (134-434); RDW 16.4 % (11.6-15.6); WHITE BLOOD COUNT 24.5 K/mm3 (4.0-10.0)
[2017-04-05 06:48] LABS: ANION GAP 9 (8-16); CALCIUM 8.3 mg/dL (8.5-10.1); CO2 29 mmol/L (21-32); CREATININE 0.4 mg/dL (0.55-1.02); GLUCOSE,RANDOM 108 mg/dL (74-106); MAGNESIUM 1.8 mg/dL (1.8-2.4); SGOT/AST 17 U/L (15-37); SGPT/ALT 18 U/L (12-78)
[2017-04-05 06:51] LABS: ALK PHOS 268 U/L (45-117); BILIRUBIN,TOTAL 0.8 mg/dL (0.2-1.0); TOT PROT 6.2 g/dl (6.4-8.2)
[2017-04-05 07:21] LABS: INR 1.53 (0.82-1.09)
--- NOTE | 2017-04-05 07:37 | PN ---
Progress Note, Physician Chief Complaint: ID Off antibiotics and offers no complaints No fever - Current Medication List Current Medications: Active Medications Albuterol Sulfate (Ventolin 0.083% Nebulizer Soln -) 1 amp NEB Q4H PRN PRN Reason: SHORT OF BREATH/WHEEZING Last Admin: 04/03/17 09:41 Dose: 1 amp Amlodipine Besylate (Norvasc -) 10 mg PO DAILY [facility] Last Admin: 04/04/17 09:46 Dose: 10 mg Aripiprazole (Abilify) 20 mg PO DAILY [facility] Last Admin: 04/04/17 09:47 Dose: 20 mg Benztropine Mesylate (Cogentin -) 1 mg PO BID [facility] Last Admin: 04/04/17 22:17 Dose: 1 mg Gabapentin (Neurontin -) 900 mg PO HS [facility] Last Admin: 04/04/17 22:17 Dose: 900 mg Heparin Sodium (Porcine) (Heparin -) 5,000 unit IVPUSH PRN PRN Heparin Sodium (Porcine) (Heparin -) 1,000 unit IVPUSH PRN PRN Last Admin: 04/03/17 11:12 Dose: 1,000 unit Sodium Chloride (Normal Saline -) 1,000 mls @ 83 mls/hr IV ASDIR [facility] Last Admin: 04/05/17 00:45 Dose: Not Given Insulin Aspart (Novolog Vial Sliding Scale -) 1 vial SQ ACHS [facility] PRN Reason: Protocol Last Admin: 04/05/17 06:14 Dose: Not Given Lisinopril (Prinivil) 20 mg PO DAILY [facility] Last Admin: 04/04/17 09:46 Dose: 20 mg Methadone HCl (Dolophine -) 80 mg PO DAILY@0600 [facility] Last Admin: 04/05/17 06:14 Dose: 80 mg Ondansetron HCl (Zofran Injection) 4 mg IVPB Q4H PRN PRN Reason: NAUSEA AND/OR VOMITING Last Admin: 04/04/17 18:05 Dose: 4 mg Pantoprazole Sodium (Protonix -) 20 mg PO DAILY [facility] Last Admin: 04/04/17 09:46 Dose: 20 mg - Objective Vital Signs: Vital Signs Temperature 98.2 F 04/05/17 06:00 Pulse Rate 70 04/05/17 06:00 Respiratory Rate 16 04/05/17 06:00 Blood Pressure 127/56 04/05/17 06:00 O2 Sat by Pulse Oximetry (%) 100 04/04/17 20:00 Cardiovascular: Yes: Regular Rate and Rhythm, S1, S2 Respiratory: Yes: WNL, Regular, CTA Bilaterally Gastrointestinal: Yes: Soft. No: Tenderness Labs: CBC, BMP 04/05/17 05:20 04/05/17 05:20 INR, PTT INR 1.64 (0.82-1.09) H 04/04/17 05:20 Problem List - Problems (1) Leukocytosis Code(s): D72.829 - ELEVATED WHITE BLOOD CELL COUNT, UNSPECIFIED (2) Pulmonary embolism Code(s): I26.99 - OTHER PULMONARY EMBOLISM WITHOUT ACUTE COR PULMONALE (3) Splenic infarct Code(s): D73.5 - INFARCTION OF SPLEEN (4) Metastatic cancer Code(s): C79.9 - SECONDARY MALIGNANT NEOPLASM OF UNSPECIFIED SITE (5) Hypercoagulable state Code(s): D68.59 - OTHER PRIMARY THROMBOPHILIA Assessment/Plan Microbiology 04/02/17 15:50 Stool Escherichia coli 0157 Culture - Final NO GROWTH OF VIBRIO SPECIES OBTAINED NO GROWTH OF E COLI 0157 OBTAINED 04/02/17 15:50 Stool Salmonella/Shigella Culture - Preliminary 04/02/17 15:50 Stool Yersinia Culture - Preliminary Gram Negative Kranthi NO ENTERIC PATHOGENS, 24 HOURS, ON PRIMARY PLATES Laboratory Tests 04/05/17 05:20 WBC 24.5 H Hgb 11.6 Hct 35.4 Plt Count 600 H Assessment Metastatic Cancer primary unknown NO infection documented to date Plan Observe off antibiotics and await stool culture ? of Yersina raised on micro but probably NOT Maxim
[2017-04-05] MEDS ORDERED: POTASSIUM PHOSPHATE 30 MM in SODIUM CHLORIDE 250 ML IVPB ONE (08:30)
--- NOTE | 2017-04-05 08:35 | PN ---
Physical Exam: SUBJECTIVE: Patient seen and examined. No acute events over night. She says she feels better today. Offers no new complaints. OBJECTIVE: Vital Signs Period Temp Pulse Resp BP Sys/Roach Pulse Ox Last 24 Hr 98 F-98.6 F 61-74 13-18 102-147/45-70 100-100 GENERAL: The patient is awake, alert, and fully oriented, in no acute distress. EYES: PERRL, extraocular movements intact, sclera anicteric, conjunctiva clear. No ptosis. NECK: supple. LUNGS: Breath sounds equal, clear to auscultation bilaterally, no wheezes, no crackles, no accessory muscle use. HEART: Regular rate and rhythm, S1, S2 without murmur, rub or gallop. ABDOMEN: Soft, nontender, nondistended, normoactive bowel sounds. + shifting dullness, liver not palpable EXTREMITIES: 2+ pulses, warm, well-perfused, 1+ pitting edema PSYCH: Normal mood, normal affect. Laboratory Results - last 24 hr 04/04/17 04/04/17 04/04/17 05:20 05:20 12:12 WBC RBC Hgb Hct MCV MCH MCHC RDW Plt Count MPV Neutrophils % Lymphocytes % Monocytes % Eosinophils % Basophils % INR PTT (Actin FS) 50.2 H Sodium Potassium Chloride Carbon Dioxide Anion Gap BUN Creatinine Creat Clearance w eGFR POC Glucometer 161.75267 Random Glucose Calcium Phosphorus Magnesium Total Bilirubin AST ALT Alkaline Phosphatase Total Protein Albumin Tumor Marker AFP 1.3 04/04/17 04/04/17 04/05/17 16:50 22:21 05:20 WBC RBC Hgb Hct MCV MCH MCHC RDW Plt Count MPV Neutrophils % Lymphocytes % Monocytes % Eosinophils % Basophils % INR PTT (Actin FS) 45.2 H Sodium Potassium Chloride Carbon Dioxide Anion Gap BUN Creatinine Creat Clearance w eGFR POC Glucometer 110.89685 224.40603 Random Glucose Calcium Phosphorus Magnesium Total Bilirubin AST ALT Alkaline Phosphatase Total Protein Albumin Tumor Marker AFP 04/05/17 04/05/17 04/05/17 05:20 05:20 05:20 WBC 24.5 H RBC 3.92 Hgb 11.6 Hct 35.4 MCV 90.2 MCH 29.5 MCHC 32.7 RDW 16.4 H Plt Count 600 H MPV 7.9 Neutrophils % 78.4 Lymphocytes % 13.8 D Monocytes % 5.8 Eosinophils % 1.2 D Basophils % 0.8 INR 1.53 H PTT (Actin FS) Sodium 142 Potassium 3.7 Chloride 104 Carbon Dioxide 29 Anion Gap 9 BUN 6 L Creatinine 0.4 L D Creat Clearance w eGFR > 60 POC Glucometer Random Glucose 108 H D Calcium 8.3 L Phosphorus 2.0 L Magnesium 1.8 Total Bilirubin 0.8 AST 17 ALT 18 Alkaline Phosphatase 268 H Total Protein 6.2 L Albumin 2.0 L Tumor Marker AFP Active Medications Generic Name Dose Route Start Last Admin Trade Name Freq PRN Reason Stop Dose Admin Albuterol Sulfate 1 amp 04/02/17 03:36 04/03/17 09:41 Ventolin 0.083% Nebulizer Soln - NEB 1 amp Q4H PRN Administration SHORT OF BREATH/WHEEZING Amlodipine Besylate 10 mg 04/02/17 10:00 04/04/17 09:46 Norvasc - PO 10 mg DAILY OLMAN Administration Aripiprazole 20 mg 04/02/17 10:00 04/04/17 09:47 Abilify PO 20 mg DAILY OLMAN Administration Benztropine Mesylate 1 mg 04/02/17 10:00 04/04/17 22:17 Cogentin - PO 1 mg BID OLMAN Administration Gabapentin 900 mg 04/02/17 22:00 04/04/17 22:17 Neurontin - PO 900 mg HS OLMAN Administration Heparin Sodium (Porcine) 5,000 unit 04/03/17 09:59 Heparin - IVPUSH PRN PRN Heparin Sodium (Porcine) 1,000 unit 04/03/17 09:59 04/03/17 11:12 Heparin - IVPUSH 1,000 unit PRN PRN Administration Sodium Chloride 1,000 mls @ 83 mls/hr 04/02/17 00:45 04/05/17 00:45 Normal Saline - IV Not Given ASDIR OLMAN Potassium Phosphate 30 mm/ 260 mls @ 62.5 mls/hr 04/05/17 08:30 Sodium Chloride IVPB 04/05/17 12:39 ONCE ONE Insulin Aspart 1 vial 04/02/17 07:00 04/05/17 06:14 Novolog Vial Sliding Scale - SQ Not Given ACHS [facility]MAN Protocol Lisinopril 20 mg 04/02/17 10:00 04/04/17 09:46 Prinivil PO 20 mg DAILY [facility] Administration Methadone HCl 80 mg 04/04/17 06:00 04/05/17 06:14 Dolophine - PO 80 mg DAILY@0600 [facility]MAN Administration Ondansetron HCl 4 mg 04/02/17 15:58 04/04/17 18:05 Zofran Injection IVPB 4 mg Q4H PRN Administration NAUSEA AND/OR VOMITING Pantoprazole Sodium 20 mg 04/02/17 10:00 04/04/17 09:46 Protonix - PO 20 mg DAILY OLMAN Administration ASSESSMENT/PLAN: 57 y/o F with history of Diabetes, Hepatitis C, heroin drug use (on methadone), presented to the ED with left sided chest pain and was found to have Pulmonary Embolus, Portal vein thrombosis, splenic infarct, right adnexal mass (5x2cm), pelvic mass (3.4x1.4cm) and pulmonary nodules. # Acute Pulmonary embolus, splenic infarct and Portal/hepatic vein thrombosis likely secondary to underlying malignancy. -continue heparin drip: bolus given per protocol. Will continue adjusting heparin drip as per protocol. continue to trend PTT q6h per protocol -PTT goal of 60-90 check daily (Currently 45.2) -No right strain noted on echo -Will need life long AC as per Vascular # Possible Malignancy with metastasis -s/p abdominal paracentesis- john 500ml of fluid -pending fluid cytology - CT scan revealed: pulmonary nodules, peritoneal lymphadenopathy, and pelvic mass - Transvaginal U/S-showed large right cystic/solid ovarian mass -OPTOMETRIST/PRACTICE OWNER/ONC on board -Surgery not recommended due to possible metastasis as per OBGYN -Heme on board: hypercoaguable state likely due to a possible malignancy at this time -AFP marker normal (1.3) -Abdominal U/S: diffuse heterogenous echotexture of the liver with multiple hyperechoic masslike densities measuring up to 4.4 cm. -Surgery consulted- agree to biopsy nodes/liver by least invasive means to establish dx. Does not recommend surgery unless emergent. # severe sepsis/Leukocytosis/Elevated Lactic Acid possibly secondary to underlying neoplasm -Lactic acidosis resolved -sepsis resolving -leukocytosis persists -CT scan results: revealed consolidative opacity in the left lower lobe. Small left pleural effusion. 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 would treat patient based on clinical picture as per cardiology. -blood cultures negative. -afebrile ID aware #Nausea -antiemetics PRN #Constipation -resolved # Diarrhea -Resolved -Stool C. Diff negative -Stool cultures negative # Hypertension- controlled -Continue Lisinopril 20mg Daily, Amlodipine 10mg PO Daily #Asthma-not in exacerbation -Albuterol PRN -PFT's as outpatient to r/o obstructive vs restrictive lung disease. #Diabetes Type 2 -ISS -Blood glucose well controlled FEN: Continue IV fluids NS @ 83ml per hour Potassium, Phosphorus and Magnesium repleted Diabetic Diet PPx: Heparin drip for full anticoagulation dose Protonix 20mg PO Daily Patient is currently ambulating on her own and does not to be deconditioning at this time. Will continue to assess patient daily for need of physical therapy consult. Visit type - Emergency Visit Emergency Visit: Yes ED Registration Date: 04/02/17 Care time: The patient presented to the Emergency Department on the above date and was hospitalized for further evaluation of their emergent condition. - New Patient This patient is new to me today: No - Critical Care Critical Care patient: No
[2017-04-05] MEDS ORDERED: MAGNESIUM SULF 50% (8.12 MEQ/2 ML-1 GM VIAL) IVPB ONE (09:00)
[2017-04-05] MEDS ORDERED: PT OWN MED DRAWER 7, Y5N ONE ×2 (09:15→11:57)
[2017-04-05] MEDS: PANTOPRAZOLE 20 MG TABLET (FP) PO SCH (09:29)
[2017-04-05] MEDS: LISINOPRIL 20 MG TABLET (FP) PO SCH (09:29)
[2017-04-05] MEDS: amLODIPine BESYLATE 10 MG TABLET (FP) PO SCH (09:29)
[2017-04-05] MEDS: ARIPiprazole 20 MG TABLET PO SCH (09:29)
[2017-04-05] MEDS: BENZTROPINE MESYLATE 1 MG TABLET (FP) PO SCH ×2 (09:29→21:53)
--- NOTE | 2017-04-05 13:31 | PN ---
Progress Note, Physician Chief Complaint: Dyspnea improved History of Present Illness: 57 year old female with a pmhx of DM, HCV, and heroin use who presented with left sided chest pain for 2 weeks. Also noted to have 60 pound weight loss. Afebrile on presentation WBC 21 Abd/Pelvis CT: Acute pulmonary embolism, increased retroperitoneal lymph nodes, left hepatic lobe mass lesion 2.3 cm - Current Medication List Current Medications: Active Medications Albuterol Sulfate (Ventolin 0.083% Nebulizer Soln -) 1 amp NEB Q4H PRN PRN Reason: SHORT OF BREATH/WHEEZING Last Admin: 04/03/17 09:41 Dose: 1 amp Amlodipine Besylate (Norvasc -) 10 mg PO DAILY [facility] Last Admin: 04/05/17 09:29 Dose: 10 mg Aripiprazole (Abilify) 20 mg PO DAILY [facility] Last Admin: 04/05/17 09:29 Dose: 20 mg Benztropine Mesylate (Cogentin -) 1 mg PO BID [facility] Last Admin: 04/05/17 09:29 Dose: 1 mg Gabapentin (Neurontin -) 900 mg PO HS [facility] Last Admin: 04/04/17 22:17 Dose: 900 mg Heparin Sodium (Porcine) (Heparin -) 5,000 unit IVPUSH PRN PRN Heparin Sodium (Porcine) (Heparin -) 1,000 unit IVPUSH PRN PRN Last Admin: 04/03/17 11:12 Dose: 1,000 unit Sodium Chloride (Normal Saline -) 1,000 mls @ 83 mls/hr IV ASDIR [facility] Last Admin: 04/05/17 00:45 Dose: Not Given Insulin Aspart (Novolog Vial Sliding Scale -) 1 vial SQ ACHS [facility] PRN Reason: Protocol Last Admin: 04/05/17 12:44 Dose: 2 units Lisinopril (Prinivil) 20 mg PO DAILY [facility] Last Admin: 04/05/17 09:29 Dose: 20 mg Methadone HCl (Dolophine -) 80 mg PO DAILY@0600 [facility] Last Admin: 04/05/17 06:14 Dose: 80 mg Ondansetron HCl (Zofran Injection) 4 mg IVPB Q4H PRN PRN Reason: NAUSEA AND/OR VOMITING Last Admin: 04/04/17 18:05 Dose: 4 mg Pantoprazole Sodium (Protonix -) 20 mg PO DAILY [facility] Last Admin: 04/05/17 09:29 Dose: 20 mg - Objective Vital Signs: Vital Signs Temperature 98.7 F 04/05/17 10:00 Pulse Rate 69 04/05/17 10:00 Respiratory Rate 16 04/05/17 10:00 Blood Pressure 125/81 04/05/17 10:00 O2 Sat by Pulse Oximetry (%) 96 04/05/17 09:00 Constitutional: Yes: No Distress Neck: Yes: Supple Cardiovascular: Yes: Regular Rate and Rhythm, S1, S2. No: JVD, Murmur Respiratory: Yes: CTA Bilaterally Gastrointestinal: Yes: Ascites Edema: LLE: 1+, RLE: 1+ Labs: CBC, BMP 04/05/17 05:20 04/05/17 05:20 INR, PTT INR 1.53 (0.82-1.09) H 04/05/17 05:20 Problem List - Problems (1) Pulmonary embolism Code(s): I26.99 - OTHER PULMONARY EMBOLISM WITHOUT ACUTE COR PULMONALE Assessment/Plan 57 year old female with a pmhx of DM, HCV, and heroin use who presented with left sided chest pain for 2 weeks. Also noted to have 60 pound weight loss. Afebrile on presentation WBC 21 Abd/Pelvis CT: Acute pulmonary embolism, extensive splenic infarctions, increased retroperitoneal lymph nodes, left hepatic lobe mass lesion 2.3 cm EKG: sinus rhythm at 87bpm, nl axis, nonspecific T wave abnormalities. 1) PE and abnormal LFTs Patient found to have PE with splenic thrombosis. Started on anticoagulation. -Echocardiogram done and normal LVEF with no significant valve stenosis or regurgitation. 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 -Would treat patient based on clinical picture. Currently off antibiotics as per ID. Being treated for PE with AC and plan for malignancy work up with possible metastatic cancer Mitral valve function intact. Denies any drug use in 20 years Blood Cultures at this time NGTD. If clinical picture changes in the future and concern for infectious process than would repeat TTE and if still concern than FLO but at this time would continue noncardiac work up for malignancy and PE management. Will sign off. Please call if any clinical changes or questions
[2017-04-05] MEDS ORDERED: HEPARIN NA (PORCINE) 5,000 UNITS/ML 1ML VIAL IVPUSH PRN (14:30)
--- NOTE | 2017-04-05 15:02 | PN ---
Progress Note, Physician History of Present Illness: PULMONARY ALERT,NAD,-CP,-SOB - Current Medication List Current Medications: Active Medications Albuterol Sulfate (Ventolin 0.083% Nebulizer Soln -) 1 amp NEB Q4H PRN PRN Reason: SHORT OF BREATH/WHEEZING Last Admin: 04/03/17 09:41 Dose: 1 amp Amlodipine Besylate (Norvasc -) 10 mg PO DAILY [facility] Last Admin: 04/05/17 09:29 Dose: 10 mg Aripiprazole (Abilify) 20 mg PO DAILY [facility] Last Admin: 04/05/17 09:29 Dose: 20 mg Benztropine Mesylate (Cogentin -) 1 mg PO BID [facility] Last Admin: 04/05/17 09:29 Dose: 1 mg Gabapentin (Neurontin -) 900 mg PO HS [facility] Last Admin: 04/04/17 22:17 Dose: 900 mg Heparin Sodium (Porcine) (Heparin -) 1,000 unit IVPUSH PRN PRN PRN Reason: Heparin Heparin Sodium (Porcine) (Heparin -) 5,000 unit IVPUSH PRN PRN PRN Reason: Heparin Sodium Chloride (Normal Saline -) 1,000 mls @ 83 mls/hr IV ASDIR [facility] Last Admin: 04/05/17 00:45 Dose: Not Given Heparin Sodium (Porcine) 25, (000 unit/ Sodium Chloride) 500 mls @ 16 mls/hr IV TITR [facility]; 800 UNIT/HR PRN Reason: Protocol Insulin Aspart (Novolog Vial Sliding Scale -) 1 vial SQ ACHS [facility] PRN Reason: Protocol Last Admin: 04/05/17 12:44 Dose: 2 units Lisinopril (Prinivil) 20 mg PO DAILY [facility] Last Admin: 04/05/17 09:29 Dose: 20 mg Methadone HCl (Dolophine -) 80 mg PO DAILY@0600 [facility] Last Admin: 04/05/17 06:14 Dose: 80 mg Ondansetron HCl (Zofran Injection) 4 mg IVPB Q4H PRN PRN Reason: NAUSEA AND/OR VOMITING Last Admin: 04/04/17 18:05 Dose: 4 mg Pantoprazole Sodium (Protonix -) 20 mg PO DAILY [facility] Last Admin: 04/05/17 09:29 Dose: 20 mg - Objective Vital Signs: Vital Signs Temperature 98.7 F 04/05/17 10:00 Pulse Rate 69 09/01/17 10:00 Respiratory Rate 16 04/05/17 10:00 Blood Pressure 125/81 04/05/17 10:00 O2 Sat by Pulse Oximetry (%) 96 04/05/17 09:00 Constitutional: Yes: Calm, Thin Eyes: Yes: WNL HENT: Yes: WNL Neck: Yes: WNL Cardiovascular: Yes: Regular Rate and Rhythm, S1, S2 Respiratory: Yes: Rales (BIBASILAR CRACKLES) Gastrointestinal: Yes: Normal Bowel Sounds, Soft Extremities: Yes: WNL Edema: No Wound/Incision: Yes: Excoriated Labs: CBC, BMP 04/05/17 05:20 04/05/17 05:20 INR, PTT INR 1.53 (0.82-1.09) H 04/05/17 05:20 Problem List - Problems (1) Hep C w/o coma, chronic Code(s): B18.2 - CHRONIC VIRAL HEPATITIS C (2) Hypercoagulable state Code(s): D68.59 - OTHER PRIMARY THROMBOPHILIA (3) Lymphadenopathy Code(s): R59.1 - GENERALIZED ENLARGED LYMPH NODES (4) Pulmonary embolism Code(s): I26.99 - OTHER PULMONARY EMBOLISM WITHOUT ACUTE COR PULMONALE (5) Splenic infarct Code(s): D73.5 - INFARCTION OF SPLEEN Assessment/Plan A/P Likely Metastatic Disease Acute Pulmonary Emboli with Pulmonary Infarct Ascites Lymphadenopathy Lactic Acidosis Elevated LFTs Hep C DM Lung Nodules Smoker - anticoagulation - will need tissue diagnosis with CT guidance - do not suspect pneumonia, CT findings likely related pulmonary infarct - O2 to keep Spo2 >90% - lung nodules likely related to her metastatic disease - will need outpt PET scan DR PAINTING
[2017-04-05 15:47] LABS: PERITONEAL FLUID LYMPHOCYTE 20 %; PERITONEAL FLUID MACROPHAGE 20 %; PERITONEAL FLUID MESOTHELIAL 1 %; PERITONEAL FLUID MONOCYTE 1 %; PERITONEAL FLUID NEUTROPHIL 58 %
[2017-04-05] MEDS: ONDANSETRON 4 MG/2 ML VIAL IVPB PRN (17:45)
--- NOTE | 2017-04-05 17:49 | PN ---
Teaching Attending Note Name of Resident: Anne Roman ATTENDING PHYSICIAN STATEMENT I saw and evaluated the patient. I reviewed the resident's note and discussed the case with the resident. I agree with the resident's findings and plan as documented. SUBJECTIVE: Patient is s/p paracentesis around 500ml. Patient is feeling better. OBJECTIVE: Vital Signs Temperature 98.6 F 04/05/17 15:33 Pulse Rate 68 04/05/17 15:33 Respiratory Rate 16 04/05/17 15:33 Blood Pressure 114/55 04/05/17 15:33 O2 Sat by Pulse Oximetry (%) 96 04/05/17 09:00 CBCD WBC 24.5 K/mm3 (4.0-10.0) H 04/05/17 05:20 RBC 3.92 M/mm3 (3.60-5.2) 04/05/17 05:20 Hgb 11.6 GM/dL (10.7-15.3) 04/05/17 05:20 Hct 35.4 % (32.4-45.2) 04/05/17 05:20 MCV 90.2 fl (80-96) 04/05/17 05:20 MCHC 32.7 g/dl (32.0-36.0) 04/05/17 05:20 RDW 16.4 % (11.6-15.6) H 04/05/17 05:20 Plt Count 600 K/MM3 (134-434) H 04/05/17 05:20 MPV 7.9 fl (7.5-11.1) 04/05/17 05:20 CMP Sodium 142 mmol/L (136-145) 04/05/17 05:20 Potassium 3.7 mmol/L (3.5-5.1) 04/05/17 05:20 Chloride 104 mmol/L (98-107) 04/05/17 05:20 Carbon Dioxide 29 mmol/L (21-32) 04/05/17 05:20 Anion Gap 9 (8-16) 04/05/17 05:20 BUN 6 mg/dL (7-18) L 04/05/17 05:20 Creatinine 0.4 mg/dL (0.55-1.02) L D 04/05/17 05:20 Creat Clearance w eGFR > 60 (>60) 04/05/17 05:20 Random Glucose 108 mg/dL (74-106) H D 04/05/17 05:20 Calcium 8.3 mg/dL (8.5-10.1) L 04/05/17 05:20 Total Bilirubin 0.8 mg/dL (0.2-1.0) 04/05/17 05:20 AST 17 U/L (15-37) 04/05/17 05:20 ALT 18 U/L (12-78) 04/05/17 05:20 Alkaline Phosphatase 268 U/L (45-117) H 04/05/17 05:20 Total Protein 6.2 g/dl (6.4-8.2) L 04/05/17 05:20 Albumin 2.0 g/dl (3.4-5.0) L 04/05/17 05:20 CARDIAC ENZYMES Creatine Kinase 23 IU/L (26-192) L 04/01/17 19:40 Troponin I < 0.02 ng/ml (0.00-0.05) 04/02/17 05:30 Current Medications Generic Name Dose Route Start Last Admin Trade Name Freq PRN Reason Stop Dose Admin Albuterol Sulfate 1 amp 04/02/17 03:36 04/03/17 09:41 Ventolin 0.083% Nebulizer Soln - NEB 1 amp Q4H PRN Administration SHORT OF BREATH/WHEEZING Amlodipine Besylate 10 mg 04/02/17 10:00 04/05/17 09:29 Norvasc - PO 10 mg DAILY [facility] Administration Aripiprazole 20 mg 04/02/17 10:00 04/05/17 09:29 Abilify PO 20 mg DAILY [facility] Administration Benztropine Mesylate 1 mg 04/02/17 10:00 04/05/17 09:29 Cogentin - PO 1 mg BID [facility] Administration Gabapentin 900 mg 04/02/17 22:00 04/04/17 22:17 Neurontin - PO 900 mg HS [facility] Administration Heparin Sodium (Porcine) 1,000 unit 04/05/17 14:30 Heparin - IVPUSH PRN PRN Heparin Heparin Sodium (Porcine) 5,000 unit 04/05/17 14:30 Heparin - IVPUSH PRN PRN Heparin Sodium Chloride 1,000 mls @ 83 mls/hr 04/02/17 00:45 04/05/17 00:45 Normal Saline - IV Not Given ASDIR [facility] Heparin Sodium (Porcine) 25, 500 mls @ 16 mls/hr 04/05/17 14:30 000 unit/ Sodium Chloride IV TITR [facility] Protocol 800 UNIT/HR Insulin Aspart 1 vial 04/02/17 07:00 04/05/17 12:44 Novolog Vial Sliding Scale - SQ 2 units ACHS [facility] Administration Protocol Lisinopril 20 mg 04/02/17 10:00 04/05/17 09:29 Prinivil PO 20 mg DAILY [facility] Administration Methadone HCl 80 mg 04/04/17 06:00 04/05/17 06:14 Dolophine - PO 80 mg DAILY@0600 [facility] Administration Ondansetron HCl 4 mg 04/02/17 15:58 04/04/17 18:05 Zofran Injection IVPB 4 mg Q4H PRN Administration NAUSEA AND/OR VOMITING Pantoprazole Sodium 20 mg 04/02/17 10:00 04/05/17 09:29 Protonix - PO 20 mg DAILY [facility] Administration Home Medications Medication Instructions Recorded Aripiprazole [Abilify] 20 mg PO HS 12/02/16 Benztropine Mesylate [Cogentin -] 1 mg PO BID 12/02/16 Clonazepam [KlonoPIN] 0.5 mg PO TID 12/02/16 Gabapentin 900 mg PO HS 12/02/16 Metformin HCl [Metformin HCl ER] 1,000 mg PO BID 12/02/16 Methadone [Dolophine -] 80 mg PO DAILY 12/02/16 Omeprazole 20 mg PO DAILY 12/02/16 Polyethylene Glycol 3350 [Miralax 17 gm PO ONCE #1 bottle 12/02/16 (For Bowel Prep) -] Sitagliptin Phosphate [Januvia] 100 mg PO DAILY 12/02/16 Amlodipine Besylate 10 mg PO DAILY 04/01/17 Fenofibrate Nanocrystallized 54 mg PO DAILY 04/01/17 [Fenofibrate] Glipizide [Glipizide ER] 10 mg PO BID 04/01/17 Lisinopril [Prinivil] 20 mg PO DAILY 04/01/17 Pravastatin Sodium 20 mg PO DAILY 04/01/17 Sofosbuvir/Velpatasvir [Epclusa 1 each PO DAILY 04/01/17 400 mg-100 mg Tablet] Insulin Glargine,Hum.rec.anlog 15 unit SQ HS 04/03/17 [Rahul Spauldingpen U-100] Quetiapine Fumarate [Seroquel] 300 mg PO HS 04/03/17 Sertraline HCl [Zoloft] 100 mg PO DAILY 04/03/17 04/03/17 17:10 Sputum - Expectorated AFB Smear Concentration - Preliminary 04/03/17 17:10 Sputum - Expectorated Direct Acid Fast Bacilli Smear - Final 04/03/17 17:10 Sputum - Expectorated Mycobacterial Culture - Preliminary 04/04/17 07:00 Sputum - Expectorated Direct Acid Fast Bacilli Smear - Final 04/02/17 15:50 Stool Salmonella/Shigella Culture - Preliminary NO ENTERIC PATHOGENS, 24 HOURS, ON PRIMARY PLATES 04/02/17 15:50 Stool Yersinia Culture - Preliminary Gram Negative Kranthi 04/02/17 15:50 Stool Vibrio Culture - Final NO GROWTH OF VIBRIO SPECIES OBTAINED 04/02/17 15:50 Stool Escherichia coli 0157 Culture - Final NO GROWTH OF E COLI 0157 OBTAINED 04/02/17 01:30 Blood - Arterial Blood Culture - Preliminary NO GROWTH OBTAINED AFTER 48 HOURS, INCUBATION TO CONTINUE FOR 3 DAYS. 04/02/17 01:30 Blood - Arterial Blood Culture - Preliminary NO GROWTH OBTAINED AFTER 48 HOURS, INCUBATION TO CONTINUE FOR 3 DAYS. 04/02/17 15:50 Stool Gram Stain - Final 04/02/17 15:50 Stool Clostridium difficile Antigen (CLAUDIA) - Final 04/02/17 15:50 Stool Clostridium difficile Toxin Assay - Final 04/02/17 01:50 Urine - Urine Clean Catch Urine Culture - Final NO GROWTH OBTAINED [id number] US/TRANSVAGINAL ULTRASOUND US Rule out pelvic mass Pelvis ultrasound, transvesical and transvaginal Post menopause The uterus measures 6.5 x 2.6 cm with homogeneous echotexture. Endometrial stripe measures 3 mm in thickness. There is a large amount of free fluid/ascites in the pelvis Left ovary was not visualized. In the right adnexa, there is a complex cystic and solid mass lesion with a total measurement of 5 x 2 cm. The solid component measures 3 x 1.9 cm No gross right ovarian tissue is identified. IMPRESSION: Large amount of ascites in the pelvis. Complex mass in the right adnexa measuring 5 x 2 cm with cystic and solid component, of uncertain etiology. It may be ovarian in origin. No gross right ovarian tissue is identified. Correlate clinically for further evaluation. Reported By: Naye Toney MD 04/03/[address] abdomen and pelvis: IMPRESSION: Acute pulmonary embolism is identified with associated left lower lobe subpleural increased opacity consistent with acute infarction. Extensive splenic infarction is noted. There is occlusion of the splenic and main portal veins which may be chronic or subacute. A moderate amount of ascites is seen which appears mildly increased in comparison to a chest CT study of 03/21/2017. Increased retroperitoneal and retrocrural lymphadenopathy is noted. Extensive intra-abdominal lymphadenopathy is again seen in the peripancreatic and yasmin hepatis regions. Bilateral pulmonary nodules are again noted. Interval development of focal irregularity seen along the right hepatic lobe laterally which may be on the basis of peritoneal implants versus possible laceration injury. 2.3 cm left hepatic lobe enhancing mass lesion. A subtle 3.4 x 1.4 cm density is seen within the right lower pelvis posteriorly which may represent peritoneal neoplastic implant. There is possible mild concentric wall thickening along the sigmoid and descending colon which could be on the basis of colitis versus secondary to previously described ascites. Mild intrahepatic biliary tract dilatation without obvious interval change. Status post cholecystectomy. Reported By: Mitchel Noriega MD IMPRESSION: A 1.3 cm nonspecific irregular left lower lobe pulmonary nodule is identified. Upper abdominal lymphadenopathy is noted. There is resultant obscuration of pancreatic head. Mild biliary tract dilatation is seen. A nonspecific 1.1 cm right hepatic lobe hypodense lesion is noted. There is a possible additional nonspecific 1.3 cm left hepatic lobe lesion. Status post cholecystectomy. 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 will wait for cytology and culture. # Acute Left sided PE, Portal and splenic vein thrombosis: cont heparin gtt. goal PTT 60-90. termination clerk AC needed. LLL infiltrate could be due to PE , and unlikely to PNA # Adnexal mass cannot r/o ovarian cancer with Mets. pelvic, liver , lung nodules and peritoneal LAP , primary site possible ovarian in nature. Discussed with Oncology, will wait for culture and cytology result. All the markers are positive CA125 350's. seen by Xiomara, recommends consult with [facility] Techn[facility] oncologist ,Dr Justin Cooley , she comes to hosp on Saturday , please call her office off number is [phone] . # Acute Leukocytosis possible leukomoid rxn, thickened colon wall could be infectious colitis, Vs ischemic colitis, vs colon ca #ECHo can't r/o vegetation discussed with ID, will discontinue IV antibiotic for now,s/p flagyl/ceftriaxone s/p zosyn and vancomycin, blood culture is negative. As per ID ,low clinical suspicion for endocarditis but noninfective ( [place]) is a consideration, will discuss it with financial planning assistant . 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 # HTN, cont home meds DVT px: heparin
[2017-04-05] MEDS: GABAPENTIN 300 MG CAPSULE (FP) PO SCH (21:53)
[2017-04-06] MEDS: METHADONE HCL 40 MG DISPERSABLE TABLET PO SCH (05:49)
[2017-04-06] MEDS: SODIUM CHLORIDE 1,000 ML IV SCH (05:51)
[2017-04-06] MEDS: INSULIN SLIDING SCALE (NOVOLOG) 1 VIAL SQ SCH ×4 (06:14→22:53)
[2017-04-06 06:49] LABS: BASOPHIL 1.3 % (0-2.0); EOSINOPHIL 0.7 % (0-4.5); MCH 28.4 pg (25.7-33.7); MCHC 31.8 g/dl (32.0-36.0); MEAN CELL VOLUME 89.4 fl (80-96); MEAN PLT VOLUME 7.1 fl (7.5-11.1); NEUTROPHILS 83.6 % (42.8-82.8); PLATELET COUNT 485 K/MM3 (134-434); RDW 16.5 % (11.6-15.6); WHITE BLOOD COUNT 22.3 K/mm3 (4.0-10.0)
[2017-04-06 07:01] LABS: INR 1.62 (0.82-1.09)
[2017-04-06 07:14] LABS: ANION GAP 7 (8-16); BILIRUBIN,TOTAL 0.6 mg/dL (0.2-1.0); CO2 31 mmol/L (21-32); CREATININE 0.2 mg/dL (0.55-1.02); GLUCOSE,RANDOM 138 mg/dL (74-106); MAGNESIUM 1.8 mg/dL (1.8-2.4); PHOSPHOROUS 2.5 mg/dL (2.5-4.9); SGOT/AST 17 U/L (15-37); SGPT/ALT 17 U/L (12-78); TOT PROT 5.9 g/dl (6.4-8.2)
[2017-04-06 07:15] LABS: ALK PHOS 287 U/L (45-117)
[2017-04-06] MEDS ORDERED: PT OWN MED DRAWER 7, Y5N ONE ×2 (09:17→11:49)
[2017-04-06] MEDS: PANTOPRAZOLE 20 MG TABLET (FP) PO SCH (09:44)
[2017-04-06] MEDS: LISINOPRIL 20 MG TABLET (FP) PO SCH (09:44)
[2017-04-06] MEDS: ARIPiprazole 20 MG TABLET PO SCH (09:49)
[2017-04-06] MEDS: BENZTROPINE MESYLATE 1 MG TABLET (FP) PO SCH ×2 (09:49→22:31)
[2017-04-06] MEDS: amLODIPine BESYLATE 10 MG TABLET (FP) PO SCH (09:49)
--- NOTE | 2017-04-06 10:27 | PN ---
Progress Note (short form) - Note Progress Note: PULMONARY s/p paracentesis. Denies shortness of breath or chest pain. Last Vital Signs Temp Pulse Resp BP Pulse Ox 98.8 F 78 20 148/69 96 04/06/17 03:32 04/06/17 06:00 04/06/17 06:00 04/06/17 06:00 04/05/17 22:00 Gen: NAD in chair Heart: RRR Lung: decreased breath sounds at the bases Abd: softly distended, nontender Ext: no edema CBC, BMP 04/06/17 05:38 04/06/17 05:38 Active Medications Albuterol Sulfate (Ventolin 0.083% Nebulizer Soln -) 1 amp NEB Q4H PRN PRN Reason: SHORT OF BREATH/WHEEZING Last Admin: 04/03/17 09:41 Dose: 1 amp Amlodipine Besylate (Norvasc -) 10 mg PO DAILY [facility] Last Admin: 04/06/17 09:49 Dose: 10 mg Aripiprazole (Abilify) 20 mg PO DAILY [facility] Last Admin: 04/06/17 09:49 Dose: 20 mg Benztropine Mesylate (Cogentin -) 1 mg PO BID [facility] Last Admin: 04/06/17 09:49 Dose: 1 mg Gabapentin (Neurontin -) 900 mg PO HS [facility] Last Admin: 04/05/17 21:53 Dose: 900 mg Heparin Sodium (Porcine) (Heparin -) 1,000 unit IVPUSH PRN PRN PRN Reason: Heparin Last Admin: 04/06/17 01:05 Dose: 1,000 unit Heparin Sodium (Porcine) (Heparin -) 5,000 unit IVPUSH PRN PRN PRN Reason: Heparin Sodium Chloride (Normal Saline -) 1,000 mls @ 83 mls/hr IV [facility] Last Admin: 04/06/17 05:51 Dose: 83 mls/hr Heparin Sodium (Porcine) 25, (000 unit/ Sodium Chloride) 500 mls @ 16 mls/hr IV TITR [facility]; 800 UNIT/HR PRN Reason: Protocol Last Titration: 04/06/17 01:00 Dose: 1,000 unit/hr Insulin Aspart (Novolog Vial Sliding Scale -) 1 vial SQ ACHS [facility] PRN Reason: Protocol Last Admin: 04/06/17 09:59 Dose: Not Given Lisinopril (Prinivil) 20 mg PO DAILY [facility] Last Admin: 04/06/17 09:44 Dose: 20 mg Methadone HCl (Dolophine -) 80 mg PO DAILY@0600 [facility] Last Admin: 04/06/17 05:49 Dose: 80 mg Ondansetron HCl (Zofran Injection) 4 mg IVPB Q4H PRN PRN Reason: NAUSEA AND/OR VOMITING Last Admin: 04/05/17 17:45 Dose: 4 mg Pantoprazole Sodium (Protonix -) 20 mg PO DAILY [facility] Last Admin: 04/06/17 09:44 Dose: 20 mg A/P Likely Metastatic Disease Acute Pulmonary Emboli with Pulmonary Infarct Ascites Lymphadenopathy Lactic Acidosis Elevated LFTs Hep C DM Lung Nodules Smoker - continue anticoagulation - f/u ascites cytology - do not suspect pneumonia, CT findings likely related pulmonary infarct - O2 to keep Spo2 >90% - lung nodules likely related to her metastatic disease - will need outpt PET scan
--- NOTE | 2017-04-06 12:03 | PN ---
Progress Note (short form) - Note Progress Note: Patient is feeling better, no acute distress, feels better post paracenthesis. Vital Signs Temperature 98.8 F 04/06/17 03:32 Pulse Rate 78 04/06/17 06:00 Respiratory Rate 20 04/06/17 06:00 Blood Pressure 148/69 04/06/17 06:00 O2 Sat by Pulse Oximetry (%) 96 04/05/17 22:00 GENERAL: The patient is awake, alert, and fully oriented, in no acute distress. EYES: PERRL, extraocular movements intact, sclera anicteric, conjunctiva clear. NECK: supple. No JVD LUNGS: Breath sounds equal, clear to auscultation bilaterally, no wheezes, no crackles, no accessory muscle use. HEART: Regular rate and rhythm, S1, S2 without murmur, rub or gallop. ABDOMEN: Soft, nontender, nondistended, normoactive bowel sounds. Mild tenderness LUQ area EXTREMITIES: 2+ pulses, warm, well-perfused, no edema PSYCH: Normal mood, normal affect. NEURO: CN2-12 grossly intact, NFD. CBCD WBC 22.3 K/mm3 (4.0-10.0) H 04/06/17 05:38 RBC 4.14 M/mm3 (3.60-5.2) 04/06/17 05:38 Hgb 11.8 GM/dL (10.7-15.3) 04/06/17 05:38 Hct 37.0 % (32.4-45.2) 04/06/17 05:38 MCV 89.4 fl (80-96) 04/06/17 05:38 MCHC 31.8 g/dl (32.0-36.0) L 04/06/17 05:38 RDW 16.5 % (11.6-15.6) H 04/06/17 05:38 Plt Count 485 K/MM3 (134-434) H 04/06/17 05:38 MPV 7.1 fl (7.5-11.1) L D 04/06/17 05:38 CMP Sodium 140 mmol/L (136-145) 04/06/17 05:38 Potassium 4.1 mmol/L (3.5-5.1) 04/06/17 05:38 Chloride 102 mmol/L (98-107) 04/06/17 05:38 Carbon Dioxide 31 mmol/L (21-32) 04/06/17 05:38 Anion Gap 7 (8-16) L 04/06/17 05:38 BUN 5 mg/dL (7-18) L 04/06/17 05:38 Creatinine 0.2 mg/dL (0.55-1.02) L D 04/06/17 05:38 Creat Clearance w eGFR > 60 (>60) 04/06/17 05:38 Random Glucose 138 mg/dL (74-106) H D 04/06/17 05:38 Calcium 8.0 mg/dL (8.5-10.1) L 04/06/17 05:38 Total Bilirubin 0.6 mg/dL (0.2-1.0) D 04/06/17 05:38 AST 17 U/L (15-37) 04/06/17 05:38 ALT 17 U/L (12-78) 04/06/17 05:38 Alkaline Phosphatase 287 U/L (45-117) H 04/06/17 05:38 Total Protein 5.9 g/dl (6.4-8.2) L 04/06/17 05:38 Albumin 2.0 g/dl (3.4-5.0) L 04/06/17 05:38 CARDIAC ENZYMES Creatine Kinase 23 IU/L (26-192) L 04/01/17 19:40 Troponin I < 0.02 ng/ml (0.00-0.05) 04/02/17 05:30 Current Medications Generic Name Dose Route Start Last Admin Trade Name Freq PRN Reason Stop Dose Admin Albuterol Sulfate 1 amp 04/02/17 03:36 04/03/17 09:41 Ventolin 0.083% Nebulizer Soln - NEB 1 amp Q4H PRN Administration SHORT OF BREATH/WHEEZING Amlodipine Besylate 10 mg 04/02/17 10:00 04/06/17 09:49 Norvasc - PO 10 mg DAILY OLMAN Administration Aripiprazole 20 mg 04/02/17 10:00 04/06/17 09:49 Abilify PO 20 mg DAILY [facility]MAN Administration Benztropine Mesylate 1 mg 04/02/17 10:00 04/06/17 09:49 Cogentin - PO 1 mg BID OLMAN Administration Gabapentin 900 mg 04/02/17 22:00 04/05/17 21:53 Neurontin - PO 900 mg HS OLMAN Administration Heparin Sodium (Porcine) 1,000 unit 04/05/17 14:30 04/06/17 01:05 Heparin - IVPUSH 1,000 unit PRN PRN Administration Heparin Heparin Sodium (Porcine) 5,000 unit 04/05/17 14:30 Heparin - IVPUSH PRN PRN Heparin Sodium Chloride 1,000 mls @ 83 mls/hr 04/02/17 00:45 04/06/17 05:51 Normal Saline - IV 83 mls/hr ASDIR [facility]MAN Administration Heparin Sodium (Porcine) 25, 500 mls @ 16 mls/hr 04/05/17 14:30 04/06/17 01:00 000 unit/ Sodium Chloride IV 1,000 unit/hr TITR OLMAN Titration Protocol 800 UNIT/HR Insulin Aspart 1 vial 04/02/17 07:00 04/06/17 09:59 Novolog Vial Sliding Scale - SQ Not Given ACHS [facility]MAN Protocol Lisinopril 20 mg 04/02/17 10:00 04/06/17 09:44 Prinivil PO 20 mg DAILY [facility]MAN Administration Methadone HCl 80 mg 04/04/17 06:00 04/06/17 05:49 Dolophine - PO 80 mg DAILY@0600 [facility] Administration Ondansetron HCl 4 mg 04/02/17 15:58 04/05/17 17:45 Zofran Injection IVPB 4 mg Q4H PRN Administration NAUSEA AND/OR VOMITING Pantoprazole Sodium 20 mg 04/02/17 10:00 04/06/17 09:44 Protonix - PO 20 mg DAILY [facility]MAN Administration Home Medications Medication Instructions Recorded Aripiprazole [Abilify] 20 mg PO HS 12/02/16 Benztropine Mesylate [Cogentin -] 1 mg PO BID 12/02/16 Clonazepam [KlonoPIN] 0.5 mg PO TID 12/02/16 Gabapentin 900 mg PO HS 12/02/16 Metformin HCl [Metformin HCl ER] 1,000 mg PO BID 12/02/16 Methadone [Dolophine -] 80 mg PO DAILY 12/02/16 Omeprazole 20 mg PO DAILY 12/02/16 Polyethylene Glycol 3350 [Miralax 17 gm PO ONCE #1 bottle 12/02/16 (For Bowel Prep) -] Sitagliptin Phosphate [Januvia] 100 mg PO DAILY 12/02/16 Amlodipine Besylate 10 mg PO DAILY 04/01/17 Fenofibrate Nanocrystallized 54 mg PO DAILY 04/01/17 [Fenofibrate] Glipizide [Glipizide ER] 10 mg PO BID 04/01/17 Lisinopril [Prinivil] 20 mg PO DAILY 04/01/17 Pravastatin Sodium 20 mg PO DAILY 04/01/17 Sofosbuvir/Velpatasvir [Epclusa 1 each PO DAILY 04/01/17 400 mg-100 mg Tablet] Insulin Glargine,Hum.rec.anlog 15 unit SQ HS 04/03/17 [Basaglar Kwikpen U-100] Quetiapine Fumarate [Seroquel] 300 mg PO HS 04/03/17 Sertraline HCl [Zoloft] 100 mg PO DAILY 04/03/17 A/P: 57 y/o unfortunate lady with h/o NIDDM , h/o heroin use on Methadone, who presented with L sided chest pain and was found to have PE, splenic and portal vein thrombosis, and pelvic and pulmonary nodules ## Acute Left sided PE, Portal and splenic vein thrombosis: cont heparin gtt. goal PTT 60-90. prison AC needed. LLL infiltrate could be due to PE , and unlikely to PNA . Patient wants to know the final results and diagnosis. wants treatment. # s/p Paracentesis around 500ml today by IR. will wait for cytology and culture. # Adnexal mass cannot r/o ovarian cancer with Mets. pelvic, liver , lung nodules and peritoneal LAP , primary site possible ovarian in nature. Discussed with Oncology, will wait for culture and cytology result. All the markers are positive CA125 350's. seen by Xiomara, recommends consult with [employer] oncologist ,Dr Justin Cooley , she comes to hosp on Saturday , please call her office off number is [phone] . # Acute Leukocytosis continues possible leukomoid rxn, thickened colon wall could be infectious colitis, Vs ischemic colitis, vs colon ca #ECHo can't r/o vegetation discussed with ID, will discontinue IV antibiotic for now,s/p flagyl/ceftriaxone s/p zosyn and vancomycin, blood culture is negative. As per ID ,low clinical suspicion for endocarditis but noninfective ( [place]) is a consideration, will discuss it with loan review analyst . Patient is off antibiotic for now as per ID. 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 # Hx of IVDA on Methadone , follows methadone clinic # HTN, cont home meds DVT px: heparin Visit type - Emergency Visit Emergency Visit: Yes ED Registration Date: 04/02/17 Care time: The patient presented to the Emergency Department on the above date and was hospitalized for further evaluation of their emergent condition. - New Patient This patient is new to me today: No - Critical Care Critical Care patient: No
[2017-04-06] MEDS: HEPARIN - 25,000 UNIT in SODIUM CHLORIDE 495 ML IV SCH ×2 (15:40→22:32)
[2017-04-06] MEDS: GABAPENTIN 300 MG CAPSULE (FP) PO SCH (22:31)
[2017-04-07] MEDS: SODIUM CHLORIDE 1,000 ML IV SCH (00:50)
[2017-04-07] MEDS: METHADONE HCL 40 MG DISPERSABLE TABLET PO SCH (06:02)
[2017-04-07] MEDS: INSULIN SLIDING SCALE (NOVOLOG) 1 VIAL SQ SCH ×4 (06:02→21:48)
[2017-04-07 08:24] LABS: MCH 28.5 pg (25.7-33.7); MCHC 31.6 g/dl (32.0-36.0); MEAN CELL VOLUME 90.2 fl (80-96); MEAN PLT VOLUME 7.7 fl (7.5-11.1); PLATELET COUNT 490 K/MM3 (134-434); RDW 16.6 % (11.6-15.6); WHITE BLOOD COUNT 21.3 K/mm3 (4.0-10.0)
[2017-04-07] MEDS ORDERED: PT OWN MED DRAWER 7, Y5N ONE ×3 (08:33→22:57)
[2017-04-07] MEDS: PANTOPRAZOLE 20 MG TABLET (FP) PO SCH ×2 (08:43→09:47)
[2017-04-07] MEDS: LISINOPRIL 20 MG TABLET (FP) PO SCH ×2 (08:43→09:47)
[2017-04-07] MEDS: amLODIPine BESYLATE 10 MG TABLET (FP) PO SCH ×2 (08:43→09:47)
[2017-04-07] MEDS: ARIPiprazole 20 MG TABLET PO SCH (09:33)
[2017-04-07] MEDS: BENZTROPINE MESYLATE 1 MG TABLET (FP) PO SCH ×2 (09:33→22:14)
--- NOTE | 2017-04-07 12:26 | PN ---
Progress Note (short form) - Note Progress Note: PULMONARY Reports some streaky hemoptysis today. Denies shortness of breath or chest pain. Last Vital Signs Temp Pulse Resp BP Pulse Ox 99.1 F 80 18 146/72 97 04/07/17 06:00 04/07/17 06:00 04/07/17 06:00 04/07/17 06:00 04/06/17 21:00 Gen: NAD in chair Heart: RRR Lung: left base rales Abd: softly distended, nontender Ext: no edema CBC, BMP 04/07/17 05:40 04/06/17 05:38 Active Medications Albuterol Sulfate (Ventolin 0.083% Nebulizer Soln -) 1 amp NEB Q4H PRN PRN Reason: SHORT OF BREATH/WHEEZING Last Admin: 04/03/17 09:41 Dose: 1 amp Amlodipine Besylate (Norvasc -) 10 mg PO DAILY [facility] Last Admin: 04/07/17 09:47 Dose: Not Given Aripiprazole (Abilify) 20 mg PO DAILY [facility] Last Admin: 04/07/17 09:33 Dose: 20 mg Benztropine Mesylate (Cogentin -) 1 mg PO BID [facility]MAN Last Admin: 04/07/17 09:33 Dose: 1 mg Gabapentin (Neurontin -) 900 mg PO HS [facility] Last Admin: 04/06/17 22:31 Dose: 900 mg Heparin Sodium (Porcine) (Heparin -) 1,000 unit IVPUSH PRN PRN PRN Reason: Heparin Last Admin: 04/06/17 01:05 Dose: 1,000 unit Heparin Sodium (Porcine) (Heparin -) 5,000 unit IVPUSH PRN PRN PRN Reason: Heparin Sodium Chloride (Normal Saline -) 1,000 mls @ 83 mls/hr IV ASDIR OLMAN Last Admin: 04/07/17 00:50 Dose: 83 mls/hr Heparin Sodium (Porcine) 25, (000 unit/ Sodium Chloride) 500 mls @ 16 mls/hr IV TITR OLMAN; 800 UNIT/HR PRN Reason: Protocol Last Admin: 04/06/17 22:32 Dose: 20 mls/hr Insulin Aspart (Novolog Vial Sliding Scale -) 1 vial SQ ACHS OLMAN PRN Reason: Protocol Last Admin: 04/07/17 11:48 Dose: 2 units Lisinopril (Prinivil) 20 mg PO DAILY [facility] Last Admin: 04/07/17 09:47 Dose: Not Given Methadone HCl (Dolophine -) 80 mg PO DAILY@0600 [facility] Last Admin: 04/07/17 06:02 Dose: 80 mg Ondansetron HCl (Zofran Injection) 4 mg IVPB Q4H PRN PRN Reason: NAUSEA AND/OR VOMITING Last Admin: 04/05/17 17:45 Dose: 4 mg Pantoprazole Sodium (Protonix -) 20 mg PO DAILY [facility] Last Admin: 04/07/17 09:47 Dose: Not Given A/P Likely Metastatic Disease Acute Pulmonary Emboli with Pulmonary Infarct Ascites Lymphadenopathy Lactic Acidosis Elevated LFTs Hep C DM Lung Nodules Smoker - continue anticoagulation - f/u peritoneal fluid cytology - CT findings likely related pulmonary infarct - O2 to keep Spo2 >90% - lung nodules likely related to her metastatic disease - will need outpt PET scan
--- NOTE | 2017-04-07 14:02 | PN ---
Teaching Attending Note Name of Resident: Anne Roman ATTENDING PHYSICIAN STATEMENT I saw and evaluated the patient. I reviewed the resident's note and discussed the case with the resident. I agree with the resident's findings and plan as documented. SUBJECTIVE: Patient is feeling better, with no acute distress, sister at bedside. OBJECTIVE: Vital Signs Temperature 99.1 F 04/07/17 06:00 Pulse Rate 80 04/07/17 06:00 Respiratory Rate 18 04/07/17 06:00 Blood Pressure 146/72 04/07/17 06:00 O2 Sat by Pulse Oximetry (%) 97 04/06/17 21:00 CBCD WBC 21.3 K/mm3 (4.0-10.0) H 04/07/17 05:40 RBC 4.09 M/mm3 (3.60-5.2) 04/07/17 05:40 Hgb 11.7 GM/dL (10.7-15.3) 04/07/17 05:40 Hct 36.9 % (32.4-45.2) 04/07/17 05:40 MCV 90.2 fl (80-96) 04/07/17 05:40 MCHC 31.6 g/dl (32.0-36.0) L 04/07/17 05:40 RDW 16.6 % (11.6-15.6) H 04/07/17 05:40 Plt Count 490 K/MM3 (134-434) H 04/07/17 05:40 MPV 7.7 fl (7.5-11.1) 04/07/17 05:40 CMP Sodium 140 mmol/L (136-145) 04/06/17 05:38 Potassium 4.1 mmol/L (3.5-5.1) 04/06/17 05:38 Chloride 102 mmol/L (98-107) 04/06/17 05:38 Carbon Dioxide 31 mmol/L (21-32) 04/06/17 05:38 Anion Gap 7 (8-16) L 04/06/17 05:38 BUN 5 mg/dL (7-18) L 04/06/17 05:38 Creatinine 0.2 mg/dL (0.55-1.02) L D 04/06/17 05:38 Creat Clearance w eGFR > 60 (>60) 04/06/17 05:38 Random Glucose 138 mg/dL (74-106) H D 04/06/17 05:38 Calcium 8.0 mg/dL (8.5-10.1) L 04/06/17 05:38 Total Bilirubin 0.6 mg/dL (0.2-1.0) D 04/06/17 05:38 AST 17 U/L (15-37) 04/06/17 05:38 ALT 17 U/L (12-78) 04/06/17 05:38 Alkaline Phosphatase 287 U/L (45-117) H 04/06/17 05:38 Total Protein 5.9 g/dl (6.4-8.2) L 04/06/17 05:38 Albumin 2.0 g/dl (3.4-5.0) L 04/06/17 05:38 CARDIAC ENZYMES Creatine Kinase 23 IU/L (26-192) L 04/01/17 19:40 Troponin I < 0.02 ng/ml (0.00-0.05) 04/02/17 05:30 Current Medications Generic Name Dose Route Start Last Admin Trade Name Freq PRN Reason Stop Dose Admin Albuterol Sulfate 1 amp 04/02/17 03:36 04/03/17 09:41 Ventolin 0.083% Nebulizer Soln - NEB 1 amp Q4H PRN Administration SHORT OF BREATH/WHEEZING Amlodipine Besylate 10 mg 04/02/17 10:00 04/07/17 09:47 Norvasc - PO Not Given DAILY OLMAN Aripiprazole 20 mg 04/02/17 10:00 04/07/17 09:33 Abilify PO 20 mg DAILY OLMAN Administration Benztropine Mesylate 1 mg 04/02/17 10:00 04/07/17 09:33 Cogentin - PO 1 mg BID OLMAN Administration Gabapentin 900 mg 04/02/17 22:00 04/06/17 22:31 Neurontin - PO 900 mg HS OLMAN Administration Heparin Sodium (Porcine) 1,000 unit 04/05/17 14:30 04/06/17 01:05 Heparin - IVPUSH 1,000 unit PRN PRN Administration Heparin Heparin Sodium (Porcine) 5,000 unit 04/05/17 14:30 Heparin - IVPUSH PRN PRN Heparin Sodium Chloride 1,000 mls @ 83 mls/hr 04/02/17 00:45 04/07/17 00:50 Normal Saline - IV 83 mls/hr ASDIR OLMAN Administration Heparin Sodium (Porcine) 25, 500 mls @ 16 mls/hr 04/05/17 14:30 04/06/17 22:32 000 unit/ Sodium Chloride IV 20 mls/hr TITR OLMAN Administration Protocol 800 UNIT/HR Insulin Aspart 1 vial 04/02/17 07:00 04/07/17 11:48 Novolog Vial Sliding Scale - SQ 2 units ACHS [facility] Administration Protocol Lisinopril 20 mg 04/02/17 10:00 04/07/17 09:47 Prinivil PO Not Given DAILY [facility] Methadone HCl 80 mg 04/04/17 06:00 04/07/17 06:02 Dolophine - PO 80 mg DAILY@0600 [facility] Administration Ondansetron HCl 4 mg 04/02/17 15:58 04/05/17 17:45 Zofran Injection IVPB 4 mg Q4H PRN Administration NAUSEA AND/OR VOMITING Pantoprazole Sodium 20 mg 04/02/17 10:00 04/07/17 09:47 Protonix - PO Not Given DAILY [facility] Home Medications Medication Instructions Recorded Aripiprazole [Abilify] 20 mg PO HS 12/02/16 Benztropine Mesylate [Cogentin -] 1 mg PO BID 12/02/16 Clonazepam [KlonoPIN] 0.5 mg PO TID 12/02/16 Gabapentin 900 mg PO HS 12/02/16 Metformin HCl [Metformin HCl ER] 1,000 mg PO BID 12/02/16 Methadone [Dolophine -] 80 mg PO DAILY 12/02/16 Omeprazole 20 mg PO DAILY 12/02/16 Polyethylene Glycol 3350 [Miralax 17 gm PO ONCE #1 bottle 12/02/16 (For Bowel Prep) -] Sitagliptin Phosphate [Januvia] 100 mg PO DAILY 12/02/16 Amlodipine Besylate 10 mg PO DAILY 04/01/17 Fenofibrate Nanocrystallized 54 mg PO DAILY 04/01/17 [Fenofibrate] Glipizide [Glipizide ER] 10 mg PO BID 04/01/17 Lisinopril [Prinivil] 20 mg PO DAILY 04/01/17 Pravastatin Sodium 20 mg PO DAILY 04/01/17 Sofosbuvir/Velpatasvir [Epclusa 1 each PO DAILY 04/01/17 400 mg-100 mg Tablet] Insulin Glargine,Hum.rec.anlog 15 unit SQ HS 04/03/17 [Merariaglboby Spauldingpen U-100] Quetiapine Fumarate [Seroquel] 300 mg PO HS 04/03/17 Sertraline HCl [Zoloft] 100 mg PO DAILY 04/03/17 PE: per resident's notes ASSESSMENT AND PLAN: 57 y/o unfortunate lady with h/o NIDDM , 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 continue ; goal PTT 60-90. [facility] AC needed. Patient wants to know the final results and diagnosis. wants treatment as well. # s/p Paracentesis around 500ml today by IR. waiting for cytology and culture result pending. # Adnexal mass cannot r/o ovarian cancer with Mets. pelvic, liver , lung nodules and peritoneal LAP , primary site possible ovarian in nature. Discussed with Oncology, will wait for culture and cytology result. All the markers are positive CA125 350's. seen by OGOrestes, recommends consult with [employer] oncologist ,Dr Justin Cooley , she comes to hosp on Saturday , please call her office off number is [phone] . # Acute Leukocytosis continues possible leukomoid rxn, thickened colon wall could be infectious colitis, Vs ischemic colitis, vs colon ca #ECHo can't r/o vegetation; discussed with ID, will discontinue IV antibiotic for now,s/p flagyl/ceftriaxone s/p zosyn and vancomycin, blood culture is negative. As per ID ,low clinical suspicion for endocarditis but noninfective ( [place]) is a consideration, will discuss it with marble rubber . Patient is off antibiotic for now as per ID. 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 # Hx of IVDA on Methadone , follows methadone clinic # HTN, cont home meds DVT px: heparin drip
--- NOTE | 2017-04-07 16:12 | PN ---
Physical Exam: SUBJECTIVE: Patient seen and examined. No acute events over night. She says she feels better today. Offers no new complaints. OBJECTIVE: Vital Signs Period Temp Pulse Resp BP Sys/Roach Pulse Ox Last 24 Hr 98.0 F-99.2 F 69-80 12-20 131-148/44-80 97 GENERAL: The patient is awake, alert, and fully oriented, in no acute distress. EYES: PERRL, extraocular movements intact, sclera anicteric, conjunctiva clear. No ptosis. NECK: supple. LUNGS: Breath sounds equal, clear to auscultation bilaterally, no wheezes, no crackles, no accessory muscle use. HEART: Regular rate and rhythm, S1, S2 without murmur, rub or gallop. ABDOMEN: Soft, nontender, distended, normoactive bowel sounds. + shifting dullness, liver not palpable EXTREMITIES: 2+ pulses, warm, well-perfused, 2+ pitting edema b/l PSYCH: Normal mood, normal affect. Laboratory Results - last 24 hr 04/06/17 04/06/17 04/07/17 15:43 22:34 05:22 WBC RBC Hgb Hct MCV MCH MCHC RDW Plt Count MPV PTT (Actin FS) POC Glucometer [id number] 136 137 04/07/17 04/07/17 04/07/17 05:40 05:40 11:45 WBC 21.3 H RBC 4.09 Hgb 11.7 Hct 36.9 MCV 90.2 MCH 28.5 MCHC 31.6 L RDW 16.6 H Plt Count 490 H MPV 7.7 PTT (Actin FS) 53.6 H POC Glucometer 166 Active Medications Generic Name Dose Route Start Last Admin Trade Name Freq PRN Reason Stop Dose Admin Albuterol Sulfate 1 amp 04/02/17 03:36 04/03/17 09:41 Ventolin 0.083% Nebulizer Soln - NEB 1 amp Q4H PRN Administration SHORT OF BREATH/WHEEZING Amlodipine Besylate 10 mg 04/02/17 10:00 04/07/17 09:47 Norvasc - PO Not Given DAILY OLMAN Aripiprazole 20 mg 04/02/17 10:04/07/17 09:33 Abilify PO 20 mg DAILY [facility]MAN Administration Benztropine Mesylate 1 mg 04/02/17 10:00 04/07/17 09:33 Cogentin - PO 1 mg BID OLMAN Administration Gabapentin 900 mg 04/02/17 22:00 04/06/17 22:31 Neurontin - PO 900 mg HS OLMAN Administration Heparin Sodium (Porcine) 1,000 unit 04/05/17 14:30 04/06/17 01:05 Heparin - IVPUSH 1,000 unit PRN PRN Administration Heparin Heparin Sodium (Porcine) 5,000 unit 04/05/17 14:30 Heparin - IVPUSH PRN PRN Heparin Sodium Chloride 1,000 mls @ 83 mls/hr 04/02/17 00:45 04/07/17 00:50 Normal Saline - IV 83 mls/hr ASDIR [facility]MAN Administration Heparin Sodium (Porcine) 25, 500 mls @ 16 mls/hr 04/05/17 14:30 04/06/17 22:32 000 unit/ Sodium Chloride IV 20 mls/hr TITR OLMAN Administration Protocol 800 UNIT/HR Insulin Aspart 1 vial 04/02/17 07:00 04/07/17 11:48 Novolog Vial Sliding Scale - SQ 2 units ACHS [facility]MAN Administration Protocol Lisinopril 20 mg 04/02/17 10:00 04/07/17 09:47 Prinivil PO Not Given DAILY [facility] Methadone HCl 80 mg 04/04/17 06:00 04/07/17 06:02 Dolophine - PO 80 mg DAILY@0600 [facility] Administration Ondansetron HCl 4 mg 04/02/17 15:58 04/05/17 17:45 Zofran Injection IVPB 4 mg Q4H PRN Administration NAUSEA AND/OR VOMITING Pantoprazole Sodium 20 mg 04/02/17 10:00 04/07/17 09:47 Protonix - PO Not Given DAILY [facility] ASSESSMENT/PLAN: 57 y/o F with history of Diabetes, Hepatitis C, heroin drug use (on methadone), presented to the ED with left sided chest pain and was found to have Pulmonary Embolus, Portal vein thrombosis, splenic infarct, right adnexal mass (5x2cm), pelvic mass (3.4x1.4cm) and pulmonary nodules. # Acute Pulmonary embolus, splenic infarct and Portal/hepatic vein thrombosis likely secondary to underlying malignancy. -continue heparin drip: bolus given per protocol. Will continue adjusting heparin drip as per protocol. continue to trend PTT q6h per protocol -PTT goal of 60-90 check daily (Currently 53) -No right strain noted on echo -Will need life long AC as per Vascular # Possible Malignancy with metastasis -s/p abdominal paracentesis- john 500ml of fluid -pending fluid cytology - CT scan revealed: pulmonary nodules, peritoneal lymphadenopathy, and pelvic mass - Transvaginal U/S-showed large right cystic/solid ovarian mass -[employer]/ONC consulted -Surgery not recommended due to possible metastasis as per OBGYN -Heme on board: hypercoaguable state likely due to a possible malignancy at this time -AFP marker normal (1.3) -Abdominal U/S: diffuse heterogenous echotexture of the liver with multiple hyperechoic masslike densities measuring up to 4.4 cm. -Surgery consulted- agree to biopsy nodes/liver by least invasive means to establish dx. Does not recommend surgery unless emergent. #severe sepsis/Leukocytosis/Elevated Lactic Acid possibly secondary to underlying neoplasm -Lactic acidosis resolved -sepsis resolving -leukocytosis persists -CT scan results: revealed consolidative opacity in the left lower lobe. Small left pleural effusion. 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 would treat patient based on clinical picture as per cardiology. -blood cultures negative. -afebrile ID aware #Nausea -antiemetics PRN #Constipation -resolved # Diarrhea -Resolved -Stool C. Diff negative -Stool cultures negative # Hypertension- controlled -Continue Lisinopril 20mg Daily, Amlodipine 10mg PO Daily #Asthma-not in exacerbation -Albuterol PRN -PFT's as outpatient to r/o obstructive vs restrictive lung disease. #Diabetes Type 2 -ISS -Blood glucose well controlled FEN: Continue IV fluids NS @ 83ml per hour Diabetic Diet PPx: Heparin drip for full anticoagulation dose Protonix 20mg PO Daily Patient is currently ambulating on her own and does not to be deconditioning at this time. Will continue to assess patient daily for need of physical therapy consult. Visit type - Emergency Visit Emergency Visit: Yes ED Registration Date: 04/02/17 Care time: The patient presented to the Emergency Department on the above date and was hospitalized for further evaluation of their emergent condition. - New Patient This patient is new to me today: No - Critical Care Critical Care patient: No
[2017-04-07] MEDS: HEPARIN - 25,000 UNIT in SODIUM CHLORIDE 495 ML IV SCH (17:21)
[2017-04-07] MEDS: GABAPENTIN 300 MG CAPSULE (FP) PO SCH (21:44)
[2017-04-08] MEDS: INSULIN SLIDING SCALE (NOVOLOG) 1 VIAL SQ SCH ×4 (06:34→21:20)
[2017-04-08] MEDS: METHADONE HCL 40 MG DISPERSABLE TABLET PO SCH (06:34)
[2017-04-08 08:16] LABS: MCH 28.9 pg (25.7-33.7); MCHC 32.3 g/dl (32.0-36.0); MEAN CELL VOLUME 89.5 fl (80-96); MEAN PLT VOLUME 7.4 fl (7.5-11.1); PLATELET COUNT 454 K/MM3 (134-434); RDW 16.5 % (11.6-15.6)
[2017-04-08] MEDS ORDERED: PT OWN MED DRAWER 7, Y5N ONE (08:27)
[2017-04-08] MEDS: SODIUM CHLORIDE 1,000 ML IV SCH (08:55)
[2017-04-08] MEDS: LISINOPRIL 20 MG TABLET (FP) PO SCH ×2 (08:56→09:01)
[2017-04-08] MEDS: ARIPiprazole 20 MG TABLET PO SCH ×2 (08:56→09:00)
[2017-04-08] MEDS: PANTOPRAZOLE 20 MG TABLET (FP) PO SCH ×2 (08:56→09:01)
[2017-04-08] MEDS: BENZTROPINE MESYLATE 1 MG TABLET (FP) PO SCH ×3 (08:56→21:24)
[2017-04-08] MEDS: amLODIPine BESYLATE 10 MG TABLET (FP) PO SCH ×2 (08:56→09:01)
[2017-04-08] MEDS: HEPARIN - 25,000 UNIT in SODIUM CHLORIDE 495 ML IV SCH ×3 (08:57→15:40)
[2017-04-08] MEDS: HEPARIN NA (PORCINE) 5,000 UNITS/ML 1ML VIAL IVPUSH PRN ×2 (08:59→22:29)
--- NOTE | 2017-04-08 09:30 | PN ---
Progress Note, Physician History of Present Illness: pulmonary alert,nad,-cp,-sob,+ min hemoptysis (dark heme) - Current Medication List Current Medications: Active Medications Albuterol Sulfate (Ventolin 0.083% Nebulizer Soln -) 1 amp NEB Q4H PRN PRN Reason: SHORT OF BREATH/WHEEZING Last Admin: 04/03/17 09:41 Dose: 1 amp Amlodipine Besylate (Norvasc -) 10 mg PO DAILY [facility] Last Admin: 04/08/17 09:01 Dose: Not Given Aripiprazole (Abilify) 20 mg PO DAILY [facility] Last Admin: 04/08/17 09:00 Dose: Not Given Benztropine Mesylate (Cogentin -) 1 mg PO BID [facility] Last Admin: 04/08/17 09:01 Dose: Not Given Gabapentin (Neurontin -) 900 mg PO HS [facility] Last Admin: 04/07/17 21:44 Dose: 900 mg Heparin Sodium (Porcine) (Heparin -) 1,000 unit IVPUSH PRN PRN PRN Reason: Heparin Last Admin: 04/06/17 01:05 Dose: 1,000 unit Heparin Sodium (Porcine) (Heparin -) 5,000 unit IVPUSH PRN PRN PRN Reason: Heparin Last Admin: 04/08/17 08:59 Dose: 5,000 unit Sodium Chloride (Normal Saline -) 1,000 mls @ 83 mls/hr IV ASDIR [facility] Last Admin: 04/08/17 08:55 Dose: Not Given Heparin Sodium (Porcine) 25, (000 unit/ Sodium Chloride) 500 mls @ 16 mls/hr IV TITR OLMAN; 800 UNIT/HR PRN Reason: Protocol Last Admin: 04/08/17 08:57 Dose: 23 mls/hr Insulin Aspart (Novolog Vial Sliding Scale -) 1 vial SQ ACHS [facility] PRN Reason: Protocol Last Admin: 04/08/17 06:34 Dose: Not Given Lisinopril (Prinivil) 20 mg PO DAILY [facility] Last Admin: 04/08/17 09:01 Dose: Not Given Methadone HCl (Dolophine -) 80 mg PO DAILY@0600 [facility] Last Admin: 04/08/17 06:34 Dose: 80 mg Ondansetron HCl (Zofran Injection) 4 mg IVPB Q4H PRN PRN Reason: NAUSEA AND/OR VOMITING Last Admin: 04/05/17 17:45 Dose: 4 mg Pantoprazole Sodium (Protonix -) 20 mg PO DAILY [facility] Last Admin: 04/08/17 09:01 Dose: Not Given - Objective Vital Signs: Vital Signs Temperature 97.8 F 04/08/17 06:00 Pulse Rate 76 04/08/17 06:00 Respiratory Rate 20 04/08/17 06:00 Blood Pressure 131/57 04/08/17 06:00 O2 Sat by Pulse Oximetry (%) 96 04/07/17 21:00 Constitutional: Yes: Well Nourished, Calm Eyes: Yes: WNL, Other Neck: Yes: WNL Cardiovascular: Yes: Regular Rate and Rhythm, S1, S2 Respiratory: Yes: Diminished Gastrointestinal: Yes: WNL Extremities: Yes: WNL Edema: Yes Labs: CBC, BMP 04/08/17 07:00 Problem List - Problems (1) Hep C w/o coma, chronic Code(s): B18.2 - CHRONIC VIRAL HEPATITIS C (2) Hypercoagulable state Code(s): D68.59 - OTHER PRIMARY THROMBOPHILIA (3) Lymphadenopathy Code(s): R59.1 - GENERALIZED ENLARGED LYMPH NODES (4) Pulmonary embolism Code(s): I26.99 - OTHER PULMONARY EMBOLISM WITHOUT ACUTE COR PULMONALE (5) Splenic infarct Code(s): D73.5 - INFARCTION OF SPLEEN Assessment/Plan A/P Likely Metastatic Disease Acute Pulmonary Emboli with Pulmonary Infarct Ascites Lymphadenopathy Lactic Acidosis Elevated LFTs Hep C DM Lung Nodules Smoker - anticoagulation - O2 to keep Spo2 >90% - lung nodules likely related to her metastatic disease - will need outpt PET scan DR PAINTING
--- NOTE | 2017-04-08 17:24 | PN ---
Progress Note (short form) - Note Progress Note: Patient feels better with no acute distress, no shortness of breath Temperature 98.4 F 04/08/17 14:00 Pulse Rate 69 04/08/17 14:00 Respiratory Rate 20 04/08/17 14:00 Blood Pressure 149/63 04/08/17 14:00 O2 Sat by Pulse Oximetry (%) 98 04/08/17 10:10 GENERAL: The patient is awake, alert, and fully oriented, in no acute distress. EYES: PERRL, extraocular movements intact, sclera anicteric, conjunctiva clear. NECK: supple. No JVD LUNGS: Breath sounds equal, clear to auscultation bilaterally, no wheezes, no crackles, no accessory muscle use. HEART: Regular rate and rhythm, S1, S2 without murmur, rub or gallop. ABDOMEN: Soft, nontender, nondistended, normoactive bowel sounds. Mild tenderness LUQ area EXTREMITIES: 2+ pulses, warm, well-perfused, no edema PSYCH: Normal mood, normal affect. NEURO: CN2-12 grossly intact, NFD. CBCD WBC 19.0 K/mm3 (4.0-10.0) H 04/08/17 07:00 RBC 3.87 M/mm3 (3.60-5.2) 04/08/17 07:00 Hgb 11.2 GM/dL (10.7-15.3) 04/08/17 07:00 Hct 34.6 % (32.4-45.2) 04/08/17 07:00 MCV 89.5 fl (80-96) 04/08/17 07:00 MCHC 32.3 g/dl (32.0-36.0) 04/08/17 07:00 RDW 16.5 % (11.6-15.6) H 04/08/17 07:00 Plt Count 454 K/MM3 (134-434) H 04/08/17 07:00 MPV 7.4 fl (7.5-11.1) L 04/08/17 07:00 CMP Sodium 140 mmol/L (136-145) 04/06/17 05:38 Potassium 4.1 mmol/L (3.5-5.1) 04/06/17 05:38 Chloride 102 mmol/L (98-107) 04/06/17 05:38 Carbon Dioxide 31 mmol/L (21-32) 04/06/17 05:38 Anion Gap 7 (8-16) L 04/06/17 05:38 BUN 5 mg/dL (7-18) L 04/06/17 05:38 Creatinine 0.2 mg/dL (0.55-1.02) L D 04/06/17 05:38 Creat Clearance w eGFR > 60 (>60) 04/06/17 05:38 Random Glucose 138 mg/dL (74-106) H D 04/06/17 05:38 Calcium 8.0 mg/dL (8.5-10.1) L 04/06/17 05:38 Total Bilirubin 0.6 mg/dL (0.2-1.0) D 04/06/17 05:38 AST 17 U/L (15-37) 04/06/17 05:38 ALT 17 U/L (12-78) 04/06/17 05:38 Alkaline Phosphatase 287 U/L (45-117) H 04/06/17 05:38 Total Protein 5.9 g/dl (6.4-8.2) L 04/06/17 05:38 Albumin 2.0 g/dl (3.4-5.0) L 04/06/17 05:38 CARDIAC ENZYMES Creatine Kinase 23 IU/L (26-192) L 04/01/17 19:40 Troponin I < 0.02 ng/ml (0.00-0.05) 04/02/17 05:30 Home Medications Medication Instructions Recorded Aripiprazole [Abilify] 20 mg PO HS 12/02/16 Benztropine Mesylate [Cogentin -] 1 mg PO BID 12/02/16 Clonazepam [KlonoPIN] 0.5 mg PO TID 12/02/16 Gabapentin 900 mg PO HS 12/02/16 Metformin HCl [Metformin HCl ER] 1,000 mg PO BID 12/02/16 Methadone [Dolophine -] 80 mg PO DAILY 12/02/16 Omeprazole 20 mg PO DAILY 12/02/16 Polyethylene Glycol 3350 [Miralax 17 gm PO ONCE #1 bottle 12/02/16 (For Bowel Prep) -] Sitagliptin Phosphate [Januvia] 100 mg PO DAILY 12/02/16 Amlodipine Besylate 10 mg PO DAILY 04/01/17 Fenofibrate Nanocrystallized 54 mg PO DAILY 04/01/17 [Fenofibrate] Glipizide [Glipizide ER] 10 mg PO BID 04/01/17 Lisinopril [Prinivil] 20 mg PO DAILY 04/01/17 Pravastatin Sodium 20 mg PO DAILY 04/01/17 Sofosbuvir/Velpatasvir [Epclusa 1 each PO DAILY 04/01/17 400 mg-100 mg Tablet] Insulin Glargine,Hum.rec.anlog 15 unit SQ HS 04/03/17 [Basaglar Kwikpen U-100] Quetiapine Fumarate [Seroquel] 300 mg PO HS 04/03/17 Sertraline HCl [Zoloft] 100 mg PO DAILY 04/03/17 Current Medications Generic Name Dose Route Start Last Admin Trade Name Freq PRN Reason Stop Dose Admin Albuterol Sulfate 1 amp 04/02/17 03:36 04/03/17 09:41 Ventolin 0.083% Nebulizer Soln - NEB 1 amp Q4H PRN Administration SHORT OF BREATH/WHEEZING Amlodipine Besylate 10 mg 04/02/17 10:00 04/08/17 09:01 Norvasc - PO Not Given DAILY [facility] Aripiprazole 20 mg 04/02/17 10:00 04/08/17 09:00 Abilify PO Not Given DAILY [facility] Benztropine Mesylate 1 mg 04/02/17 10:00 04/08/17 09:01 Cogentin - PO Not Given BID [facility] Gabapentin 900 mg 04/02/17 22:00 04/07/17 21:44 Neurontin - PO 900 mg HS [facility] Administration Heparin Sodium (Porcine) 1,000 unit 04/05/17 14:30 04/06/17 01:05 Heparin - IVPUSH 1,000 unit PRN PRN Administration Heparin Heparin Sodium (Porcine) 5,000 unit 04/05/17 14:30 04/08/17 08:59 Heparin - IVPUSH 5,000 unit PRN PRN Administration Heparin Sodium Chloride 1,000 mls @ 83 mls/hr 04/02/17 00:45 04/08/17 08:55 Normal Saline - IV Not Given ASDIR [facility]MAN Heparin Sodium (Porcine) 25, 500 mls @ 16 mls/hr 04/05/17 14:30 04/08/17 08:57 000 unit/ Sodium Chloride IV 23 mls/hr TITR [facility] Administration Protocol 800 UNIT/HR Insulin Aspart 1 vial 04/02/17 07:00 04/08/17 11:42 Novolog Vial Sliding Scale - SQ Not Given ACHS [facility] Protocol Lisinopril 20 mg 04/02/17 10:00 04/08/17 09:01 Prinivil PO Not Given DAILY [facility] Methadone HCl 80 mg 04/04/17 06:00 04/08/17 06:34 Dolophine - PO 80 mg DAILY@0600 [facility] Administration Ondansetron HCl 4 mg 04/02/17 15:58 04/05/17 17:45 Zofran Injection IVPB 4 mg Q4H PRN Administration NAUSEA AND/OR VOMITING Pantoprazole Sodium 20 mg 04/02/17 10:00 04/08/17 09:01 Protonix - PO Not Given DAILY [facility] AASSESSMENT AND PLAN: 57 y/o unfortunate lady with h/o NIDDM , h/o heroin use on Methadone, who presented with L sided chest pain and was found to have PE, splenic and portal vein thrombosis, and pelvic and pulmonary nodules # Acute Left sided PE, Portal and splenic vein thrombosis: On heparin gtt. continue with a goal PTT b/t 60-90. 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 Patient wants to know the final results and diagnosis. wants treatment as well. # s/p Paracentesis around 500ml today by IR. waiting for cytology and culture result pending. # Adnexal mass cannot r/o ovarian cancer with Mets. pelvic, liver , lung nodules and peritoneal LAP , primary site possible ovarian in nature. Discussed with Oncology, will wait for culture and cytology result. All the markers are positive CA125 350's. seen by OGYn, recommends consult with Salesperson Wigs oncologist ,Dr Justin Cooley , she comes to hosp on Saturday , please call her office off number is [phone]Nashida Cooley # Acute Leukocytosis improving , off antibiotic for now. thickened colon wall could be infectious colitis, Vs ischemic colitis, vs colon ca #ECHo can't r/o vegetation; discussed with ID, will discontinue IV antibiotic for now,s/p flagyl/ceftriaxone s/p zosyn and vancomycin, blood culture is negative. As per ID ,low clinical suspicion for endocarditis but noninfective ( [place]) is a consideration, will discuss it with hospice registered nurse . Patient is off antibiotic for now as per ID. 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 # Hx of IVDA on Methadone , follows methadone clinic # HTN, cont home meds DVT px: heparin drip continue Visit type - Emergency Visit Emergency Visit: Yes ED Registration Date: 04/02/17 Care time: The patient presented to the Emergency Department on the above date and was hospitalized for further evaluation of their emergent condition. - New Patient This patient is new to me today: No - Critical Care Critical Care patient: No
--- NOTE | 2017-04-08 19:37 | CONSULT ---
Consult - text type - Consultation Consultation Note: Patient seen and examined Denies any specific complaints AFVSS Cor: RSR, No murmurs, No gallops Lungs: Clear to P&A Abd: Soft, Normal bowel sounds, ascites+ Ext:No significant edema Skin: No rashes, Integument intact Labs/meds reviewed A/P Frail 57 year old female presents with LUQ pain secondary to splenic infarction. h/o Hep. C Found to have acute pulmonary embolism with splenic vein and portal vein thrombosis and splenic infarction. Has pulmonary nodules, liver mass, extensive retroperitoneal, retrocrural lymphadenopathy, possible peritoneal implants and ascites. Has had recent diarrhea, and substantial weight loss. 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 Family history of sister with colon ca, and second sister with SLE Rt. adnexal mass s/p paracentesis awaiting cytology awaiting meter changes records clerk-onc input may be a candidate for weekly carbo/taxol once diagnosis confirmed social situation/support system etc. needs to be clarified No children. Has a sister in [place] ? fmaily meeting once diagnosis confirmed
[2017-04-08] MEDS: GABAPENTIN 300 MG CAPSULE (FP) PO SCH (21:24)
[2017-04-09] MEDS ORDERED: PT OWN MED DRAWER 7, Y5N ONE ×2 (06:01→09:12)
[2017-04-09] MEDS: METHADONE HCL 40 MG DISPERSABLE TABLET PO SCH (06:08)
[2017-04-09] MEDS: INSULIN SLIDING SCALE (NOVOLOG) 1 VIAL SQ SCH ×4 (06:08→21:12)
[2017-04-09 07:36] LABS: MCH 28.4 pg (25.7-33.7); MCHC 31.8 g/dl (32.0-36.0); MEAN CELL VOLUME 89.6 fl (80-96); MEAN PLT VOLUME 8.2 fl (7.5-11.1); PLATELET COUNT 468 K/MM3 (134-434); RDW 17.1 % (11.6-15.6); WHITE BLOOD COUNT 21.7 K/mm3 (4.0-10.0)
[2017-04-09] MEDS: BENZTROPINE MESYLATE 1 MG TABLET (FP) PO SCH ×2 (09:16→21:09)
[2017-04-09] MEDS: LISINOPRIL 20 MG TABLET (FP) PO SCH (09:16)
[2017-04-09] MEDS: PANTOPRAZOLE 20 MG TABLET (FP) PO SCH (09:16)
[2017-04-09] MEDS: amLODIPine BESYLATE 10 MG TABLET (FP) PO SCH (09:16)
[2017-04-09] MEDS: ARIPiprazole 10 MG TABLET PO SCH (09:16)
[2017-04-09 10:05] LABS: BASOPHIL (MANUAL) 1 % (0-2.0); TOTAL CELLS COUNTED 100
--- NOTE | 2017-04-09 10:34 | PN ---
Progress Note, Physician History of Present Illness: pulmonary alert,nad,-cp,-sob - Current Medication List Current Medications: Active Medications Albuterol Sulfate (Ventolin 0.083% Nebulizer Soln -) 1 amp NEB Q4H PRN PRN Reason: SHORT OF BREATH/WHEEZING Last Admin: 04/03/17 09:41 Dose: 1 amp Amlodipine Besylate (Norvasc -) 10 mg PO DAILY [facility] Last Admin: 04/09/17 09:16 Dose: 10 mg Aripiprazole (Abilify) 20 mg PO DAILY [facility] Last Admin: 04/09/17 09:16 Dose: 20 mg Benztropine Mesylate (Cogentin -) 1 mg PO BID [facility] Last Admin: 04/09/17 09:16 Dose: 1 mg Gabapentin (Neurontin -) 900 mg PO HS [facility] Last Admin: 04/08/17 21:24 Dose: 900 mg Heparin Sodium (Porcine) (Heparin -) 1,000 unit IVPUSH PRN PRN PRN Reason: Heparin Last Admin: 04/06/17 01:05 Dose: 1,000 unit Heparin Sodium (Porcine) (Heparin -) 5,000 unit IVPUSH PRN PRN PRN Reason: Heparin Last Admin: 04/08/17 22:29 Dose: 5,000 unit Heparin Sodium (Porcine) 25, (000 unit/ Sodium Chloride) 500 mls @ 16 mls/hr IV TITR [facility]MAN; 800 UNIT/HR PRN Reason: Protocol Last Titration: 04/08/17 22:29 Dose: 1,000 unit/hr Insulin Aspart (Novolog Vial Sliding Scale -) 1 vial SQ ACHS [facility] PRN Reason: Protocol Last Admin: 04/09/17 06:08 Dose: Not Given Lisinopril (Prinivil) 20 mg PO DAILY [facility] Last Admin: 04/09/17 09:16 Dose: 20 mg Methadone HCl (Dolophine -) 80 mg PO DAILY@0600 [facility] Last Admin: 04/09/17 06:08 Dose: 80 mg Ondansetron HCl (Zofran Injection) 4 mg IVPB Q4H PRN PRN Reason: NAUSEA AND/OR VOMITING Last Admin: 04/05/17 17:45 Dose: 4 mg Pantoprazole Sodium (Protonix -) 20 mg PO DAILY [facility] Last Admin: 04/09/17 09:16 Dose: 20 mg - Objective Vital Signs: Vital Signs Temperature 98.1 F 04/09/17 05:35 Pulse Rate 68 04/09/17 05:35 Respiratory Rate 20 04/09/17 05:35 Blood Pressure 137/64 04/09/17 05:35 O2 Sat by Pulse Oximetry (%) 98 04/09/17 09:00 Constitutional: Yes: Calm, Thin Eyes: Yes: WNL HENT: Yes: WNL Neck: Yes: WNL Cardiovascular: Yes: Regular Rate and Rhythm, S1, S2 Respiratory: Yes: Diminished Gastrointestinal: Yes: Normal Bowel Sounds, Soft Extremities: Yes: WNL Edema: No Labs: CBC, BMP 04/09/17 05:35 Problem List - Problems (1) Hep C w/o coma, chronic Code(s): B18.2 - CHRONIC VIRAL HEPATITIS C (2) Hypercoagulable state Code(s): D68.59 - OTHER PRIMARY THROMBOPHILIA (3) Lymphadenopathy Code(s): R59.1 - GENERALIZED ENLARGED LYMPH NODES (4) Pulmonary embolism Code(s): I26.99 - OTHER PULMONARY EMBOLISM WITHOUT ACUTE COR PULMONALE (5) Splenic infarct Code(s): D73.5 - INFARCTION OF SPLEEN Assessment/Plan A/P Likely Metastatic Disease Acute Pulmonary Emboli with Pulmonary Infarct Ascites Lymphadenopathy Lactic Acidosis Elevated LFTs Hep C DM Lung Nodules Smoker - anticoagulation - O2 to keep Spo2 >90% - lung nodules likely related to her metastatic disease - will need outpt PET scan - check path DR PAINTING
--- NOTE | 2017-04-09 15:18 | PN ---
Physical Exam: SUBJECTIVE: Patient seen and examined. No acute events over night. She says she feels better today. Offers no new complaints. OBJECTIVE: Vital Signs Period Temp Pulse Resp BP Sys/Roach Pulse Ox Last 24 Hr 97.8 F-98.4 F 59-89 20-20 137-150/60-79 94-99 GENERAL: The patient is awake, alert, and fully oriented, in no acute distress. EYES: PERRL, extraocular movements intact, sclera anicteric, conjunctiva clear. No ptosis. NECK: supple. LUNGS: Breath sounds equal, clear to auscultation bilaterally, no wheezes, no crackles, no accessory muscle use. HEART: Regular rate and rhythm, S1, S2 without murmur, rub or gallop. ABDOMEN: Soft, nontender, distended, normoactive bowel sounds. + shifting dullness, liver not palpable EXTREMITIES: 2+ pulses, warm, well-perfused, 2+ pitting edema b/l PSYCH: Normal mood, normal affect. Laboratory Results - last 24 hr 04/08/17 04/08/17 04/08/17 14:20 17:48 21:00 WBC RBC Hgb Hct MCV MCH MCHC RDW Plt Count MPV Total Counted Neutrophils % (Manual) Lymphocytes % (Manual) Monocytes % (Manual) Basophils % (Manual) PTT (Actin FS) 161.1 H D 37.1 H D POC Glucometer 154 04/08/17 04/09/17 04/09/17 21:20 05:17 05:35 WBC 21.7 H RBC 3.86 Hgb 11.0 Hct 34.5 MCV 89.6 MCH 28.4 MCHC 31.8 L RDW 17.1 H Plt Count 468 H MPV 8.2 D Total Counted 100 Neutrophils % (Manual) 90 H Lymphocytes % (Manual) 7 L Monocytes % (Manual) 2 L Basophils % (Manual) 1 PTT (Actin FS) POC Glucometer 149 125 04/09/17 04/09/17 05:35 11:30 WBC RBC Hgb Hct MCV MCH MCHC RDW Plt Count MPV Total Counted Neutrophils % (Manual) Lymphocytes % (Manual) Monocytes % (Manual) Basophils % (Manual) PTT (Actin FS) 69.1 H D POC Glucometer 144 Active Medications Generic Name Dose Route Start Last Admin Trade Name Freq PRN Reason Stop Dose Admin Albuterol Sulfate 1 amp 04/02/17 03:36 04/03/17 09:41 Ventolin 0.083% Nebulizer Soln - NEB 1 amp Q4H PRN Administration SHORT OF BREATH/WHEEZING Amlodipine Besylate 10 mg 04/02/17 10:00 04/09/17 09:16 Norvasc - PO 10 mg DAILY [facility] Administration Aripiprazole 20 mg 04/09/17 10:00 04/09/17 09:16 Abilify PO 20 mg DAILY [facility] Administration Benztropine Mesylate 1 mg 04/02/17 10:00 04/09/17 09:16 Cogentin - PO 1 mg BID [facility] Administration Gabapentin 900 mg 04/02/17 22:00 04/08/17 21:24 Neurontin - PO 900 mg HS [facility] Administration Heparin Sodium (Porcine) 1,000 unit 04/05/17 14:30 04/06/17 01:05 Heparin - IVPUSH 1,000 unit PRN PRN Administration Heparin Heparin Sodium (Porcine) 5,000 unit 04/05/17 14:30 04/08/17 22:29 Heparin - IVPUSH 5,000 unit PRN PRN Administration Heparin Heparin Sodium (Porcine) 25, 500 mls @ 16 mls/hr 04/05/17 14:30 04/08/17 22:29 000 unit/ Sodium Chloride IV 1,000 unit/hr TITR [facility] Titration Protocol 800 UNIT/HR Insulin Aspart 1 vial 04/02/17 07:00 04/09/17 12:20 Novolog Vial Sliding Scale - SQ Not Given ACHS [facility] Protocol Lisinopril 20 mg 04/02/17 10:00 04/09/17 09:16 Prinivil PO 20 mg DAILY [facility] Administration Methadone HCl 80 mg 04/04/17 06:00 04/09/17 06:08 Dolophine - PO 80 mg DAILY@0600 [facility] Administration Ondansetron HCl 4 mg 04/02/17 15:58 04/05/17 17:45 Zofran Injection IVPB 4 mg Q4H PRN Administration NAUSEA AND/OR VOMITING Pantoprazole Sodium 20 mg 04/02/17 10:00 04/09/17 09:16 Protonix - PO 20 mg DAILY [facility] Administration ASSESSMENT/PLAN: 57 y/o F with history of Diabetes, Hepatitis C, heroin drug use (on methadone), presented to the ED with left sided chest pain and was found to have Pulmonary Embolus, Portal vein thrombosis, splenic infarct, right adnexal mass (5x2cm), pelvic mass (3.4x1.4cm) and pulmonary nodules. # Acute Pulmonary embolus, splenic infarct and Portal/hepatic vein thrombosis likely secondary to underlying malignancy. -continue heparin drip: bolus given per protocol. Will continue adjusting heparin drip as per protocol. continue to trend PTT q6h per protocol -PTT goal of 60-90 check daily (Currently 69.1) -No right strain noted on echo -Will need life long AC as per Vascular # Possible Malignancy with metastasis -s/p abdominal paracentesis- john 500ml of fluid -awaiting fluid cytology - CT scan revealed: pulmonary nodules, peritoneal lymphadenopathy, and pelvic mass - Transvaginal U/S-showed large right cystic/solid ovarian mass -DISTRICT OR DISTRICT OFFICE DIRECTOR/ONC consulted -may be a candidate for weekly carbo/taxol once diagnosis confirmed as per Heme/ ONC -Heme on board: hypercoaguable state likely due to a possible malignancy at this time -AFP marker normal (1.3) -Abdominal U/S: diffuse heterogenous echotexture of the liver with multiple hyperechoic masslike densities measuring up to 4.4 cm. -Surgery consulted- agree to biopsy nodes/liver by least invasive means to establish dx. Does not recommend surgery unless emergent. #severe sepsis/Leukocytosis/Elevated Lactic Acid possibly secondary to underlying neoplasm -Lactic acidosis resolved -sepsis resolving -leukocytosis persists -CT scan results: revealed consolidative opacity in the left lower lobe. Small left pleural effusion. 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 would treat patient based on clinical picture as per cardiology. -blood cultures negative. -afebrile ID aware #Nausea -antiemetics PRN #Constipation -resolved # Diarrhea -Resolved -Stool C. Diff negative -Stool cultures negative # Hypertension- controlled -Continue Lisinopril 20mg Daily, Amlodipine 10mg PO Daily #Asthma-not in exacerbation -Albuterol PRN -PFT's as outpatient to r/o obstructive vs restrictive lung disease. #Diabetes Type 2 -ISS -Blood glucose well controlled FEN: Continue IV fluids NS @ 83ml per hour Diabetic Diet PPx: Heparin drip for full anticoagulation dose Protonix 20mg PO Daily Patient is currently ambulating on her own and does not to be deconditioning at this time. Will continue to assess patient daily for need of physical therapy consult. Visit type - Emergency Visit Emergency Visit: Yes ED Registration Date: 04/02/17 Care time: The patient presented to the Emergency Department on the above date and was hospitalized for further evaluation of their emergent condition. - New Patient This patient is new to me today: No - Critical Care Critical Care patient: No
--- NOTE | 2017-04-09 17:26 | CONSULT ---
Consult Consult Specialty:: Floor Clerk Oncology Reason for Consultation:: Adnexal masses, ascites - History of Present Illness Chief Complaint: CP/SOB History of Present Illness: 57 yo G0 with h/o Hep C, methadone use who was admitted for CP/SOB that began last week. Was found to have PE, splenic infarct, portal vein thrombosis, ascites, right adnexal mass. Has been admitted for anticoagulation, evaluation. Had paracentesis, cytology is pending. CA 125 is 350. CA 19-9 180, CEA 18 on . WBC on admission was 21, increased to 25 on 04/04/17 and is now 21. ID work up has been negative so far with negative blood cultures, urine culture, C. diff, stool gram stain. Not on any antibiotics at this time. Pt reports abdominal swelling which began 5 years ago. Reports has been treated with penicillin in the past for ovarian masses. Has h/o Hep C from IVDA 5 years ago. Is currently on methadone. Menopause was in her 40's. She has not had any PMVB, no HRT use. Last mammogram was 12/19 and was normal. Last pap 12/19 was negative per patient. Last colonoscopy 3 years ago. Family history significant for sister with colon cancer diagnosed in her 70's and another second cancer, the patient is not sure the origin. - History Source History Provided By: Patient, Medical Record Limitations to Obtaining History: No Limitations - Past Medical History SAFETY LEAD: No: CVA, Migraine, Multiple Sclerosis, Seizure, Syncope Cardio/Vascular: Yes: Deep Vein Thrombosis (portal vein thrombosis diagnozed during current admission ), HTN (rx po Lisinopril ) Pulmonary: Yes: Asthma, Pneumonia (diagnozed in current admission left lower lobe ) Gastrointestinal: Yes: Ascites (presently ), Constipation (c/o chronic ). No: GI Bleed Hepatobiliary: Yes: Hepatitis C (on meds ), Other (Hepatic nodules on ct scan , ) Renal/: No: UTI ...: No Infectious Disease: Yes: STD's, Other (Hep -C ) Psych: Yes: Depression Endocrine: Yes: Diabetes Mellitus (NIDDM ) Additional Medical History: h/o mamogram done , last 1 year ago , normal as per patient - Past Surgical History Past Surgical History: Yes: Breast Biopsy (at 14 yrs age breast cyst removed ) Additional Surgical History: Laparoscopy for infertility- tubes found to be obstructed - Alcohol/Substance Use Hx Alcohol Use: No History of Substance Use: reports: Heroin (In past, h/o drug Rehab program , on Methadone currently 80 mg po daily ) - Smoking History Smoking history: Current every day smoker Have you smoked in the past 12 months: Yes Aproximately how many cigarettes per day: 5 - Social History Usual Living Arrangement: Alone ADL: Independent Home Medications - Allergies Allergies/Adverse Reactions: Allergies Allergy/AdvReac Type Severity Reaction Status Date / Time No Known Allergies Allergy Unverified 04/01/17 15:41 - Home Medications Home Medications: Ambulatory Orders Aripiprazole [Abilify] 20 mg PO HS 12/02/16 Benztropine Mesylate [Cogentin -] 1 mg PO BID 12/02/16 Clonazepam [KlonoPIN] 0.5 mg PO TID 12/02/16 Gabapentin 900 mg PO HS 12/02/16 Metformin HCl [Metformin HCl ER] 1,000 mg PO BID 12/02/16 Methadone [Dolophine -] 80 mg PO DAILY 12/02/16 Omeprazole 20 mg PO DAILY 12/02/16 Polyethylene Glycol 3350 [Miralax (For Bowel Prep) -] 17 gm PO ONCE #1 bottle Sitagliptin Phosphate [Januvia] 100 mg PO DAILY 12/02/16 Amlodipine Besylate 10 mg PO DAILY 04/01/17 Fenofibrate Nanocrystallized [Fenofibrate] 54 mg PO DAILY 04/01/17 Glipizide [Glipizide ER] 10 mg PO BID 04/01/17 Lisinopril [Prinivil] 20 mg PO DAILY 04/01/17 Pravastatin Sodium 20 mg PO DAILY 04/01/17 Sofosbuvir/Velpatasvir [Epclusa 400 mg-100 mg Tablet] 1 each PO DAILY 04/01/17 Insulin Glargine,Hum.rec.anlog [Basaglar Kwikpen U-100] 15 unit SQ HS 04/03/17 Quetiapine Fumarate [Seroquel] 300 mg PO HS 04/03/17 Sertraline HCl [Zoloft] 100 mg PO DAILY 04/03/17 Family Disease History - Family Disease History Family Disease History: CA: Sister (colon cnacer) Physical Exam Vital Signs: Vital Signs Temperature 97.8 F 04/09/17 14:00 Pulse Rate 73 04/09/17 14:00 Respiratory Rate 20 04/09/17 10:00 Blood Pressure 135/68 04/09/17 14:00 O2 Sat by Pulse Oximetry (%) 94 L 04/09/17 10:38 Constitutional: Yes: Thin Eyes: Yes: WNL HENT: Yes: WNL Neck: Yes: WNL Cardiovascular: Yes: WNL Respiratory: Yes: WNL Gastrointestinal: Yes: WNL, Ascites Musculoskeletal: Yes: WNL Edema: LLE: 2+, RLE: 2+ Integumentary: Yes: WNL Neurological: Yes: WNL, Alert, Oriented ...Motor Strength: WNL Psychiatric: Yes: WNL Labs: CBC, BMP 04/09/17 05:35 04/06/17 05:38 Assessment/Plan 57 yo G0 with h/o Hep C, DM, admitted with acute PE, splenic infarcts, portal vein thrombosis, ascites and right adnexal mass, ? peritoneal implants, retroperitoneal implants, elevated CA 125. Imaging reviewed. Right adnexal mass consistent with hydrosalpinx. Left adnexa not visualized on u/s. Difficult to assess for left adnexal mass on CT as there appears to be loculated ascites. Paracentesis with SAAG gradient 1.0. Cytology is pending. Will await cytology, but if positive for adenocarcinoma, likely ovarian origin and would recommend neoadjuvant chemotherapy with interval debulking in the setting of recent PE.
[2017-04-09] MEDS: HEPARIN - 25,000 UNIT in SODIUM CHLORIDE 495 ML IV SCH (17:34)
--- NOTE | 2017-04-09 19:54 | PN ---
Teaching Attending Note Name of Resident: Anne Roman ATTENDING PHYSICIAN STATEMENT I saw and evaluated the patient. I reviewed the resident's note and discussed the case with the resident. I agree with the resident's findings and plan as documented. SUBJECTIVE: Feeling better, except increased the swelling of LEs OBJECTIVE: Vital Signs Temperature 97.8 F 04/09/17 14:00 Pulse Rate 73 04/09/17 14:00 Respiratory Rate 20 04/09/17 10:00 Blood Pressure 135/68 04/09/17 14:00 O2 Sat by Pulse Oximetry (%) 94 L 04/09/17 10:38 CBCD WBC 21.7 K/mm3 (4.0-10.0) H 04/09/17 05:35 RBC 3.86 M/mm3 (3.60-5.2) 04/09/17 05:35 Hgb 11.0 GM/dL (10.7-15.3) 04/09/17 05:35 Hct 34.5 % (32.4-45.2) 04/09/17 05:35 MCV 89.6 fl (80-96) 04/09/17 05:35 MCHC 31.8 g/dl (32.0-36.0) L 04/09/17 05:35 RDW 17.1 % (11.6-15.6) H 04/09/17 05:35 Plt Count 468 K/MM3 (134-434) H 04/09/17 05:35 MPV 8.2 fl (7.5-11.1) D 04/09/17 05:35 CMP Sodium 140 mmol/L (136-145) 04/06/17 05:38 Potassium 4.1 mmol/L (3.5-5.1) 04/06/17 05:38 Chloride 102 mmol/L (98-107) 04/06/17 05:38 Carbon Dioxide 31 mmol/L (21-32) 04/06/17 05:38 Anion Gap 7 (8-16) L 04/06/17 05:38 BUN 5 mg/dL (7-18) L 04/06/17 05:38 Creatinine 0.2 mg/dL (0.55-1.02) L D 04/06/17 05:38 Creat Clearance w eGFR > 60 (>60) 04/06/17 05:38 Random Glucose 138 mg/dL (74-106) H D 04/06/17 05:38 Calcium 8.0 mg/dL (8.5-10.1) L 04/06/17 05:38 Total Bilirubin 0.6 mg/dL (0.2-1.0) D 04/06/17 05:38 AST 17 U/L (15-37) 04/06/17 05:38 ALT 17 U/L (12-78) 04/06/17 05:38 Alkaline Phosphatase 287 U/L (45-117) H 04/06/17 05:38 Total Protein 5.9 g/dl (6.4-8.2) L 04/06/17 05:38 Albumin 2.0 g/dl (3.4-5.0) L 04/06/17 05:38 CARDIAC ENZYMES Creatine Kinase 23 IU/L (26-192) L 04/01/17 19:40 Troponin I < 0.02 ng/ml (0.00-0.05) 04/02/17 05:30 Current Medications Generic Name Dose Route Start Last Admin Trade Name Freq PRN Reason Stop Dose Admin Albuterol Sulfate 1 amp 04/02/17 03:36 04/03/17 09:41 Ventolin 0.083% Nebulizer Soln - NEB 1 amp Q4H PRN Administration SHORT OF BREATH/WHEEZING Amlodipine Besylate 10 mg 04/02/17 10:00 04/09/17 09:16 Norvasc - PO 10 mg DAILY OLMAN Administration Aripiprazole 20 mg 04/09/17 10:00 04/09/17 09:16 Abilify PO 20 mg DAILY OLMAN Administration Benztropine Mesylate 1 mg 04/02/17 10:00 04/09/17 09:16 Cogentin - PO 1 mg BID OLMAN Administration Gabapentin 900 mg 04/02/17 22:00 04/08/17 21:24 Neurontin - PO 900 mg HS OLMAN Administration Heparin Sodium (Porcine) 1,000 unit 04/05/17 14:30 04/06/17 01:05 Heparin - IVPUSH 1,000 unit PRN PRN Administration Heparin Heparin Sodium (Porcine) 5,000 unit 04/05/17 14:30 04/08/17 22:29 Heparin - IVPUSH 5,000 unit PRN PRN Administration Heparin Heparin Sodium (Porcine) 25, 500 mls @ 16 mls/hr 04/05/17 14:30 04/09/17 17:34 000 unit/ Sodium Chloride IV Not Given TITR OLMAN Protocol 800 UNIT/HR Insulin Aspart 1 vial 04/02/17 07:00 04/09/17 17:34 Novolog Vial Sliding Scale - SQ Not Given ACHS [facility] Protocol Lisinopril 20 mg 04/02/17 10:00 04/09/17 09:16 Prinivil PO 20 mg DAILY OLMAN Administration Methadone HCl 80 mg 04/04/17 06:00 04/09/17 06:08 Dolophine - PO 80 mg DAILY@0600 OLMAN Administration Ondansetron HCl 4 mg 04/02/17 15:58 04/05/17 17:45 Zofran Injection IVPB 4 mg Q4H PRN Administration NAUSEA AND/OR VOMITING Pantoprazole Sodium 20 mg 04/02/17 10:00 04/09/17 09:16 Protonix - PO 20 mg DAILY OLMAN Administration Home Medications Medication Instructions Recorded Aripiprazole [Abilify] 20 mg PO HS 12/02/16 Benztropine Mesylate [Cogentin -] 1 mg PO BID 12/02/16 Clonazepam [KlonoPIN] 0.5 mg PO TID 12/02/16 Gabapentin 900 mg PO HS 12/02/16 Metformin HCl [Metformin HCl ER] 1,000 mg PO BID 12/02/16 Methadone [Dolophine -] 80 mg PO DAILY 12/02/16 Omeprazole 20 mg PO DAILY 12/02/16 Polyethylene Glycol 3350 [Miralax 17 gm PO ONCE #1 bottle 12/02/16 (For Bowel Prep) -] Sitagliptin Phosphate [Januvia] 100 mg PO DAILY 12/02/16 Amlodipine Besylate 10 mg PO DAILY 04/01/17 Fenofibrate Nanocrystallized 54 mg PO DAILY 04/01/17 [Fenofibrate] Glipizide [Glipizide ER] 10 mg PO BID 04/01/17 Lisinopril [Prinivil] 20 mg PO DAILY 04/01/17 Pravastatin Sodium 20 mg PO DAILY 04/01/17 Sofosbuvir/Velpatasvir [Epclusa 1 each PO DAILY 04/01/17 400 mg-100 mg Tablet] Insulin Glargine,Hum.rec.anlog 15 unit SQ HS 04/03/17 [Rahul Meredith U-100] Quetiapine Fumarate [Seroquel] 300 mg PO HS 04/03/17 Sertraline HCl [Zoloft] 100 mg PO DAILY 04/03/17 PE: BL pitting edema 2 plus rest of PE per resident's note ASSESSMENT AND PLAN: 57 y/o unfortunate lady with h/o NIDDM , h/o heroin use on Methadone, who presented with L sided chest pain and was found to have PE, splenic and portal vein thrombosis, and pelvic and pulmonary nodules # Acute Left sided PE, Portal and splenic vein thrombosis: On heparin gtt. continue with a goal PTT b/t 60-90. rat exterminator AC needed. Patient wants to know the final results and diagnosis. wants treatment as well. s/p paracentesis ,cytology report is pending, follow the result.p # s/p Paracentesis around 500ml today by IR. waiting for cytology and culture result pending. As per onc propagation worker: Will await cytology, but if positive for adenocarcinoma, likely ovarian origin and would recommend neoadjuvant chemotherapy with interval debulking in the setting of recent PE. # Adnexal mass cannot r/o ovarian cancer with Mets. pelvic, liver , lung nodules and peritoneal LAP , primary site possible ovarian in nature. Discussed with Oncology, will wait for cytology result. All the markers are positive CA125 350's. seen by OGYn, patient is seen by [facility] [employer] oncologist ,Dr Justin Cooley with phone# number is [phone] . #ECHo can't r/o vegetation; discussed with ID, will discontinue IV antibiotic for now,s/p flagyl/ceftriaxone s/p zosyn and vancomycin, blood culture is negative. As per ID ,low clinical suspicion for endocarditis but noninfective ( [place]) is a consideration, will discuss it with ceramic restorer . Patient is off antibiotic for now as per ID. 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 # Hx of IVDA on Methadone , follows methadone clinic # HTN, cont home meds DVT px: heparin drip continue
[2017-04-09] MEDS: GABAPENTIN 300 MG CAPSULE (FP) PO SCH (21:09)
[2017-04-10] MEDS: METHADONE HCL 40 MG DISPERSABLE TABLET PO SCH (05:56)
[2017-04-10] MEDS: INSULIN SLIDING SCALE (NOVOLOG) 1 VIAL SQ SCH ×4 (06:08→21:56)
[2017-04-10 07:26] LABS: BASOPHIL 0.5 % (0-2.0); EOSINOPHIL 0.1 % (0-4.5); MCH 28.3 pg (25.7-33.7); MCHC 31.9 g/dl (32.0-36.0); MEAN CELL VOLUME 88.7 fl (80-96); MEAN PLT VOLUME 7.7 fl (7.5-11.1); NEUTROPHILS 90.1 % (42.8-82.8); PLATELET COUNT 485 K/MM3 (134-434); RDW 17.2 % (11.6-15.6); WHITE BLOOD COUNT 27.1 K/mm3 (4.0-10.0)
[2017-04-10 07:35] LABS: INR 1.57 (0.82-1.09); PROTHROMBIN TIME (PATIENT) 17.4 SEC (9.98-11.88)
[2017-04-10 08:12] LABS: ALK PHOS 323 U/L (45-117); ANION GAP 10 (8-16); BILIRUBIN,TOTAL 0.8 mg/dL (0.2-1.0); CALCIUM 8.3 mg/dL (8.5-10.1); CO2 30 mmol/L (21-32); CREATININE 0.3 mg/dL (0.55-1.02); GLUCOSE,RANDOM 161 mg/dL (74-106); MAGNESIUM 1.8 mg/dL (1.8-2.4); PHOSPHOROUS 3.4 mg/dL (2.5-4.9); SGOT/AST 77 U/L (15-37); SGPT/ALT 42 U/L (12-78); TOT PROT 6.1 g/dl (6.4-8.2)
[2017-04-10] MEDS ORDERED: PT OWN MED DRAWER 7, Y5N ONE ×2 (09:05→21:50)
[2017-04-10] MEDS: LISINOPRIL 20 MG TABLET (FP) PO SCH (10:15)
[2017-04-10] MEDS: PANTOPRAZOLE 20 MG TABLET (FP) PO SCH (10:15)
[2017-04-10] MEDS: ARIPiprazole 10 MG TABLET PO SCH (10:15)
[2017-04-10] MEDS: BENZTROPINE MESYLATE 1 MG TABLET (FP) PO SCH ×2 (10:15→21:56)
[2017-04-10] MEDS: amLODIPine BESYLATE 10 MG TABLET (FP) PO SCH (10:15)
[2017-04-10] MEDS: HEPARIN - 25,000 UNIT in SODIUM CHLORIDE 495 ML IV SCH ×2 (10:46→17:31)
--- NOTE | 2017-04-10 11:04 | PN ---
Progress Note, Physician History of Present Illness: PULMONARY ALERT,-RESP DISTRESS,+ HEMOPTYSIS SMALL QUANTITY ( DARK HEME) - Current Medication List Current Medications: Active Medications Albuterol Sulfate (Ventolin 0.083% Nebulizer Soln -) 1 amp NEB Q4H PRN PRN Reason: SHORT OF BREATH/WHEEZING Last Admin: 04/03/17 09:41 Dose: 1 amp Amlodipine Besylate (Norvasc -) 10 mg PO DAILY [facility] Last Admin: 04/10/17 10:15 Dose: 10 mg Aripiprazole (Abilify) 20 mg PO DAILY [facility] Last Admin: 04/10/17 10:15 Dose: 20 mg Benztropine Mesylate (Cogentin -) 1 mg PO BID [facility] Last Admin: 04/10/17 10:15 Dose: 1 mg Gabapentin (Neurontin -) 900 mg PO HS [facility] Last Admin: 04/09/17 21:09 Dose: 900 mg Heparin Sodium (Porcine) (Heparin -) 1,000 unit IVPUSH PRN PRN PRN Reason: Heparin Last Admin: 04/06/17 01:05 Dose: 1,000 unit Heparin Sodium (Porcine) (Heparin -) 5,000 unit IVPUSH PRN PRN PRN Reason: Heparin Last Admin: 04/08/17 22:29 Dose: 5,000 unit Heparin Sodium (Porcine) 25, (000 unit/ Sodium Chloride) 500 mls @ 16 mls/hr IV TITR OLMAN; 800 UNIT/HR PRN Reason: Protocol Last Admin: 04/10/17 10:46 Dose: 18 mls/hr Insulin Aspart (Novolog Vial Sliding Scale -) 1 vial SQ ACHS OLMAN PRN Reason: Protocol Last Admin: 04/10/17 06:08 Dose: Not Given Lisinopril (Prinivil) 20 mg PO DAILY [facility] Last Admin: 04/10/17 10:15 Dose: 20 mg Methadone HCl (Dolophine -) 80 mg PO DAILY@0600 [facility] Last Admin: 04/10/17 05:56 Dose: 80 mg Ondansetron HCl (Zofran Injection) 4 mg IVPB Q4H PRN PRN Reason: NAUSEA AND/OR VOMITING Last Admin: 04/05/17 17:45 Dose: 4 mg Pantoprazole Sodium (Protonix -) 20 mg PO DAILY [facility] Last Admin: 09/06/17 10:15 Dose: 20 mg - Objective Vital Signs: Vital Signs Temperature 98.2 F 04/10/17 08:05 Pulse Rate 96 H 04/10/17 08:05 Respiratory Rate 16 04/10/17 08:05 Blood Pressure 130/80 04/10/17 08:05 O2 Sat by Pulse Oximetry (%) 100 04/09/17 21:00 Constitutional: Yes: Calm, Thin Eyes: Yes: WNL HENT: Yes: WNL Neck: Yes: WNL Cardiovascular: Yes: Regular Rate and Rhythm, S1, S2 Respiratory: Yes: Rhonchi (few rhonchi) Gastrointestinal: Yes: Normal Bowel Sounds, Soft Extremities: Yes: WNL Edema: Yes (r>l) Labs: CBC, BMP 04/10/17 06:15 04/10/17 06:15 INR, PTT INR 1.57 (0.82-1.09) H 04/10/17 06:15 Problem List - Problems (1) Hep C w/o coma, chronic Code(s): B18.2 - CHRONIC VIRAL HEPATITIS C (2) Hypercoagulable state Code(s): D68.59 - OTHER PRIMARY THROMBOPHILIA (3) Lymphadenopathy Code(s): R59.1 - GENERALIZED ENLARGED LYMPH NODES (4) Pulmonary embolism Code(s): I26.99 - OTHER PULMONARY EMBOLISM WITHOUT ACUTE COR PULMONALE (5) Splenic infarct Code(s): D73.5 - INFARCTION OF SPLEEN Assessment/Plan A/P Likely Metastatic Disease Acute Pulmonary Emboli with Pulmonary Infarct Ascites Lymphadenopathy Lactic Acidosis Elevated LFTs Hep C DM Lung Nodules Smoker - anticoagulation - O2 to keep Spo2 >90% - lung nodules likely related to her metastatic disease - will need outpt PET scan - check path - duplex lower ext DR PAINTING
--- NOTE | 2017-04-10 15:31 | PATH ---
Cytology Non-Gynecological Report Patient Name: SHERITA JOY [facility]. Rec. #: [id number] /Age/Gender: 1960 (Age: 57) / F Account: [id number] Location: 4 W TELEMETRY U Taken: 04/05/2017 Received: 04/05/2017 Reported: 04/10/2017 Physicians: Veronica Aldrich M.D. Norman Rosen, M.D. Specimen(s) Received A: ABDOMINAL FLUID FRESH B: ABDOMINAL FLUID IN 50% ALCOHOL Clinical History Ovarian mass, ascites Final Diagnosis A, B. ABDOMINAL FLUID, PARACENTESIS: SATISFACTORY FOR EVALUATION. SCANT MARKEDLY ATYPICAL CELLS PRESENT (SEE COMMENT). BACKGROUND REACTIVE MESOTHELIAL CELLS, HISTIOCYTES AND MIXED INFLAMMATORY CELLS, INCLUDING NUMEROUS NEUTROPHILS. Comment: Immunohistochemical stains performed and interpreted [facility] on cell blocks A and B show the following: the atypical cells are positive for CK7 immunostain and appear to be focally reactive for BerEp4/SUNG immunostain; CK20 is negative. The atypical cells are scant and are insufficient for further IHC studies. Overall, the cytomorphologic findings are suspicious for involvement by adenocarcinoma; however, no further determination of the nature of the neoplasm can be made. If the fluid re-accumulates, additional sampling may be beneficial. Electronically Signed Eh Garza M.D. Gross Description A. Received is a 50 cc of pink fluid in 50% alcohol. One cytofunnel slide and one cell block are made. B. Received is 500 cc of reddish fluid fresh. One cytofunnel slide and one cell block are made.
--- NOTE | 2017-04-10 18:30 | PN ---
Physical Exam: SUBJECTIVE: Patient seen and examined. Had streaks of blood in sputum when coughing. She says she feels better today and denies pain, diarrhea, headaches, nausea, and vomiting. OBJECTIVE: Vital Signs Period Temp Pulse Resp BP Sys/Roach Pulse Ox Last 24 Hr 98.2 F-99.1 F 65-96 16-20 124-157/64-80 96-100 GENERAL: The patient is awake, alert, and fully oriented, in no acute distress. EYES: PERRL, extraocular movements intact, sclera anicteric, conjunctiva clear. No ptosis. NECK: supple. LUNGS: Breath sounds equal, clear to auscultation bilaterally, no wheezes, no crackles, no accessory muscle use. HEART: Regular rate and rhythm, S1, S2 without murmur, rub or gallop. ABDOMEN: Soft, nontender, distended, normoactive bowel sounds. + shifting dullness, liver not palpable EXTREMITIES: 2+ pulses, warm, well-perfused, 2+ pitting edema b/l PSYCH: Normal mood, normal affect. Laboratory Results - last 24 hr 04/09/17 04/10/17 04/10/17 21:11 05:56 06:15 WBC RBC Hgb Hct MCV MCH MCHC RDW Plt Count MPV Neutrophils % Lymphocytes % Monocytes % Eosinophils % Basophils % INR PTT (Actin FS) 99.9 H D Sodium Potassium Chloride Carbon Dioxide Anion Gap BUN Creatinine Creat Clearance w eGFR POC Glucometer 138 132 Random Glucose Calcium Phosphorus Magnesium Total Bilirubin AST ALT Alkaline Phosphatase Total Protein Albumin 04/10/17 04/10/17 04/10/17 06:15 06:15 06:15 WBC 27.1 H RBC 4.05 Hgb 11.5 Hct 35.9 MCV 88.7 MCH 28.3 MCHC 31.9 L RDW 17.2 H Plt Count 485 H MPV 7.7 Neutrophils % 90.1 H Lymphocytes % 5.0 L D Monocytes % 4.3 Eosinophils % 0.1 D Basophils % 0.5 INR 1.57 H PTT (Actin FS) Sodium 139 Potassium 3.9 Chloride 99 Carbon Dioxide 30 Anion Gap 10 BUN 6 L Creatinine 0.3 L D Creat Clearance w eGFR > 60 POC Glucometer Random Glucose 161 H Calcium 8.3 L Phosphorus 3.4 D Magnesium 1.8 Total Bilirubin 0.8 D AST 77 H D ALT 42 D Alkaline Phosphatase 323 H Total Protein 6.1 L Albumin 2.0 L 04/10/17 04/10/17 04/10/17 12:34 15:30 15:35 WBC RBC Hgb Hct MCV MCH MCHC RDW Plt Count MPV Neutrophils % Lymphocytes % Monocytes % Eosinophils % Basophils % INR PTT (Actin FS) 65.6 H D Sodium Potassium Chloride Carbon Dioxide Anion Gap BUN Creatinine Creat Clearance w eGFR POC Glucometer 190 184 Random Glucose Calcium Phosphorus Magnesium Total Bilirubin AST ALT Alkaline Phosphatase Total Protein Albumin Active Medications Generic Name Dose Route Start Last Admin Trade Name Freq PRN Reason Stop Dose Admin Albuterol Sulfate 1 amp 04/02/17 03:36 04/03/17 09:41 Ventolin 0.083% Nebulizer Soln - NEB 1 amp Q4H PRN Administration SHORT OF BREATH/WHEEZING Amlodipine Besylate 10 mg 04/02/17 10:00 04/10/17 10:15 Norvasc - PO 10 mg DAILY OLMAN Administration Aripiprazole 20 mg 04/09/17 10:00 04/10/17 10:15 Abilify PO 20 mg DAILY OLMAN Administration Benztropine Mesylate 1 mg 04/02/17 10:00 04/10/17 10:15 Cogentin - PO 1 mg BID OLMAN Administration Enoxaparin Sodium 60 mg 04/10/17 19:00 Lovenox - SQ Q12H OLMAN Gabapentin 900 mg 04/02/17 22:00 04/09/17 21:09 Neurontin - PO 900 mg HS OLMAN Administration Heparin Sodium (Porcine) 1,000 unit 04/05/17 14:30 04/06/17 01:05 Heparin - IVPUSH 1,000 unit PRN PRN Administration Heparin Heparin Sodium (Porcine) 5,000 unit 04/05/17 14:30 04/08/17 22:29 Heparin - IVPUSH 5,000 unit PRN PRN Administration Heparin Heparin Sodium (Porcine) 25, 500 mls @ 16 mls/hr 04/05/17 14:30 04/10/17 17:31 000 unit/ Sodium Chloride IV Not Given TITR [facility] Protocol 800 UNIT/HR Insulin Aspart 1 vial 04/02/17 07:00 04/10/17 17:31 Novolog Vial Sliding Scale - SQ 2 units ACHS OLMAN Administration Protocol Lisinopril 20 mg 04/02/17 10:00 04/10/17 10:15 Prinivil PO 20 mg DAILY OLMAN Administration Methadone HCl 80 mg 04/04/17 06:00 04/10/17 05:56 Dolophine - PO 80 mg DAILY@0600 [facility]MAN Administration Ondansetron HCl 4 mg 04/02/17 15:58 04/05/17 17:45 Zofran Injection IVPB 4 mg Q4H PRN Administration NAUSEA AND/OR VOMITING Pantoprazole Sodium 20 mg 04/02/17 10:00 04/10/17 10:15 Protonix - PO 20 mg DAILY [facility]MAN Administration ASSESSMENT/PLAN: 57 y/o F with history of Diabetes, Hepatitis C, heroin drug use (on methadone), presented to the ED with left sided chest pain and was found to have Pulmonary Embolus, Portal vein thrombosis, splenic infarct, right adnexal mass (5x2cm), pelvic mass (3.4x1.4cm) and pulmonary nodules. # Acute Pulmonary embolus, splenic infarct and Portal/hepatic vein thrombosis likely secondary to underlying malignancy. -Will stop heparin today -Start Lovenox 60mg BID q12 -Will need life long AC as per Vascular # Possible Malignancy with metastasis -s/p abdominal paracentesis- john 500ml of fluid -awaiting fluid cytology - CT scan revealed: pulmonary nodules, peritoneal lymphadenopathy, and pelvic mass - Transvaginal U/S-showed large right cystic/solid ovarian mass -DECONTAMINATION TECHNICIAN/ONC consulted: Right adnexal mass consistent with hydrosalpinx. Left adnexa not visualized on u/s. Difficult to assess for left adnexal mass on CT as there appears to be loculated ascites. If cytology positive for adenocarcinoma, likely ovarian origin and would recommend neoadjuvant chemotherapy with interval debulking in the setting of recent PE as per DECONTAMINATION TECHNICIAN/ONC -may be a candidate for weekly carbo/taxol once diagnosis confirmed as per Heme/ ONC -Heme on board: hypercoaguable state likely due to a possible malignancy at this time -AFP marker normal (1.3) -Abdominal U/S: diffuse heterogenous echotexture of the liver with multiple hyperechoic masslike densities measuring up to 4.4 cm. -Surgery consulted- agree to biopsy nodes/liver by least invasive means to establish dx. Does not recommend surgery unless emergent. #severe sepsis/Leukocytosis/Elevated Lactic Acid possibly secondary to underlying neoplasm -Lactic acidosis resolved -sepsis resolving -leukocytosis persists -CT scan results: revealed consolidative opacity in the left lower lobe. Small left pleural effusion. 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 would treat patient based on clinical picture as per cardiology. -blood cultures negative. -afebrile ID aware #Nausea -antiemetics PRN #Constipation -resolved # Diarrhea -Resolved -Stool C. Diff negative -Stool cultures negative # Hypertension- controlled -Continue Lisinopril 20mg Daily, Amlodipine 10mg PO Daily #Asthma-not in exacerbation -Albuterol PRN -PFT's as outpatient to r/o obstructive vs restrictive lung disease. #Diabetes Type 2 -ISS -Blood glucose well controlled FEN: Continue IV fluids NS @ 83ml per hour Diabetic Diet PPx: Heparin drip for full anticoagulation dose Protonix 20mg PO Daily Patient is currently ambulating on her own and does not to be deconditioning at this time. Will continue to assess patient daily for need of physical therapy consult. Visit type - Emergency Visit Emergency Visit: Yes ED Registration Date: 04/02/17 Care time: The patient presented to the Emergency Department on the above date and was hospitalized for further evaluation of their emergent condition. - New Patient This patient is new to me today: No - Critical Care Critical Care patient: No - Discharge Referral Referred to [facility] Med P.C.: No
--- NOTE | 2017-04-10 20:15 | PN ---
Teaching Attending Note Name of Resident: Anne Roman ATTENDING PHYSICIAN STATEMENT I saw and evaluated the patient. I reviewed the resident's note and discussed the case with the resident. I agree with the resident's findings and plan as documented. SUBJECTIVE: no fever or chills, feels better , no CP OBJECTIVE: NAD ,MMM CV: RRR Lungs: CTAB. Abd: soft, ND , no TTP . liver is not palpated or percussed . Nl BS Ext: no edema or erythema ASSESSMENT AND PLAN: 57 y/o unfortunate lady with h/o NIDDM , h/o heroin use on Methadone, who presented with L sided chest pain and was found to have PE, splenic and portal vein thrombosis, and pelvic and pulmonary nodules 1- Acute L sided PE, Portal and splenic vein thrombosis and splenic infarct : in the setting of possible malignancy. - start lovenox q 12 hr. dc heparin gtt. ( lovenox is covered by her insurance ) 2- Metastatic cancer . primary could be ovarian cancer. - await cytology of ascitis fluid - appreciate Onc , and TONG SETTER-ONc recs - further treatment options pending path 3- Leukocytosis , unlikely infectious in etiology. blood cx neg . 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
[2017-04-10] MEDS: ENOXAPARIN NA (PORCINE) 60 MG/0.6 ML DISP.SYRIN SQ SCH (21:56)
[2017-04-10] MEDS: GABAPENTIN 300 MG CAPSULE (FP) PO SCH (21:56)
[2017-04-11] MEDS: METHADONE HCL 40 MG DISPERSABLE TABLET PO SCH (05:39)
[2017-04-11] MEDS: INSULIN SLIDING SCALE (NOVOLOG) 1 VIAL SQ SCH ×4 (06:42→22:24)
[2017-04-11 08:33] LABS: INR 1.65 (0.82-1.09); PROTHROMBIN TIME (PATIENT) 18.3 SEC (9.98-11.88)
[2017-04-11 08:34] LABS: MCH 28.7 pg (25.7-33.7); MCHC 32.3 g/dl (32.0-36.0); PLATELET COUNT 406 K/MM3 (134-434); RDW 16.8 % (11.6-15.6); WHITE BLOOD COUNT 21.9 K/mm3 (4.0-10.0)
[2017-04-11] MEDS ORDERED: PT OWN MED DRAWER 7, Y5N ONE (09:09)
[2017-04-11] MEDS: ENOXAPARIN NA (PORCINE) 60 MG/0.6 ML DISP.SYRIN SQ SCH ×2 (09:30→22:20)
[2017-04-11] MEDS: PANTOPRAZOLE 20 MG TABLET (FP) PO SCH (09:56)
[2017-04-11] MEDS: LISINOPRIL 20 MG TABLET (FP) PO SCH (09:56)
[2017-04-11] MEDS: amLODIPine BESYLATE 10 MG TABLET (FP) PO SCH (09:56)
[2017-04-11] MEDS: BENZTROPINE MESYLATE 1 MG TABLET (FP) PO SCH ×2 (09:56→22:21)
[2017-04-11] MEDS: ARIPiprazole 10 MG TABLET PO SCH (09:56)
--- NOTE | 2017-04-11 11:22 | PN ---
Progress Note (short form) - Note Progress Note: PULMONARY Still with streaky hemoptysis today. Denies shortness of breath or chest pain. Cytology suggestive but not definitive of adenoca. Last Vital Signs Temp Pulse Resp BP Pulse Ox 98.2 F 67 14 134/72 97 04/11/17 08:00 04/11/17 10:30 04/11/17 08:00 04/11/17 08:00 04/11/17 10:30 Gen: NAD in chair Heart: RRR Lung: left base rales Abd: softly distended, nontender Ext: no edema CBC, BMP 04/11/17 07:00 04/10/17 06:15 Active Medications Albuterol Sulfate (Ventolin 0.083% Nebulizer Soln -) 1 amp NEB Q4H PRN PRN Reason: SHORT OF BREATH/WHEEZING Last Admin: 04/03/17 09:41 Dose: 1 amp Amlodipine Besylate (Norvasc -) 10 mg PO DAILY [facility] Last Admin: 04/11/17 09:56 Dose: 10 mg Aripiprazole (Abilify) 20 mg PO DAILY [facility] Last Admin: 04/11/17 09:56 Dose: 20 mg Benztropine Mesylate (Cogentin -) 1 mg PO BID [facility] Last Admin: 04/11/17 09:56 Dose: 1 mg Enoxaparin Sodium (Lovenox -) 60 mg SQ Q12H [facility] Last Admin: 04/11/17 09:30 Dose: 60 mg Gabapentin (Neurontin -) 900 mg PO HS [facility] Last Admin: 04/10/17 21:56 Dose: 900 mg Insulin Aspart (Novolog Vial Sliding Scale -) 1 vial SQ ACHS [facility] PRN Reason: Protocol Last Admin: 04/11/17 06:42 Dose: Not Given Lisinopril (Prinivil) 20 mg PO DAILY [facility] Last Admin: 04/11/17 09:56 Dose: 20 mg Methadone HCl (Dolophine -) 80 mg PO DAILY@0600 [facility] Last Admin: 04/11/17 05:39 Dose: 80 mg Ondansetron HCl (Zofran Injection) 4 mg IVPB Q4H PRN PRN Reason: NAUSEA AND/OR VOMITING Last Admin: 04/05/17 17:45 Dose: 4 mg Pantoprazole Sodium (Protonix -) 20 mg PO DAILY [facility] Last Admin: 04/11/17 09:56 Dose: 20 mg A/P Likely Metastatic Ovarian Ca Acute Pulmonary Emboli with Pulmonary Infarct Ascites Lymphadenopathy Lactic Acidosis Elevated LFTs Hep C DM Lung Nodules Smoker - continue anticoagulation, agree with LMWH - CT findings likely related pulmonary infarct - O2 to keep Spo2 >90% - lung nodules likely related to her metastatic disease - will need outpt PET scan
--- NOTE | 2017-04-11 14:55 | PN ---
Physical Exam: SUBJECTIVE: Patient seen and examined. She says she feels better today and denies pain, diarrhea, headaches, nausea, and vomiting. Denies abdominal pain, chest pain, nausea, vomiting and dizziness. OBJECTIVE: Vital Signs Period Temp Pulse Resp BP Sys/Roach Pulse Ox Last 24 Hr 98.1 F-98.7 F 67-96 14-20 133-161/57-77 95-97 GENERAL: The patient is awake, alert, and fully oriented, in no acute distress. EYES: PERRL, extraocular movements intact, sclera anicteric, conjunctiva clear. No ptosis. NECK: supple. LUNGS: Breath sounds equal, clear to auscultation bilaterally, no wheezes, no crackles, no accessory muscle use. HEART: Regular rate and rhythm, S1, S2 without murmur, rub or gallop. ABDOMEN: Soft, nontender, distended, normoactive bowel sounds. + shifting dullness, liver not palpable EXTREMITIES: 2+ pulses, warm, well-perfused, 2+ pitting edema b/l PSYCH: Normal mood, normal affect. Laboratory Results - last 24 hr 04/10/17 04/10/17 04/10/17 15:30 15:35 21:55 WBC RBC Hgb Hct MCV MCH MCHC RDW Plt Count MPV INR PTT (Actin FS) 65.6 H D POC Glucometer 184 131 04/11/17 04/11/17 04/11/17 05:20 07:00 07:00 WBC 21.9 H RBC 3.65 Hgb 10.5 L Hct 32.5 MCV 89.0 MCH 28.7 MCHC 32.3 RDW 16.8 H Plt Count 406 MPV 8.0 INR PTT (Actin FS) 39.1 H D POC Glucometer 159 04/11/17 04/11/17 07:00 12:08 WBC RBC Hgb Hct MCV MCH MCHC RDW Plt Count MPV INR 1.65 H PTT (Actin FS) POC Glucometer 195 Active Medications Generic Name Dose Route Start Last Admin Trade Name Freq PRN Reason Stop Dose Admin Albuterol Sulfate 1 amp 04/02/17 03:36 04/03/17 09:41 Ventolin 0.083% Nebulizer Soln - NEB 1 amp Q4H PRN Administration SHORT OF BREATH/WHEEZING Amlodipine Besylate 10 mg 04/02/17 10:00 04/11/17 09:56 Norvasc - PO 10 mg DAILY [facility] Administration Aripiprazole 20 mg 04/09/17 10:00 04/11/17 09:56 Abilify PO 20 mg DAILY [facility] Administration Benztropine Mesylate 1 mg 04/02/17 10:00 04/11/17 09:56 Cogentin - PO 1 mg BID [facility] Administration Enoxaparin Sodium 60 mg 04/10/17 20:30 04/11/17 09:30 Lovenox - SQ 60 mg Q12H [facility] Administration Gabapentin 900 mg 04/02/17 22:00 04/10/17 21:56 Neurontin - PO 900 mg HS [facility] Administration Insulin Aspart 1 vial 04/02/17 07:00 04/11/17 12:08 Novolog Vial Sliding Scale - SQ 2 units ACHS [facility] Administration Protocol Lisinopril 20 mg 04/02/17 10:00 04/11/17 09:56 Prinivil PO 20 mg DAILY [facility] Administration Methadone HCl 80 mg 04/04/17 06:00 04/11/17 05:39 Dolophine - PO 80 mg DAILY@0600 [facility] Administration Ondansetron HCl 4 mg 04/02/17 15:58 04/05/17 17:45 Zofran Injection IVPB 4 mg Q4H PRN Administration NAUSEA AND/OR VOMITING Pantoprazole Sodium 20 mg 04/02/17 10:00 04/11/17 09:56 Protonix - PO 20 mg DAILY [facility] Administration ASSESSMENT/PLAN: 57 y/o F with history of Diabetes, Hepatitis C, heroin drug use (on methadone), presented to the ED with left sided chest pain and was found to have Pulmonary Embolus, Portal vein thrombosis, splenic infarct, right adnexal mass (5x2cm), pelvic mass (3.4x1.4cm) and pulmonary nodules. # Acute Pulmonary embolus, splenic infarct and Portal/hepatic vein thrombosis likely secondary to underlying malignancy. -Continue Lovenox 60mg BID q12 -Will need life long AC as per Vascular # Possible Malignancy with metastasis -s/p abdominal paracentesis- john 500ml of fluid -Fluid cytology: suspicious for involvement by adenocarcinoma, however no further determination of nature of the neoplasm can be made. -Repeat paracentesis recommended by oncology. Scheduled for tomorrow. - CT scan revealed: pulmonary nodules, peritoneal lymphadenopathy, and pelvic mass - Transvaginal U/S-showed large right cystic/solid ovarian mass -FILM BOOKER/ONC consulted: Right adnexal mass consistent with hydrosalpinx. Left adnexa not visualized on u/s. Difficult to assess for left adnexal mass on CT as there appears to be loculated ascites. If cytology positive for adenocarcinoma, likely ovarian origin and would recommend neoadjuvant chemotherapy with interval debulking in the setting of recent PE as per FILM BOOKER/ONC -may be a candidate for weekly carbo/taxol once diagnosis confirmed as per Heme/ ONC -Hypercoaguable state likely due to a possible malignancy -AFP marker normal (1.3) -Abdominal U/S: diffuse heterogenous echotexture of the liver with multiple hyperechoic masslike densities measuring up to 4.4 cm. -Surgery consulted- agree to biopsy nodes/liver by least invasive means to establish dx. Does not recommend surgery unless emergent. #Leukocytosis/Elevated Lactic Acid possibly secondary to underlying neoplasm -Lactic acidosis resolved -sepsis was initially suspected but ruled out. -leukocytosis persists -CT scan results: revealed consolidative opacity in the left lower lobe. Small left pleural effusion. 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 would treat patient based on clinical picture as per cardiology. -blood cultures negative. -afebrile ID aware #Nausea -antiemetics PRN #Constipation -resolved # Diarrhea -Resolved -Stool C. Diff negative -Stool cultures negative # Hypertension- controlled -Continue Lisinopril 20mg Daily, Amlodipine 10mg PO Daily #Asthma-not in exacerbation -Albuterol PRN -PFT's as outpatient to r/o obstructive vs restrictive lung disease. #Diabetes Type 2 -ISS -Blood glucose well controlled FEN: NO IV fluids needed at this time. Electrolytes WNL Diabetic Diet PPx: Lovenox 60 BID Protonix 20mg PO Daily Patient is currently ambulating on her own and does not to be deconditioning at this time. Will continue to assess patient daily for need of physical therapy consult. Visit type - Emergency Visit Emergency Visit: Yes ED Registration Date: 04/02/17 Care time: The patient presented to the Emergency Department on the above date and was hospitalized for further evaluation of their emergent condition. - New Patient This patient is new to me today: No - Critical Care Critical Care patient: No
--- NOTE | 2017-04-11 15:29 | PN ---
Progress Note (short form) - Note Progress Note: Pt seen and examined. AFVSS Cor: RSR, No murmurs, No gallops Lungs: Clear to P&A Abd: Soft, Normal bowel sounds, ascites+ Ext:No significant edema Skin: No rashes, Integument intact b/l LE pitting edema Temp Pulse Resp BP Pulse Ox 97.6 F 94 H 14 122/66 96 04/11/17 15:01 04/11/17 15:01 04/11/17 09:00 04/11/17 15:01 04/11/17 11:35 CBC, BMP 04/11/17 07:00 04/10/17 06:15 Current Medications Generic Name Dose Route Start Last Admin Trade Name Freq PRN Reason Stop Dose Admin Albuterol Sulfate 1 amp 04/02/17 03:36 04/03/17 09:41 Ventolin 0.083% Nebulizer Soln - NEB 1 amp Q4H PRN Administration SHORT OF BREATH/WHEEZING Amlodipine Besylate 10 mg 04/02/17 10:00 04/11/17 09:56 Norvasc - PO 10 mg DAILY [facility] Administration Aripiprazole 20 mg 04/09/17 10:00 04/11/17 09:56 Abilify PO 20 mg DAILY [facility] Administration Benztropine Mesylate 1 mg 04/02/17 10:00 04/11/17 09:56 Cogentin - PO 1 mg BID [facility] Administration Enoxaparin Sodium 60 mg 04/10/17 20:30 04/11/17 09:30 Lovenox - SQ 60 mg Q12H [facility] Administration Gabapentin 900 mg 04/02/17 22:00 04/10/17 21:56 Neurontin - PO 900 mg HS [facility] Administration Insulin Aspart 1 vial 04/02/17 07:00 04/11/17 12:08 Novolog Vial Sliding Scale - SQ 2 units ACHS [facility] Administration Protocol Lisinopril 20 mg 04/02/17 10:00 04/11/17 09:56 Prinivil PO 20 mg DAILY [facility] Administration Methadone HCl 80 mg 04/04/17 06:00 04/11/17 05:39 Dolophine - PO 80 mg DAILY@0600 [facility] Administration Ondansetron HCl 4 mg 04/02/17 15:58 04/05/17 17:45 Zofran Injection IVPB 4 mg Q4H PRN Administration NAUSEA AND/OR VOMITING Pantoprazole Sodium 20 mg 04/02/17 10:00 04/11/17 09:56 Protonix - PO 20 mg DAILY [facility] Administration A/P 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 h/o Hep. C on chronic methadone maintenance s/p paracentesis cytology reported, suggestive of adeno,primary not known due to paucity of cells. Repeat tissue recommended either IR guided biopsy of any masses vs repeat paracentesis. appreciate senior marketing manager-onc input On a/c for PE. Stop lovenox, re-start hep drip and hold prior to procedure. repeat coags prior to procedure planned I did discuss the potential diagnosis with her and she expressed interest in Rx. will follow
--- NOTE | 2017-04-11 15:53 | PN ---
Teaching Attending Note Name of Resident: Anne Roman ATTENDING PHYSICIAN STATEMENT I saw and evaluated the patient. I reviewed the resident's note and discussed the case with the resident. I agree with the resident's findings and plan as documented. SUBJECTIVE: no pain, no hempptysis. has no fever or chills. OBJECTIVE: NAD ,MMM CV: RRR Lungs: CTAB. 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 can hold am dose for paracentesis in am 2- Metastatic cancer . primary is still unknown Path with adenocarcinoma with no enough sample to do further staining - repeat paracentesis tomorrow - hold lovenox am dose - d/w Dr. Ayers today . D/w with IR by team - further treatment options pending path 3- Leukocytosis , unlikely infectious in etiology. blood cx neg. 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
[2017-04-11] MEDS: GABAPENTIN 300 MG CAPSULE (FP) PO SCH (22:21)
[2017-04-12] MEDS: INSULIN SLIDING SCALE (NOVOLOG) 1 VIAL SQ SCH ×4 (06:24→21:12)
[2017-04-12] MEDS: METHADONE HCL 40 MG DISPERSABLE TABLET PO SCH (06:24)
[2017-04-12 07:56] LABS: ANION GAP 9 (8-16); CALCIUM 8.7 mg/dL (8.5-10.1); CO2 31 mmol/L (21-32); CREATININE 0.3 mg/dL (0.55-1.02); GLUCOSE,RANDOM 155 mg/dL (74-106); MAGNESIUM 1.7 mg/dL (1.8-2.4); PHOSPHOROUS 3.8 mg/dL (2.5-4.9)
[2017-04-12] MEDS: ARIPiprazole 10 MG TABLET PO SCH (09:42)
[2017-04-12] MEDS: amLODIPine BESYLATE 10 MG TABLET (FP) PO SCH (09:42)
[2017-04-12] MEDS: LISINOPRIL 20 MG TABLET (FP) PO SCH (09:42)
[2017-04-12] MEDS: PANTOPRAZOLE 20 MG TABLET (FP) PO SCH (09:42)
[2017-04-12] MEDS: BENZTROPINE MESYLATE 1 MG TABLET (FP) PO SCH ×2 (09:43→21:12)
[2017-04-12] MEDS ORDERED: MAGNESIUM OXIDE 400 MG TABLET (FP) PO ONE (11:40)
--- NOTE | 2017-04-12 12:46 | PN ---
Progress Note, Physician History of Present Illness: PULMONARY ALERT,NAD,-CP,SOB IMPROVING - Current Medication List Current Medications: Active Medications Albuterol Sulfate (Ventolin 0.083% Nebulizer Soln -) 1 amp NEB Q4H PRN PRN Reason: SHORT OF BREATH/WHEEZING Last Admin: 04/03/17 09:41 Dose: 1 amp Amlodipine Besylate (Norvasc -) 10 mg PO DAILY [facility] Last Admin: 04/12/17 09:42 Dose: 10 mg Aripiprazole (Abilify) 20 mg PO DAILY [facility] Last Admin: 04/12/17 09:42 Dose: 20 mg Benztropine Mesylate (Cogentin -) 1 mg PO BID [facility] Last Admin: 04/12/17 09:43 Dose: 1 mg Enoxaparin Sodium (Lovenox -) 60 mg SQ Q12H [facility] Gabapentin (Neurontin -) 900 mg PO HS [facility] Last Admin: 04/11/17 22:21 Dose: 900 mg Insulin Aspart (Novolog Vial Sliding Scale -) 1 vial SQ ACHS [facility] PRN Reason: Protocol Last Admin: 04/12/17 11:48 Dose: 2 units Lisinopril (Prinivil) 20 mg PO DAILY [facility] Last Admin: 04/12/17 09:42 Dose: 20 mg Methadone HCl (Dolophine -) 80 mg PO DAILY@0600 [facility] Last Admin: 04/12/17 06:24 Dose: 80 mg Ondansetron HCl (Zofran Injection) 4 mg IVPB Q4H PRN PRN Reason: NAUSEA AND/OR VOMITING Last Admin: 04/05/17 17:45 Dose: 4 mg Pantoprazole Sodium (Protonix -) 20 mg PO DAILY [facility] Last Admin: 04/12/17 09:42 Dose: 20 mg - Objective Vital Signs: Vital Signs Temperature 98 F 04/12/17 09:00 Pulse Rate 84 04/12/17 09:00 Respiratory Rate 18 04/12/17 09:00 Blood Pressure 140/62 04/12/17 09:00 O2 Sat by Pulse Oximetry (%) 97 04/12/17 09:00 Constitutional: Yes: Well Nourished, Calm Eyes: Yes: WNL HENT: Yes: WNL Neck: Yes: WNL Cardiovascular: Yes: Regular Rate and Rhythm, S1, S2 Respiratory: Yes: Diminished Gastrointestinal: Yes: Normal Bowel Sounds, Soft, Ascites Extremities: Yes: WNL Edema: No Labs: 04/12/17 05:35 INR, PTT INR 1.65 (0.82-1.09) H 04/11/17 07:00 Problem List - Problems (1) Hep C w/o coma, chronic Code(s): B18.2 - CHRONIC VIRAL HEPATITIS C (2) Hypercoagulable state Code(s): D68.59 - OTHER PRIMARY THROMBOPHILIA (3) Lymphadenopathy Code(s): R59.1 - GENERALIZED ENLARGED LYMPH NODES (4) Pulmonary embolism Code(s): I26.99 - OTHER PULMONARY EMBOLISM WITHOUT ACUTE COR PULMONALE (5) Splenic infarct Code(s): D73.5 - INFARCTION OF SPLEEN Assessment/Plan A/P Likely Metastatic Disease Acute Pulmonary Emboli with Pulmonary Infarct Ascites Lymphadenopathy Lactic Acidosis Elevated LFTs Hep C DM Lung Nodules Smoker - anticoagulation - O2 to keep Spo2 >90% - lung nodules likely related to her metastatic disease - will need outpt PET scan DR PAINTING
[2017-04-12] MEDS: ENOXAPARIN NA (PORCINE) 60 MG/0.6 ML DISP.SYRIN SQ SCH ×2 (12:51→21:12)
--- NOTE | 2017-04-12 16:27 | PN ---
Physical Exam: SUBJECTIVE: OBJECTIVE: Vital Signs Period Temp Pulse Resp BP Sys/Roach Pulse Ox Last 24 Hr 98 F-98.5 F 64-99 16-20 117-155/54-73 97-98 GENERAL: The patient is awake, alert, and fully oriented, in no acute distress. EYES: PERRL, extraocular movements intact, sclera anicteric, conjunctiva clear. No ptosis. NECK: supple. LUNGS: Breath sounds equal, clear to auscultation bilaterally, no wheezes, no crackles, no accessory muscle use. HEART: Regular rate and rhythm, S1, S2 without murmur, rub or gallop. ABDOMEN: Soft, nontender, distended, normoactive bowel sounds. + shifting dullness, liver not palpable EXTREMITIES: 2+ pulses, warm, well-perfused, 2+ pitting edema b/l PSYCH: Normal mood, normal affect. Laboratory Results - last 24 hr 04/11/17 04/12/17 04/12/17 22:23 05:35 05:39 Sodium 139 Potassium 3.9 Chloride 99 Carbon Dioxide 31 Anion Gap 9 BUN 6 L Creatinine 0.3 L POC Glucometer 122 127 Random Glucose 155 H Calcium 8.7 Phosphorus 3.8 Magnesium 1.7 L 04/12/17 04/12/17 11:47 15:32 Sodium Potassium Chloride Carbon Dioxide Anion Gap BUN Creatinine POC Glucometer 157 122 Random Glucose Calcium Phosphorus Magnesium Active Medications Generic Name Dose Route Start Last Admin Trade Name Freq PRN Reason Stop Dose Admin Albuterol Sulfate 1 amp 04/02/17 03:36 04/03/17 09:41 Ventolin 0.083% Nebulizer Soln - NEB 1 amp Q4H PRN Administration SHORT OF BREATH/WHEEZING Amlodipine Besylate 10 mg 04/02/17 10:00 04/12/17 09:42 Norvasc - PO 10 mg DAILY [facility] Administration Aripiprazole 20 mg 04/09/17 10:00 04/12/17 09:42 Abilify PO 20 mg DAILY [facility] Administration Benztropine Mesylate 1 mg 04/02/17 10:00 04/12/17 09:43 Cogentin - PO 1 mg BID [facility] Administration Enoxaparin Sodium 60 mg 04/12/17 12:45 04/12/17 12:51 Lovenox - SQ 60 mg BID [facility] Administration Gabapentin 900 mg 04/02/17 22:00 04/11/17 22:21 Neurontin - PO 900 mg HS [facility] Administration Insulin Aspart 1 vial 04/02/17 07:00 04/12/17 11:48 Novolog Vial Sliding Scale - SQ 2 units ACHS [facility] Administration Protocol Lisinopril 20 mg 04/02/17 10:00 04/12/17 09:42 Prinivil PO 20 mg DAILY [facility] Administration Methadone HCl 80 mg 04/04/17 06:00 04/12/17 06:24 Dolophine - PO 80 mg DAILY@0600 [facility] Administration Ondansetron HCl 4 mg 04/02/17 15:58 04/05/17 17:45 Zofran Injection IVPB 4 mg Q4H PRN Administration NAUSEA AND/OR VOMITING Pantoprazole Sodium 20 mg 04/02/17 10:00 04/12/17 09:42 Protonix - PO 20 mg DAILY [facility] Administration ASSESSMENT/PLAN: 57 y/o F with history of Diabetes, Hepatitis C, heroin drug use (on methadone), presented to the ED with left sided chest pain and was found to have Pulmonary Embolus, Portal vein thrombosis, splenic infarct, right adnexal mass (5x2cm), pelvic mass (3.4x1.4cm) and pulmonary nodules. # Acute Pulmonary embolus, splenic infarct and Portal/hepatic vein thrombosis likely secondary to underlying malignancy. -Continue Lovenox 60mg BID q12 -Will need life long AC as per Vascular # Possible Malignancy with metastasis -s/p abdominal paracentesis x 2 -F/U Fluid cytology for second paracentesis -1st Fluid cytology: suspicious for involvement by adenocarcinoma, however no further determination of nature of the neoplasm can be made. - CT scan revealed: pulmonary nodules, peritoneal lymphadenopathy, and pelvic mass - Transvaginal U/S-showed large right cystic/solid ovarian mass -LINE INSTALLER TROLLEY/ONC consulted: Right adnexal mass consistent with hydrosalpinx. Left adnexa not visualized on u/s. Difficult to assess for left adnexal mass on CT as there appears to be loculated ascites. If cytology positive for adenocarcinoma, likely ovarian origin and would recommend neoadjuvant chemotherapy with interval debulking in the setting of recent PE as per LINE INSTALLER TROLLEY/ONC -may be a candidate for weekly carbo/taxol once diagnosis confirmed as per Heme/ ONC -Hypercoaguable state likely due to a possible malignancy -AFP marker normal (1.3) -Abdominal U/S: diffuse heterogenous echotexture of the liver with multiple hyperechoic masslike densities measuring up to 4.4 cm. -Surgery consulted- agree to biopsy nodes/liver by least invasive means to establish dx. Does not recommend surgery unless emergent. #Leukocytosis/Elevated Lactic Acid possibly secondary to underlying neoplasm -Lactic acidosis resolved -sepsis was initially suspected but ruled out. -leukocytosis persists -CT scan results: revealed consolidative opacity in the left lower lobe. Small left pleural effusion. 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 would treat patient based on clinical picture as per cardiology. -blood cultures negative. -afebrile ID aware #Nausea -antiemetics PRN #Constipation -resolved # Diarrhea -Resolved -Stool C. Diff negative -Stool cultures negative # Hypertension- controlled -Continue Lisinopril 20mg Daily, Amlodipine 10mg PO Daily #Asthma-not in exacerbation -Albuterol PRN -PFT's as outpatient to r/o obstructive vs restrictive lung disease. #Diabetes Type 2 -ISS -Blood glucose well controlled FEN: NO IV fluids needed at this time. Magnesium given Diabetic Diet PPx: Lovenox 60 BID Protonix 20mg PO Daily PT ordered Visit type - Emergency Visit Emergency Visit: Yes ED Registration Date: 04/02/17 Care time: The patient presented to the Emergency Department on the above date and was hospitalized for further evaluation of their emergent condition. - New Patient This patient is new to me today: No - Critical Care Critical Care patient: No
--- NOTE | 2017-04-12 18:15 | PN ---
Teaching Attending Note Name of Resident: Anne Roman ATTENDING PHYSICIAN STATEMENT I saw and evaluated the patient. I reviewed the resident's note and discussed the case with the resident. I agree with the resident's findings and plan as documented. SUBJECTIVE: no pain, no hemoptysis OBJECTIVE: NAD ,MMM CV: RRR Lungs: CTAB. Ext: no edema or erythema ASSESSMENT AND PLAN: 57 y/o unfortunate lady with h/o NIDDM , h/o heroin use on Methadone, who presented with L sided chest pain and was found to have PE, splenic and portal vein thrombosis, and pelvic and pulmonary nodules 1- Acute L sided PE, Portal and splenic vein thrombosis and splenic infarct : in the setting of metastatic cancer - resumed lovenox after procedure 2- Metastatic cancer . primary is still unknown , likely ovarian Path with adenocarcinoma - paracntesis for further cytology done - further treatment options to follow 3- Leukocytosis , unlikely infectious in etiology. blood cx neg. - monitor off abx 4- HTN, norvasc and lisinopril 5- Dm : cont SSI. HLOC
[2017-04-12] MEDS ORDERED: PT OWN MED DRAWER 7, Y5N ONE (21:07)
[2017-04-12] MEDS: GABAPENTIN 300 MG CAPSULE (FP) PO SCH (21:12)
[2017-04-13] MEDS: METHADONE HCL 40 MG DISPERSABLE TABLET PO SCH (05:51)
[2017-04-13] MEDS: INSULIN SLIDING SCALE (NOVOLOG) 1 VIAL SQ SCH ×4 (06:13→21:32)
[2017-04-13] MEDS ORDERED: PT OWN MED DRAWER 7, Y5N ONE (09:27)
--- NOTE | 2017-04-13 09:39 | PN ---
Progress Note, Physician History of Present Illness: pulmonary alert,oob-chair,-sob,-cp - Current Medication List Current Medications: Active Medications Albuterol Sulfate (Ventolin 0.083% Nebulizer Soln -) 1 amp NEB Q4H PRN PRN Reason: SHORT OF BREATH/WHEEZING Last Admin: 04/03/17 09:41 Dose: 1 amp Amlodipine Besylate (Norvasc -) 10 mg PO DAILY [facility] Last Admin: 04/12/17 09:42 Dose: 10 mg Aripiprazole (Abilify) 20 mg PO DAILY [facility] Last Admin: 04/12/17 09:42 Dose: 20 mg Benztropine Mesylate (Cogentin -) 1 mg PO BID [facility] Last Admin: 04/12/17 21:12 Dose: 1 mg Enoxaparin Sodium (Lovenox -) 60 mg SQ BID [facility] Last Admin: 04/12/17 21:12 Dose: 60 mg Gabapentin (Neurontin -) 900 mg PO HS [facility] Last Admin: 04/12/17 21:12 Dose: 900 mg Insulin Aspart (Novolog Vial Sliding Scale -) 1 vial SQ ACHS [facility] PRN Reason: Protocol Last Admin: 04/13/17 06:13 Dose: 2 units Lisinopril (Prinivil) 20 mg PO DAILY [facility] Last Admin: 04/12/17 09:42 Dose: 20 mg Methadone HCl (Dolophine -) 80 mg PO DAILY@0600 [facility] Last Admin: 04/13/17 05:51 Dose: 80 mg Ondansetron HCl (Zofran Injection) 4 mg IVPB Q4H PRN PRN Reason: NAUSEA AND/OR VOMITING Last Admin: 04/05/17 17:45 Dose: 4 mg Pantoprazole Sodium (Protonix -) 20 mg PO DAILY [facility] Last Admin: 04/12/17 09:42 Dose: 20 mg - Objective Vital Signs: Vital Signs Temperature 98.2 F 04/13/17 08:00 Pulse Rate 74 04/13/17 08:00 Respiratory Rate 14 04/13/17 08:00 Blood Pressure 114/64 04/13/17 08:00 O2 Sat by Pulse Oximetry (%) 97 04/12/17 20:25 Constitutional: Yes: Calm, Thin Eyes: Yes: WNL HENT: Yes: WNL Neck: Yes: WNL Cardiovascular: Yes: Regular Rate and Rhythm, S1, S2 Respiratory: Yes: Diminished Gastrointestinal: Yes: Normal Bowel Sounds, Soft Extremities: Yes: WNL Edema: Yes Labs: CBC, BMP Problem List - Problems (1) Hep C w/o coma, chronic Code(s): B18.2 - CHRONIC VIRAL HEPATITIS C (2) Hypercoagulable state Code(s): D68.59 - OTHER PRIMARY THROMBOPHILIA (3) Lymphadenopathy Code(s): R59.1 - GENERALIZED ENLARGED LYMPH NODES (4) Pulmonary embolism Code(s): I26.99 - OTHER PULMONARY EMBOLISM WITHOUT ACUTE COR PULMONALE (5) Splenic infarct Code(s): D73.5 - INFARCTION OF SPLEEN Assessment/Plan A/P Likely Metastatic Disease Acute Pulmonary Emboli with Pulmonary Infarct Ascites Lymphadenopathy Lactic Acidosis Elevated LFTs Hep C DM Lung Nodules Smoker - anticoagulation - O2 to keep Spo2 >90% - lung nodules likely related to her metastatic disease - woutpt PET scan DR PAINTING
[2017-04-13] MEDS: LISINOPRIL 20 MG TABLET (FP) PO SCH (09:44)
[2017-04-13] MEDS: ENOXAPARIN NA (PORCINE) 60 MG/0.6 ML DISP.SYRIN SQ SCH ×2 (09:44→21:32)
[2017-04-13] MEDS: amLODIPine BESYLATE 10 MG TABLET (FP) PO SCH (09:44)
[2017-04-13] MEDS: BENZTROPINE MESYLATE 1 MG TABLET (FP) PO SCH ×2 (09:45→21:32)
[2017-04-13] MEDS: ARIPiprazole 10 MG TABLET PO SCH (09:45)
[2017-04-13] MEDS: PANTOPRAZOLE 20 MG TABLET (FP) PO SCH (09:45)
--- NOTE | 2017-04-13 11:37 | PN ---
Physical Exam: SUBJECTIVE: Patient seen and examined. No acute events over night. Patient does not offer any new complaints. OBJECTIVE: Vital Signs Period Temp Pulse Resp BP Sys/Roach Pulse Ox Last 24 Hr 98.2 F-98.6 F 74-110 14-20 114-163/64-79 97 GENERAL: The patient is awake, alert, and fully oriented, in no acute distress. EYES: PERRL, extraocular movements intact, sclera anicteric, conjunctiva clear. No ptosis. NECK: supple. LUNGS: Breath sounds equal, clear to auscultation bilaterally, no wheezes, no crackles, no accessory muscle use. HEART: Regular rate and rhythm, S1, S2 without murmur, rub or gallop. ABDOMEN: Soft, nontender, distended, normoactive bowel sounds. + shifting dullness, liver not palpable EXTREMITIES: 2+ pulses, warm, well-perfused, 2+ pitting edema b/l PSYCH: Normal mood, normal affect. Laboratory Results - last 24 hr 04/12/17 04/12/17 04/12/17 11:47 15:32 21:11 POC Glucometer 157 122 243 04/13/17 05:48 POC Glucometer 168 Active Medications Generic Name Dose Route Start Last Admin Trade Name Freq PRN Reason Stop Dose Admin Albuterol Sulfate 1 amp 04/02/17 03:36 04/03/17 09:41 Ventolin 0.083% Nebulizer Soln - NEB 1 amp Q4H PRN Administration SHORT OF BREATH/WHEEZING Amlodipine Besylate 10 mg 04/02/17 10:00 04/13/17 09:44 Norvasc - PO 10 mg DAILY [facility] Administration Aripiprazole 20 mg 04/09/17 10:00 04/13/17 09:45 Abilify PO 20 mg DAILY [facility] Administration Benztropine Mesylate 1 mg 04/02/17 10:00 04/13/17 09:45 Cogentin - PO 1 mg BID [facility] Administration Enoxaparin Sodium 60 mg 04/12/17 12:45 04/13/17 09:44 Lovenox - SQ 60 mg BID OLMAN Administration Gabapentin 900 mg 04/02/17 22:00 04/12/17 21:12 Neurontin - PO 900 mg HS OLMAN Administration Insulin Aspart 1 vial 04/02/17 07:00 04/13/17 06:13 Novolog Vial Sliding Scale - SQ 2 units ACHS OLMAN Administration Protocol Lisinopril 20 mg 04/02/17 10:00 04/13/17 09:44 Prinivil PO 20 mg DAILY [facility] Administration Methadone HCl 80 mg 04/04/17 06:00 04/13/17 05:51 Dolophine - PO 80 mg DAILY@0600 [facility] Administration Ondansetron HCl 4 mg 04/02/17 15:58 04/05/17 17:45 Zofran Injection IVPB 4 mg Q4H PRN Administration NAUSEA AND/OR VOMITING Pantoprazole Sodium 20 mg 04/02/17 10:00 04/13/17 09:45 Protonix - PO 20 mg DAILY [facility] Administration ASSESSMENT/PLAN: 57 y/o F with history of Diabetes, Hepatitis C, heroin drug use (on methadone), presented to the ED with left sided chest pain and was found to have Pulmonary Embolus, Portal vein thrombosis, splenic infarct, right adnexal mass (5x2cm), pelvic mass (3.4x1.4cm) and pulmonary nodules. # Acute Pulmonary embolus, splenic infarct and Portal/hepatic vein thrombosis likely secondary to underlying malignancy. -Continue Lovenox 60mg BID q12 -Will need life long AC as per Vascular # Possible Malignancy with metastasis -s/p abdominal paracentesis x 2 -F/U Fluid cytology for second paracentesis -1st Fluid cytology: suspicious for involvement by adenocarcinoma, however no further determination of nature of the neoplasm can be made. - CT scan revealed: pulmonary nodules, peritoneal lymphadenopathy, and pelvic mass - Transvaginal U/S-showed large right cystic/solid ovarian mass -IS PROJECT MANAGER/ONC consulted: Right adnexal mass consistent with hydrosalpinx. Left adnexa not visualized on u/s. Difficult to assess for left adnexal mass on CT as there appears to be loculated ascites. If cytology positive for adenocarcinoma, likely ovarian origin and would recommend neoadjuvant chemotherapy with interval debulking in the setting of recent PE as per IS PROJECT MANAGER/ONC -may be a candidate for weekly carbo/taxol once diagnosis confirmed as per Heme/ ONC -Hypercoaguable state likely due to a possible malignancy -AFP marker normal (1.3) -Abdominal U/S: diffuse heterogenous echotexture of the liver with multiple hyperechoic masslike densities measuring up to 4.4 cm. -Surgery consulted- agree to biopsy nodes/liver by least invasive means to establish dx. Does not recommend surgery unless emergent. #Leukocytosis/Elevated Lactic Acid possibly secondary to underlying neoplasm -Lactic acidosis resolved -sepsis was initially suspected but ruled out. -leukocytosis persists -CT scan results: revealed consolidative opacity in the left lower lobe. Small left pleural effusion. 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 would treat patient based on clinical picture as per cardiology. -blood cultures negative. -afebrile ID aware #Nausea -antiemetics PRN #Constipation -resolved # Diarrhea -Resolved -Stool C. Diff negative -Stool cultures negative # Hypertension- controlled -Continue Lisinopril 20mg Daily, Amlodipine 10mg PO Daily #Asthma-not in exacerbation -Albuterol PRN -PFT's as outpatient to r/o obstructive vs restrictive lung disease. #Diabetes Type 2 -ISS -Blood glucose well controlled FEN: NO IV fluids needed at this time. Electrolytes WNL Diabetic Diet PPx: Lovenox 60 BID Protonix 20mg PO Daily PT ordered Dispo: -will await fluid cytology before making a decision of discharging Visit type - Emergency Visit Emergency Visit: Yes ED Registration Date: 04/02/17 Care time: The patient presented to the Emergency Department on the above date and was hospitalized for further evaluation of their emergent condition. - New Patient This patient is new to me today: No - Critical Care Critical Care patient: No
--- NOTE | 2017-04-13 19:23 | PN ---
Teaching Attending Note Name of Resident: Shaggy Baires ATTENDING PHYSICIAN STATEMENT I saw and evaluated the patient. I reviewed the resident's note and discussed the case with the resident. I agree with the resident's findings and plan as documented. SUBJECTIVE: no fever or chills. has no abd pain OBJECTIVE: NAD ,MMM CV: RRR Lungs: CTAB. Ext:1+ pitting edema ASSESSMENT AND PLAN: 57 y/o unfortunate lady with h/o NIDDM , h/o heroin use on Methadone, who presented with L sided chest pain and was found to have PE, splenic and portal vein thrombosis, and pelvic and pulmonary nodules 1- Acute L sided PE, Portal and splenic vein thrombosis and splenic infarct : in the setting of metastatic cancer - cont therapeutic dose lovenox 2- Metastatic cancer . primary is still unknown , likely ovarian Path with adenocarcinoma - follow repeat cytology - further treatment options to follow 3- Leukocytosis , unlikely infectious in etiology. blood cx neg. - monitor off abx - repeat CBC in am 4- HTN, norvasc and lisinopril 5- Dm : cont SSI. HLOC
[2017-04-13] MEDS: GABAPENTIN 300 MG CAPSULE (FP) PO SCH (21:32)
[2017-04-14] MEDS: INSULIN SLIDING SCALE (NOVOLOG) 1 VIAL SQ SCH ×4 (06:13→21:15)
[2017-04-14] MEDS: METHADONE HCL 40 MG DISPERSABLE TABLET PO SCH (06:22)
[2017-04-14 07:58] LABS: BASOPHIL 1.3 % (0-2.0); EOSINOPHIL 0.6 % (0-4.5); MCH 29.1 pg (25.7-33.7); MCHC 32.4 g/dl (32.0-36.0); MEAN CELL VOLUME 89.7 fl (80-96); MEAN PLT VOLUME 8.1 fl (7.5-11.1); NEUTROPHILS 84.1 % (42.8-82.8); PLATELET COUNT 489 K/MM3 (134-434); RDW 17.2 % (11.6-15.6); WHITE BLOOD COUNT 18.4 K/mm3 (4.0-10.0)
[2017-04-14] MEDS ORDERED: PT OWN MED DRAWER 7, Y5N ONE (08:38)
--- NOTE | 2017-04-14 09:26 | PN ---
Progress Note, Physician History of Present Illness: pulmonary alert,c/o left sided abd discomfort - Current Medication List Current Medications: Active Medications Albuterol Sulfate (Ventolin 0.083% Nebulizer Soln -) 1 amp NEB Q4H PRN PRN Reason: SHORT OF BREATH/WHEEZING Last Admin: 04/03/17 09:41 Dose: 1 amp Amlodipine Besylate (Norvasc -) 10 mg PO DAILY [facility] Last Admin: 04/13/17 09:44 Dose: 10 mg Aripiprazole (Abilify) 20 mg PO DAILY [facility] Last Admin: 04/13/17 09:45 Dose: 20 mg Benztropine Mesylate (Cogentin -) 1 mg PO BID [facility] Last Admin: 04/13/17 21:32 Dose: 1 mg Enoxaparin Sodium (Lovenox -) 60 mg SQ BID [facility] Last Admin: 04/13/17 21:32 Dose: 60 mg Gabapentin (Neurontin -) 900 mg PO HS [facility] Last Admin: 04/13/17 21:32 Dose: 900 mg Insulin Aspart (Novolog Vial Sliding Scale -) 1 vial SQ ACHS [facility] PRN Reason: Protocol Last Admin: 04/14/17 06:13 Dose: Not Given Lisinopril (Prinivil) 20 mg PO DAILY [facility] Last Admin: 04/13/17 09:44 Dose: 20 mg Methadone HCl (Dolophine -) 80 mg PO DAILY@0600 [facility] Last Admin: 04/14/17 06:22 Dose: 80 mg Ondansetron HCl (Zofran Injection) 4 mg IVPB Q4H PRN PRN Reason: NAUSEA AND/OR VOMITING Last Admin: 04/05/17 17:45 Dose: 4 mg Pantoprazole Sodium (Protonix -) 20 mg PO DAILY [facility] Last Admin: 04/13/17 09:45 Dose: 20 mg - Objective Vital Signs: Vital Signs Temperature 98.2 F 04/14/17 05:46 Pulse Rate 90 04/14/17 05:46 Respiratory Rate 20 04/14/17 05:46 Blood Pressure 144/88 04/14/17 05:46 O2 Sat by Pulse Oximetry (%) 94 L 04/13/17 20:20 Constitutional: Yes: Well Nourished, Calm Eyes: Yes: WNL HENT: Yes: WNL Neck: Yes: WNL Cardiovascular: Yes: Regular Rate and Rhythm, S1, S2 Respiratory: Yes: Diminished Gastrointestinal: Yes: Soft, Ascites Extremities: Yes: WNL Edema: Yes Labs: CBC, BMP 04/14/17 06:00 04/12/17 05:35 INR, PTT INR 1.65 (0.82-1.09) H 04/11/17 07:00 Problem List - Problems (1) Hep C w/o coma, chronic Code(s): B18.2 - CHRONIC VIRAL HEPATITIS C (2) Hypercoagulable state Code(s): D68.59 - OTHER PRIMARY THROMBOPHILIA (3) Lymphadenopathy Code(s): R59.1 - GENERALIZED ENLARGED LYMPH NODES (4) Pulmonary embolism Code(s): I26.99 - OTHER PULMONARY EMBOLISM WITHOUT ACUTE COR PULMONALE (5) Splenic infarct Code(s): D73.5 - INFARCTION OF SPLEEN Assessment/Plan A/P Likely Metastatic Disease Acute Pulmonary Emboli with Pulmonary Infarct Ascites Lymphadenopathy Lactic Acidosis Elevated LFTs Hep C DM Lung Nodules Smoker - anticoagulation - O2 to keep Spo2 >90% - lung nodules likely related to her metastatic disease - outpt PET scan - check final path DR PAINTING
[2017-04-14] MEDS: LISINOPRIL 20 MG TABLET (FP) PO SCH (09:49)
[2017-04-14] MEDS: PANTOPRAZOLE 20 MG TABLET (FP) PO SCH (09:49)
[2017-04-14] MEDS: BENZTROPINE MESYLATE 1 MG TABLET (FP) PO SCH ×2 (09:49→21:15)
[2017-04-14] MEDS: ENOXAPARIN NA (PORCINE) 60 MG/0.6 ML DISP.SYRIN SQ SCH ×2 (09:49→21:15)
[2017-04-14] MEDS: ARIPiprazole 10 MG TABLET PO SCH (09:50)
[2017-04-14] MEDS: amLODIPine BESYLATE 10 MG TABLET (FP) PO SCH (09:51)
--- NOTE | 2017-04-14 13:22 | PN ---
Progress Note (short form) - Note Progress Note: Subjective: no fever or chills , has no SOB or CP Objective: Vital Signs: Last Vital Signs Temp Pulse Resp BP Pulse Ox 98.2 F 72 14 140/72 94 L 04/14/17 08:30 04/14/17 08:30 04/14/17 08:30 04/14/17 08:30 04/13/17 20:20 Laboratory Results - last 24 hr 04/13/17 04/13/17 04/14/17 17:36 21:31 05:38 WBC RBC Hgb Hct MCV MCH MCHC RDW Plt Count MPV Neutrophils % Lymphocytes % Monocytes % Eosinophils % Basophils % POC Glucometer 110 186 146 04/14/17 04/14/17 06:00 12:23 WBC 18.4 H RBC 3.42 L Hgb 10.0 L Hct 30.7 L MCV 89.7 MCH 29.1 MCHC 32.4 RDW 17.2 H Plt Count 489 H D MPV 8.1 Neutrophils % 84.1 H Lymphocytes % 6.5 L D Monocytes % 7.5 Eosinophils % 0.6 D Basophils % 1.3 POC Glucometer 177 Physical Exam: NAD ,MMM CV: RRR Lungs: CTAB. Ext:1+ pitting edema ASSESSMENT AND PLAN: 57 y/o unfortunate lady with h/o NIDDM , h/o heroin use on Methadone, who presented with L sided chest pain and was found to have PE, splenic and portal vein thrombosis, and pelvic and pulmonary nodules 1- Acute L sided PE, Portal and splenic vein thrombosis and splenic infarct : in the setting of metastatic cancer - cont therapeutic dose lovenox 2- Metastatic cancer . 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 blood cx neg. - monitor off abx 4- HTN, norvasc and lisinopril 5- Dm : cont SSI. HLOC pending cytology results Visit type - Emergency Visit Emergency Visit: Yes ED Registration Date: 04/02/17 Care time: The patient presented to the Emergency Department on the above date and was hospitalized for further evaluation of their emergent condition. - New Patient This patient is new to me today: No - Critical Care Critical Care patient: No
[2017-04-14] MEDS ORDERED: ACETAMINOPHEN 325 MG TABLET (FP) PO PRN (17:17)
[2017-04-14] MEDS: SIMETHICONE 80 MG TAB.CHEW (FP) PO PRN ×2 (17:41→21:15)
[2017-04-14] MEDS: GABAPENTIN 300 MG CAPSULE (FP) PO SCH (21:15)
[2017-04-15] MEDS ORDERED: KETOROLAC TROMETHAMINE 15 MG/ML VIAL IVPUSH ONE (01:49)
[2017-04-15] MEDS: METHADONE HCL 40 MG DISPERSABLE TABLET PO SCH (06:19)
[2017-04-15] MEDS: INSULIN SLIDING SCALE (NOVOLOG) 1 VIAL SQ SCH ×3 (06:19→22:18)
[2017-04-15] MEDS ORDERED: morphine CARPU-JECT 2 MG/1 ML DISP.SYRIN IVPUSH ONE ×2 (08:51→17:56)
--- NOTE | 2017-04-15 08:58 | PN ---
Teaching Attending Note Name of Resident: Anne Roman ATTENDING PHYSICIAN STATEMENT I saw and evaluated the patient. I reviewed the resident's note and discussed the case with the resident. I agree with the resident's findings and plan as documented. SUBJECTIVE: abd pain especially on L side abd. has no appetite, no fever, no chills, no nausea or vomiting OBJECTIVE: NAD, looks uncomfortable, MMM CV: RRR, tachy Lungs: CTAB. Abd : soft, Distended, TTP in all quadrants, tympanic , NL BS Ecxt : 2+ edema , mottled skin on thighs ASSESSMENT AND PLAN: 57 y/o unfortunate lady with h/o NIDDM , h/o heroin use on Methadone, who presented with L sided chest pain and was found to have PE, splenic and portal vein thrombosis, and pelvic and pulmonary nodules 1- ABd pain and distention: with the distention and tympany, need to r/o ileus vs SOB. Unlikely SBP. - check KUB. might need CT of abd . - lactic and ABG - CBC and BMP now 2- Acute L sided PE, Portal and splenic vein thrombosis and splenic infarct : in the setting of metastatic cancer - cont therapeutic dose lovenox 3- Metastatic cancer . 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 blood cx neg. - monitor off abx 4- HTN, norvasc and lisinopril 5- DM : cont SSI. HLOC
[2017-04-15] MEDS: ENOXAPARIN NA (PORCINE) 60 MG/0.6 ML DISP.SYRIN SQ SCH ×2 (09:15→22:08)
[2017-04-15] MEDS: PANTOPRAZOLE 20 MG TABLET (FP) PO SCH (09:15)
[2017-04-15] MEDS: ARIPiprazole 10 MG TABLET PO SCH (09:15)
[2017-04-15] MEDS: LISINOPRIL 20 MG TABLET (FP) PO SCH (09:15)
[2017-04-15] MEDS: amLODIPine BESYLATE 10 MG TABLET (FP) PO SCH (09:15)
[2017-04-15] MEDS: BENZTROPINE MESYLATE 1 MG TABLET (FP) PO SCH ×2 (09:16→22:09)
[2017-04-15 10:03] LABS: BASOPHIL 0.5 % (0-2.0); EOSINOPHIL 0.1 % (0-4.5); MCHC 31.7 g/dl (32.0-36.0); MEAN CELL VOLUME 91.4 fl (80-96); MEAN PLT VOLUME 8.2 fl (7.5-11.1); NEUTROPHILS 88.8 % (42.8-82.8); PLATELET COUNT 595 K/MM3 (134-434); RDW 17.8 % (11.6-15.6); WHITE BLOOD COUNT 11.4 K/mm3 (4.0-10.0)
[2017-04-15 10:11] LABS: ANION GAP 19 (8-16); CALCIUM 8.3 mg/dL (8.5-10.1); CO2 17 mmol/L (21-32); CREATININE 0.6 mg/dL (0.55-1.02); GLUCOSE,RANDOM 179 mg/dL (74-106)
--- NOTE | 2017-04-15 11:17 | PN ---
Progress Note, Physician History of Present Illness: pulmonary awake moderate distress secondary to abd pain ,-sob - Current Medication List Current Medications: Active Medications Acetaminophen (Tylenol -) 650 mg PO Q6H PRN PRN Reason: FEVER OR PAIN Last Admin: 04/14/17 23:35 Dose: 650 mg Amlodipine Besylate (Norvasc -) 10 mg PO DAILY [facility] Last Admin: 04/15/17 09:15 Dose: 10 mg Aripiprazole (Abilify) 20 mg PO DAILY [facility] Last Admin: 04/15/17 09:15 Dose: 20 mg Benztropine Mesylate (Cogentin -) 1 mg PO BID [facility] Last Admin: 04/15/17 09:16 Dose: 1 mg Enoxaparin Sodium (Lovenox -) 60 mg SQ BID [facility] Last Admin: 04/15/17 09:15 Dose: 60 mg Gabapentin (Neurontin -) 900 mg PO HS [facility] Last Admin: 04/14/17 21:15 Dose: 900 mg Insulin Aspart (Novolog Vial Sliding Scale -) 1 vial SQ ACHS [facility] PRN Reason: Protocol Last Admin: 04/15/17 06:19 Dose: 2 units Lisinopril (Prinivil) 20 mg PO DAILY [facility] Last Admin: 04/15/17 09:15 Dose: 20 mg Methadone HCl (Dolophine -) 80 mg PO DAILY@0600 [facility] Last Admin: 04/15/17 06:19 Dose: 80 mg Ondansetron HCl (Zofran Injection) 4 mg IVPB Q4H PRN PRN Reason: NAUSEA AND/OR VOMITING Last Admin: 04/05/17 17:45 Dose: 4 mg Pantoprazole Sodium (Protonix -) 20 mg PO DAILY [facility] Last Admin: 04/15/17 09:15 Dose: 20 mg Simethicone (Mylicon -) 80 mg PO Q4H PRN PRN Reason: gas Last Admin: 04/14/17 21:15 Dose: 80 mg - Objective Vital Signs: Vital Signs Temperature 97.8 F 04/15/17 06:00 Pulse Rate 98 H 04/15/17 06:00 Respiratory Rate 20 04/15/17 06:00 Blood Pressure 164/88 04/15/17 06:00 O2 Sat by Pulse Oximetry (%) 98 04/15/17 09:00 Constitutional: Yes: Moderate Distress (secondary to abd pain) Eyes: Yes: WNL HENT: Yes: WNL Neck: Yes: WNL Cardiovascular: Yes: Regular Rate and Rhythm, S1, S2 Respiratory: Yes: Diminished Gastrointestinal: Yes: Tenderness, Epigastrium (soft,+ascites ,tender throughout ) Extremities: Yes: WNL Edema: Yes Labs: CBC, BMP 04/15/17 09:41 04/15/17 09:41 INR, PTT INR 1.65 (0.82-1.09) H 04/11/17 07:00 Laboratory Tests 04/15/17 09:41 Lactic Acid 8.4 H* Problem List - Problems (1) Hep C w/o coma, chronic Code(s): B18.2 - CHRONIC VIRAL HEPATITIS C (2) Hypercoagulable state Code(s): D68.59 - OTHER PRIMARY THROMBOPHILIA (3) Lymphadenopathy Code(s): R59.1 - GENERALIZED ENLARGED LYMPH NODES (4) Pulmonary embolism Code(s): I26.99 - OTHER PULMONARY EMBOLISM WITHOUT ACUTE COR PULMONALE (5) Splenic infarct Code(s): D73.5 - INFARCTION OF SPLEEN Assessment/Plan A/P Likely Metastatic Disease Acute Pulmonary Emboli with Pulmonary Infarct Ascites Abdominal pain Lymphadenopathy Lactic Acidosis Elevated LFTs Hep C DM Lung Nodules Smoker - anticoagulation - O2 to keep Spo2 >90% - lung nodules likely related to her metastatic disease - outpt PET scan - check final path - ? ct abd DR PAINTING
[2017-04-15 11:37] LABS: ALBUMIN 1.9 g/dl (3.4-5.0); ALK PHOS 302 U/L (45-117); BILIRUBIN,TOTAL 0.9 mg/dL (0.2-1.0); SGPT/ALT 27 U/L (12-78); TOT PROT 5.9 g/dl (6.4-8.2)
[2017-04-15] MEDS ORDERED: SODIUM CHLORIDE 500 ML IV STA (11:53)
[2017-04-15] MEDS: SODIUM CHLORIDE 1,000 ML IV SCH ×2 (11:55→19:22)
[2017-04-15 12:00] LABS: SGOT/AST 28 U/L (15-37)
[2017-04-15] MEDS ORDERED: PIPERACILLIN/TAZOB 3.375 GM 3.375 GM in DEXTROSE 5%-WATER - 50 ML IVPB ONE (12:09)
--- NOTE | 2017-04-15 12:18 | HOSP ---
Subjective - Review of Symptoms Events since last encounter: lactic acid noted to be 8 . pt seen again, cont to have abd pain. abd still ditended, tender , BS slightly increased compared to this am. BP 150/90. HR 120s . sat 72% RA . up to 85% on venti mask A/P : - possible SBO/bowel ischemia - Lactic acidosis: ? ischemia vs infection/severe sepsis. ? SBP - hypoxia , cold hands probably not that hypoxic . plan : - bolus 500 cc NS, then 100cc/h - ABG - give stat dose of zosyn - stat CT of abd /pelvis - send stat blood cx - FiO2 through venti mask - Tx to ICU, spoke to permit technician Physical Examination Vital Signs: Vital Signs Temperature 97.8 F 04/15/17 06:00 Pulse Rate 98 H 04/15/17 06:00 Respiratory Rate 20 04/15/17 06:00 Blood Pressure 164/88 04/15/17 06:00 O2 Sat by Pulse Oximetry (%) 98 04/15/17 09:00 Labs: CBC, BMP 04/15/17 09:41 04/15/17 09:41
[2017-04-15 12:23] LABS: ARTERIAL BLD GAS O2 SATURATION 99.7 % (90-98.9)
[2017-04-15 12:25] LABS: ARTERIAL BLOOD GAS BASE EXCESS -10.4 meq/l (-2-2); ARTERIAL BLOOD GAS HCO3 14.5 meq/L (22-26)
[2017-04-15 12:28] LABS: ALLENS TEST POSITIVE; ART PUNCT SITE RIGHT RADIAL; LPM/O2% 15; MECH. VENT. NO; PT. ON O2? YES; TYPE OF O2 NRB MASK
[2017-04-15] MEDS ORDERED: PIPERACILLIN/TAZOBACTAM 3.375 GM VIAL IVPB ONE (12:39)
[2017-04-15] MEDS ORDERED: DEXTROSE 5%-WATER - 50 ML IVPB ONE (12:40)
--- NOTE | 2017-04-15 13:54 | PN ---
Progress Note (short form) - Note Progress Note: events noted developed abdominal pain overnight that persisted and worsened hypoxic this am, tachycardic noted to have diffuse abdominal pain and mottling of her thighs she just got some morphine and reports less pain just transferred to ICU lactic acid 8.4 AXRA_ distended transverse colon cxray ?free air under diaphragm she had a paracentesis on 04/12 just had BM prior to transfer- no blood, soft, no diarrhea one dose of zosyn given prior to transfer to ICU Vital Signs Period Temp Pulse Resp BP Sys/Roach Pulse Ox Last 24 Hr 97.8 F-98.4 F 66-98 18-20 138-164/60-88 98-99 cor-rrr- tachycardic lungs decreased bs at bases abd distended, Decreased bs, diffuse tenderness to palpation ext mottled thighs anteriorly bilaterally lower legs with edema, shiny skin CBC, BMP 04/15/17 09:41 04/15/17 09:41 Microbiology 04/05/17 12:00 Abdomen AFB Smear Concentration - Final 04/05/17 12:00 Abdomen Mycobacterial Culture - Preliminary 04/05/17 12:00 Abdomen Gram Stain - Final 04/05/17 12:00 Abdomen Body Fluid Culture - Final NO GROWTH OF AEROBIC ORGANISMS AFTER 48 HOURS INCUBATION 04/05/17 12:00 Abdomen Anaerobic Culture - Final NO ANAEROBES WERE ISOLATED 04/02/17 01:30 Blood - Arterial Blood Culture - Final NO GROWTH AFTER 5 DAYS INCUBATION 04/02/17 01:30 Blood - Arterial Blood Culture - Final NO GROWTH AFTER 5 DAYS INCUBATION 04/04/17 07:00 Sputum - Expectorated AFB Smear Concentration - Final 04/04/17 07:00 Sputum - Expectorated Direct Acid Fast Bacilli Smear - Final 04/04/17 07:00 Sputum - Expectorated Mycobacterial Culture - Preliminary 04/05/17 12:00 Abdomen REBEL Preparation - Preliminary 04/05/17 12:00 Abdomen Fungal Culture - Preliminary 04/02/17 15:50 Stool Salmonella/Shigella Culture - Final NO GROWTH OF SALMONELLA OR SHIGELLA SPECIES OBTAINED 04/02/17 15:50 Stool Campylobacter Culture - Final NO GROWTH OF CAMPYLOBACTER SPECIES OBTAINED 04/02/17 15:50 Stool Yersinia Culture - Final 04/02/17 15:50 Stool Vibrio Culture - Final NO GROWTH OF VIBRIO SPECIES OBTAINED 04/02/17 15:50 Stool Escherichia coli 0157 Culture - Final NO GROWTH OF E COLI 0157 OBTAINED 04/03/17 17:10 Sputum - Expectorated AFB Smear Concentration - Final 04/03/17 17:10 Sputum - Expectorated Direct Acid Fast Bacilli Smear - Final 04/03/17 17:10 Sputum - Expectorated Mycobacterial Culture - Preliminary 04/02/17 15:50 Stool Gram Stain - Final 04/02/17 15:50 Stool Clostridium difficile Antigen (CLAUDIA) - Final 04/02/17 15:50 Stool Clostridium difficile Toxin Assay - Final 04/02/17 01:50 Urine - Urine Clean Catch Urine Culture - Final NO GROWTH OBTAINED a/p possible sepsis- ?perforated viscus, ?ischemic colitis less likely for ct scan abd/pelvis send blood cultures, continue zosyn, add flagyl surgery evaluation d/w hospitalist probable malignancy- await results of paracentesis PE/portal and splenic vein thrombosis/splenic infarct hep C hypotension- fluid challenge in progress over 35 minutes spent in the care of this critically ill patient overall prognosis is grim Problem List - Problems (1) Pulmonary embolism Code(s): I26.99 - OTHER PULMONARY EMBOLISM WITHOUT ACUTE COR PULMONALE (2) Splenic infarct Code(s): D73.5 - INFARCTION OF SPLEEN (3) Hep C w/o coma, chronic Code(s): B18.2 - CHRONIC VIRAL HEPATITIS C (4) Leukocytosis Code(s): D72.829 - ELEVATED WHITE BLOOD CELL COUNT, UNSPECIFIED (5) Lymphadenopathy Code(s): R59.1 - GENERALIZED ENLARGED LYMPH NODES
[2017-04-15] MEDS ORDERED: PIPERACILLIN/TAZOB 3.375 GM/50 ML PRE-DOCKED IVPB SCH (14:00)
--- NOTE | 2017-04-15 14:37 | HOSP ---
Subjective - Review of Symptoms Events since last encounter: Cxray reviewed, Free air under diaphram. Dr. De La O called to evaluate pt . BP 60/40, HR 144. Start Phenylephrin gtt code status d/w pt . Full code . willing to proceed with surgery if needed. CCT 15 min Physical Examination Vital Signs: Labs: CBC, BMP 04/15/17 09:41 04/15/17 09:41
[2017-04-15] MEDS ORDERED: PHENYLEPHRINE HCL 10 MG/1 ML SINGLE DOSE VIAL ONE ×5 (14:53→22:57)
[2017-04-15] MEDS ORDERED: PIPERACILLIN/TAZOB 3.375 GM 3.375 GM in DEXTROSE 5%-WATER - 50 ML IVPB SCH (15:00)
[2017-04-15] MEDS ORDERED: SODIUM CHLORIDE 1,000 ML IV STA ×2 (15:18→16:23)
[2017-04-15] MEDS ORDERED: morphine CARPU-JECT 2 MG/1 ML DISP.SYRIN ONE (15:38)
[2017-04-15] MEDS ORDERED: NOREPINEPHRINE BITARTRATE 4 MG/4 ML ML IV ONE ×3 (15:38→22:57)
[2017-04-15] MEDS ORDERED: MIDAZOLAM HCL 5 MG/1 ML Single Dose Vial ONE (15:48)
[2017-04-15] MEDS: NOREPINEPHRINE BITARTRATE 8,000 MCG in DEXTROSE 5%-WATER - 492 ML IV SCH (15:50)
[2017-04-15] MEDS ORDERED: PROPOFOL 100 ML ONE (16:00)
[2017-04-15] MEDS ORDERED: MIDAZOLAM HCL 5 MG/1 ML Single Dose Vial IVPUSH ONE (16:07)
--- NOTE | 2017-04-15 16:10 | CONSULT ---
Consultation: CONSULT REQUEST: We have been asked to medically evaluate this patient for suspected bowel perforation. HISTORY OF PRESENT ILLNESS: 57 yo woman w/ pmh of DM, Hep C, heroin drug use (currently on methadone), came to the ED with L-sided chest pain and diagnosed w/ PE, splenic infarct, portal vein thrombus, right adnexal mass (5 x 2cm), pelvic mass (3.4 x 1.4cm), now w/ likely perforated bowel. Upon transfer, pt with suspected kendall perforation, free air noted under diaphragm on cxr. Intubated, started on levo gtt. Sent to OR for ex-lap/ resection of necrotic stomach/bowel. - Past Medical History (per prior note/medical record, as pt intubated) RESERVATIONS CLERK: No: CVA, Migraine, Multiple Sclerosis, Seizure, Syncope Cardio/Vascular: Yes: Deep Vein Thrombosis (portal vein thrombosis diagnozed during current admission ), HTN Pulmonary: Yes: Asthma, Pneumonia (diagnozed in current admission left lower lobe ) Gastrointestinal: Yes: Ascites (presently ), Constipation (c/o chronic ). No: GI Bleed Hepatobiliary: Yes: Hepatitis C (on meds ), Other (Hepatic nodules on ct scan , ) Renal/: No: UTI ...: No Infectious Disease: Yes: STD's, Other (Hep -C ) Psych: Yes: Depression Endocrine: Yes: Diabetes Mellitus (NIDDM ) - Past Surgical History Breast Biopsy (at 14 yrs age breast cyst removed ) Laparoscopy for infertility- tubes found to be obstructed - Family Hx - sister w/ colon cancer - Alcohol/Substance Use No alcohol. Heroin w/ hx of rehab, currently on methadone. Smoker, 5 cigarettes/ day. - Social History Lives alone. Independent in all ADLs. -Allergies - NKDA REVIEW OF SYSTEMS: CONSTITUTIONAL: Weight loss Absent: fever, chills, diaphoresis, generalized weakness, malaise, loss of appetite, HEENT: Absent: rhinorrhea, nasal congestion, throat pain, throat swelling, difficulty swallowing, mouth swelling, ear pain, eye pain, visual changes CARDIOVASCULAR: Absent: chest pain, syncope, palpitations, irregular heart rate, lightheadedness , peripheral edema RESPIRATORY: Absent: cough, shortness of breath, dyspnea with exertion, orthopnea, wheezing, stridor, hemoptysis GASTROINTESTINAL: diarrhea, abdominal pain, abdominal distension, Absent: nausea, vomiting, constipation, melena, hematochezia GENITOURINARY: Absent: dysuria, frequency, urgency, hesitancy, hematuria, flank pain, genital pain MUSCULOSKELETAL: Absent: myalgia, arthralgia, joint swelling, back pain, neck pain PHYSICAL EXAMINATION Vital Signs - 24 hr 04/14/17 04/14/17 04/14/17 18:00 20:19 20:24 Temperature 98.2 F 98.1 F Pulse Rate 70 66 Respiratory 18 20 20 Rate Blood Pressure 145/60 148/65 O2 Sat by Pulse 99 Oximetry (%) 04/15/17 04/15/17 04/15/17 02:00 06:00 09:00 Temperature 98.3 F 97.8 F Pulse Rate 87 98 H Respiratory 20 20 Rate Blood Pressure 160/73 164/88 O2 Sat by Pulse 98 Oximetry (%) 04/15/17 04/15/17 13:45 14:00 Temperature 98.3 F 99.0 F Pulse Rate 150 H 148 H Respiratory 28 H 29 H Rate Blood Pressure 82/48 80/50 O2 Sat by Pulse Oximetry (%) GENERAL: Awake, alert, and fully oriented, in significant distress. HEAD: Normal with no signs of trauma. LUNGS: Decreased breath sounds at bases. HEART: RRR, normal S1 and S2 without murmur, rub or gallop. ABDOMEN: Significant abdominal distension, tender to palpation in all quadrants , hypoactive bowel sounds, full abdomen Extremities: BL LE w/ 1+ edema. 2+ DP/PT pulses Laboratory Results - last 24 hr 04/14/17 04/14/17 04/15/17 17:19 21:14 05:55 WBC RBC Hgb Hct MCV MCH MCHC RDW Plt Count MPV Neutrophils % Lymphocytes % Monocytes % Eosinophils % Basophils % Puncture Site ABG pH ABG pCO2 at Pt Temp ABG pO2 at Pt Temp ABG HCO3 ABG O2 Sat (Measured) ABG O2 Content ABG Base Excess Vu Test O2 Delivery Device Oxygen Flow Rate Mechanical Rate PEEP Sodium Potassium Chloride Carbon Dioxide Anion Gap BUN Creatinine Creat Clearance w eGFR POC Glucometer 150 162 159 Random Glucose Lactic Acid Calcium Total Bilirubin AST ALT Alkaline Phosphatase Total Protein Albumin 04/15/17 04/15/17 04/15/17 09:41 09:41 09:41 WBC 11.4 H D RBC 3.97 Hgb 11.5 D Hct 36.3 D MCV 91.4 MCH 29.0 MCHC 31.7 L RDW 17.8 H Plt Count 595 H D MPV 8.2 Neutrophils % 88.8 H Lymphocytes % 8.2 D Monocytes % 2.4 L Eosinophils % 0.1 D Basophils % 0.5 Puncture Site ABG pH ABG pCO2 at Pt Temp ABG pO2 at Pt Temp ABG HCO3 ABG O2 Sat (Measured) ABG O2 Content ABG Base Excess Vu Test O2 Delivery Device Oxygen Flow Rate Mechanical Rate PEEP Sodium 137 Potassium 4.3 Chloride 101 Carbon Dioxide 17 L D Anion Gap 19 H BUN 12 D Creatinine 0.6 D Creat Clearance w eGFR Y POC Glucometer Random Glucose 179 H Lactic Acid 8.4 H* Calcium 8.3 L Total Bilirubin 0.9 AST 28 D ALT 27 D Alkaline Phosphatase 302 H Total Protein 5.9 L Albumin 1.9 L 04/15/17 04/15/17 04/15/17 09:41 11:35 12:10 WBC RBC Hgb Hct MCV MCH MCHC RDW Plt Count MPV Neutrophils % Lymphocytes % Monocytes % Eosinophils % Basophils % Puncture Site Right radial ABG pH 7.30 L ABG pCO2 at Pt Temp 30.1 L ABG pO2 at Pt Temp 272.0 H* ABG HCO3 14.5 L* ABG O2 Sat (Measured) 99.7 H* ABG O2 Content 16.6 ABG Base Excess -10.4 L* Vu Test Positive O2 Delivery Device Nrb mask Oxygen Flow Rate 15 Mechanical Rate No PEEP 0.0 Sodium Cancelled Potassium Cancelled Chloride Cancelled Carbon Dioxide Cancelled Anion Gap Cancelled BUN Cancelled Creatinine Cancelled Creat Clearance w eGFR Cancelled POC Glucometer 146 Random Glucose Cancelled Lactic Acid Calcium Cancelled Total Bilirubin Cancelled AST Cancelled ALT Cancelled Alkaline Phosphatase Cancelled Total Protein Cancelled Albumin Cancelled Active Medications Generic Name Dose Route Start Last Admin Trade Name Freq PRN Reason Stop Dose Admin Acetaminophen 650 mg 04/14/17 17:17 04/14/17 23:35 Tylenol - PO 650 mg Q6H PRN Administration FEVER OR PAIN Amlodipine Besylate 10 mg 04/02/17 10:00 04/15/17 09:15 Norvasc - PO 10 mg DAILY OLMAN Administration Aripiprazole 20 mg 04/09/17 10:00 04/15/17 09:15 Abilify PO 20 mg DAILY OLMAN Administration Benztropine Mesylate 1 mg 04/02/17 10:00 04/15/17 09:16 Cogentin - PO 1 mg BID OLMAN Administration Chlorhexidine Gluconate 15 ml 04/15/17 22:00 Peridex - MM BID OLMAN Enoxaparin Sodium 60 mg 04/12/17 12:45 04/15/17 09:15 Lovenox - SQ 60 mg BID OLMAN Administration Gabapentin 900 mg 04/02/17 22:00 04/14/17 21:15 Neurontin - PO 900 mg HS OLMAN Administration Sodium Chloride 1,000 mls @ 100 mls/hr 04/15/17 11:45 04/15/17 11:55 Normal Saline - IV 100 mls/hr ASDIR OLMAN Administration Metronidazole 100 mls @ 100 mls/hr 04/15/17 14:30 Flagyl 500mg Premixed Ivpb - IVPB Q8H-IV OLMAN Phenylephrine HCl 20,000 mcg/ 250 mls @ 75 mls/hr 04/15/17 14:30 Sodium Chloride IVPB TITR OLMAN Protocol 100 MCG/MIN Sodium Chloride 1,000 mls @ 500 mls/hr 04/15/17 15:18 Normal Saline - IV 04/15/17 17:17 ASDIR STA Propofol 100 mls @ 1.69 mls/hr 04/15/17 16:15 Diprivan - IV TITR OLMAN Protocol 5 MCG/KG/MIN Norepinephrine Bitartrate 8, 500 mls @ 30 mls/hr 04/15/17 16:15 000 mcg/ Dextrose IV TITR OLMAN Protocol 8 MCG/MIN Insulin Aspart 1 vial 04/02/17 07:00 04/15/17 11:35 Novolog Vial Sliding Scale - SQ Not Given ACHS OLMAN Protocol Lisinopril 20 mg 04/02/17 10:00 04/15/17 09:15 Prinivil PO 20 mg DAILY OLMAN Administration Methadone HCl 80 mg 04/04/17 06:00 04/15/17 06:19 Dolophine - PO 80 mg DAILY@0600 OLMAN Administration Midazolam HCl 5 mg 04/15/17 16:07 Versed - IVPUSH 04/15/17 16:08 ONCE ONE Ondansetron HCl 4 mg 04/02/17 15:58 04/05/17 17:45 Zofran Injection IVPB 4 mg Q4H PRN Administration NAUSEA AND/OR VOMITING Pantoprazole Sodium 20 mg 04/02/17 10:00 04/15/17 09:15 Protonix - PO 20 mg DAILY OLMAN Administration Piperacillin Sod/Tazobactam Sod 3.375 gm 04/15/17 15:00 Zosyn 3.375gm Ivpb (Pre-Docked) IVPB Q6H-IV OLMAN Protocol Simethicone 80 mg 04/14/17 17:18 04/14/17 21:15 Mylicon - PO 80 mg Q4H PRN Administration gas CXR notable for free air under diaphragm ASSESSMENT/PLAN: 57 yo woman w/ pmh of DM, Hep C, heroin drug use, diagnosed w/ PE, splenic infarct, portal vein thrombus, right adnexal mass and pelvis masses, now w/ likely perforated bowel. PE notable for distended, tender abdomen and tachycardia. Labs notable for elevated WBC, left shift. CXR w/ free air under diaphragm. Pt intubated, started on levo gtt and sent to surgery for emergency ex-lap/bowel resection. Will defer to surgical team for post-op management plan. #Neuro - Monitor MS - Pain control per surgical team #Cardiac - Levo gtt. Titrate to MAP of >65 - Monitor BP closely - Continue home HTN meds - Daily weights #Pulm - Intubated, sedated - Albuterol PRN. PFTs as outpt for ILD #ID - Zosyn, flagyl per ID recs - f/u all cultures - Trend Lactate #Renal -Strict I's&O's -Daily BMPs -Monitor lytes. Trend BUN, Cr #Heme - Lovenox 60mg BID - Will require lifelong AC #Endo - ACHS - ISS #GI - f/u cytology results - f/u hepatology for Hep C results/management - Zofran for post-op nausea #FEN -Fluids: IVFs -Electrolytes: Daily BMPs, Trend BUN/Cr -Nutrition: NPO #PPX - SubQ Heparin for DVT ppx - PPI for GI ppx #Dispo - Dispo to ICU for further monitoring/management of post-operative care. Kevin Macias, PGY1 Plan discussed to be discussed w/ attending, Dr. Pastrana Visit type - Emergency Visit Emergency Visit: No - New Patient This patient is new to me today: Yes Date on this admission: 04/16/17 - Critical Care Critical Care patient: Yes Total Critical Care Time (in minutes): 45 Critical Care Statement: The care of this patient involved high complexity decision making to prevent further life threatening deterioration of the patient 's condition and/or to evaluate & treat vital organ system(s) failure or risk of failure.
[2017-04-15] MEDS ORDERED: PROPOFOL 100 ML IV SCH (16:15)
[2017-04-15] MEDS: METRONIDAZOLE 500 MG PREMIXED 100 ML IVPB SCH ×2 (16:16→20:31)
[2017-04-15] MEDS: PIPERACILLIN/TAZOB 3.375 GM/50 ML PRE-DOCKED IVPB SCH ×2 (16:18→20:31)
[2017-04-15] MEDS: PHENYLEPHRINE HCL 20,000 MCG in SODIUM CHLORIDE 248 ML IVPB SCH ×2 (16:56→19:00)
--- NOTE | 2017-04-15 16:58 | PN ---
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 O/E acute surgical abdomen lactate elevated CXR-pneumoperitoneum IMP: perforated viscus PLAN ex-lap and AOSDN; informed consent obtained from the patients sister; r/b/t /a's d/w her " she wants everything done"; she is a Jehovahs Witness and will not receive blood; DNR will remain in effect in the OR; patient sister understands the poor prognosis with and/or without surgery given her underlying likely metastatic malignancy. Emmanuel De La O MD FACS
[2017-04-15] MEDS ORDERED: ROCURONIUM BROMIDE 50 MG/5 ML VIAL ONE ×2 (17:11→18:03)
--- NOTE | 2017-04-15 17:41 | PN ---
Physical Exam: SUBJECTIVE: Patient seen and examined. Complains of extreme abdominal pain in all quadrants. She said the pain is unbearable despite pain medication. OBJECTIVE: Vital Signs Period Temp Pulse Resp BP Sys/Roach Pulse Ox Last 24 Hr 97.8 F-99.0 F 66-150 18-29 80-164/48-88 98-100 GENERAL: In acute distress. EYES: PERRL, extraocular movements intact, sclera anicteric, conjunctiva clear. No ptosis. NECK: supple. LUNGS: Breath sounds equal, clear to auscultation bilaterally, no wheezes, no crackles, no accessory muscle use. HEART: Regular rate and rhythm, S1, S2 without murmur, rub or gallop. ABDOMEN: Distended, extreme tenderness to palpation in all quadrants. EXTREMITIES: mottled skin on right thigh, warm, well-perfused, 2+ pitting edema b/l Laboratory Results - last 24 hr 04/14/17 04/14/17 04/15/17 17:19 21:14 05:55 WBC RBC Hgb Hct MCV MCH MCHC RDW Plt Count MPV Neutrophils % Lymphocytes % Monocytes % Eosinophils % Basophils % Puncture Site ABG pH ABG pCO2 at Pt Temp ABG pO2 at Pt Temp ABG HCO3 ABG O2 Sat (Measured) ABG O2 Content ABG Base Excess Vu Test O2 Delivery Device Oxygen Flow Rate Mechanical Rate PEEP Sodium Potassium Chloride Carbon Dioxide Anion Gap BUN Creatinine Creat Clearance w eGFR POC Glucometer 150 162 159 Random Glucose Lactic Acid Calcium Total Bilirubin AST ALT Alkaline Phosphatase Total Protein Albumin 04/15/17 04/15/17 04/15/17 09:41 09:41 09:41 WBC 11.4 H D RBC 3.97 Hgb 11.5 D Hct 36.3 D MCV 91.4 MCH 29.0 MCHC 31.7 L RDW 17.8 H Plt Count 595 H D MPV 8.2 Neutrophils % 88.8 H Lymphocytes % 8.2 D Monocytes % 2.4 L Eosinophils % 0.1 D Basophils % 0.5 Puncture Site ABG pH ABG pCO2 at Pt Temp ABG pO2 at Pt Temp ABG HCO3 ABG O2 Sat (Measured) ABG O2 Content ABG Base Excess Vu Test O2 Delivery Device Oxygen Flow Rate Mechanical Rate PEEP Sodium 137 Potassium 4.3 Chloride 101 Carbon Dioxide 17 L D Anion Gap 19 H BUN 12 D Creatinine 0.6 D Creat Clearance w eGFR Y POC Glucometer Random Glucose 179 H Lactic Acid 8.4 H* Calcium 8.3 L Total Bilirubin 0.9 AST 28 D ALT 27 D Alkaline Phosphatase 302 H Total Protein 5.9 L Albumin 1.9 L 04/15/17 04/15/17 04/15/17 09:41 11:35 12:10 WBC RBC Hgb Hct MCV MCH MCHC RDW Plt Count MPV Neutrophils % Lymphocytes % Monocytes % Eosinophils % Basophils % Puncture Site Right radial ABG pH 7.30 L ABG pCO2 at Pt Temp 30.1 L ABG pO2 at Pt Temp 272.0 H* ABG HCO3 14.5 L* ABG O2 Sat (Measured) 99.7 H* ABG O2 Content 16.6 ABG Base Excess -10.4 L* Vu Test Positive O2 Delivery Device Nrb mask Oxygen Flow Rate 15 Mechanical Rate No PEEP 0.0 Sodium Cancelled Potassium Cancelled Chloride Cancelled Carbon Dioxide Cancelled Anion Gap Cancelled BUN Cancelled Creatinine Cancelled Creat Clearance w eGFR Cancelled POC Glucometer 146 Random Glucose Cancelled Lactic Acid Calcium Cancelled Total Bilirubin Cancelled AST Cancelled ALT Cancelled Alkaline Phosphatase Cancelled Total Protein Cancelled Albumin Cancelled Active Medications Generic Name Dose Route Start Last Admin Trade Name Freq PRN Reason Stop Dose Admin Acetaminophen 650 mg 04/14/17 17:17 04/14/17 23:35 Tylenol - PO 650 mg Q6H PRN Administration FEVER OR PAIN Amlodipine Besylate 10 mg 04/02/17 10:00 04/15/17 09:15 Norvasc - PO 10 mg DAILY OLMAN Administration Aripiprazole 20 mg 04/09/17 10:00 04/15/17 09:15 Abilify PO 20 mg DAILY OLMAN Administration Benztropine Mesylate 1 mg 04/02/17 10:00 04/15/17 09:16 Cogentin - PO 1 mg BID OLMAN Administration Chlorhexidine Gluconate 15 ml 04/15/17 22:00 Peridex - MM BID OLMAN Enoxaparin Sodium 60 mg 04/12/17 12:45 04/15/17 09:15 Lovenox - SQ 60 mg BID OLMAN Administration Gabapentin 900 mg 04/02/17 22:00 04/14/17 21:15 Neurontin - PO 900 mg HS OLMAN Administration Sodium Chloride 1,000 mls @ 100 mls/hr 04/15/17 11:45 04/15/17 11:55 Normal Saline - IV 100 mls/hr ASDIR OLMAN Administration Metronidazole 100 mls @ 100 mls/hr 04/15/17 14:30 04/15/17 16:16 Flagyl 500mg Premixed Ivpb - IVPB 100 mls/hr Q8H-IV OLMAN Administration Phenylephrine HCl 20,000 mcg/ 250 mls @ 75 mls/hr 04/15/17 14:30 04/15/17 16:56 Sodium Chloride IVPB Not Given TITR OLMAN Protocol 100 MCG/MIN Propofol 100 mls @ 1.69 mls/hr 04/15/17 16:15 04/15/17 16:00 Diprivan - IV 1.69 mls/hr TITR OLMAN Administration Protocol 5 MCG/KG/MIN Norepinephrine Bitartrate 8, 500 mls @ 30 mls/hr 04/15/17 16:15 04/15/17 15:50 000 mcg/ Dextrose IV 30 mls/hr TITR OLMAN Administration Protocol 8 MCG/MIN Insulin Aspart 1 vial 04/02/17 07:00 04/15/17 11:35 Novolog Vial Sliding Scale - SQ Not Given ACHS OLMAN Protocol Lisinopril 20 mg 04/02/17 10:00 04/15/17 09:15 Prinivil PO 20 mg DAILY OLMAN Administration Methadone HCl 80 mg 04/04/17 06:00 04/15/17 06:19 Dolophine - PO 80 mg DAILY@0600 OLMAN Administration Ondansetron HCl 4 mg 04/02/17 15:58 04/05/17 17:45 Zofran Injection IVPB 4 mg Q4H PRN Administration NAUSEA AND/OR VOMITING Pantoprazole Sodium 20 mg 04/02/17 10:00 04/15/17 09:15 Protonix - PO 20 mg DAILY OLMAN Administration Piperacillin Sod/Tazobactam Sod 3.375 gm 04/15/17 15:00 04/15/17 16:18 Zosyn 3.375gm Ivpb (Pre-Docked) IVPB 3.375 gm Q6H-IV OLMAN Administration Protocol Simethicone 80 mg 04/14/17 17:18 04/14/17 21:15 Mylicon - PO 80 mg Q4H PRN Administration gas ASSESSMENT/PLAN: 57 y/o F with history of Diabetes, Hepatitis C, heroin drug use (on methadone), presented to the ED with left sided chest pain and was found to have Pulmonary Embolus, Portal vein thrombosis, splenic infarct, right adnexal mass (5x2cm), pelvic mass (3.4x1.4cm) and perforated bowel. #Perforated Bowel possibly due to ischemia -pneumoperitoneum on Xray -BP 60/40, HR 144. -Phenylephrine given -Norephinephrine given -Morphine given for pain management -lactic acid 8.4 -Dr. De La O consulted and surgery is scheduled. -Started IV antibiotics: Zosyn 3.375 # Acute Pulmonary embolus, splenic infarct and Portal/hepatic vein thrombosis likely secondary to underlying malignancy. -Continue Lovenox 60mg BID q12 -Will need life long AC as per Vascular # Possible Malignancy with metastasis -s/p abdominal paracentesis x 2 -F/U Fluid cytology for second paracentesis -1st Fluid cytology: suspicious for involvement by adenocarcinoma, however no further determination of nature of the neoplasm can be made. - CT scan revealed: pulmonary nodules, peritoneal lymphadenopathy, and pelvic mass - Transvaginal U/S-showed large right cystic/solid ovarian mass -REAL TIME TRADER/ONC consulted: Right adnexal mass consistent with hydrosalpinx. Left adnexa not visualized on u/s. Difficult to assess for left adnexal mass on CT as there appears to be loculated ascites. If cytology positive for adenocarcinoma, likely ovarian origin and would recommend neoadjuvant chemotherapy with interval debulking in the setting of recent PE as per REAL TIME TRADER/ONC -may be a candidate for weekly carbo/taxol once diagnosis confirmed as per Heme/ ONC -Hypercoaguable state likely due to a possible malignancy -AFP marker normal (1.3) -Abdominal U/S: diffuse heterogenous echotexture of the liver with multiple hyperechoic masslike densities measuring up to 4.4 cm. -Surgery consulted- agree to biopsy nodes/liver by least invasive means to establish dx. Does not recommend surgery unless emergent. #Leukocytosis/Elevated Lactic Acid possibly secondary to underlying neoplasm -sepsis was initially suspected but ruled out. -leukocytosis persists -CT scan results: revealed consolidative opacity in the left lower lobe. Small left pleural effusion. 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 would treat patient based on clinical picture as per cardiology. -blood cultures negative. -afebrile ID aware #Nausea -antiemetics PRN #Constipation -resolved # Diarrhea -Resolved -Stool C. Diff negative -Stool cultures negative # Hypertension- controlled -Continue Lisinopril 20mg Daily, Amlodipine 10mg PO Daily #Asthma-not in exacerbation -Albuterol PRN -PFT's as outpatient to r/o obstructive vs restrictive lung disease. #Diabetes Type 2 -ISS -Blood glucose well controlled Visit type - Emergency Visit Emergency Visit: Yes ED Registration Date: 04/02/17 Care time: The patient presented to the Emergency Department on the above date and was hospitalized for further evaluation of their emergent condition. - New Patient This patient is new to me today: No - Critical Care Critical Care patient: Yes Total Critical Care Time (in minutes): 45 Critical Care Statement: The care of this patient involved high complexity decision making to prevent further life threatening deterioration of the patient 's condition and/or to evaluate & treat vital organ system(s) failure or risk of failure.
--- NOTE | 2017-04-15 17:55 | PROC ---
Intubation - Intubation Reason for Intubation: Respiratory Failure, Airway Protection, Ventilatory Failure Intubation Method: orotracheal Blade used: Glidescope Tube position @ lip (cm): 22 Tube position confirmed by: Direct visualization, CO2 detector, Chest x-ray, Breath sounds Breath Sounds after Intubation: equal Post Intubation Xray: Yes
--- NOTE | 2017-04-15 17:56 | PROC ---
Central Line Insertion Indication: Poor Venous Access, Sepsis Risks and Benefits Explained: No (emergent due to shock ) Consent on Chart: No (emergent due to shock ) Central Line: Triple Lumen Catheter Anesthesia: 1% Lidocaine Sterile Technique: Yes Ultrasound Guided Assistance: Yes Position: Right Internal Jugular Post Insertion: Yes: Bilateral Breath Sounds, Bilateral Chest Expansion, Chest X-Ray Ordered Sterile Dressing Applied: Yes
[2017-04-15] MEDS ORDERED: MIDAZOLAM HCL 2 MG/2 ML SINGLE DOSE VIAL ONE (18:07)
--- NOTE | 2017-04-15 18:26 | OP ---
Operative Note - Note: Operative Date: 04/15/17 Pre-Operative Diagnosis: perforated viscus Operation: exploratory laparotomy Findings: large anterior perforation of necrotic stomach; gross peritoneal contamination from undigested food; necrotic liver and omentum. Post-Operative Diagnosis: Same as Pre-op (secondary to large anterior perforation of necrotic stomacj) Surgeon: Emmanuel De La O Negative Cleaner: Hanane Yañez Anesthesiologist/CURB BUILDER: Rajendra Diaz Anesthesia: General Specimens Removed: none Estimated Blood Loss (mls): 20
--- NOTE | 2017-04-15 19:41 | SURG ---
Surgery Flocculator Operator Note Flocculator Operator: Hanane Yañez PA-C Date of Service: 04/15/17 Diagnosis: exploratory laparotomy Procedure: large anterior perforation of necrotic stomach; gross peritoneal contamination from undigested food; necrotic liver and omentum. I was present for the entirety of the operative procedure. For further detail, please refer to operative report. Visit type - Case Type Case Type: ED Admission - Emergency Emergency Visit: Yes ED Registration Date: 04/02/17 Care time: The patient presented to the Emergency Department on the above date and was hospitalized for further evaluation of their emergent condition. - New patient This patient is new to me today: Yes Date on this admission: 04/15/17
[2017-04-15] MEDS ORDERED: LACTATED RINGERS SOLUTION 1,000 ML IV STA (20:11)
[2017-04-15] MEDS: FENTANYL INJECTION 500 MCG in DEXTROSE 5%-WATER - 90 ML IJ SCH (20:30)
--- NOTE | 2017-04-15 20:37 | PN ---
Progress Note (short form) - Note Progress Note: PAtient seen and examiend Events noted Last Vital Signs Temp Pulse Resp BP Pulse Ox 95.7 F L 137 H 14 95/25 85 L 04/15/17 19:15 04/15/17 19:15 04/15/17 19:15 04/15/17 19:15 04/15/17 18:30 Cor: RSR, No murmurs, No gallops Lungs: Clear to P&A Abd: Soft, Normal bowel sounds, No organomegaly Ext:No significant edema Skin: No rashes, Integument intact Abnormal Lab Results 04/15/17 04/15/17 04/15/17 09:41 09:41 09:41 WBC 11.4 H D MCHC 31.7 L RDW 17.8 H Plt Count 595 H D Neutrophils % 88.8 H Monocytes % 2.4 L ABG pH ABG pCO2 at Pt Temp ABG pO2 at Pt Temp ABG HCO3 ABG O2 Sat (Measured) ABG Base Excess Carbon Dioxide 17 L D Anion Gap 19 H Random Glucose 179 H Lactic Acid 8.4 H* Calcium 8.3 L Alkaline Phosphatase 302 H Total Protein 5.9 L Albumin 1.9 L 04/15/17 12:10 WBC MCHC RDW Plt Count Neutrophils % Monocytes % ABG pH 7.30 L ABG pCO2 at Pt Temp 30.1 L ABG pO2 at Pt Temp 272.0 H* ABG HCO3 14.5 L* ABG O2 Sat (Measured) 99.7 H* ABG Base Excess -10.4 L* Carbon Dioxide Anion Gap Random Glucose Lactic Acid Calcium Alkaline Phosphatase Total Protein Albumin Active Medications Acetaminophen (Tylenol -) 650 mg PO Q6H PRN PRN Reason: FEVER OR PAIN Last Admin: 04/14/17 23:35 Dose: 650 mg Aripiprazole (Abilify) 20 mg PO DAILY [facility] Last Admin: 04/15/17 09:15 Dose: 20 mg Benztropine Mesylate (Cogentin -) 1 mg PO BID [facility] Last Admin: 04/15/17 09:16 Dose: 1 mg Chlorhexidine Gluconate (Peridex -) 15 ml MM BID [facility] Enoxaparin Sodium (Lovenox -) 60 mg SQ BID [facility] Last Admin: 04/15/17 09:15 Dose: 60 mg Fentanyl (Sublimaze Injection -) 50 mcg IVPUSH [id number] PRN PRN Reason: PAIN Stop: 04/18/17 18:33 Gabapentin (Neurontin -) 900 mg PO HS [facility] Last Admin: 04/14/17 21:15 Dose: 900 mg Sodium Chloride (Normal Saline -) 1,000 mls @ 100 mls/hr IV ASDIR [facility] Last Admin: 04/15/17 19:22 Dose: 100 mls/hr Metronidazole (Flagyl 500mg Premixed Ivpb -) 100 mls @ 100 mls/hr IVPB Q8H-IV [facility] Last Admin: 04/15/17 20:31 Dose: 100 mls/hr Phenylephrine HCl 20,000 mcg/ (Sodium Chloride) 250 mls @ 75 mls/hr IVPB TITR [facility]; 100 MCG/MIN PRN Reason: Protocol Last Admin: 04/15/17 16:56 Dose: Not Given Propofol (Diprivan -) 100 mls @ 1.69 mls/hr IV TITR [facility]; 5 MCG/KG/MIN PRN Reason: Protocol Last Admin: 04/15/17 16:00 Dose: 1.69 mls/hr Norepinephrine Bitartrate 8, (000 mcg/ Dextrose) 500 mls @ 30 mls/hr IV TITR [facility]; 8 MCG/MIN PRN Reason: Protocol Last Titration: 04/15/17 18:30 Dose: 12 mcg/min Fentanyl 500 mcg/ Dextrose 100 mls @ 6 mls/hr IJ TITR [facility] PRN Reason: 30 MCG/HR Last Admin: 04/15/17 20:30 Dose: 6 mls/hr Lactated Ringer's (Lactated Ringers Solution) 1,000 mls @ 1,000 mls/hr IV ONCE STA Stop: 04/15/17 21:10 Last Admin: 04/15/17 20:00 Dose: 1,000 mls/hr Insulin Aspart (Novolog Vial Sliding Scale -) 1 vial SQ ACHS [facility] PRN Reason: Protocol Last Admin: 04/15/17 11:35 Dose: Not Given Lisinopril (Prinivil) 20 mg PO DAILY [facility] Last Admin: 04/15/17 09:15 Dose: 20 mg Methadone HCl (Dolophine -) 80 mg PO DAILY@0600 [facility] Last Admin: 04/15/17 06:19 Dose: 80 mg Ondansetron HCl (Zofran Injection) 4 mg IVPB Q4H PRN PRN Reason: NAUSEA AND/OR VOMITING Last Admin: 04/05/17 17:45 Dose: 4 mg Pantoprazole Sodium (Protonix -) 20 mg PO DAILY [facility] Last Admin: 04/15/17 09:15 Dose: 20 mg Piperacillin Sod/Tazobactam Sod (Zosyn 3.375gm Ivpb (Pre-Docked)) 3.375 gm IVPB Q6H-IV [facility] PRN Reason: Protocol Last Admin: 04/15/17 20:31 Dose: 3.375 gm Simethicone (Mylicon -) 80 mg PO Q4H PRN PRN Reason: gas Last Admin: 04/14/17 21:15 Dose: 80 mg A/P Frail 57 year old female presents with LUQ pain secondary to splenic infarction. h/o Hep. C Found to have acute pulmonary embolism with splenic vein and portal vein thrombosis and splenic infarction. Has pulmonary nodules, liver mass, extensive retroperitoneal, retrocrural lymphadenopathy, possible peritoneal implants and ascites. adnexal masses Has had recent diarrhea, and substantial weight loss. 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 Family history of sister with colon ca, and second sister with SLE awaiting cytology confirmation. Prior cytology suspicious for adenoca s/p exlaparotomy for perforated necrotic stomach operative findings noted--perforated viscus/necrotic stomach/liver/omentum overall poor prognosis
--- NOTE | 2017-04-15 21:27 | EKG ---
Test Reason : Blood Pressure : / mmHG Vent. Rate : 138 BPM Atrial Rate : 138 BPM P-R Int : 120 ms QRS Dur : 068 ms QT Int : 286 ms P-R-T Axes : 065 057 099 degrees QTc Int : 433 ms SINUS TACHYCARDIA T WAVE ABNORMALITY, CONSIDER LATERAL ISCHEMIA ABNORMAL ECG WHEN COMPARED WITH ECG OF 01-APR-2017 19:56, VENT. RATE HAS INCREASED BY 51 BPM T WAVE VARIATION Confirmed by GISSEL MCINTYRE, SANJANA ([id number]) on 04/15/2017 9:26:56 PM Referred By: JEANNE Confirmed By:SANJANA CHAUHAN MD
[2017-04-15] MEDS: GABAPENTIN 300 MG CAPSULE (FP) PO SCH (22:09)
[2017-04-15] MEDS: CHLORHEXIDINE GLUCONATE 0.12% 15ML CUP MM SCH (22:09)
[2017-04-15 22:29] LABS: MCH 29.3 pg (25.7-33.7); MCHC 29.6 g/dl (32.0-36.0); MEAN CELL VOLUME 98.8 fl (80-96); MEAN PLT VOLUME 8.5 fl (7.5-11.1); PLATELET COUNT 466 K/MM3 (134-434); RDW 18.1 % (11.6-15.6); WHITE BLOOD COUNT 19.7 K/mm3 (4.0-10.0)
[2017-04-15] MEDS ORDERED: HYDROCORTISONE SOD SUCCINATE 100 MG/2 ML VIAL IVPB SCH (23:30)
[2017-04-15] MEDS: HYDROCORTISONE SOD SUCCINATE 100 MG/2 ML VIAL IVPB SCH (23:48)
[2017-04-16] MEDS ORDERED: LACTATED RINGERS SOLUTION 1,000 ML IV STA ×2 (00:13→03:13)
[2017-04-16] MEDS ORDERED: LACTATED RINGERS SOLUTION 1,000 ML IV SCH (00:15)
[2017-04-16] MEDS: NOREPINEPHRINE BITARTRATE 8,000 MCG in DEXTROSE 5%-WATER - 492 ML IV SCH ×2 (00:30→10:36)
[2017-04-16] MEDS ORDERED: PHENYLEPHRINE HCL 10 MG/1 ML SINGLE DOSE VIAL ONE ×6 (00:49→11:36)
[2017-04-16] MEDS: METRONIDAZOLE 500 MG PREMIXED 100 ML IVPB SCH ×2 (01:01→09:57)
[2017-04-16] MEDS ORDERED: NOREPINEPHRINE BITARTRATE 4 MG/4 ML ML IV ONE ×2 (02:30→10:27)
[2017-04-16] MEDS: PIPERACILLIN/TAZOB 3.375 GM/50 ML PRE-DOCKED IVPB SCH ×2 (02:41→08:06)
[2017-04-16] MEDS: HYDROCORTISONE SOD SUCCINATE 100 MG/2 ML VIAL IVPB SCH (05:33)
[2017-04-16] MEDS: METHADONE HCL 40 MG DISPERSABLE TABLET PO SCH (05:33)
[2017-04-16 05:47] VITALS: BP 48/15
[2017-04-16 06:24] LABS: MCHC 28.1 g/dl (32.0-36.0); MEAN CELL VOLUME 103.4 fl (80-96); MEAN PLT VOLUME 8.4 fl (7.5-11.1); PLATELET COUNT 411 K/MM3 (134-434); RDW 17.9 % (11.6-15.6); WHITE BLOOD COUNT 23.4 K/mm3 (4.0-10.0)
[2017-04-16] MEDS: INSULIN SLIDING SCALE (NOVOLOG) 1 VIAL SQ SCH (06:29)
[2017-04-16 06:48] LABS: ANION GAP 25 (8-16); BILIRUBIN,TOTAL 0.7 mg/dL (0.2-1.0); CALCIUM 7.6 mg/dL (8.5-10.1); CO2 6 mmol/L (21-32); CREATININE 1.1 mg/dL (0.55-1.02); GLUCOSE,RANDOM 145 mg/dL (74-106)
[2017-04-16 07:01] LABS: ALK PHOS 227 U/L (45-117)
[2017-04-16 07:03] LABS: ALBUMIN 0.7 g/dl (3.4-5.0); SGOT/AST 4603 U/L (15-37); SGPT/ALT 838 U/L (12-78); TOT PROT 2.8 g/dl (6.4-8.2)
[2017-04-16 07:32] LABS: TOTAL CELLS COUNTED 100
[2017-04-16] MEDS ORDERED: DEXTROSE 50%-WATER - 25 GM/50 ML VIAL IVPUSH ONE (07:45)
[2017-04-16] MEDS ORDERED: SODIUM POLYSTYRENE SULFONATE 15 GM/60 ML BOTTLE PO ONE (07:46)
[2017-04-16] MEDS: PHENYLEPHRINE HCL 20,000 MCG in SODIUM CHLORIDE 248 ML IVPB SCH ×3 (07:54→10:41)
--- NOTE | 2017-04-16 08:07 | PN ---
Physical Exam: SUBJECTIVE: Patient seen and examined by me - Pt hypotensive to 40s systolic. No palpable pulses. Fixed pupils. No brainstem reflexes on exam. Late AM - Pt w/ asystole. Declared on 11:37AM OBJECTIVE: Vital Signs Intake & Output 04/13/17 04/14/17 04/15/17 04/16/17 23:59 23:59 23:59 23:59 Intake Total 053 061 9984.3 5501.6 Output Total 3100 400 Balance 482 005 4566.3 5101.6 Weight 57.606 kg 56.518 kg 56.336 kg 59.647 kg Period Temp Pulse Resp BP Sys/Roach Pulse Ox Last 24 Hr 95.4 F-99.0 F 105-150 14-29 43-97/15-50 82-100 EYES: Pupils dilated, fixed, non-reactive. Corneal reflex absent NECK: Faintly palpable carotid pulse. LUNGS: ETT tube in place, mechanical ventilation sounds HEART: RRR, S1, S2 without m/c/g/r Abdomen: No BS, soft, midline laparotomy incision site. EXTREMITIES: No palpable pulses in all four extremities. Diffuse anasarca NEUROLOGICAL: Corneal reflex, gag, cough reflex not present. Negative babinski' s BL. Laboratory Results - last 24 hr CBC, BMP 04/16/17 05:00 04/16/17 05:00 04/15/17 04/15/17 04/15/17 09:41 09:41 09:41 WBC 11.4 H D RBC 3.97 Hgb 11.5 D Hct 36.3 D MCV 91.4 MCH 29.0 MCHC 31.7 L RDW 17.8 H Plt Count 595 H D MPV 8.2 Total Counted Neutrophils % 88.8 H Neutrophils % (Manual) Band Neuts % (Manual) Lymphocytes % 8.2 D Lymphocytes % (Manual) Monocytes % 2.4 L Monocytes % (Manual) Eosinophils % 0.1 D Basophils % 0.5 Puncture Site ABG pH ABG pCO2 at Pt Temp ABG pO2 at Pt Temp ABG HCO3 ABG O2 Sat (Measured) ABG O2 Content ABG Base Excess Vu Test O2 Delivery Device Oxygen Flow Rate Mechanical Rate PEEP Sodium 137 Potassium 4.3 Chloride 101 Carbon Dioxide 17 L D Anion Gap 19 H BUN 12 D Creatinine 0.6 D Creat Clearance w eGFR Y POC Glucometer Random Glucose 179 H Lactic Acid 8.4 H* Calcium 8.3 L Total Bilirubin 0.9 AST 28 D ALT 27 D Alkaline Phosphatase 302 H Total Protein 5.9 L Albumin 1.9 L 04/15/17 04/15/17 04/15/17 09:41 11:35 12:10 WBC RBC Hgb Hct MCV MCH MCHC RDW Plt Count MPV Total Counted Neutrophils % Neutrophils % (Manual) Band Neuts % (Manual) Lymphocytes % Lymphocytes % (Manual) Monocytes % Monocytes % (Manual) Eosinophils % Basophils % Puncture Site Right radial ABG pH 7.30 L ABG pCO2 at Pt Temp 30.1 L ABG pO2 at Pt Temp 272.0 H* ABG HCO3 14.5 L* ABG O2 Sat (Measured) 99.7 H* ABG O2 Content 16.6 ABG Base Excess -10.4 L* Vu Test Positive O2 Delivery Device Nrb mask Oxygen Flow Rate 15 Mechanical Rate No PEEP 0.0 Sodium Cancelled Potassium Cancelled Chloride Cancelled Carbon Dioxide Cancelled Anion Gap Cancelled BUN Cancelled Creatinine Cancelled Creat Clearance w eGFR Cancelled POC Glucometer 146 Random Glucose Cancelled Lactic Acid Calcium Cancelled Total Bilirubin Cancelled AST Cancelled ALT Cancelled Alkaline Phosphatase Cancelled Total Protein Cancelled Albumin Cancelled 04/15/17 04/15/17 04/15/17 21:30 21:30 22:17 WBC 19.7 H D RBC 2.99 L D Hgb 8.8 L D Hct 29.5 L D MCV 98.8 H MCH 29.3 MCHC 29.6 L RDW 18.1 H Plt Count 466 H D MPV 8.5 Total Counted Neutrophils % Neutrophils % (Manual) Band Neuts % (Manual) Lymphocytes % Lymphocytes % (Manual) Monocytes % Monocytes % (Manual) Eosinophils % Basophils % Puncture Site ABG pH ABG pCO2 at Pt Temp ABG pO2 at Pt Temp ABG HCO3 ABG O2 Sat (Measured) ABG O2 Content ABG Base Excess Vu Test O2 Delivery Device Oxygen Flow Rate Mechanical Rate PEEP Sodium Potassium Chloride Carbon Dioxide Anion Gap BUN Creatinine Creat Clearance w eGFR POC Glucometer 121.08152 Random Glucose Lactic Acid 18.3 H* Calcium Total Bilirubin AST ALT Alkaline Phosphatase Total Protein Albumin 04/16/17 04/16/17 04/16/17 05:00 05:00 05:00 WBC 23.4 H RBC 2.39 L D Hgb 6.9 L* D Hct 24.7 L D MCV 103.4 H MCH 29.0 MCHC 28.1 L RDW 17.9 H Plt Count 411 MPV 8.4 Total Counted 100 Neutrophils % Y Neutrophils % (Manual) 35 L D Band Neuts % (Manual) 48 H Lymphocytes % Y Lymphocytes % (Manual) 14 D Monocytes % Monocytes % (Manual) 3 L Eosinophils % Basophils % Puncture Site ABG pH ABG pCO2 at Pt Temp ABG pO2 at Pt Temp ABG HCO3 ABG O2 Sat (Measured) ABG O2 Content ABG Base Excess Vu Test O2 Delivery Device Oxygen Flow Rate Mechanical Rate PEEP Sodium 135 L Potassium 6.7 H* D Chloride 104 Carbon Dioxide 6 L D Anion Gap 25 H BUN 15 D Creatinine 1.1 H D Creat Clearance w eGFR 50.84 POC Glucometer Random Glucose 145 H Lactic Acid 19.1 H* Calcium 7.6 L Total Bilirubin 0.7 D AST 4603 H ALT 838 H D Alkaline Phosphatase 227 H D Total Protein 2.8 L D Albumin 0.7 L D 04/16/17 05:17 WBC RBC Hgb Hct MCV MCH MCHC RDW Plt Count MPV Total Counted Neutrophils % Neutrophils % (Manual) Band Neuts % (Manual) Lymphocytes % Lymphocytes % (Manual) Monocytes % Monocytes % (Manual) Eosinophils % Basophils % Puncture Site ABG pH ABG pCO2 at Pt Temp ABG pO2 at Pt Temp ABG HCO3 ABG O2 Sat (Measured) ABG O2 Content ABG Base Excess Vu Test O2 Delivery Device Oxygen Flow Rate Mechanical Rate PEEP Sodium Potassium Chloride Carbon Dioxide Anion Gap BUN Creatinine Creat Clearance w eGFR POC Glucometer [phone] Random Glucose Lactic Acid Calcium Total Bilirubin AST ALT Alkaline Phosphatase Total Protein Albumin Active Medications Generic Name Dose Route Start Last Admin Trade Name Freq PRN Reason Stop Dose Admin Acetaminophen 650 mg 04/14/17 17:17 04/14/17 23:35 Tylenol - PO 650 mg Q6H PRN Administration FEVER OR PAIN Aripiprazole 20 mg 04/09/17 10:00 04/15/17 09:15 Abilify PO 20 mg DAILY [facility] Administration Benztropine Mesylate 1 mg 04/02/17 10:00 04/15/17 22:09 Cogentin - PO Not Given BID [facility] Calcium Gluconate 1,000 mg 04/16/17 07:46 Calcium Gluconate 10% - IVPB 04/16/17 07:47 ONCE ONE Chlorhexidine Gluconate 15 ml 04/15/17 22:00 04/15/17 22:09 Peridex - MM 15 ml BID [facility] Administration Dextrose 25 gm 04/16/17 07:45 D50w (Vial) - IVPUSH 04/16/17 07:46 NOW ONE Enoxaparin Sodium 60 mg 04/12/17 12:45 04/15/17 22:08 Lovenox - SQ 60 mg BID [facility] Administration Fentanyl 50 mcg 04/15/17 18:32 Sublimaze Injection - IVPUSH 04/18/17 18:33 [id number] PRN PAIN Gabapentin 900 mg 04/02/17 22:00 04/15/17 22:09 Neurontin - PO Not Given HS [facility] Hydrocortisone Sodium Succinate 100 mg 04/15/17 23:30 04/16/17 05:33 Solu-Cortef - IVPB 100 mg TID [facility] Administration Metronidazole 100 mls @ 100 mls/hr 04/15/17 14:30 04/16/17 01:01 Flagyl 500mg Premixed Ivpb - IVPB 100 mls/hr Q8H-IV [facility] Administration Phenylephrine HCl 20,000 mcg/ 250 mls @ 75 mls/hr 04/15/17 14:30 04/16/17 07:54 Sodium Chloride IVPB 225 mls/hr TITR [facility] Administration Protocol 100 MCG/MIN Propofol 100 mls @ 1.69 mls/hr 04/15/17 16:15 04/15/17 16:00 Diprivan - IV 1.69 mls/hr TITR [facility] Administration Protocol 5 MCG/KG/MIN Norepinephrine Bitartrate 8, 500 mls @ 30 mls/hr 04/15/17 16:15 04/16/17 00:30 000 mcg/ Dextrose IV 150 mls/hr TITR [facility] Administration Protocol 8 MCG/MIN Fentanyl 500 mcg/ Dextrose 100 mls @ 6 mls/hr 04/15/17 19:30 04/15/17 20:30 IJ 6 mls/hr TITR [facility] Administration 30 MCG/HR Lactated Ringer's 1,000 mls @ 150 mls/hr 04/16/17 00:15 04/16/17 00:00 Lactated Ringers Solution IV 150 mls/hr ASDIR [facility] Administration Insulin Aspart 1 vial 04/02/17 07:00 04/16/17 06:29 Novolog Vial Sliding Scale - SQ 4 units ACHS [facility] Administration Protocol Insulin Human Regular 10 units 04/16/17 07:45 Novolin R Vial *For Ivpush Or Iv Drip Only* IVPUSH 04/16/17 07:46 ONCE ONE Lisinopril 20 mg 04/02/17 10:00 04/15/17 09:15 Prinivil PO 20 mg DAILY [facility] Administration Methadone HCl 80 mg 04/04/17 06:00 04/16/17 05:33 Dolophine - PO Not Given DAILY@0600 [facility] Ondansetron HCl 4 mg 04/02/17 15:58 04/05/17 17:45 Zofran Injection IVPB 4 mg Q4H PRN Administration NAUSEA AND/OR VOMITING Pantoprazole Sodium 20 mg 04/02/17 10:00 04/15/17 09:15 Protonix - PO 20 mg DAILY [facility] Administration Piperacillin Sod/Tazobactam Sod 3.375 gm 04/15/17 15:00 04/16/17 02:41 Zosyn 3.375gm Ivpb (Pre-Docked) IVPB 3.375 gm Q6H-IV [facility] Administration Protocol Simethicone 80 mg 04/14/17 17:18 04/14/17 21:15 Mylicon - PO 80 mg Q4H PRN Administration gas Sodium Polystyrene Sulfonate 30 gm 04/16/17 07:46 Kayexalate - PO 04/16/17 07:47 ONCE ONE Microbiology No recent micro results CXR: - Notable for gas under diaphragm ASSESSMENT/PLAN: Pt asystolic and declared at bedside at 11:37AM, still with active neosyn, levophed gtts and mechanical ventilation. Was maintained on fentanyl gtt for pain control until expiration. Sister notified via telephone. Wishes to see pt before removal from ICU. Primary care team notified, as well. Kevin Macias, PGY1 pronouncement confirmed by attending, Dr. LINARES Visit type - Emergency Visit Emergency Visit: No - New Patient This patient is new to me today: No - Critical Care Critical Care patient: Yes Total Critical Care Time (in minutes): 15
[2017-04-16] MEDS ORDERED: CALCIUM GLUCONATE 10% - 1,000 MG/10 ML VIAL ONE (08:29)
[2017-04-16] MEDS ORDERED: DEXTROSE 50%-WATER 50 ML DISP.SYRIN ONE (08:32)
[2017-04-16] MEDS: CALCIUM GLUCONATE 10% - 1,000 MG/10 ML VIAL IVPB ONE ×2 (08:33→08:55)
[2017-04-16] MEDS: INSULIN REGULAR HUMAN 100 UNITS/ML *VIAL IVPUSH ONE ×2 (08:36→08:58)
--- NOTE | 2017-04-16 09:42 | OP ---
DATE OF OPERATION: 04/15/2017 PREOPERATIVE DIAGNOSIS: Perforated viscus. POSTOPERATIVE DIAGNOSIS: Perforated viscus secondary to large anterior perforation of the stomach. PROCEDURE: Exploratory laparotomy. SURGEON: Emmanuel De La O MD FLOORING HELPER: Hanane Yañez PA-C OPERATIVE FINDINGS: There was a large perforation of the anterior wall of the stomach. The majority of the stomach was gangrenous along with necrosis of the liver and omentum with clinical tumor implants. There was at least 3 L of free peritoneal fluid and gross food particles within the peritoneal cavity. The rest of the limited exploration was unremarkable. DESCRIPTION OF PROCEDURE: The patient was placed on the operating table in supine position, and having already been intubated in the ICU and a Noguera catheter placed, the patient's abdomen was prepped with ChloraPrep and draped in sterile fashion. A time out was taken. The peritoneal cavity was entered through a midline incision above the umbilicus, and the previously noted findings were observed. All fluid was suctioned out. Fluid was sent for culture and sensitivity. Then, based on the intraoperative findings and the patient's overall status, the abdomen was closed in a single layer with continuous 0 looped Maxon suture. The skin was left open and the wound packed with 1-inch Iodoform gauze and sterile dressings were applied and the patient transferred back to the intensive care unit in critical condition intubated. ESTIMATED BLOOD LOSS: Minimal. DRAINS: None. SPECIMENS: Culture and sensitivity of peritoneal fluid. I, Emmanuel De La O MD, was physically present in the operating room from the time the patient was placed on the operating table until she was transferred back to the surgical intensive care unit in critical condition in my accompaniment. Emmanuel De La O MD FACS /[id number] MTDD
[2017-04-16] MEDS: ARIPiprazole 10 MG TABLET PO SCH (10:00)
[2017-04-16] MEDS: BENZTROPINE MESYLATE 1 MG TABLET (FP) PO SCH (10:00)
[2017-04-16] MEDS: ENOXAPARIN NA (PORCINE) 60 MG/0.6 ML DISP.SYRIN SQ SCH (10:00)
[2017-04-16] MEDS: PANTOPRAZOLE 20 MG TABLET (FP) PO SCH (10:01)
[2017-04-16] MEDS: LISINOPRIL 20 MG TABLET (FP) PO SCH (10:01)
[2017-04-16] MEDS: CHLORHEXIDINE GLUCONATE 0.12% 15ML CUP MM SCH (10:02)
--- NOTE | 2017-04-16 10:31 | PN ---
Progress Note (short form) - Note Progress Note: Attending Surgeon POD #1 In ICU on vent on pressors; non repsonsive abdomen-dressing intact; o/w negative labs reviewed IMP: s/p exlap for perforated viscus PLAN: Supportive tx.; prognosis poor and family aware. Emmanuel De La O MD FACS
[2017-04-16] MEDS: FENTANYL INJECTION 500 MCG in DEXTROSE 5%-WATER - 90 ML IJ SCH (11:11)
--- NOTE | 2017-04-16 12:13 | HOSP ---
Physical Examination Vital Signs: I was called to see patient for unresponsiveness. On exam the patient did not respond to verbal or physical stimuli, and no spontaneous movement was observed. Absent heart and breath sounds for more than 1 minute. Absent peripheral pulses. Pupils were fixed and dilated, corneal reflex was absent. Patient pronounced at 11:37 AM. PCP was notified. Next of kin, family members were notified. Labs: CBC, BMP 04/16/17 05:00 04/16/17 05:00 Visit type - Emergency Visit Emergency Visit: No - New Patient This patient is new to me today: No - Critical Care Critical Care patient: Yes Total Critical Care Time (in minutes): 15
[2017-04-16 12:17] VITALS: TEMP 96.8
--- NOTE | 2017-04-16 12:28 | PN ---
Teaching Attending Note Name of Resident: Kevin Macias ATTENDING PHYSICIAN STATEMENT I saw and evaluated the patient. I reviewed the resident's note and discussed the case with the resident. I agree with the resident's findings and plan as documented. SUBJECTIVE: Pt seen and examined in the ICU. Overnight events noted. Taken to OR for exploratory laparotomy, found to have large anterior perforation of necrotic stomach, gross peritoneal contamination from undigested food and necrotic liver and omentum. Currently intubated, unresponsive on multiple pressors. OBJECTIVE: Last Vital Signs Temp Pulse Resp BP Pulse Ox 96.8 F L 91 H 14 48/15 82 L 04/16/17 10:00 04/16/17 10:41 04/16/17 10:05 04/16/17 03:00 04/15/17 20:00 Intake & Output 04/13/17 04/14/17 04/15/17 04/16/17 23:59 23:59 23:59 23:59 Intake Total 941 934 7663.3 5501.6 Output Total 3100 400 Balance 571 964 5896.3 5101.6 Weight 127 lb 124 lb 9.6 oz 124 lb 3.2 oz 131 lb 8 oz Gen: intubated, unresponsive Heart: RRR Lung: mechanical sounds Abd: distended Ext: + edema CBC, BMP 04/16/17 05:00 04/16/17 05:00 Active Medications Acetaminophen (Tylenol -) 650 mg PO Q6H PRN PRN Reason: FEVER OR PAIN Last Admin: 04/14/17 23:35 Dose: 650 mg Aripiprazole (Abilify) 20 mg PO DAILY [facility] Last Admin: 04/16/17 10:00 Dose: Not Given Benztropine Mesylate (Cogentin -) 1 mg PO BID [facility] Last Admin: 04/16/17 10:00 Dose: Not Given Chlorhexidine Gluconate (Peridex -) 15 ml MM BID [facility] Last Admin: 04/16/17 10:02 Dose: 15 ml Enoxaparin Sodium (Lovenox -) 60 mg SQ BID [facility] Last Admin: 04/16/17 10:00 Dose: Not Given Fentanyl (Sublimaze Injection -) 50 mcg IVPUSH [id number] PRN PRN Reason: PAIN Stop: 04/18/17 18:33 Gabapentin (Neurontin -) 900 mg PO HS [facility] Last Admin: 04/15/17 22:09 Dose: Not Given Hydrocortisone Sodium Succinate (Solu-Cortef -) 100 mg IVPB TID [facility] Last Admin: 04/16/17 05:33 Dose: 100 mg Metronidazole (Flagyl 500mg Premixed Ivpb -) 100 mls @ 100 mls/hr IVPB Q8H-IV [facility] Last Admin: 04/16/17 09:57 Dose: 100 mls/hr Phenylephrine HCl 20,000 mcg/ (Sodium Chloride) 250 mls @ 75 mls/hr IVPB TITR [facility]; 100 MCG/MIN PRN Reason: Protocol Last Admin: 04/16/17 10:41 Dose: 225 mls/hr Propofol (Diprivan -) 100 mls @ 1.69 mls/hr IV TITR [facility]; 5 MCG/KG/MIN PRN Reason: Protocol Last Admin: 04/15/17 16:00 Dose: 1.69 mls/hr Norepinephrine Bitartrate 8, (000 mcg/ Dextrose) 500 mls @ 30 mls/hr IV TITR [facility]; 8 MCG/MIN PRN Reason: Protocol Last Admin: 04/16/17 10:36 Dose: 150 mls/hr Fentanyl 500 mcg/ Dextrose 100 mls @ 6 mls/hr IJ TITR [facility] PRN Reason: 30 MCG/HR Last Admin: 04/16/17 11:11 Dose: 6 mls/hr Lactated Ringer's (Lactated Ringers Solution) 1,000 mls @ 150 mls/hr IV ASDIR [facility] Last Admin: 04/16/17 00:00 Dose: 150 mls/hr Insulin Aspart (Novolog Vial Sliding Scale -) 1 vial SQ ACHS [facility] PRN Reason: Protocol Last Admin: 04/16/17 06:29 Dose: 4 units Lisinopril (Prinivil) 20 mg PO DAILY [facility] Last Admin: 04/16/17 10:01 Dose: Not Given Methadone HCl (Dolophine -) 80 mg PO DAILY@0600 [facility] Last Admin: 04/16/17 05:33 Dose: Not Given Ondansetron HCl (Zofran Injection) 4 mg IVPB Q4H PRN PRN Reason: NAUSEA AND/OR VOMITING Last Admin: 04/05/17 17:45 Dose: 4 mg Pantoprazole Sodium (Protonix -) 20 mg PO DAILY [facility] Last Admin: 04/16/17 10:01 Dose: Not Given Piperacillin Sod/Tazobactam Sod (Zosyn 3.375gm Ivpb (Pre-Docked)) 3.375 gm IVPB Q6H-IV [facility] PRN Reason: Protocol Last Admin: 04/16/17 08:06 Dose: 3.375 gm Simethicone (Mylicon -) 80 mg PO Q4H PRN PRN Reason: gas Last Admin: 04/14/17 21:15 Dose: 80 mg ASSESSMENT AND PLAN: Metastatic Ovarian Ca with Peritoneal Carcinamatosis Pulmonary Embolism Perforated Stomach Septic Shock Acute Respiratory Failure Multiorgan Failure Acute Kidney Injury Lactic Acidosis Elevated LFTs likely Ischemic Injury Anemia - continue supportive care - antibiotics - IVF - pressor support to maintain MAP >65 - monitor urine output, creatinine - trend LFTs, lactate - stress dose steroids - vent support - poor overall prognosis - DNR/DNI critical care time spent in reviewing chart, evaluating patient and formulatin plan 35 min
[2017-04-16 13:09] VITALS: PULSE 89
--- NOTE | 2017-04-16 14:23 | PATH ---
Cytology Non-Gynecological Report Patient Name: SHERITA JOY [facility]. Rec. 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 Castro Westfall M.D. Redd Ngo M.D. Specimen(s) Received A: PERITONEAL FLUID IN 50% ALCOHOL B: PERITONEAL FLUID FRESH Clinical History Ascites, ovarian mass Final Diagnosis A,B. PERITONEAL FLUID: SATISFACTORY FOR EVALUATION. RARE CLUSTERS OF MARKEDLY ATYPICAL CELLS PRESENT (SEE COMMENT). BACKGROUND REACTIVE MESOTHELIAL CELLS, HISTIOCYTES AND MIXED INFLAMMATORY CELLS. Comment: Immunohistochemical stains for BerEP4, CK7 and CK20 were attempted to [facility] cell block A; no atypical cells are seen on the sections stained with the immunostains. Also refer to the prior paracentesis specimen ([id number]). Clinical correlations are suggested. Additional tissue/fluid sampling may be beneficial. Electronically Signed Eh Garza M.D. Gross Description A. Received is a 50 cc of peachy in color fluid in 50% alcohol. One cytofunnel slide and one cell block are made. B. Received is 60 cc of peachy in color fluid fresh. One cytofunnel slide and one cell block are made.
--- NOTE | 2017-04-16 15:41 | PN ---
Teaching Attending Note Name of Resident: Aubrey Stevens ATTENDING PHYSICIAN STATEMENT I saw and evaluated the patient. I reviewed the resident's note and discussed the case with the resident. I agree with the resident's findings and plan as documented. SUBJECTIVE seen at 9 am . OBJECTIVE: intubated , sedated, cyanotic, hypotensive, no corneal , pupillary, or cough reflexes distended abd . no BS . clear lungs on vent ASSESSMENT AND PLAN: 57 y/o unfortunate lady with h/o NIDDM , h/o heroin use on Methadone, who presented with L sided chest pain and was found to have PE, splenic and portal vein thrombosis, and pelvic and pulmonary nodules . hospital stay was complictaed with perforated viscus 1-perforated viscus 2- septic shock 3- PE , prtal vein thrombosis 4- Metastatic cancer PLAn : cont supporitve palliative care Abx, pressors , fluids , and vent support Critical Care Total Critical Care Time (in minutes): 30 Critical Care Statement: The care of this patient involved high complexity decision making to prevent further life threatening deterioration of the patient 's condition and/or to evaluate & treat vital organ system(s) failure or risk of failure.
--- NOTE | 2017-04-16 19:18 | DS ---
Physical Exam: SUBJECTIVE: Patient seen and examined. Unconscious. OBJECTIVE: Vital Signs Period Temp Pulse Resp BP Sys/Roach Pulse Ox Last 24 Hr 95.7 F-97.8 F 89-141 14-15 43-97/15-32 82 PHYSICAL EXAM GENERAL: Sedated, unconscious, cyanotic, hypotensive ENT: pupils fixed and dilated, extraocular movements not intact, scleral icterus , no corneal or cough reflex NECK: supple. LUNGS: Breath sounds equal, clear to auscultation bilaterally, no wheezes, no crackles, no accessory muscle use. HEART: Regular rate and rhythm, S1, S2 without murmur, rub or gallop. ABDOMEN: Distended, No bowel sounds EXTREMITIES: mottled skin on right thigh LABS Laboratory Results - last 24 hr 04/15/17 04/15/17 04/15/17 21:30 21:30 22:17 WBC 19.7 H D RBC 2.99 L D Hgb 8.8 L D Hct 29.5 L D MCV 98.8 H MCH 29.3 MCHC 29.6 L RDW 18.1 H Plt Count 466 H D MPV 8.5 Total Counted Neutrophils % Neutrophils % (Manual) Band Neuts % (Manual) Lymphocytes % Lymphocytes % (Manual) Monocytes % (Manual) Sodium Potassium Chloride Carbon Dioxide Anion Gap BUN Creatinine Creat Clearance w eGFR POC Glucometer [phone] Random Glucose Lactic Acid 18.3 H* Calcium Total Bilirubin AST ALT Alkaline Phosphatase Total Protein Albumin 04/16/17 04/16/17 04/16/17 05:00 05:00 05:00 WBC 23.4 H RBC 2.39 L D Hgb 6.9 L* D Hct 24.7 L D MCV 103.4 H MCH 29.0 MCHC 28.1 L RDW 17.9 H Plt Count 411 MPV 8.4 Total Counted 100 Neutrophils % Y Neutrophils % (Manual) 35 L D Band Neuts % (Manual) 48 H Lymphocytes % Y Lymphocytes % (Manual) 14 D Monocytes % (Manual) 3 L Sodium 135 L Potassium 6.7 H* D Chloride 104 Carbon Dioxide 6 L D Anion Gap 25 H BUN 15 D Creatinine 1.1 H D Creat Clearance w eGFR 50.84 POC Glucometer Random Glucose 145 H Lactic Acid 19.1 H* Calcium 7.6 L Total Bilirubin 0.7 D AST 4603 H ALT 838 H D Alkaline Phosphatase 227 H D Total Protein 2.8 L D Albumin 0.7 L D 04/16/17 05:17 WBC RBC Hgb Hct MCV MCH MCHC RDW Plt Count MPV Total Counted Neutrophils % Neutrophils % (Manual) Band Neuts % (Manual) Lymphocytes % Lymphocytes % (Manual) Monocytes % (Manual) Sodium Potassium Chloride Carbon Dioxide Anion Gap BUN Creatinine Creat Clearance w eGFR POC Glucometer [phone] Random Glucose Lactic Acid Calcium Total Bilirubin AST ALT Alkaline Phosphatase Total Protein Albumin HOSPITAL COURSE: Date of Admission:04/02/17 Patient is a 57 y/o F with history of Diabetes, Hepatitis C, heroin drug use ( on methadone), presented to the ED with left sided chest pain and was found to have Pulmonary Embolus, Portal vein thrombosis, splenic infarct, right adnexal mass (5x2cm), pelvic mass (3.4x1.4cm), mets, Large anterior perforation of necrotic stomach, liver, and omentum s/p exploratory laparotomy. The PE, Portal vein thrombosis, and splenic infarct was managed with Heparin and later changed to Lovenox. Patient had leukocytosis and Sepsis was ruled out because of likely neoplasm as source. Upon incidental finding of masses throughout the body, further workup with paracentesis to localize the primary tumor. 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 Patient later developed a perforated bowel likely from complications of neoplasm and supportive palliative care was initiated with antibiotics, pressors, fluids, and ventilation support. Patient on 04/16/17 Date of Discharge: 04/16/17 Minutes to complete discharge: 45 Discharge Summary Reason For Visit: SPLENIC INFARCT Condition: Good - Instructions Referrals: Katerina Mckee MD [Primary Care Provider] - Disposition: - Home Medications Comprehensive Discharge Medication List: Ambulatory Orders Aripiprazole [Abilify] 20 mg PO HS 12/02/16 Benztropine Mesylate [Cogentin -] 1 mg PO BID 12/02/16 Clonazepam [KlonoPIN] 0.5 mg PO TID 12/02/16 Gabapentin 900 mg PO HS 12/02/16 Metformin HCl [Metformin HCl ER] 1,000 mg PO BID 12/02/16 Methadone [Dolophine -] 80 mg PO DAILY 12/02/16 Omeprazole 20 mg PO DAILY 12/02/16 Polyethylene Glycol 3350 [Miralax (For Bowel Prep) -] 17 gm PO ONCE #1 bottle Sitagliptin Phosphate [Januvia] 100 mg PO DAILY 12/02/16 Amlodipine Besylate 10 mg PO DAILY 04/01/17 Fenofibrate Nanocrystallized [Fenofibrate] 54 mg PO DAILY 04/01/17 Glipizide [Glipizide ER] 10 mg PO BID 04/01/17 Lisinopril [Prinivil] 20 mg PO DAILY 04/01/17 Pravastatin Sodium 20 mg PO DAILY 04/01/17 Sofosbuvir/Velpatasvir [Epclusa 400 mg-100 mg Tablet] 1 each PO DAILY 04/01/17 Insulin Glargine,Hum.rec.anlog [Basaglar Kwikpen U-100] 15 unit SQ HS 04/03/17 Quetiapine Fumarate [Seroquel] 300 mg PO HS 04/03/17 Sertraline HCl [Zoloft] 100 mg PO DAILY 04/03/17 This patient is new to me today: No Emergency Visit: Yes ED Registration Date: 04/02/17 Care time: The patient presented to the Emergency Department on the above date and was hospitalized for further evaluation of their emergent condition. Critical Care patient: Yes Total Critical Care Time (in minutes): 45 Critical Care Statement: The care of this patient involved high complexity decision making to prevent further life threatening deterioration of the patient 's condition and/or to evaluate & treat vital organ system(s) failure or risk of failure. - Discharge Referral Referred to [facility] No
== END 2017-04-16 11:40 | disposition expired | DRG 710 ==
LOC: JER 15:26 → SUPCPDRO 15:26 → JERBED 23:48 → UNDOADMIN 23:48 → JERBED 23:51 → J2W 04-02 02:16 → J4W 04-06 20:45 → JICU 04-15 13:55
PROVIDERS: ADMIT Internal Medicine; ATTEND Internal Medicine
PROC: 0W9G3ZZ Drainage of Peritoneal Cavity, Percutaneous Approach (ICD-10-PCS; 2017-04-06)
PROC: 5A1945Z Respiratory Ventilation, 24-96 Consecutive Hours (ICD-10-PCS; 2017-04-15)
PROC: 02HV33Z Insertion of Infusion Device into Superior Vena Cava, Percutaneous Approach (ICD-10-PCS; 2017-04-15)
PROC: 0WJP0ZZ Inspection of Gastrointestinal Tract, Open Approach (ICD-10-PCS; 2017-04-15)
PROC: 0CHY7BZ Insertion of Airway into Mouth and Throat, Via Natural or Artificial Opening (ICD-10-PCS; principal; 2017-04-15 17:00)
DX: A41.9 Sepsis, unspecified organism (principal); I74.8 Embolism and thrombosis of other arteries; R65.21 Severe sepsis with septic shock; K63.1 Perforation of intestine (nontraumatic); J96.00 Acute respiratory failure, unspecified whether with hypoxia or hypercapnia; I26.99 Other pulmonary embolism without acute cor pulmonale; I81 Portal vein thrombosis; J18.9 Pneumonia, unspecified organism; N17.9 Acute kidney failure, unspecified; R18.0 Malignant ascites; E87.2 Acidosis; K76.89 Other specified diseases of liver; F11.20 Opioid dependence, uncomplicated; C80.1 Malignant (primary) neoplasm, unspecified; K72.90 Hepatic failure, unspecified without coma; D73.5 Infarction of spleen; E11.9 Type 2 diabetes mellitus without complications; B19.20 Unspecified viral hepatitis C without hepatic coma; F17.210 Nicotine dependence, cigarettes, uncomplicated; R63.4 Abnormal weight loss; Z68.24 Body mass index [BMI] 24.0-24.9, adult; J45.909 Unspecified asthma, uncomplicated; R91.8 Other nonspecific abnormal finding of lung field; Z79.84 Long term (current) use of oral hypoglycemic drugs; R19.7 Diarrhea, unspecified; R59.1 Generalized enlarged lymph nodes; R11.0 Nausea; B18.2 Chronic viral hepatitis C; K59.00 Constipation, unspecified; N70.11 Chronic salpingitis; R09.02 Hypoxemia; Z53.1 Procedure and treatment not carried out because of patient's decision for reasons of belief and group pressure; K31.89 Other diseases of stomach and duodenum
CPT/HCPCS: 31500; 36415; 36600; 71010-TC; 71020-TC; 71250-TC; 74000-TC; 74177-TC; 76705-TC; 76830-TC; 76942-TC; 80048; 80053; 80061; 80076; 81003; 82042; 82105; 82140; 82150; 82378; 82803; 82945; 83036; 83605; 83615; 83735; 84100; 84157; 84484; 85025; 85027; 85610; 85730; 86301; 86304; 87040; 87045; 87046; 87070; 87075; 87086; 87102; 87116; 87177; 87186; 87205; 87206; 87209; 87210; 87324; 87389; 87449; 87899; 88108; 88305-TC; 88341-TC; 89051; 93005; 93010; 93306-TC; 93970-TC; 94002; 94640; 94761; 97116-GP; 97161-GP; 99285-25; J1644